=== PATIENT | male | born 1950 | race Caucasian/White ===

== ENCOUNTER → 2016-06-07 | Outpatient (REF) | payer OTHER | LOC: M LAB REF 16:13 | PROVIDERS: ATTEND Surgery | DX: I87.312 Chronic venous hypertension (idiopathic) with ulcer of left lower extremity (principal) ==

== ENCOUNTER → 2016-07-12 | Outpatient (REF) | payer OTHER ==
[~2016-07-12] MED LIST: BACT800T5 PO; FOLI400T PO; FOLI800C PO; LEVA750T PO; LINE600T PO; LOSA25TA8; LOSA25TA8 PO; MULT1TAB10 PO; OXYC1TAB23 PO; PENT400T47; PENT400T47 PO; RISATAB3 PO; SANT250O8 TOP; SENN1TAB2 PO; TRAM50TA2; TRAM50TA2 PO; VITA-122 PO; VITA400T PO; VITMTA PO; XARE15TA PO; XARE20TA; trental
== END ==
LOC: M LAB REF 16:18
PROVIDERS: ATTEND Surgery
DX: I87.312 Chronic venous hypertension (idiopathic) with ulcer of left lower extremity (principal)

== ENCOUNTER 2016-07-14 07:29 | Inpatient (IN) | payer OTHER ==
[~2016-07-14] VITALS: Ht 172.7 cm; Wt 99.6 kg
[2016-07-14] MEDS ORDERED: TRAM50TA2 (07:54)
[2016-07-14] MEDS ORDERED: trental (07:55)
[2016-07-14] MEDS ORDERED: LOSA25TA8 (07:55)
[2016-07-14] MEDS ORDERED: FOLI800C PO (07:55)
[2016-07-14] MEDS ORDERED: PENT400T47 (07:55)
[2016-07-14] MEDS ORDERED: XARE20TA (07:55)
[2016-07-14] MEDS ORDERED: MULT1TAB10 PO (07:55)
[2016-07-14] MEDS ORDERED: VITA400T PO (07:55)
[2016-07-14 08:55] LABS: BASO % 0.6 % (0.0-1.0); EOS # 0.1 K/mm3 (0.0-0.50); EOS % 1.2 % (0.0-3.0); LARGE UNSTAINED CELL # 0.1 K/mm3 (0.0-0.4); LARGE UNSTAINED CELL % 1.3 % (0.0-4.0); LYMPH # 1.6 K/mm3 (1.5-4.5); LYMPH % 22.1 % (24.0-44.0); MEAN CORPUSCULAR HEMOGLOBIN 32.6 pg (27.0-33.0); MEAN CORPUSCULAR HGB CONC 35.6 g/dl (32.0-36.5); MEAN CORPUSCULAR VOLUME 91.6 fl (80.0-96.0); MONO # 0.4 K/mm3 (0.0-0.8); NEUTROPHILS # 4.9 K/mm3 (1.8-7.7); NEUTROPHILS % 69.7 % (36.0-66.0); PLATELET COUNT, AUTOMATED 180 k/mm3 (150-450)
[2016-07-14 08:58] LABS: INR 1.11
[2016-07-14] MEDS ORDERED: LevoFLOXacin IV 750 MG in APPROPRIATE DILUENT 1 EA IV ONE (09:00)
[2016-07-14 09:32] LABS: ERYTHROCYTE SEDIMENTATION RATE 7 mm/hr (0-20)
[2016-07-14] MEDS ORDERED: TRAM50TA2 PO (09:50)
[2016-07-14] MEDS ORDERED: VITA-122 PO (09:50)
[2016-07-14] MEDS ORDERED: PENT400T47 PO (09:50)
[2016-07-14] MEDS ORDERED: FOLI400T PO (09:50)
[2016-07-14] MEDS ORDERED: LOSA25TA8 PO (09:50)
[2016-07-14] MEDS ORDERED: SANT250O8 TOP (09:50)
[2016-07-14] MEDS ORDERED: XARE15TA PO (09:50)
[2016-07-14] MEDS ORDERED: VITMTA PO (09:50)
[2016-07-14 10:14] LABS: ANION GAP 9 MEQ/L (8-16); BLOOD UREA NITROGEN 19 MG/DL (7-18); CALCIUM LEVEL 8.7 MG/DL (8.8-10.2); CARBON DIOXIDE LEVEL 23 MEQ/L (21-32); CHLORIDE LEVEL 111 MEQ/L (98-107); CREATININE FOR GFR 0.84 MG/DL (0.70-1.30); GLOMERULAR FILTRATION RATE > 60.0 (>49); GLUCOSE, FASTING 106 MG/DL (80-110); SODIUM LEVEL 143 MEQ/L (136-145)
[2016-07-14] MEDS ORDERED: ACETAMINOPHEN TAB 650MG DOSE (2X325MG) PO PRN (12:30)
[2016-07-14] MEDS: traMADol 50 MG TAB PO PRN ×2 (13:36→22:49)
[2016-07-14 13:41] VITALS: BP 185/97
--- NOTE | 2016-07-14 14:24 | REP ---
MRI LEFT LOWER LEG WITH AND WITHOUT CONTRAST: TECHNIQUE: Multiple T1 and T2-weighted images in various planes followed by T1 fat sat images with the intravenous administration of 18 mL of gadolinium. There is ill-defined superficial soft tissue edema of the medial calf with associated ill-defined enhancement. Multiple venous varicosities are seen in this region. Findings are consistent with cellulitis. No abscess collection is seen. Adjacent tibia and fibula demonstrate normal marrow signal with no bone marrow edema or enhancement. There is no MR evidence of osteomyelitis. IMPRESSION: Cellulitis of the mid calf medially without evidence of abscess or osteomyelitis. Signed by Julio César Boothe MD 07/14/2016 04:43 P
--- NOTE | 2016-07-14 14:27 | REP ---
MRA ABDOMINAL AORTA AND BILATERAL LOWER EXTREMITIES: MRA abdominal aorta and bilateral lower extremities performed utilizing 3D [id number] image with MIP reconstructions, following the intravenous administration of 18 mL of gadolinium. Abdominal aorta is normal in caliber with no aneurysm. Proximal renal arteries demonstrate no significant stenosis. There does not appear to be significant stenosis of the celiac or superior mesenteric arteries. Both common iliac arteries are widely patent. Internal and external iliac arteries, as well as common femoral arteries appear widely patent. There is mild narrowing at the origin of both superficial femoral arteries. No significant narrowing is seen of either superficial femoral artery. Popliteal arteries are widely patent. There is narrowing at the origin of both anterior tibial arteries, but both of those arteries are patent to at least the ankle. Right peroneal artery is patent to at least the level of just above the ankle. Right posterior tibial artery is patent into the foot. Left peroneal artery appears to be patent to at least the distal third of the calf. Left posterior tibial artery is patent into the foot. IMPRESSION: No significant arterial stenosis in either lower extremity down through the popliteal arteries. Trifurcation vessels appear to be patent to at least the distal third of the calf with both posterior tibial arteries definitely entering each respective foot. Signed by Julio César Boothe MD 07/14/2016 04:43 P
[2016-07-14] MEDS: FOLIC ACID 1 MG TAB PO SCH (14:33)
[2016-07-14] MEDS: RIVAROXABAN 15 MG TAB (XARELTO) PO SCH (14:33)
[2016-07-14] MEDS: LOSARTAN 25 MG TAB PO SCH (14:34)
[2016-07-14] MEDS: MULTIVITAMINS/MINERALS THERAP 1 TAB PO SCH (14:34)
[2016-07-14] MEDS: SENOKOT S TAB PO SCH ×2 (14:34→21:23)
[2016-07-14] MEDS: VITAMIN D 1,000 INTERNATIONAL UNITS TABLET PO SCH (14:34)
[2016-07-14] MEDS: SANTYL OINT 30GM TOP SCH (14:35)
[2016-07-14] MEDS: CEFTAROLINE FOSAMIL 600 MG in D5W MINI-BAG PLUS 50 ML IV SCH (14:36)
[2016-07-14 16:00] VITALS: BP 152/80
[2016-07-14] MEDS: PENTOXIFYLLINE 400 MG TAB PO SCH ×2 (16:19→21:23)
--- NOTE | 2016-07-14 18:04 | HPE ---
DATE OF ADMISSION: 07/14/2016 PRIMARY CARE PROVIDER: AUGUSTINE Truong BSW: Kike Calero MD CHIEF COMPLAINT: Left lower calf chronic ulcer that is not healing, swollen. HISTORY OF PRESENT ILLNESS: This is a 65-year-old male patient with underlying medical history of Factor V Leiden, sees Dr. 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 Patient had chronic left lower extremity venous stasis ulcers for the past 30 years, treated by Dr. Calero, has been getting progressively worse recently. Dr. Calero attempted for aspiration recently and has not improved. Patient has been receiving outpatient antibiotics with Bactrim, has not improved, and also reported receiving collagenase, instructed to do pressure offloading. The patient also reported subjective fever at home. Subsequently, instructed by Dr. Calero to present to the hospital for further care. Patient reports subjective fever. Reported no significant purulent drainage. Does report worsening pain. Denies any chest pain, pressure or discomfort, shortness of breath, nausea or vomiting. ALLERGIES: LISINOPRIL. PAST MEDICAL HISTORY: 1. Factor V Leiden disease. 2. DVT / PE. 3. History of left knee injury with skin grafts and also ligation of left lower extremity veins. 4. Venous stasis ulcers and disease. 5. Hypertension. 6. IVC filters. PAST SURGICAL HISTORY: Skin graft of left lower extremity, vein ligation 2009, tonsillectomy, carpal tunnel surgery bilateral. FAMILY HISTORY: Father age 69 with cancer. Mother age 69 with also cancer. SOCIAL HISTORY: Patient does not smoke. Drinks wine about once a week, 1-2 cups. Denies any illicit drug use. REVIEW OF SYSTEMS: 11-point review of systems negative except for those mentioned in history of present illness (HPI). HOME MEDICATIONS: - vitamin D 1000 units by mouth daily - collagenase topical daily - folic acid 400 mcg by mouth daily - losartan 25 mg by mouth daily - multivitamin one tablet by mouth daily - pentoxifylline 400 mg by mouth three times a day - Xarelto 15 mg by mouth daily - tramadol 50 mg by mouth every 8 hours as needed PHYSICAL EXAMINATION: VITAL SIGNS: Temperature 97.7, pulse 69, respirations 18, blood pressure 155/92, pulse oximetry 97% on room air. GENERAL: Patient alert and oriented times three, in no acute distress. HEENT: Normocephalic, atraumatic. PULMONARY: Bilateral clear to auscultation. CARDIAC: Regular rate and rhythm, normal S1, S2. ABDOMEN: Soft, nontender, nondistended. EXTREMITIES: Left lower extremity scar noticed with a 5 cm diameter ulcer with surrounding erythema and induration measuring diameter of 15 cm. Dorsalis pedis/posterior tibial (DP/PT) pulses intact bilateral. LABORATORY DATA: WBC 7, hemoglobin and hematocrit 14.8/41.6, platelets 180. Chemistry: Sodium 143, potassium 4, chloride 111, bicarbonate 23, BUN 19, creatinine 0.86, lactic acid 1.1, C-reactive protein negative. Previous wound culture positive for Escherichia (E) coli. MRI of the extremity shows cellulitis medially without evidence of abscess of osteomyelitis. MRA of the lower extremity within normal limits. ASSESSMENT AND PLAN: This is a 65-year-old male patient with underlying medical history of Factor V Leiden disease with history of pulmonary embolus (PE) and deep venous thrombosis (DVT), venous stasis ulcers, hypertension, carpal tunnel, admitted for left lower extremity cellulitis, with failure of outpatient treatment. 1. Left lower extremity cellulitis and ulcers. Failed outpatient treatment by Dr. Calero. Antibiotics on Teflaro for now. Followup cultures, blood culture, wound culture. C-reactive protein, erythrocyte sedimentation rate (ESR) negative. MRI negative for osteomyelitis. Collagenase with Alginate foam as per Dr. Calero. Case discussed with Dr. Calero. Recommending antibiotics for 2 days with outpatient followup. MRA to appreciate arterial circulation which is intact. 2. History of Factor V Leiden with history of deep venous thrombosis (DVT) and pulmonary embolus (PE). Continue Xarelto. Continue current medication. 3. Hypertension. Continue current medication. Monitor blood pressure, slightly high due to pain, will adjust if needed. 4. Deep venous thrombosis (DVT) prophylaxis. Patient on Xarelto for treatment of deep venous thrombosis (DVT)/pulmonary embolus (PE). Patient also has an inferior vena cava (IVC) filter. DISPOSITION: Pending clinical improvement. Patient admitted for observation.
[2016-07-14 21:00] VITALS: BP 144/80
[2016-07-14] MEDS ORDERED: KETOROLAC 30 MG/ML VIAL (J1885) IV ONE (21:45)
[2016-07-15 00:50] VITALS: BP 140/76
[2016-07-15] MEDS: CEFTAROLINE FOSAMIL 600 MG in D5W MINI-BAG PLUS 50 ML IV SCH ×2 (00:59→13:57)
[2016-07-15] MEDS: NORCO, ANEXSIA 5/325MG TABLET (HYDROcodone/ACETAMINOPHEN) PO PRN ×5 (02:17→21:41)
[2016-07-15 06:40] LABS: MEAN CORPUSCULAR HEMOGLOBIN 31.9 pg (27.0-33.0); MEAN CORPUSCULAR HGB CONC 34.6 g/dl (32.0-36.5); RED CELL DISTRIBUTION WIDTH 13.1 % (11.5-14.5); WHITE BLOOD COUNT 6.4 K/mm3 (4.0-10.0)
[2016-07-15 06:53] LABS: ANION GAP 3 MEQ/L (8-16); BLOOD UREA NITROGEN 17 MG/DL (7-18); CALCIUM LEVEL 8.8 MG/DL (8.8-10.2); CARBON DIOXIDE LEVEL 31 MEQ/L (21-32); CHLORIDE LEVEL 109 MEQ/L (98-107); CREATININE FOR GFR 0.98 MG/DL (0.70-1.30); GLOMERULAR FILTRATION RATE > 60.0 (>49); GLUCOSE, FASTING 98 MG/DL (80-110); MAGNESIUM LEVEL 2.1 MG/DL (1.8-2.4); POTASSIUM SERUM 4.1 MEQ/L (3.5-5.1); SODIUM LEVEL 143 MEQ/L (136-145)
[2016-07-15 08:00] VITALS: BP 138/86
[2016-07-15] MEDS: PENTOXIFYLLINE 400 MG TAB PO SCH ×3 (10:23→20:24)
[2016-07-15] MEDS: traMADol 50 MG TAB PO PRN (10:23)
[2016-07-15] MEDS: FOLIC ACID 1 MG TAB PO SCH (10:23)
[2016-07-15] MEDS: LOSARTAN 25 MG TAB PO SCH (10:27)
[2016-07-15] MEDS: RIVAROXABAN 15 MG TAB (XARELTO) PO SCH (10:27)
[2016-07-15] MEDS: MULTIVITAMINS/MINERALS THERAP 1 TAB PO SCH (10:27)
[2016-07-15] MEDS: SENOKOT S TAB PO SCH ×2 (10:27→20:25)
[2016-07-15] MEDS: VITAMIN D 1,000 INTERNATIONAL UNITS TABLET PO SCH (10:27)
[2016-07-15] MEDS: SANTYL OINT 30GM TOP SCH (10:28)
[2016-07-15] MEDS ORDERED: MORPHINE 2 MG/ML 1ML SYRINGE IV ONE (14:15)
[2016-07-15] MEDS ORDERED: LINE600T PO (15:35)
[2016-07-15] MEDS ORDERED: LINEZOLID 600MG TABLET (ZYVOX) PO SCH ×2 (15:45→21:00)
[2016-07-15 16:00] VITALS: BP 140/78
[2016-07-15] MEDS ORDERED: VANCOMYCIN HCL 1,000 MG, VIAL MATE ADAPTER 1 EACH in D5W 250 ML IV ONE (16:00)
[2016-07-15] MEDS: LACTOBACILLUS ACIDOPHILUS CAP (BACID) PO SCH ×2 (16:23→20:24)
[2016-07-15] MEDS: CEFEPIME HCL 2 GM in D5W MINI-BAG PLUS 50 ML IV SCH (17:35)
--- NOTE | 2016-07-15 18:50 | PHACANCOPD ---
PHARMACY VANCOMYCIN DOSING Pt Demographics Demographics Patient Age:65 , Weight:94.400 , Gender: male Adjusted Body Weight Date: 07/15/16, Adjusted Body Weight: [78] Kg Events Past 24 Hours Events Past 24 Hours: NO: Dialysis, Diuretic Therapy, Change in CrCl, Fever, Elevation in WBC, Pending Diagnostics, Pending Procedures, Other Vancomycin Vancomycin indication: MRSA cellulitis Vancomycin Target Ranges: 15-20 mcg/ml Vancomycin Load Y/N: Yes Load Dose Date Time Vancomycin Load Dose: 1000mg Date: 07/15 Time: 16:00 Vancomycin Dose Date: 07/15/16. Current Vancomycin Dose: [1g q8h @20] Intermittent Dosing?: No Labs Labs Item Value Date Time White Blood Count 7.0 K/mm3 07/14/16 0832 White Blood Count 6.4 K/mm3 07/15/16 0620 Creatinine 0.84 MG/DL 07/14/16 0832 Creatinine 0.98 MG/DL 07/15/16 0620 C-Reactive Protein, Quantitative < 0.30 MG/DL 07/14/16 0832 Micro Microbiology 07/14/16 Blood Culture - Preliminary, Resulted No growth after 24 hours . All specim... 07/14/16 Blood Culture - Preliminary, Resulted No growth after 24 hours . All specim... 07/14/16 Gram Stain - Final, Resulted 07/14/16 Wound Culture, Resulted Pending Creatinine Clearance Date:07/15/16. Creatinine Clearance: [84 ml/min - using adjusted BW]. Assessment and Plan Maintaining Current Dose?: Yes Reason for dose change: No Dose Change Pharmacist Note Pharmacist Note Date: 07/15/16. Pharmacist note: pt was admitted for left leg cellulitis/ulcers and started on ceftaroline yesterday. Pt failed outpatient po bactrim, wound cultures from 07/12 grew E. coli (resistant to bactrim) and MRSA (vanco BETH = 1) . Pt was subsequently changed to Cefepime and Vancomycin today after having worsening redness of his wound after 3 doses of Ceftaroline. Pt has not been on Vancomycin at our facility in the past. I have ordered Vanco IV 1g this afternoon, followed by 1g IV q8h to start 4 hours later. I will continue to monitor and order a trough as necessary. Manjit Lewis Pharm.D. Jul 15, 2016 18:50
[2016-07-15] MEDS: MORPHINE 2 MG/ML 1ML SYRINGE IV PRN ×2 (19:00→23:00)
[2016-07-15 20:00] VITALS: BP 142/72
[2016-07-15] MEDS: VANCOMYCIN HCL 1,000 MG, VIAL MATE ADAPTER 1 EACH in D5W 250 ML IV SCH (20:24)
[2016-07-16 01:00] VITALS: BP 132/71
[2016-07-16] MEDS: NORCO, ANEXSIA 5/325MG TABLET (HYDROcodone/ACETAMINOPHEN) PO PRN ×5 (01:57→21:50)
[2016-07-16] MEDS: MORPHINE 2 MG/ML 1ML SYRINGE IV PRN ×5 (04:34→23:57)
[2016-07-16] MEDS: VANCOMYCIN HCL 1,000 MG, VIAL MATE ADAPTER 1 EACH in D5W 250 ML IV SCH ×3 (04:35→20:47)
[2016-07-16] MEDS: CEFEPIME HCL 2 GM in D5W MINI-BAG PLUS 50 ML IV SCH ×2 (06:19→17:21)
[2016-07-16 06:55] LABS: MEAN CORPUSCULAR HEMOGLOBIN 31.3 pg (27.0-33.0); MEAN CORPUSCULAR HGB CONC 33.7 g/dl (32.0-36.5); MEAN CORPUSCULAR VOLUME 92.8 fl (80.0-96.0); RED CELL DISTRIBUTION WIDTH 13.2 % (11.5-14.5); WHITE BLOOD COUNT 6.4 K/mm3 (4.0-10.0)
[2016-07-16 07:08] LABS: ANION GAP 6 MEQ/L (8-16); BLOOD UREA NITROGEN 12 MG/DL (7-18); CALCIUM LEVEL 8.8 MG/DL (8.8-10.2); CARBON DIOXIDE LEVEL 25 MEQ/L (21-32); CHLORIDE LEVEL 112 MEQ/L (98-107); CREATININE FOR GFR 0.83 MG/DL (0.70-1.30); GLOMERULAR FILTRATION RATE > 60.0 (>49); GLUCOSE, FASTING 105 MG/DL (80-110); POTASSIUM SERUM 4.1 MEQ/L (3.5-5.1); SODIUM LEVEL 143 MEQ/L (136-145)
[2016-07-16 08:00] VITALS: BP 132/68
[2016-07-16] MEDS: LACTOBACILLUS ACIDOPHILUS CAP (BACID) PO SCH ×3 (09:39→20:47)
[2016-07-16] MEDS: MIRALAX *UNIT DOSE* 17GM PACKET PO SCH (09:39)
[2016-07-16] MEDS: MULTIVITAMINS/MINERALS THERAP 1 TAB PO SCH (09:40)
[2016-07-16] MEDS: SENOKOT S TAB PO SCH ×2 (09:40→20:47)
[2016-07-16] MEDS: FOLIC ACID 1 MG TAB PO SCH (09:40)
[2016-07-16] MEDS: RIVAROXABAN 15 MG TAB (XARELTO) PO SCH (09:40)
[2016-07-16] MEDS: VITAMIN D 1,000 INTERNATIONAL UNITS TABLET PO SCH (09:40)
[2016-07-16] MEDS: PENTOXIFYLLINE 400 MG TAB PO SCH ×3 (09:41→20:47)
[2016-07-16] MEDS: LOSARTAN 25 MG TAB PO SCH (09:41)
[2016-07-16] MEDS: SANTYL OINT 30GM TOP SCH (09:46)
--- NOTE | 2016-07-16 13:44 | IPN ---
DATE: 07/16/2016 Patient continued to report left lower extremity pain. Seems to be mildly improved. Denies any chest pain, pressure or discomfort, shortness of breath. Wound dressing was opened showing purulent drainage that is worse than before. Erythema seemed not to be spreading, definitely not any worse. VITAL SIGNS: Temperature 98.2, pulse 50, respirations 18, blood pressure 132/71, pulse oximetry 97% on room air. LABORATORY: WBC 6.4, hemoglobin and hematocrit (H and H) 13.8 over 40.8 and platelets 178. Chemistry: Sodium 143, potassium 4.1, chloride 112, bicarbonate 25, BUN 12, creatinine 0.83. Cultures positive for methicillin-resistant Staphylococcus aureus (MRSA) and E. Coli. PHYSICAL EXAMINATION: GENERAL: Patient alert and oriented times three in no acute distress. HEENT: Normocephalic, atraumatic. PULMONARY: Bilateral clear to auscultation. CARDIAC: Regular rate and rhythm. Normal S1, S2. ABDOMEN: Soft. Nontender. Nondistended. Positive bowel sounds. Left lower extremity dressing unwrapped showing a 5-6 cm diameter ulcer with purulent drainage and surrounding erythema and induration which was marked. Dorsalis pedis (DP) and posterior tibial (PT) pulses 2+ bilateral. ASSESSMENT AND PLAN: This is a 65-year-old male patient with underlying medical history of factor V Leiden disease with history of pulmonary embolism (PE) and deep vein thrombosis (DVT) admitted for left lower extremity cellulitis and nonhealing ulcer that has been ongoing for the past 30 years with failure of outpatient treatment. PROBLEMS: 1. Left lower extremity cellulitis and ulcer. Failed outpatient treatment by Dr. Calero. Antibiotics. Patient initially on Teflaro. Cultures show E. Coli and MRSA, antibiotics subsequently switched to Cefepime and vancomycin. Followup C-reactive protein and ESR has also been negative. MRI negative for osteomyelitis. Wound care. Currently patient is on collagenase with alginate foam as per Dr. Calero. Case discussed with Dr. Calero. Consulted surgery, Dr. Torres, for debridement. Continue antibiotics. MRI shows arterial circulation intact. 2. History of factor V Leiden disease with DVT and PE. Patient on Xarelto which was continued. 3. Hypertension. Continue current medication. Monitor blood pressure. 4. Deep vein thrombosis prophylaxis. Patient on Xarelto for treatment of DVT and PE with factor V Leiden. Patient also has an IVC filter. DISPOSITION: Pending clinical improvement. Given culture positive for E. Coli and MRSA, will monitor for clinical improvement. Surgery consulted for possible debridement and wound care.
--- NOTE | 2016-07-16 15:50 | IPN ---
DATE: 07/15/2016 SUBJECTIVE: Patient observation day one. Denies any fevers, chills, chest pain, pressure, discomfort. Reports continues to have pain from the wound and the cellulitis. Denies any shortness of breath. VITAL SIGNS: Temperature 98.8, pulse 47, respirations 18, blood pressure 138/86, pulse oximetry 97% on room air. LABORATORY DATA: WBC 6.4, hemoglobin and hematocrit 13.2, over 38.1, platelets 181. Chemistry: Sodium 143, potassium 4.1, chloride 109, bicarbonate 31, BUN 17, creatinine 0.98. PHYSICAL EXAMINATION: GENERAL: The patient alert and oriented times three. In no acute distress. HEENT: Normocephalic, atraumatic. PULMONARY: Bilaterally clear to auscultation. CARDIAC: Regular rate and rhythm, normal S1, S2. ABDOMEN: Soft, nontender, nondistended. EXTREMITIES: Left lower extremity scar with erythema and induration. Ulcer is noticed to be 5 cm in diameter, with surrounding erythema, induration measuring about 15-20 cm in diameter. Dorsalis pedis and posterior tibial pulses 2+. ASSESSMENT AND PLAN: This is a 65-year-old male patient with underlying medical history of factor V Leiden disease, with history of pulmonary embolism (PE) and deep venous thrombosis (DVT), venous stasis ulcer, hypertension, carpal tunnel, admitted for left lower extremity cellulitis with failure of outpatient treatment. 1. Left lower extremity cellulitis and ulcer, failed outpatient treatment by Dr. Calero. Antibiotic initially patient was on Teflaro which has streptococcus, staphylococcus, and also methicillin-resistant Staphylococcus aureus (MRSA) coverage. Currently switched to cefepime and vancomycin. Followup cultures. Previous culture positive for Escherichia (E.) coli and MRSA. Contact precautions. C-reactive protein and erythrocyte sedimentation rate (ESR) were negative. MRI negative for osteomyelitis, only cellulitis. Collagenase and alginate foam as per Dr. Calero. Case discussed with Dr. Calero. Patient currently not septic. Recommend outpatient followup of two days of intravenous (IV) antibiotics. Given patient's cultures currently, anticipate discharge with Levaquin and Bactrim. MRI for circulation has been intact. Bacid, probiotics. 2. History of factor V Leiden with deep venous thrombosis and pulmonary embolism. Continue Xarelto. Continue current medications. 3. Hypertension. Monitor blood pressures. Slightly high due to pain. Will adjust medication as needed. 4. Deep venous thrombosis (DVT) prophylaxis. Patient on Xarelto for treatment of DVT and PE. The patient also has an inferior vena cava (IVC) filter. DISPOSITION: Pending clinical improvement. Likely discharge in the next 24 hours.
[2016-07-16 16:53] VITALS: BP 138/60
[2016-07-16 20:00] VITALS: BP 139/73
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
[2016-07-17] VITALS: BP 101/62
[2016-07-17] MEDS: NORCO, ANEXSIA 5/325MG TABLET (HYDROcodone/ACETAMINOPHEN) PO PRN ×3 (01:55→10:04)
[2016-07-17 04:00] VITALS: BP 132/47
[2016-07-17] MEDS: VANCOMYCIN HCL 1,000 MG, VIAL MATE ADAPTER 1 EACH in D5W 250 ML IV SCH (04:14)
[2016-07-17] MEDS: MORPHINE 2 MG/ML 1ML SYRINGE IV PRN ×2 (04:14→08:19)
[2016-07-17] MEDS: CEFEPIME HCL 2 GM in D5W MINI-BAG PLUS 50 ML IV SCH (06:04)
[2016-07-17 07:41] LABS: MEAN CORPUSCULAR HEMOGLOBIN 31.6 pg (27.0-33.0); MEAN CORPUSCULAR VOLUME 92.8 fl (80.0-96.0); RED CELL DISTRIBUTION WIDTH 13.4 % (11.5-14.5); WHITE BLOOD COUNT 5.9 K/mm3 (4.0-10.0)
[2016-07-17 07:52] LABS: ANION GAP 3 MEQ/L (8-16); BLOOD UREA NITROGEN 13 MG/DL (7-18); CALCIUM LEVEL 8.6 MG/DL (8.8-10.2); CARBON DIOXIDE LEVEL 30 MEQ/L (21-32); CHLORIDE LEVEL 108 MEQ/L (98-107); CREATININE FOR GFR 0.88 MG/DL (0.70-1.30); GLOMERULAR FILTRATION RATE > 60.0 (>49); GLUCOSE, FASTING 101 MG/DL (80-110); MAGNESIUM LEVEL 2.1 MG/DL (1.8-2.4); POTASSIUM SERUM 4.1 MEQ/L (3.5-5.1); SODIUM LEVEL 141 MEQ/L (136-145)
[2016-07-17 08:00] VITALS: BP 120/63
[2016-07-17] MEDS: PENTOXIFYLLINE 400 MG TAB PO SCH (08:15)
[2016-07-17] MEDS: MIRALAX *UNIT DOSE* 17GM PACKET PO SCH (08:15)
[2016-07-17] MEDS: FOLIC ACID 1 MG TAB PO SCH (08:15)
[2016-07-17] MEDS: LACTOBACILLUS ACIDOPHILUS CAP (BACID) PO SCH (08:15)
[2016-07-17 08:16] VITALS: BP 120/63
[2016-07-17] MEDS: MULTIVITAMINS/MINERALS THERAP 1 TAB PO SCH (08:16)
[2016-07-17] MEDS: SENOKOT S TAB PO SCH (08:16)
[2016-07-17] MEDS: RIVAROXABAN 15 MG TAB (XARELTO) PO SCH (08:16)
[2016-07-17] MEDS: LOSARTAN 25 MG TAB PO SCH (08:16)
[2016-07-17] MEDS: VITAMIN D 1,000 INTERNATIONAL UNITS TABLET PO SCH (08:16)
[2016-07-17] MEDS: SANTYL OINT 30GM TOP SCH (08:23)
[2016-07-17] MEDS ORDERED: SENN1TAB2 PO (09:53)
[2016-07-17] MEDS ORDERED: RISATAB3 PO (09:53)
[2016-07-17] MEDS ORDERED: LEVA750T PO (09:53)
[2016-07-17] MEDS ORDERED: BACT800T5 PO (09:53)
[2016-07-17] MEDS ORDERED: OXYC1TAB23 PO (09:55)
--- NOTE | 2016-07-17 13:22 | PHACANCOPD ---
PHARMACY VANCOMYCIN DOSING Pt Demographics Demographics Patient Age:65 , Weight:99.600 , Gender: male Adjusted Body Weight Date: 07/15/16, Adjusted Body Weight: [78] Kg Vancomycin Vancomycin indication: MRSA cellulitis Vancomycin Target Ranges: 15-20 mcg/ml Vancomycin Load Y/N: Yes Load Dose Date Time Vancomycin Load Dose: 1000mg Date: 07/15 Time: 16:00 Vancomycin Dose Date: 07/17/16. Current Vancomycin Dose: [1g IV q8h@20] Date: 07/15/16. Current Vancomycin Dose: [1g q8h @20] Intermittent Dosing?: No Labs Labs Vital Signs Label Value Date Time Patient Temperature 98.6 degrees F 07/17/16 0800 Temperature Source Temporal 07/17/16 0800 Item Value Date Time White Blood Count 5.9 K/mm3 07/17/16 0719 Vancomycin Level Trough 18.5 UG/ML 07/17/16 1105 Micro Microbiology 07/14/16 Blood Culture - Preliminary, Resulted No Growth after 72 hours. All specime... 07/14/16 Blood Culture - Preliminary, Resulted No Growth after 72 hours. All specime... 07/14/16 Gram Stain - Final, Complete 07/14/16 Wound Culture - Final, Complete Escherichia Coli Staph.aureus Methicillin Resis Creatinine Clearance Date:07/15/16. Creatinine Clearance: [84 ml/min - using adjusted BW]. Assessment and Plan Maintaining Current Dose?: Yes Reason for dose change: No Dose Change Pharmacist Note Pharmacist Note 07/17: Patient's trough came back at 18.5. His wound culture came back positive for MRSA and E. Coli, and his blood cultures are still pending. We will continue his current dose of Vancomycin 1gm IV q8h and make adjustments as necessary. Date: 07/15/16. Pharmacist note: pt was admitted for left leg cellulitis/ulcers and started on ceftaroline yesterday. Pt failed outpatient po bactrim, wound cultures from 07/12 grew E. coli (resistant to bactrim) and MRSA (vanco BETH = 1) . Pt was subsequently changed to Cefepime and Vancomycin today after having worsening redness of his wound after 3 doses of Ceftaroline. Pt has not been on Vancomycin at our facility in the past. I have ordered Vanco IV 1g this afternoon, followed by 1g IV q8h to start 4 hours later. I will continue to monitor and order a trough as necessary. [facility] July 17, 2016 13:22
--- NOTE | 2016-07-17 15:40 | DSES ---
DATE OF ADMISSION: 07/14/2016 DATE OF DISCHARGE: 07/17/2016 PRIMARY CARE PROVIDER: AUGUSTINE Truong [employer] OPERATIONS AGENT: Dr. Calero GENERAL SURGEON: Dr. Torres FINAL DIAGNOSES: 1. Left lower extremity cellulitis and ulcers with methicillin-resistant Staphylococcus aureus (MRSA) and Escherichia (E) coli. 2. History of factor V Leiden with deep vein thrombosis (DVT) and pulmonary embolus (PE) history. 3. Hypertension. HISTORY OF PRESENT ILLNESS: This is a 65-year-old male patient with underlying medical history of Factor V Leiden, sees Dr. Sheng Choudhary, with history of pulmonary embolus (PE) and deep venous thrombosis (DVT) in 1983 with inferior vena cava (IVC) filter as well as on anticoagulation with Xarelto, and history of injury to the left knee with vein ligations, subsequent venous stasis ulcers, and also requiring skin grafts in the past, also hypertension and carpal tunnel disease. Patient had chronic left lower extremity venous stasis ulcer for the past 30 years, treated by Dr. Calero, but recently has been getting progressively worse. Dr. Calero attempted aspiration but it has not improved. Patient was on outpatient antibiotics with Bactrim which also has not improved. Subsequently asked to come in by Dr. Calero. Reported subjective fevers and chills. Denies any chest pain, pressure or discomfort, shortness of breath. Reported 8/10 pain. HOSPITAL COURSE: The patient is admitted to the hospital. Imperial is given as well as morphine for pain medication. Initially, patient on Teflaro. Later, cultures show Escherichia (E) coli and methicillin-resistant Staphylococcus aureus (MRSA). Subsequently, patient was placed on cefepime and vancomycin. MRI done showing no evidence of osteomyelitis, only cellulitis. MRA showing no perfusion deficit. Case was discussed with Dr. Calero who agreed with the current plan and general surgeon Dr. Torres also evaluated the patient, recommend outpatient followup for further wound care with Dr. Calero. Patient currently tolerating oral, in no acute distress, comfortable. VITAL SIGNS: Temperature 98.6, pulse 51, respirations 16, blood pressure 120/63, pulse oximetry 96% on room air. LABORATORY DATA: WBC 5.9, hemoglobin and hematocrit 13.8/40.5, platelets 194. Chemistry: Sodium 141, potassium 4.1, chloride 108, bicarbonate 30, BUN 13, creatinine 0.88. DISCHARGE MEDICATIONS: - Levaquin 750 mg by mouth daily for 10 days - Percocet 5/325 mg one tablet by mouth every four hours as needed - probiotic one tablet by mouth three times a day - Senna Plus 8.6-50 mg one tablet by mouth twice a day - Bactrim 800-160 mg by mouth twice a day for 10 more days Patient's home medications that were continued: - vitamin D 1000 units by mouth daily - collagenase topical daily - folic acid 400 mcg by mouth daily - losartan 25 mg by mouth daily - multivitamin one tablet by mouth daily - pentoxifylline 400 mg by mouth three times a day - Xarelto 50 mg by mouth daily - tramadol 50 mg by mouth every eight hours as needed DISCHARGE INSTRUCTIONS: The patient is instructed to keep the leg elevated, avoid bearing weight on the leg, followup with Dr. Calero on Sunday. Pain management referral has been made. Return to the hospital if symptoms worsen.
== END 2016-07-17 13:00 | disposition home or self-care (01) | DRG 383 ==
LOC: M ED 08:24 → EDBEDREQ 09:43 → EEVIPCON 12:28 → OBSVTOIN 12:28 → M ED INP 12:28 → M PED 13:21 → INTOOBSV 07-16 08:14 → OBSVTOIN 07-16 08:14
PROVIDERS: ADMIT Hospitalist; ATTEND Hospitalist
DX: L03.116 Cellulitis of left lower limb (principal); D68.51 Activated protein C resistance; L97.229 Non-pressure chronic ulcer of left calf with unspecified severity; I10 Essential (primary) hypertension; I83.222 Varicose veins of left lower extremity with both ulcer of calf and inflammation; B95.62 Methicillin resistant Staphylococcus aureus infection as the cause of diseases classified elsewhere; B96.20 Unspecified Escherichia coli [E. coli] as the cause of diseases classified elsewhere; Z79.899 Other long term (current) drug therapy; Z86.718 Personal history of other venous thrombosis and embolism; Z86.711 Personal history of pulmonary embolism; Z95.9 Presence of cardiac and vascular implant and graft, unspecified; Z88.8 Allergy status to other drugs, medicaments and biological substances; Z80.9 Family history of malignant neoplasm, unspecified

== ENCOUNTER → 2016-11-23 | Outpatient (REF) | payer MEDICARE ==
[~2016-11-23] MED LIST changes: -LEVA750T PO; +LEVA750T7 PO
== END ==
LOC: M SFHCPLAZ 14:26
PROVIDERS: ATTEND Physician Assistant Medical
DX: R06.02 Shortness of breath (principal)

== ENCOUNTER → 2016-11-23 | Outpatient (CLI) | payer MEDICARE ==
--- NOTE | 2016-11-23 15:04 | REP ---
Chest two views HISTORY: Shortness of breath Comparison: 10/13/2014 The lungs are clear. The heart is normal in size. The pulmonary vasculature is normal in appearance. The bony structure is intact. IMPRESSION: No acute disease. Signed by Terry Perez MD 11/23/2016 02:55 P
[2016-11-23 18:55] LABS: BASO % 0.4 % (0.0-1.0); EOS # 0.1 K/mm3 (0.0-0.50); EOS % 1.6 % (0.0-3.0); LARGE UNSTAINED CELL # 0.1 K/mm3 (0.0-0.4); LARGE UNSTAINED CELL % 1.7 % (0.0-4.0); LYMPH # 1.8 K/mm3 (1.5-4.5); LYMPH % 28.4 % (24.0-44.0); MEAN CORPUSCULAR HEMOGLOBIN 32.1 pg (27.0-33.0); MEAN CORPUSCULAR HGB CONC 34.6 g/dl (32.0-36.5); MEAN CORPUSCULAR VOLUME 92.8 fl (80.0-96.0); MONO # 0.3 K/mm3 (0.0-0.8); MONO % 4.4 % (0.0-5.0); NEUTROPHILS # 4.1 K/mm3 (1.8-7.7); NEUTROPHILS % 63.5 % (36.0-66.0); PLATELET COUNT, AUTOMATED 246 k/mm3 (150-450); RED CELL DISTRIBUTION WIDTH 12.8 % (11.5-14.5); WHITE BLOOD COUNT 6.4 K/mm3 (4.0-10.0)
== END ==
LOC: M SMT 14:35
PROVIDERS: ATTEND Physician Assistant Medical
DX: R06.02 Shortness of breath (principal)
CPT/HCPCS: 36415; 71020; 85025; 85379; 85610; G0463

== ENCOUNTER → 2017-04-30 | Outpatient (CLI) | payer MEDICARE | LOC: M RAD 12:08 | DX: I87.312 Chronic venous hypertension (idiopathic) with ulcer of left lower extremity (principal); I82.502 Chronic embolism and thrombosis of unspecified deep veins of left lower extremity; D68.2 Hereditary deficiency of other clotting factors; I82.402 Acute embolism and thrombosis of unspecified deep veins of left lower extremity | CPT/HCPCS: 93971 ==

== ENCOUNTER → 2017-06-28 | Outpatient (REF) | payer MEDICARE ==
[2017-06-30 14:11] LABS: FACTOR V 99 % (70-150)
== END ==
LOC: M SFHCPLAZ 10:12
DX: D68.51 Activated protein C resistance (principal)
CPT/HCPCS: 85220

== ENCOUNTER 2017-08-22 15:06 | Emergency (ER) | payer MEDICARE ==
[2017-08-22] MEDS: NS IV (15:30)
[2017-08-22] MEDS: DILUENT IV (15:30)
[2017-08-22 15:49] LABS: BASO % 0.2 % (0.0-1.0); EOS % 0.3 % (0.0-3.0); HEMOGLOBIN 15.1 g/dl (13.5-17.5); IMMATURE GRANULOCYTE % 0.1 % (0-3.0); LYMPH # 1.1 10^3/uL (1.5-4.5); LYMPH % 12.4 % (24.0-44.0); MEAN CORPUSCULAR HEMOGLOBIN 30.6 pg (27.0-33.0); MEAN CORPUSCULAR HGB CONC 33.6 g/dl (32.0-36.5); MEAN CORPUSCULAR VOLUME 91.3 fl (80.0-96.0); MONO # 0.4 10^3/uL (0.0-0.8); MONO % 4.8 % (0.0-5.0); NEUTROPHILS # 7.4 10^3/uL (1.8-7.7); NEUTROPHILS % 82.2 % (36.0-66.0); PLATELET COUNT, AUTOMATED 287 10^3/uL (150-450); RED BLOOD COUNT 4.93 10^6/uL (4.30-6.10); RED CELL DISTRIBUTION WIDTH 14.5 % (11.5-14.5); WHITE BLOOD COUNT 9.1 10^3/uL (4.0-10.0)
[2017-08-22] MEDS: CEFEPIME HCL 2 GM in D5W MINI-BAG PLUS 50 ML IV (16:07)
[2017-08-22 16:20] LABS: ALBUMIN 4.1 GM/DL (3.2-5.2); ALBUMIN/GLOBULIN RATIO 1.08 (1.00-1.93); ALKALINE PHOSPHATASE 95 U/L (45-117); ALT/SGPT 28 U/L (12-78); ANION GAP 8 MEQ/L (8-16); AST/SGOT 13 U/L (7-37); BILIRUBIN,DIRECT 0.1 MG/DL (0.0-0.2); BILIRUBIN,TOTAL 0.4 MG/DL (0.2-1.0); BLOOD UREA NITROGEN 16 MG/DL (7-18); CALCIUM LEVEL 9.7 MG/DL (8.8-10.2); CARBON DIOXIDE LEVEL 26 MEQ/L (21-32); CHLORIDE LEVEL 108 MEQ/L (98-107); CREATININE FOR GFR 0.91 MG/DL (0.70-1.30); GLOMERULAR FILTRATION RATE > 60.0 (>49); GLUCOSE, FASTING 92 MG/DL (70-100); POTASSIUM SERUM 3.9 MEQ/L (3.5-5.1); SODIUM LEVEL 142 MEQ/L (136-145); TOTAL PROTEIN 7.9 GM/DL (6.4-8.2)
[2017-08-22 16:21] LABS: LACTIC ACID SEPSIS PROTOCOL 1.3 MMOL/L (0.4-2.0)
[2017-08-22] MEDS: ONDANSETRON 4MG/2ML VIAL (J2405) IV ×2 (16:21)
[2017-08-22] MEDS: MORPHINE 2 MG/ML 1ML SYRINGE (J2270) IV ×4 (16:22→17:03)
== END 2017-08-22 18:18 | disposition home or self-care (01) ==
LOC: M ED 15:06
DX: L03.116 Cellulitis of left lower limb (principal); D68.51 Activated protein C resistance; Z86.718 Personal history of other venous thrombosis and embolism; Z86.711 Personal history of pulmonary embolism; Z98.890 Other specified postprocedural states; Z83.2 Family history of diseases of the blood and blood-forming organs and certain disorders involving the immune mechanism; Z88.8 Allergy status to other drugs, medicaments and biological substances
CPT/HCPCS: J2405

== ENCOUNTER 2017-10-01 06:01 | Emergency (ER) | payer MEDICARE, MEDICAID ==
[2017-10-01] MEDS: NORCO, ANEXSIA 5/325MG TABLET (HYDROcodone/ACETAMINOPHEN) PO (08:19)
[2017-10-01] MEDS: ENOXAPARIN 100MG/1ML SYRINGE (J1650) SC (09:40)
== END 2017-10-01 09:50 | disposition home or self-care (01) ==
LOC: M ED 06:01
DX: I82.402 Acute embolism and thrombosis of unspecified deep veins of left lower extremity (principal); I10 Essential (primary) hypertension; D68.59 Other primary thrombophilia; Z79.899 Other long term (current) drug therapy; Z79.01 Long term (current) use of anticoagulants; Z88.8 Allergy status to other drugs, medicaments and biological substances
CPT/HCPCS: J1650

== ENCOUNTER → 2018-01-02 | Outpatient (REF) | payer MEDICARE ==
[2018-01-02 13:47] LABS: BASO % 0.4 % (0.0-1.0); EOS # 0.1 10^3/uL (0.0-0.50); EOS % 0.6 % (0.0-3.0); HEMATOCRIT 43.6 % (42.0-52.0); HEMOGLOBIN 14.1 g/dl (13.5-17.5); IMMATURE GRANULOCYTE % 0.2 % (0-3.0); LYMPH # 1.7 10^3/uL (1.5-4.5); LYMPH % 19.7 % (24.0-44.0); MEAN CORPUSCULAR HEMOGLOBIN 29.7 pg (27.0-33.0); MEAN CORPUSCULAR HGB CONC 32.3 g/dl (32.0-36.5); MONO # 0.5 10^3/uL (0.0-0.8); MONO % 5.3 % (0.0-5.0); NEUTROPHILS # 6.2 10^3/uL (1.8-7.7); NEUTROPHILS % 73.8 % (36.0-66.0); PLATELET COUNT, AUTOMATED 285 10^3/uL (150-450); RED BLOOD COUNT 4.74 10^6/uL (4.30-6.10); RED CELL DISTRIBUTION WIDTH 13.2 % (11.5-14.5); WHITE BLOOD COUNT 8.4 10^3/uL (4.0-10.0)
[2018-01-02 14:03] LABS: PROTHROMBIN TIME 19.3 SECONDS (12.1-14.4)
[2018-01-02 14:24] LABS: ALBUMIN 3.6 GM/DL (3.2-5.2); ALBUMIN/GLOBULIN RATIO 1.09 (1.00-1.93); ALKALINE PHOSPHATASE 95 U/L (45-117); ALT/SGPT 30 U/L (12-78); ANION GAP 5 MEQ/L (8-16); AST/SGOT 22 U/L (7-37); BILIRUBIN,TOTAL 0.4 MG/DL (0.2-1.0); BLOOD UREA NITROGEN 13 MG/DL (7-18); CALCIUM LEVEL 8.8 MG/DL (8.8-10.2); CARBON DIOXIDE LEVEL 29 MEQ/L (21-32); CHLORIDE LEVEL 108 MEQ/L (98-107); CREATININE FOR GFR 0.77 MG/DL (0.70-1.30); GLOMERULAR FILTRATION RATE > 60.0 (>49); GLUCOSE, FASTING 87 MG/DL (70-100); POTASSIUM SERUM 4.6 MEQ/L (3.5-5.1); SODIUM LEVEL 142 MEQ/L (136-145); TOTAL PROTEIN 6.9 GM/DL (6.4-8.2)
== END ==
LOC: M SFHCPLAZ 12:12
DX: L97.822 Non-pressure chronic ulcer of other part of left lower leg with fat layer exposed (principal); Z51.81 Encounter for therapeutic drug level monitoring; Z79.01 Long term (current) use of anticoagulants
CPT/HCPCS: 80053

== ENCOUNTER → 2018-01-13 | Outpatient (REF) | payer MEDICARE, MEDICAID | LOC: M LAB REF 09:44 | DX: R21 Rash and other nonspecific skin eruption (principal) | CPT/HCPCS: 87077; 87186 ==

== ENCOUNTER → 2018-01-15 | Outpatient (REF) | payer MEDICARE, MEDICAID ==
[2018-01-15 13:39] LABS: BASO % 0.3 % (0.0-1.0); EOS # 0.2 10^3/uL (0.0-0.50); EOS % 1.8 % (0.0-3.0); HEMATOCRIT 48.3 % (42.0-52.0); IMMATURE GRANULOCYTE % 0.5 % (0-3.0); LYMPH # 1.2 10^3/uL (1.5-4.5); LYMPH % 10.7 % (24.0-44.0); MEAN CORPUSCULAR HEMOGLOBIN 30.2 pg (27.0-33.0); MEAN CORPUSCULAR HGB CONC 33.1 g/dl (32.0-36.5); MEAN CORPUSCULAR VOLUME 91.1 fl (80.0-96.0); MONO # 0.5 10^3/uL (0.0-0.8); MONO % 4.5 % (0.0-5.0); NEUTROPHILS % 82.2 % (36.0-66.0); PLATELET COUNT, AUTOMATED 283 10^3/uL (150-450); RED CELL DISTRIBUTION WIDTH 13.2 % (11.5-14.5); WHITE BLOOD COUNT 10.9 10^3/uL (4.0-10.0)
[2018-01-15 14:04] LABS: ALBUMIN/GLOBULIN RATIO 1.21 (1.00-1.93); ALKALINE PHOSPHATASE 99 U/L (45-117); ALT/SGPT 31 U/L (12-78); ANION GAP 10 MEQ/L (8-16); AST/SGOT 19 U/L (7-37); BILIRUBIN,TOTAL 0.8 MG/DL (0.2-1.0); BLOOD UREA NITROGEN 18 MG/DL (7-18); CALCIUM LEVEL 9.4 MG/DL (8.8-10.2); CARBON DIOXIDE LEVEL 25 MEQ/L (21-32); CHLORIDE LEVEL 106 MEQ/L (98-107); GLOMERULAR FILTRATION RATE > 60.0 (>49); GLUCOSE, FASTING 91 MG/DL (70-100); POTASSIUM SERUM 3.9 MEQ/L (3.5-5.1); SODIUM LEVEL 141 MEQ/L (136-145); TOTAL PROTEIN 7.3 GM/DL (6.4-8.2)
[2018-01-15 14:15] LABS: ERYTHROCYTE SEDIMENTATION RATE 6 mm/hr (0-20)
[2018-01-18 00:09] LABS: HSV TYPE II IgG SPECIFIC <0.91 index (0.00-0.90)
[2018-01-22 00:07] LABS: ANA (HEP2) Negative (.); HSV TYPE I IgM AB <1:10 titer (<1:10); HSV TYPE II IgM ABY <1:10 titer (<1:10); TISSUE TRANSGLUTAMINASE IgA <2 U/mL (0-3); VARICELLA ZOSTER VIRUS PCR Negative (Negative)
== END ==
LOC: M SFHCPLAZ 11:53
DX: R21 Rash and other nonspecific skin eruption (principal)
CPT/HCPCS: 80053

== ENCOUNTER → 2018-01-31 | Outpatient (REF) | payer MEDICARE ==
[2018-02-01 11:04] LABS: HIV 1&2 SCREEN CENTAUR NEGATIVE (NEGATIVE)
== END ==
LOC: M SFHCPLAZ 10:55
DX: B86 Scabies (principal)
CPT/HCPCS: 36415

== ENCOUNTER → 2018-04-26 | Outpatient (REF) | payer MEDICARE ==
[~2018-04-26] MED LIST changes: +COUM1TAB17 PO; +KEFL500C17 PO; -LINE600T PO; +LINE600T11 PO; +LOSA25TA14; +LOSA25TA14 PO; -LOSA25TA8; -LOSA25TA8 PO; +LOVE1INJ SC; +MULTCAP PO; +NORCOTAB PO; +WARF-23 PO
[2018-04-26 10:58] LABS: INR 1.93; PROTHROMBIN TIME 22.4 SECONDS (12.1-14.4)
== END ==
LOC: M SFHCPLAZ 09:54
PROVIDERS: ATTEND Physician Assistant Medical
DX: Z51.81 Encounter for therapeutic drug level monitoring (principal); Z79.01 Long term (current) use of anticoagulants
CPT/HCPCS: 85610; G0463

== ENCOUNTER → 2018-08-07 | Outpatient (REF) | payer MEDICARE ==
[~2018-08-07] MED LIST changes: +HYDR-3715 PO; -NORCOTAB PO; -SENN1TAB2 PO; +SENN1TAB40 PO
[2018-08-07 10:38] LABS: INR 3.01; PROTHROMBIN TIME 31.9 SECONDS (12.1-14.4)
== END ==
LOC: M SFHCPLAZ 08:40
PROVIDERS: ATTEND Physician Assistant Medical
DX: Z51.81 Encounter for therapeutic drug level monitoring (principal)
CPT/HCPCS: 15271; 15272; 36415; 85610; Q4121

== ENCOUNTER → 2018-08-14 | Outpatient (REF) | payer MEDICARE | LOC: M LAB REF 11:45 | PROVIDERS: ATTEND Surgery | DX: I87.312 Chronic venous hypertension (idiopathic) with ulcer of left lower extremity (principal) ==

== ENCOUNTER → 2018-09-09 | Outpatient (REF) | payer MEDICARE ==
[~2018-09-09] MED LIST changes: +LINE1TAB6 PO; -LINE600T11 PO
[2018-09-09 13:34] LABS: INR 3.47; PROTHROMBIN TIME 34.9 SECONDS (11.8-14.0)
== END ==
LOC: M SFHCPLAZ 10:37
PROVIDERS: ATTEND Physician Assistant Medical
DX: Z51.81 Encounter for therapeutic drug level monitoring (principal); Z79.01 Long term (current) use of anticoagulants
CPT/HCPCS: 36415; 85610; G0463

== ENCOUNTER → 2018-09-11 | Outpatient (REF) | payer MEDICARE | LOC: M LAB REF 16:06 | PROVIDERS: ATTEND Surgery | DX: I87.312 Chronic venous hypertension (idiopathic) with ulcer of left lower extremity (principal) | CPT/HCPCS: 15271; 15272; 87070; 87077; 87186; Q4196 ==

== ENCOUNTER → 2018-10-21 | Outpatient (REF) | payer MEDICARE ==
[~2018-10-21] MED LIST changes: +SENN-53 PO; -SENN1TAB40 PO
[2018-10-21 14:30] LABS: PROTHROMBIN TIME 19.7 SECONDS (11.8-14.0)
[2018-10-21 14:31] LABS: INR 1.7
== END ==
LOC: M LABDRAWP 10:06
PROVIDERS: ATTEND Surgery Vascular Surgery
DX: I87.393 Chronic venous hypertension (idiopathic) with other complications of bilateral lower extremity (principal); I87.2 Venous insufficiency (chronic) (peripheral); Z79.01 Long term (current) use of anticoagulants
CPT/HCPCS: 80053; 85025; 85610; 85730; 93005; G0463

== ENCOUNTER → 2018-10-21 | Outpatient (REF) | payer MEDICARE ==
[~2018-10-21] MED LIST changes: -SENN-53 PO; +SENN1TAB40 PO
[2018-10-21 13:37] LABS: BASO % 0.4 % (0.0-1.0); EOS % 0.5 % (0.0-3.0); HEMATOCRIT 41.3 % (42.0-52.0); HEMOGLOBIN 13.5 g/dl (13.5-17.5); LYMPH # 1.1 10^3/uL (1.5-4.5); LYMPH % 13.6 % (24.0-44.0); MEAN CORPUSCULAR HGB CONC 32.7 g/dl (32.0-36.5); MEAN CORPUSCULAR VOLUME 91.8 fl (80.0-96.0); MONO # 0.5 10^3/uL (0.0-0.8); MONO % 5.5 % (0.0-5.0); NEUTROPHILS # 6.5 10^3/uL (1.8-7.7); NEUTROPHILS % 79.8 % (36.0-66.0); PLATELET COUNT, AUTOMATED 201 10^3/uL (150-450); WHITE BLOOD COUNT 8.2 10^3/uL (4.0-10.0)
[2018-10-21 13:45] LABS: INR 1.7; PROTHROMBIN TIME 19.7 SECONDS (11.8-14.0)
[2018-10-21 13:46] LABS: PARTIAL THROMBOPLASTIN TIME 34.4 SECONDS (25.0-38.4)
[2018-10-21 14:34] LABS: ALT/SGPT 24 U/L (12-78); BILIRUBIN,TOTAL 0.9 MG/DL (0.2-1.0); BLOOD UREA NITROGEN 15 MG/DL (7-18); CALCIUM LEVEL 9.5 MG/DL (8.8-10.2); CARBON DIOXIDE LEVEL 29 MEQ/L (21-32); CHLORIDE LEVEL 107 MEQ/L (98-107); CREATININE FOR GFR 0.86 MG/DL (0.70-1.30); GLOMERULAR FILTRATION RATE > 60.0 (>49); GLUCOSE, FASTING 98 MG/DL (70-100); POTASSIUM SERUM 3.9 MEQ/L (3.5-5.1); SODIUM LEVEL 140 MEQ/L (136-145); TOTAL PROTEIN 6.7 GM/DL (6.4-8.2)
== END ==
LOC: M SFHCPLAZ 11:02
PROVIDERS: ATTEND Physician Assistant Medical
DX: Z01.818 Encounter for other preprocedural examination (principal); Z79.01 Long term (current) use of anticoagulants

== ENCOUNTER → 2018-10-21 | Outpatient (REF) | payer MEDICARE ==
[2018-10-21 14:31] LABS: INR 1.7; PROTHROMBIN TIME 19.7 SECONDS (11.8-14.0)
[2018-10-21 14:34] LABS: HEMATOCRIT 41.9 % (42.0-52.0); MEAN CORPUSCULAR HEMOGLOBIN 31.5 pg (27.0-33.0); MEAN CORPUSCULAR HGB CONC 33.4 g/dl (32.0-36.5); MEAN CORPUSCULAR VOLUME 94.2 fl (80.0-96.0); PLATELET COUNT, AUTOMATED 200 10^3/uL (150-450); RED BLOOD COUNT 4.45 10^6/uL (4.30-6.10); WHITE BLOOD COUNT 8.1 10^3/uL (4.0-10.0)
[2018-10-21 14:49] LABS: BLOOD UREA NITROGEN 14 MG/DL (7-18); CALCIUM LEVEL 9.4 MG/DL (8.8-10.2); CARBON DIOXIDE LEVEL 30 MEQ/L (21-32); CHLORIDE LEVEL 106 MEQ/L (98-107); CREATININE FOR GFR 0.89 MG/DL (0.70-1.30); GLOMERULAR FILTRATION RATE > 60.0 (>49); GLUCOSE, FASTING 97 MG/DL (70-100); POTASSIUM SERUM 3.9 MEQ/L (3.5-5.1); SODIUM LEVEL 140 MEQ/L (136-145)
== END ==
LOC: M LABDRAWP 10:12
PROVIDERS: ATTEND Surgery
DX: L97.909 Non-pressure chronic ulcer of unspecified part of unspecified lower leg with unspecified severity (principal)

== ENCOUNTER → 2018-11-08 | Outpatient (REF) | payer MEDICARE ==
[2018-11-08 16:55] LABS: INR 1.54; PROTHROMBIN TIME 18.2 SECONDS (11.8-14.0)
== END ==
LOC: M LABDRAWP 14:13
PROVIDERS: ATTEND Surgery
DX: L97.909 Non-pressure chronic ulcer of unspecified part of unspecified lower leg with unspecified severity (principal); Z79.01 Long term (current) use of anticoagulants

== ENCOUNTER → 2018-11-19 | Outpatient (REF) | payer MEDICARE ==
[2018-11-19 13:09] LABS: PROTHROMBIN TIME 60.9 SECONDS (11.8-14.0)
[2018-11-19 13:19] LABS: INR 6.95
== END ==
LOC: M SFHCPLAZ 10:08
PROVIDERS: ATTEND Physician Assistant Medical
DX: D68.51 Activated protein C resistance (principal); Z79.01 Long term (current) use of anticoagulants
CPT/HCPCS: 36415; 85610; G0463

== ENCOUNTER → 2018-12-31 | Outpatient (POV) | payer MEDICARE ==
[~2018-12-31] VITALS: Ht 170.2 cm; Wt 95.5 kg
[2018-12-31 13:00] VITALS: BP 133/57
--- NOTE | 2018-12-31 14:51 | REP ---
KUB: TWO VIEWS. HISTORY: Vena cava filter. Check filter placement. Comparison is made with chest x-ray from August 22, 2017. I note that an abdominal sonography was performed January 23, 2017 did not visualize an inferior vena cava filter. History available at that time was then the vena cava filter was placed in 1983. FINDINGS: The bowel gas pattern is normal. There is no evidence of vena cava filter in place in the abdomen or pelvis. Psoas margins and flank stripes are intact. No mass, organomegaly, or pathologic calcification is seen. There are some surgical clips in the left inguinal soft tissues. IMPRESSION: There is no evidence of vena cava filter noted in the abdomen or pelvis. Electronically Signed by Manpreet Gould MD 12/31/2018 06:47 P
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
== END ==
LOC: M IRPOV 13:47
PROVIDERS: ATTEND Radiology Diagnostic Radiology
DX: L97.929 Non-pressure chronic ulcer of unspecified part of left lower leg with unspecified severity (principal); I87.312 Chronic venous hypertension (idiopathic) with ulcer of left lower extremity; I10 Essential (primary) hypertension; D68.2 Hereditary deficiency of other clotting factors; Z86.711 Personal history of pulmonary embolism; Z86.718 Personal history of other venous thrombosis and embolism
CPT/HCPCS: 74018; G0463

== ENCOUNTER → 2019-01-13 | Outpatient (CLI) | payer MEDICARE ==
[~2019-01-13] MED LIST changes: +ISOVUE-300 61% 50ML VIAL (Q9967) As Ordered ONE; +LIDOCAINE 1% MDV 20ML VIAL As Ordered ONE; +MIDAZOLAM INJ 2 MG/2 ML VIAL (J2250) As Ordered ONE; +SENN-53 PO; -SENN1TAB40 PO; +diphenhydrAMINE INJ 50MG/ML VIAL (J1200) As Ordered ONE; +fentaNYL 100 MCG/2 ML INJECTION (J3010) As Ordered ONE
[2019-01-13 12:25] LABS: INR 1.75; PROTHROMBIN TIME 20.2 SECONDS (11.8-14.0)
--- NOTE | 2019-01-13 14:39 | IRHP ---
[facility] [place] IR Pre-Procedure H & P General Date of Service: Jan 13, 2019 Procedure: Same Day Surgery Interval History and Physical I have seen the patient and reviewed last H & P performed within 30 days. There is no significant interval change. History of Present Illness Chief Complaint The patient is a 68-year-old male admitted with a reason for visit of Dvt/Pe On Anticoag. PRE-PROCEDURE DIAGNOSIS: failed AC. DVT HEART: normal rate. LUNGS: normal breathing at rest. ASA Classification ASA Classification: III-Severe systemic dis. Mallampati Score: I NPO: Yes Problems with prior sedation: No Obstructive Sleep Apnea: No Plan moderate sedation Allergies Coded Allergies: MS - Hydrocodone (Verified Allergy, Intermediate, RASH, 01/10/18) MS - Levofloxacin (Verified Allergy, Intermediate, HIVES, 01/10/18) MS - Lisinopril (Verified Adverse Reaction, Intermediate, COUGH, 01/10/18) cough Home Medications Scheduled Losartan Potassium (Losartan Potassium), 25 MG PO DAILY, (Reported) Multivitamin (Multivitamins), 1 CAP PO DAILY, (Reported) Warfarin Sodium (Warfarin Sodium), 1.5 TAB PO 2XW, (Reported) Warfarin Sodium (Warfarin Sodium), 5 MG PO 5XW, (Reported) Scheduled PRN Tramadol HCl (Tramadol HCl), 50 MG PO Q8H PRN for PAIN, (Reported) VS, I&O, 24H, Fishbone Vital Signs/I&O Vital Signs Date Time Temp Pulse Resp B/P (MAP) Pulse Ox O2 Delivery O2 Flow Rate FiO2 01/13/19 14:25 67 16 95 Nasal Cannula 3 Laboratory Data 24H LABS Laboratory Tests 2 01/13/19 11:58: Prothrombin Time 20.2H, Prothromb Time International Ratio 1.75 DEBI STONE MD Jan 13, 2019 14:39
--- NOTE | 2019-01-13 15:33 | POST-OPPD ---
Postoperative Procedure Note Date Of Procedure: Jan 13, 2019 Time Of Procedure: 15:32 PREOPERATIVE DIAGNOSIS: failed AC. DVT POSTOPERATIVE DIAGNOSIS: failed AC. DVT FINDINGS: normal IVC PROCEDURE: IVC filter. see full report under imaging tab SURGEON: rahul ANESTHESIA: mod sed ESTIMATED BLOOD LOSS: < 5 ml COMPLICATIONS: none POSTOPERATIVE CONDITION: stable DEBI STONE MD Jan 13, 2019 15:33
--- NOTE | 2019-01-13 15:54 | REP ---
IR IVC filter placement. IR Venogram. IR moderate sedation. Ultrasound of the right groin. Clinical indication : Factor V leiden. Deep vein thrombosis and pulmonary emboli. Failed anticoagulation. Physician: Dr. Vasquez. Procedure: The patient was advised of the benefits, risks and alternatives of the procedure and informed consent was obtained. The time-out was performed with verification of the patient's name, MRN, site of procedure and type of procedure to be performed. The patient was positioned in the supine position on the angiographic table. The site was prepped and draped in the usual sterile fashion. Moderate sedation was performed by the physician including the presence of an independent trained observer that assisted in monitoring the patient's level of consciousness and physiologic status. Following administration of Fentanyl and Versed , the physician spent 45 minutes of continuous face to face time with the patient. Preliminary ultrasound of the right groin was performed and demonstrates a patent right common femoral vein which is easily compressible. The vein was accessed using a micropuncture kit, under ultrasound guidance. An 035 wire was placed into the peripheral inferior vena cava. An inferior vena cava venogram was then performed demonstrating a normal caliber inferior vena cava without filling defects and the renal vein inflow at the L1 level. No caval anomalies were identified. Normal inflow from the left iliac vein. The wire was then passed into the inferior vena cava and the filter sheath advanced over the wire. A filter was then advanced through the sheath and positioned within the infrarenal inferior vena cava. The filter was then deployed in the usual fashion. Positioning was confirmed fluoroscopically. The sheath was then removed and hemostasis obtained with manual compression. The patient tolerated the procedure well and was returned to PRU in stable condition. EBL: Less than 5 ml. Complications: None. Conclusion: 1. Normal inferior vena cava venogram. 2. Successful deployment of a cook select filter in the infrarenal inferior vena cava. 3. Given the patient's history, the patient likely needs life long filter. Therefore filter retrieval is not indicated. Thank you this referral. Electronically Signed by Serene Vasquez MD 01/13/2019 03:52 P
[2019-01-13 16:43] VITALS: BP 135/78
== END ==
LOC: M IRPRO 11:29
PROVIDERS: ATTEND Radiology Diagnostic Radiology
DX: D68.2 Hereditary deficiency of other clotting factors (principal); Z86.711 Personal history of pulmonary embolism; Z86.718 Personal history of other venous thrombosis and embolism; Z88.2 Allergy status to sulfonamides; Z88.5 Allergy status to narcotic agent; Z88.8 Allergy status to other drugs, medicaments and biological substances; Z79.899 Other long term (current) drug therapy; Z79.01 Long term (current) use of anticoagulants
CPT/HCPCS: 36415; 37191; 85610; 99152; 99153; C1769; C1880; C1894; J1200; J2250; J3010; Q9967

== ENCOUNTER → 2019-06-24 | Outpatient (CLI) | payer MEDICARE, MEDICAID ==
[~2019-06-24] MED LIST changes: -ISOVUE-300 61% 50ML VIAL (Q9967) As Ordered ONE; -LIDOCAINE 1% MDV 20ML VIAL As Ordered ONE; -MIDAZOLAM INJ 2 MG/2 ML VIAL (J2250) As Ordered ONE; -diphenhydrAMINE INJ 50MG/ML VIAL (J1200) As Ordered ONE; -fentaNYL 100 MCG/2 ML INJECTION (J3010) As Ordered ONE
[2019-06-24 13:44] LABS: INR 1.69; PROTHROMBIN TIME 19.6 SECONDS (11.8-14.0)
== END ==
LOC: M PLALAB 11:49
PROVIDERS: ATTEND Physician Assistant Medical
DX: Z86.711 Personal history of pulmonary embolism (principal)

== ENCOUNTER → 2019-07-08 | Outpatient (REF) | payer MEDICARE ==
[2019-07-08 10:26] LABS: INR 2.84; PROTHROMBIN TIME 29.7 SECONDS (11.8-14.0)
== END ==
LOC: M SFHCPLAZ 08:40
PROVIDERS: ATTEND Physician Assistant Medical
DX: D68.51 Activated protein C resistance (principal)

== ENCOUNTER → 2019-10-29 | Outpatient (REF) | payer MEDICARE, MEDICAID ==
[~2019-10-29] MED LIST changes: +ACET1TAB55 PO; +AMLO1TAB24 PO; +DOCU100C16 PO; +ELIQ5TAB PO; +LIDO4CR TOP; +NEUR300C PO; +PERC5TAB12 PO; +QUET1TAB7 PO; +WARF-18 PO; +WARF-22 PO
[2019-11-29 10:39] LABS: INR 1.81; PROTHROMBIN TIME 21.4 SECONDS (11.8-14.0)
== END ==
LOC: M SFHCPLAZ 17:05
PROVIDERS: ATTEND Physician Assistant Medical
DX: Z79.01 Long term (current) use of anticoagulants (principal)
CPT/HCPCS: 36415; 85610; G0463

== ENCOUNTER → 2019-11-12 | Outpatient (CLI) | payer MEDICARE, MEDICAID ==
[2019-11-12 12:52] LABS: INR 2.02; PROTHROMBIN TIME 23.3 SECONDS (11.8-14.0)
== END ==
LOC: M PLALAB 10:46
PROVIDERS: ATTEND Nurse Practitioner Family
DX: Z51.81 Encounter for therapeutic drug level monitoring (principal); Z79.01 Long term (current) use of anticoagulants; Z86.711 Personal history of pulmonary embolism
CPT/HCPCS: 36415; 85610; Q4110

== ENCOUNTER 2019-11-30 14:04 | Emergency (ER) | payer MEDICARE, MEDICAID ==
[~2019-11-30] VITALS: Ht 175.3 cm; Wt 91.8 kg
[~2019-11-30 14:04] MED LIST changes: -ACET1TAB55 PO; -AMLO1TAB24 PO; -DOCU100C16 PO; -ELIQ5TAB PO; -LIDO4CR TOP; -NEUR300C PO; -PERC5TAB12 PO; -QUET1TAB7 PO; -WARF-18 PO; -WARF-22 PO
[2019-11-30] MEDS ORDERED: WARF-22 PO (14:28)
[2019-11-30] MEDS ORDERED: MORPHINE 4 MG/ML 1ML VIAL/SYRINGE (J2270) IV PRN (14:30)
[2019-11-30] MEDS ORDERED: ONDANSETRON 4MG/2ML VIAL IV ONE (14:30)
[2019-11-30 15:35] LABS: BASO % 0.3 % (0.0-1.0); EOS # 0.1 10^3/uL (0.0-0.5); EOS % 0.7 % (0.0-3.0); HEMATOCRIT 45.2 % (42.0-52.0); HEMOGLOBIN 14.7 g/dl (13.5-17.5); LYMPH # 1.5 10^3/uL (1.5-5.0); LYMPH % 21.6 % (24.0-44.0); MEAN CORPUSCULAR HEMOGLOBIN 30.1 pg (27.0-33.0); MEAN CORPUSCULAR HGB CONC 32.5 g/dl (32.0-36.5); MEAN CORPUSCULAR VOLUME 92.6 fl (80.0-96.0); MONO # 0.4 10^3/uL (0.0-0.8); MONO % 5.4 % (0.0-5.0); NEUTROPHILS # 4.9 10^3/uL (1.5-8.5); NEUTROPHILS % 71.7 % (36.0-66.0); PLATELET COUNT, AUTOMATED 248 10^3/uL (150-450); RED BLOOD COUNT 4.88 10^6/uL (4.30-6.10); WHITE BLOOD COUNT 6.8 10^3/uL (4.0-10.0)
[2019-11-30 15:47] LABS: INR 4.04; PROTHROMBIN TIME 40.3 SECONDS (11.8-14.0)
[2019-11-30 15:54] LABS: ERYTHROCYTE SEDIMENTATION RATE 25 mm/hr (0-20)
[2019-11-30 16:01] LABS: ALBUMIN 4.1 GM/DL (3.2-5.2); ALT/SGPT 23 U/L (12-78); BILIRUBIN,TOTAL 0.6 MG/DL (0.2-1.0); BLOOD UREA NITROGEN 12 MG/DL (7-18); C REACTIVE PROTEIN QUANTITATIV 2.44 MG/DL (0.00-0.30); CALCIUM LEVEL 9.4 MG/DL (8.8-10.2); CARBON DIOXIDE LEVEL 27 MEQ/L (21-32); CHLORIDE LEVEL 111 MEQ/L (98-107); CREATININE FOR GFR 0.91 MG/DL (0.70-1.30); GLOMERULAR FILTRATION RATE > 60.0 (>49); GLUCOSE, FASTING 88 MG/DL (70-100); POTASSIUM SERUM 4.1 MEQ/L (3.5-5.1); SODIUM LEVEL 140 MEQ/L (136-145); TOTAL PROTEIN 7.8 GM/DL (6.4-8.2)
[2019-11-30 16:07] LABS: CK-MB VALUE MASS 2.7 NG/ML (<3.6); CPK CREATINE PHOSPHOKINASE 163 U/L (39-308); MB/CK RELATIVE INDEX 1.66 (< OR =4); TROPONIN I < 0.02 NG/ML (< 0.10)
--- NOTE | 2019-11-30 16:16 | REPVR ---
PROCEDURE INFORMATION: Exam: US Duplex Left Lower Extremity Veins, Limited Exam date and time: 11/30/2019 3:41 PM Age: 69 years old Clinical indication: Pain; Leg, lower; Left; Additional info: Pain h/o dvt TECHNIQUE: Imaging protocol: Real-time Duplex ultrasound of the Left Lower Extremity with 2-D traylor scale, color Doppler flow and spectral waveform analysis with image documentation. Limited exam focused on the left lower extremity veins. COMPARISON: US Duplex, Ext,LOWER veins,unilat 10/01/2017 6:45 AM FINDINGS: There is echogenic thrombus along the margin of the left common femoral vein, femoral vein through the thigh and popliteal vein. There is venous return identified throughout the deep veins of the left leg and therefore this echogenic thrombus is thought to be chronic thrombus. IMPRESSION: Chronic echogenic thrombus along the margin of the deep veins left leg. Venous return identified. Electronically signed by: Jose Price On 11/30/2019 16:15:45 PM
--- NOTE | 2019-11-30 16:21 | REPVR ---
PROCEDURE INFORMATION: Exam: XR Left Tibia and Fibula Exam date and time: 11/30/2019 3:10 PM Age: 69 years old Clinical indication: Other: Infection; Additional info: Nonhealing wound TECHNIQUE: Imaging protocol: XR Left tibia and fibula. Views: 2 views. COMPARISON: MRI-Tib/Fib W/O FOL WITH 07/14/2016 11:49 AM FINDINGS: Bones/joints: Osteophyte formation is noted of the lateral compartment of the knee. Soft tissues: There is a 10 cm large open wound along the medial surface lower leg at the level of the mid tibial diaphysis. There is no evidence of acute destructive change of bone to suggest acute changes of osteomyelitis. There is very extensive calcification within the soft tissues of the lower leg which is probably in the skin and subcutaneous layer. Vasculature: Severe vascular calcification is present. IMPRESSION: 10 cm large soft tissue ulceration/wound medial aspect of the lower leg with extensive skin and subcutaneous calcification. Electronically signed by: Jose Price On 11/30/2019 16:21:05 PM
[2019-11-30] MEDS ORDERED: ISOVUE-370 76% 100ML VIAL As Ordered ONE (16:31)
--- NOTE | 2019-11-30 18:00 | REPVR ---
PROCEDURE INFORMATION: Exam: CT Angiography Chest With Contrast Exam date and time: 11/30/2019 4:48 PM Age: 69 years old Clinical indication: Chest pain; Type not specified; Additional info: Cp TECHNIQUE: Imaging protocol: Computed tomographic angiography of the chest with intravenous contrast. 3D rendering (Not supervised by radiologist): MIP and/or 3D reconstructed images were created by the technologist. Radiation optimization: All CT scans at this facility use at least one of these dose optimization techniques: automated exposure control; mA and/or kV adjustment per patient size (includes targeted exams where dose is matched to clinical indication); or iterative reconstruction. Contrast material: ISOVUE 370; Contrast volume: 100 ml; Contrast route: INTRAVENOUS (IV); COMPARISON: CR PORTABLE CHEST X-RAY 08/22/2017 3:33 PM FINDINGS: Pulmonary arteries: There is opacification of the pulmonary arteries with no evidence of pulmonary embolus. Aorta: There is opacification of the aorta which appears intact. Lungs: The lungs appear clear. Pleural space: There is no evidence of pneumothorax or pleural effusion. Heart: There is mild cardiomegaly. There is no pericardial effusion. Mediastinal space: Normal appearing trachea. Lymph nodes: There is no evidence lymphadenopathy. Liver: There is a 1.8 cm probable cyst left lobe of the liver. 1.9 cm probable cyst lower aspect near the false form ligament. 2 cystic structures of similar size posterior aspect of the right lobe of the liver 1 near the gallbladder fossa. To document that these structures are all cystic recommend correlation with ultrasound. Bones/joints: There is anterior osteophyte formation of the thoracic spine. Soft tissues: Unremarkable. IMPRESSION: 1. There is no evidence of pulmonary embolus. 2. Multiple low-density structures throughout the liver as described above. These are probably cysts but recommend confirmation with ultrasound to ensure that the cystic structures. 3. Mild cardiomegaly. Electronically signed by: Jose Price On 11/30/2019 18:00:14 PM
--- NOTE | 2019-11-30 18:44 | REPVR ---
PROCEDURE INFORMATION: Exam: MR Left Lower Extremity Without Contrast, Tibia Fibula Exam date and time: 11/30/2019 6:13 PM Age: 69 years old Clinical indication: Condition or disease; Other: Nonhealing ulcerative wound; Patient HX: PT states he has had a nonhealing ulcer on his left lower leg for four years, recently the wound has begun to "ooze" and bleed continuously. ; Additional info: Pain nonhealing wound ? osteomylitis TECHNIQUE: Imaging protocol: MR of the Left lower extremity without contrast. Exam focused on the tibia and fibula. COMPARISON: MRI-Tib/Fib W/O FOL WITH 07/14/2016 11:49 AM FINDINGS: Bones/joints: Probable tear of the lateral meniscus with associated osteophytes. There is no definite evidence of destructive change of bone to suggest osteomyelitis. Muscles: There is a 5 cm in length by 7 mm in thickness crescent of fluid following the margin of the medial head of the gastrocnemius muscle. There is prominent atrophy throughout the medial head of the gastrocnemius muscle. Soft tissues: There is a ulceration/wound measuring approximately 5 cm anterior aspect of the lower leg medial aspect of the tibia. Diffuse soft tissue swelling throughout the muscle groups of the lower leg. Vasculature: Prominent varices are present. IMPRESSION: 1. Prominent atrophy through the medial head of the gastrocnemius with a crescent of fluid 7 mm in thickness following the course of the medial head of the gastrocnemius. 2. No evidence of destructive change of bone to suggest osteomyelitis. 3. 5 cm wound/ulceration along the anterior- medial side of the lower leg. Electronically signed by: Jose Price On 11/30/2019 18:44:33 PM
[2019-11-30] MEDS ORDERED: PERCOCET 5MG/325MG TAB PO ONE (18:45)
[2019-11-30] MEDS ORDERED: PERC5TAB12 PO (18:49)
[2019-11-30 19:46] VITALS: BP 140/78
--- NOTE | 2019-12-01 12:38 | ED PDOC ---
Post-Departure Follow-Up mikey salmeron faxed formal report of cta chest for fu Tha Bates MD Dec 01, 2019 12:37
--- NOTE | 2019-12-03 21:25 | ECGEPIP ---
[facility] - ED Test Date: 2019-11-30 Pat Name: RAYRAY FIGUEREDO Department: Room: - Gender: Male Head Holder: KARLA : 1950 Requested By: Carline Ambrosio Order Number: [id number] Reading MD: Carline Ambrosio Measurements Intervals [place] Rate: 86 P: 53 WY: 162 QRS: -34 QRSD: 108 T: 20 QT: 372 QTc: 446 Interpretive Statements SINUS RHYTHM MARKED LEFT AXIS DEVIATION SEE SCANNED DOWNTIME REPORT
== END 2019-11-30 19:59 | disposition home or self-care (01) ==
LOC: M ED 14:04 → EDBD 14:04 → M ED 19:59
DX: I82.5Z2 Chronic embolism and thrombosis of unspecified deep veins of left distal lower extremity (principal); I87.8 Other specified disorders of veins; I10 Essential (primary) hypertension; D68.51 Activated protein C resistance; Z79.899 Other long term (current) drug therapy; Z79.01 Long term (current) use of anticoagulants; Z88.1 Allergy status to other antibiotic agents; Z88.5 Allergy status to narcotic agent; Z88.8 Allergy status to other drugs, medicaments and biological substances
CPT/HCPCS: 36415; 71275; 73590; 73718; 80053; 82550; 82553; 84484; 85025; 85610; 85652; 86140; 87040; 93005; 93971; 96374; 96375; 99284; J2270; J2405; Q9967

== ENCOUNTER 2019-12-09 04:07 | Emergency (ER) | payer MEDICARE, MEDICAID ==
[~2019-12-09] VITALS: Ht 175.3 cm; Wt 90.9 kg
[~2019-12-09 04:07] MED LIST changes: +PERC5TAB12 PO; +WARF-22 PO
[2019-12-09] MEDS ORDERED: WARF-23 PO (04:23)
[2019-12-09] MEDS ORDERED: WARF-18 PO (04:23)
[2019-12-09] MEDS ORDERED: GABAPENTIN 300 MG CAP PO ONE (05:30)
[2019-12-09] MEDS ORDERED: NEUR300C PO (06:27)
[2019-12-09 06:35] VITALS: BP 137/80
== END 2019-12-09 06:53 | disposition home or self-care (01) ==
LOC: M ED 04:07
DX: G90.09 Other idiopathic peripheral autonomic neuropathy (principal); L97.929 Non-pressure chronic ulcer of unspecified part of left lower leg with unspecified severity; I10 Essential (primary) hypertension; Z86.718 Personal history of other venous thrombosis and embolism; Z88.8 Allergy status to other drugs, medicaments and biological substances; Z79.899 Other long term (current) drug therapy; Z79.01 Long term (current) use of anticoagulants

== ENCOUNTER → 2019-12-29 | Outpatient (CLI) | payer MEDICARE, MEDICAID ==
[~2019-12-29] MED LIST changes: +NEUR300C PO; +WARF-18 PO
--- NOTE | 2020-01-01 10:26 | REP ---
LIVER ULTRASOUND CLINICAL: Liver cyst. TECHNIQUE: Real-time traylor scale ultrasound examination using curved array transducer. FINDINGS: The liver demonstrates a few simple appearing cysts measuring 9.6 mm, 10.8 mm, 17 mm, and 16 mm maximal diameter each. Liver is otherwise normal in appearance and without obvious significant mass lesion. The pancreas is incompletely evaluated due to interposed bowel gas, but visualized portions appear normal. The gallbladder is normal and without gallstones, wall thickening, or pericholecystic fluid. No biliary ductal dilatation is appreciated, and the common bile duct measures 4.7 mm in diameter. The right kidney is normal in reniform shape without hydronephrosis and measures 11.6 5.0 x 4.4 cm. No ascites in the visualized right upper quadrant. IMPRESSION: * Few scattered small simple appearing hepatic cysts. * Otherwise normal liver and right upper quadrant ultrasound. MTDD
== END ==
LOC: M RAD 08:15
PROVIDERS: ATTEND Physician Assistant Medical
DX: K76.89 Other specified diseases of liver (principal); R93.2 Abnormal findings on diagnostic imaging of liver and biliary tract

== ENCOUNTER → 2020-01-05 | Outpatient (REF) | payer MEDICARE, MEDICAID ==
[~2020-01-05] MED LIST changes: +ACET1TAB55 PO; +AMLO1TAB24 PO; +DOCU100C16 PO; +ELIQ5TAB PO; +LIDO4CR TOP; +QUET1TAB7 PO
[2020-01-05 14:14] LABS: INR 1.01; PROTHROMBIN TIME 13.5 SECONDS (12.5-14.3)
== END ==
LOC: M SFHCPLAZ 09:28
PROVIDERS: ATTEND Physician Assistant Medical
DX: Z51.81 Encounter for therapeutic drug level monitoring (principal); Z79.01 Long term (current) use of anticoagulants

== ENCOUNTER 2020-01-07 23:21 | Inpatient (IN) | payer MEDICARE, MEDICAID ==
[~2020-01-07] VITALS: Ht 175.3 cm; Wt 92.8 kg
[~2020-01-07 23:21] MED LIST changes: -ACET1TAB55 PO; -AMLO1TAB24 PO; -DOCU100C16 PO; -ELIQ5TAB PO; -LIDO4CR TOP; -QUET1TAB7 PO
[2020-01-07] MEDS ORDERED: NS 1,000 ML IV ONE ×2 (23:45)
[2020-01-07] MEDS ORDERED: PIPERACILLIN/TAZOBACTAM SOD 4.5 GM in D5W MINI-BAG PLUS 50 ML IV ONE (23:45)
[2020-01-07] MEDS ORDERED: VANCOMYCIN HCL 1,000 MG, VIAL MATE ADAPTER 1 EACH in D5W 250 ML IV ONE (23:45)
[2020-01-08] MEDS ORDERED: ACETAMINOPHEN 325 MG TAB PO ONE
[2020-01-08 00:34] LABS: HEMATOCRIT 39.3 % (42.0-52.0); MEAN CORPUSCULAR HEMOGLOBIN 30.3 pg (27.0-33.0); MEAN CORPUSCULAR HGB CONC 33.1 g/dl (32.0-36.5); MEAN CORPUSCULAR VOLUME 91.6 fl (80.0-96.0); PLATELET COUNT, AUTOMATED 225 10^3/uL (150-450); RED BLOOD COUNT 4.29 10^6/uL (4.30-6.10); WHITE BLOOD COUNT 19.5 10^3/uL (4.0-10.0)
[2020-01-08 00:58] LABS: DOHLE BODIES 1+; LYMPHOCYTES 1 % (16-44); MONOCYTES 4 % (0-5); NEUTROPHILS 94 % (28-66); PLATELET CLUMPS SMALL AMT; PLATELET ESTIMATE NORMAL (NORMAL)
[2020-01-08] MEDS ORDERED: ISOVUE-370 76% 100ML VIAL As Ordered ONE (01:13)
[2020-01-08 01:21] LABS: ALBUMIN 3.4 GM/DL (3.2-5.2); BILIRUBIN,DIRECT 0.6 MG/DL (0.0-0.2); BILIRUBIN,TOTAL 1.5 MG/DL (0.2-1.0); CALCIUM LEVEL 9.3 MG/DL (8.8-10.2); CK-MB VALUE MASS 6.5 NG/ML (<3.6); CREATININE FOR GFR 1.6 MG/DL (0.70-1.30); MB/CK RELATIVE INDEX 0.15 (< OR =4); POTASSIUM SERUM 3.9 MEQ/L (3.5-5.1); THYROID STIMULATING HORMONE 0.306 uIU/ML (0.358-3.740); TOTAL PROTEIN 6.8 GM/DL (6.4-8.2); TROPONIN I 0.2 NG/ML (< 0.10)
[2020-01-08] MEDS ORDERED: NS 1,000 ML IV ONE (01:30)
--- NOTE | 2020-01-08 01:39 | REPVR ---
PROCEDURE INFORMATION: Exam: XR Chest, 1 View Exam date and time: 01/08/2020 12:54 AM Age: 69 years old Clinical indication: Other: Altered mental status TECHNIQUE: Imaging protocol: XR of the chest Views: 1 view. COMPARISON: CT ANGIO CHEST 11/30/2019 4:44 PM FINDINGS: Lungs: Unremarkable. No consolidation. Pleural space: Unremarkable. No pleural effusion. No pneumothorax. Heart/Mediastinum: Unremarkable. No cardiomegaly. Bones/joints: Unremarkable. IMPRESSION: No acute infiltrates. Electronically signed by: Karl Marquez On 01/08/2020 01:39:23 AM
--- NOTE | 2020-01-08 02:12 | REPVR ---
PROCEDURE INFORMATION: Exam: CT Head Without Contrast Exam date and time: 01/07/2020 11:36 PM Age: 69 years old Clinical indication: Altered mental status/memory loss; Confusion or disorientation TECHNIQUE: Imaging protocol: Computed tomography of the head without contrast. Radiation optimization: All CT scans at this facility use at least one of these dose optimization techniques: automated exposure control; mA and/or kV adjustment per patient size (includes targeted exams where dose is matched to clinical indication); or iterative reconstruction. COMPARISON: No relevant prior studies available. FINDINGS: Brain: Normal. No hemorrhage. Unremarkable white matter. No mass effect. Cerebral ventricles: No ventriculomegaly. Bones/joints: Unremarkable. No acute fracture. Paranasal sinuses: Visualized sinuses are unremarkable. No fluid levels. Mastoid air cells: Visualized mastoid air cells are well aerated. Soft tissues: Unremarkable. IMPRESSION: No acute findings. Electronically signed by: Karl Marquez On 01/08/2020 02:12:24 AM
--- NOTE | 2020-01-08 02:21 | REPVR ---
PROCEDURE INFORMATION: Exam: CT Left Lower Extremity Without Contrast; Lower Leg Exam date and time: 01/07/2020 11:36 PM Age: 69 years old Clinical indication: Other: Open wound; Additional info: Rule out nec fasc TECHNIQUE: Imaging protocol: CT of the Left lower extremity without contrast was performed. Exam focused on the lower leg. Radiation optimization: All CT scans at this facility use at least one of these dose optimization techniques: automated exposure control; mA and/or kV adjustment per patient size (includes targeted exams where dose is matched to clinical indication); or iterative reconstruction. COMPARISON: MRI TIBIA WITHOUT CONTRAST LEFT 11/30/2019 5:29 PM FINDINGS: Limitations: Examination is limited by motion artifact. Bones/joints: No acute fracture or dislocation. No osseous erosion. Moderate marginal osteophytes in the knee. Chronic ossification adjacent to the lateral femoral condyle. Soft tissues: Diffuse subcutaneous edema. Ulceration the medial aspect of the leg. Diffuse chronic subcutaneous calcifications. No soft tissue gas. IMPRESSION: 1. Ulceration the medial aspect of the leg. 2. Diffuse subcutaneous edema. 3. No soft tissue gas. 4. Osteoarthritic changes of the knee. 5. Knee is incompletely imaged on this study. Electronically signed by: Karl Marquez On 01/08/2020 02:21:16 AM
--- NOTE | 2020-01-08 03:08 | IPNPDOC ---
Text Note Date of Service The patient was seen on 01/08/20. NOTE TIME OF SERVICE 315AM is a 69 yr old w a hx of chronic LLE venous stasis ulcer after graft failure , PE/DVT 2/2 factor V leiden deficiency who was brought to the ER by family members who noted that he was lethargic and confused for 3 days. At the time of my evaluation he added that he had been having fevers, chills and some LLE pain. His physical exam was remarkable for flushed skin, chills, a venous stasis ulcer w/o excessive discharge and LLE rubor, dalor and calor. 1. Metabolic Encephalopathy 2/2 Sepsis Plan: treat infection / frequent neurochecks 2. Sepsis 2/2 LLE Cellulitis Plan: admit to PCU / telemetry / IVF / abx / trend lactic acid / will ask day time team to consult 2. GE Possibly 2/2 infection and Rhabdo Plan: IVF / f/u ulytes for FENa / trend CK 3. Mild Rhabdomyolysis Doesnt appear to have compartment syndrome (extremity warm, pulses palpable and pt is not c/o of excessive pain) Plan: IVF & trend CPK 4. Transaminitis likely 2/2 shock liver Plan: trend LFTs / since he was born btw 1944 to 66 will check Hep C Rest per H&P VS,Dayday, I+O VS, Dayday, I+O Laboratory Tests 01/07/20 23:47 Vital Signs Date Time Temp Pulse Resp B/P (MAP) Pulse Ox O2 Delivery O2 Flow Rate FiO2 01/08/20 02:45 92 95 01/08/20 02:40 18 100/55 (70) 01/08/20 01:45 101.6 Nasal Cannula 2.0 01/08/20 00:00 96 I&O- Last 24 Hours up to 6 AM 01/08/20 06:00 Intake Total 3320 ml Balance 3320 ml RONAL MADDEN MD Jan 08, 2020 03:08
[2020-01-08] MEDS ORDERED: OXYC1TAB23 PO (03:41)
[2020-01-08] MEDS ORDERED: WARF-23 PO ×2 (03:41)
[2020-01-08] MEDS ORDERED: VITMTA PO (03:41)
[2020-01-08] MEDS ORDERED: VANCOMYCIN HCL 1,000 MG in IV FLUID PLACE HOLDER 1 EA IV SCH (04:00)
[2020-01-08] MEDS ORDERED: ONDANSETRON 4MG/2ML VIAL IV PRN (04:00)
[2020-01-08 04:47] LABS: HEMATOCRIT 36.8 % (42.0-52.0); HEMOGLOBIN 12.1 g/dl (13.5-17.5); MEAN CORPUSCULAR HEMOGLOBIN 30.6 pg (27.0-33.0); MEAN CORPUSCULAR HGB CONC 32.9 g/dl (32.0-36.5); MEAN CORPUSCULAR VOLUME 93.2 fl (80.0-96.0); PLATELET COUNT, AUTOMATED 182 10^3/uL (150-450); RED BLOOD COUNT 3.95 10^6/uL (4.30-6.10); WHITE BLOOD COUNT 18.7 10^3/uL (4.0-10.0)
[2020-01-08 04:59] LABS: INR 1.18; PROTHROMBIN TIME 15.3 SECONDS (12.5-14.3)
--- NOTE | 2020-01-08 05:05 | HPEPDOC ---
[facility] Medical History & Physical Date of Admission Jan 08, 2020 Date of Service: Jan 08, 2020 Attending Physician: RONAL MADDEN MD History and Physical CHIEF COMPLAINT: Altered Mental Status; Left Left swelling/redness HISTORY OF PRESENT ILLNESS: Patient is a 69 year old male who presented to the [facility] ER with altered mental status and redness and swelling of the left lower extremity. The patient himself is intermittently confused and a poor historian therefore the patients history was obtained from EMR. The patient states that he is unsure of how he got to the ER however states that he does feel confused. He states that he has had an open wound/ulceration on his left leg for a long time which according to the patients outpatient medical record is secondary to venous stasis disease from chronic deep vein thrombosis in the left leg. Currently he admits to worsening pain in his left lower leg as well as fevers and chills. He denies any increase weakness in his legs On presentation to the ER the patient was found to be tachycardic and febrile. He was given 2 L bolus NS and started on Vancomycin and Zosyn for sepsis with left leg cellulitis as the likely source. Labs obtained demonstrated a slightly elevated lactic acid, elevated AST, Creatinine, troponin, and total creatinine kinase. Hospitalist service was consulted and the patient was admitted for further evaluation and management PAST MEDICAL HISTORY: 1. History of Left Leg DVT/chronic DVT 2. History of Pulmonary Embolism with IVC filter placed in 12/14/2018 3. Factor V Leiden Mutation 4. HTN 5. Bilateral Carpal tunnel syndrome PAST SURGICAL HISTORY: 1. IVC filter placement on 11/13/2018 SOCIAL HISTORY: Social history has been primarily obtained from EMR as patient is confused. Patient is a non-smoker. He denies any IV or illicit drug use. He denies any alcohol or tobacco use. He lives at home with his partner who helps assist him with his ADLs FAMILY HISTORY: Obtained from EMR. Patient mother and father are both . Mother from pancreatic cancer with metastasis. His father of lung cancer. His brother of lung cancer at the age of 60 ALLERGIES: Please see below. REVIEW OF SYSTEMS: CONSTITUTIONAL: Admits to chills and fevers HEENT: Denies dysphagia. Denies coughing. Denies pain in throat CARDIOVASCULAR: Denies chest pain. Denies palpitations or feelings of the heart racing RESPIRATORY: Denies shortness of breath. Denies wheezing GASTROINTESTINAL: Denies abdominal pain. Denies nausea, vomiting, diarrhea or constipation GENITOURINARY: Denies dysuria or increased frequency/urgency SKIN: Admits to chronic skin discoloration of his left lower leg NEUROLOGICAL: Admits to chronic tremors. Denies any recent changes in gait or speech PSYCHIATRIC: Denies depression or anxiety ENDOCRINE: Denies heat intolerance or cold intolerance HEMATOLOGIC/LYMPHATIC: Admits to history of DVT and PE. Admits to easy bruising and bleeding HOME MEDICATIONS: Please see below. PHYSICAL EXAMINATION: VITAL SIGNS: Temperature 99.8, pulse 100, respiratory rate 18, blood pressure 116/80, pulse oximetry 100% on room air. GENERAL APPEARANCE: Patient is awake and alert. He is oriented to person and place. He does not appear in any acute distress. He is intermittently confused HEENT: Atraumatic. Normocephalic. Eyes are nonicteric. Trachea is midline. Mucous membranes are pink and moist CARDIOVASCULAR: Normal S1, S2. Tachycardic rate. Regular rhythm. No clicks, rubs, or murmurs LUNGS: Clear vesicular breath sounds bilaterally. Slightly decreased in the bases. No wheezes, rhonchi, or rales. Symmetric chest expansion ABDOMEN: Soft, nondistended. Nontender. Normoactive bowel sounds throughout. No hernia or masses. Nolasco catheter in place with dark colored urine EXTREMITIES: Left lower extremity with significant swelling and 2+ pitting edema. Large area of ulceration on the medial calf of the left leg. No purulent drainage present. Surrounding erythema and increased warmth extending up to the knee. Tenderness of the left foot and leg. Chronic venous stasis changes present. PT and DP pulses are full and equal bilaterally. Right foot is without swelling NEUROLOGICAL: No focal neurological deficits. Appears altered with intermittent confusion PSYCHIATRIC: Mood and affect appear appropriate LABORATORY DATA: See below. IMAGING: Correction: CT lower extremity was performed with IV contrast. There is prominent venous vascularity in the subcutaneous tissue. Electronically signed by: Milana Marquez On 01/08/2020 03:09:42 AM DD: MILANA MARQUEZ MD 01/07/20 2336 DT: ALMA 01/08/20308 DS: KIM 01/08/20308 PROCEDURE INFORMATION: Exam: CT Left Lower Extremity Without Contrast; Lower Leg Exam date and time: 01/07/2020 11:36 PM Age: 69 years old Clinical indication: Other: Open wound; Additional info: Rule out nec fasc TECHNIQUE: Imaging protocol: CT of the Left lower extremity without contrast was performed. Exam focused on the lower leg. Radiation optimization: All CT scans at this facility use at least one of these dose optimization techniques: automated exposure control; mA and/or kV adjustment per patient size (includes targeted exams where dose is matched to clinical indication); or iterative reconstruction. COMPARISON: MRI TIBIA WITHOUT CONTRAST LEFT 11/30/2019 5:29 PM FINDINGS: Limitations: Examination is limited by motion artifact. Bones/joints: No acute fracture or dislocation. No osseous erosion. Moderate marginal osteophytes in the knee. Chronic ossification adjacent to the lateral femoral condyle. Soft tissues: Diffuse subcutaneous edema. Ulceration the medial aspect of the leg. Diffuse chronic subcutaneous calcifications. No soft tissue gas. IMPRESSION: 1. Ulceration the medial aspect of the leg. 2. Diffuse subcutaneous edema. 3. No soft tissue gas. 4. Osteoarthritic changes of the knee. 5. Knee is incompletely imaged on this study. Electronically signed by: Milana Marquez On 01/08/2020 02:21:16 AM PROCEDURE INFORMATION: Exam: CT Head Without Contrast Exam date and time: 01/07/2020 11:36 PM Age: 69 years old Clinical indication: Altered mental status/memory loss; Confusion or disorientation TECHNIQUE: Imaging protocol: Computed tomography of the head without contrast. Radiation optimization: All CT scans at this facility use at least one of these dose optimization techniques: automated exposure control; mA and/or kV adjustment per patient size (includes targeted exams where dose is matched to clinical indication); or iterative reconstruction. COMPARISON: No relevant prior studies available. FINDINGS: Brain: Normal. No hemorrhage. Unremarkable white matter. No mass effect. Cerebral ventricles: No ventriculomegaly. Bones/joints: Unremarkable. No acute fracture. Paranasal sinuses: Visualized sinuses are unremarkable. No fluid levels. Mastoid air cells: Visualized mastoid air cells are well aerated. Soft tissues: Unremarkable. IMPRESSION: No acute findings. Electronically signed by: Milana Marquez On 01/08/2020 02:12:24 AM PROCEDURE INFORMATION: Exam: XR Chest, 1 View Exam date and time: 01/08/2020 12:54 AM Age: 69 years old Clinical indication: Other: Altered mental status TECHNIQUE: Imaging protocol: XR of the chest Views: 1 view. COMPARISON: CT ANGIO CHEST 11/30/2019 4:44 PM FINDINGS: Lungs: Unremarkable. No consolidation. Pleural space: Unremarkable. No pleural effusion. No pneumothorax. Heart/Mediastinum: Unremarkable. No cardiomegaly. Bones/joints: Unremarkable. IMPRESSION: No acute infiltrates. Electronically signed by: Milana Marquez On 01/08/2020 01:39:23 AM MICROBIOLOGY: Please see below. ASSESSMENT: Patient is a 69 year old male with a past medical history significant for chronic venous stasis of the left leg, chronic DVT of the left leg, and chronic left leg venous stasis ulcer who presented to the [facility] ER with altered mental status and found to be in sepsis likely secondary to left leg ce llulitis . PLAN: 1. Sepsis 2/2 Left leg cellulitis -Patient presented with tachycardia, leukocytosis, lactic acidosis. Chronic left leg ulcer which appears cellulitic with increased erythema and swelling but without purulent drainage. Patient has received 2 L of NS bolus. He is currently continued on NS 120 ml/hr. -Blood cultures drawn in ED. -Empiric Vancomycin and Zosyn. MRSA screen ordered -Patient to be admitted with telemetry -Procalcitonin pending -Lactic acid of 2.4 2. Left Leg Cellulitis -As stated previously patient has a left leg cellulitis. Continuing Vancomycin and Zosyn. Will deescalate based on Culture data and MRSA screen -Patient has significant soft tissue swelling. Elevated total creatinine kinase which is concerning for possible compartment syndrome although patient does not appear to have vascular compromise. Pulses are full and equal. Limbs are warm and the patient denies any weakness in his leg from baseline -CRP and procalcitonin ordered 3. Acute Kidney Injury 2/2 sepsis vs rhabdomyolysis vs compartment syndrome -Patients baseline Cr of 0.91. Elevated today at 1.6 -GE likely secondary to sepsis although patients urine myoglobin is positive suggesting possible rhabdomyolysis. Additionally, total CK elevated possibly secondary to compartment syndrome -Continue IV fluids. Avoid Nephrotoxic agents 4. Elevated Transaminase -Elevated AST of 138. Possibly secondary to compartment syndrome/muscle breakdown. Will continue to trend 5. Elevated Troponin -Troponin of 0.20. Likely demand. -Will trend Troponins. Patient denies any chest pain. No acute changes on EKG 6. History of DVT/PE and chronic thromboembolic disease with Factor V mutation -Patient is on Warfarin chronically. Will obtain PT\INR. Continue Warfarin dose as is for now. Will titrate dose to therapeutic level 2.0-3.0 7. DVT Prophylaxis -Patient on Warfarin. PT/INR pending. If therapeutic will continue warfarin Vital Signs Vital Signs Date Time Temp Pulse Resp B/P (MAP) Pulse Ox O2 Delivery O2 Flow Rate FiO2 01/08/20 03:30 99.8 100 18 116/80 (92) 100 Room Air 01/08/20 01:45 2.0 01/08/20 00:00 96 Laboratory Data Labs 24H Laboratory Tests 2 01/07/20 23:47: Neutrophils (%) (Auto) , Nucleated Red Blood Cells % (auto) 0.0, Neutrophils 94H, Band Neutrophils 1, Lymphocytes (Manual) 1L, Monocytes (Manual) 4, Dohle Bodies 1+, Platelet Estimate NORMAL, Clumped Platelets SMALL AMT, Anion Gap 8, Glomerular Filtration Rate 46.0L, Lactic Acid Level 2.4*H, Calcium Level 9.3, Total Bilirubin 1.5H, Direct Bilirubin 0.6H, Aspartate Amino Transf (AST/SGOT) 138H, Alanine Aminotransferase (ALT/SGPT) 51, Alkaline Phosphatase 82, Total Creatine Kinase 4248H, Creatine Kinase MB 6.5H, Creatine Kinase MB Relative Index 0.15, Troponin I 0.20H, Total Protein 6.8, Albumin 3.4, Albumin/Globulin Ratio 1.0, Thyroid Stimulating Hormone (TSH) 0.306L 01/08/20 00:02: Urine Color SANTHOSH, Urine Appearance CLOUDYH, Urine pH 5.0, Urine Specific Towner 1.024, Urine Protein 2+H, Urine Glucose (UA) 1+H, Urine Ketones TRACEH, Urine Blood 3+H, Urine Nitrite NEGATIVE, Urine Bilirubin NEGATIVE, Urine Urobilinogen 0.2, Urine Leukocyte Esterase NEGATIVE, Urine WBC (Auto) 10H, Urine RBC (Auto) 71H, Urine Hyaline Casts (Auto) 66, Urine Bacteria (Auto) NEGATIVE, Urine Squamous Epithelial Cells 2, Urine Amorphous Sediment MODERATEH, Urine Mucus (Auto) SMALL, Urine Sperm (Auto) , Urine Myoglobin POSITIVE CBC/BMP Laboratory Tests 01/07/20 23:47 Microbiology Microbiology 01/07/20 Blood Culture, Received Pending Home Medications Scheduled Multivitamins (Thera M Plus Tablet) 1 Each Tablet, 1 TAB PO DAILY Warfarin Sodium (Warfarin Sodium) 5 Mg Tablet, 5 MG PO 5XW SUNDAY, SUNDAY, SUNDAY, SUNDAY AND SUNDAY Warfarin Sodium (Warfarin Sodium) 5 Mg Tablet, 7.5 MG PO 2XWK SUNDAY AND SUNDAY Scheduled PRN Oxycodone HCl/Acetaminophen (Oxycodone-Acetaminophen 5-325) 1 Each Tablet, 1 TAB PO Q6H PRN for PAIN Allergies Coded Allergies: hydrocodone (Verified Allergy, Unknown, rash, 01/08/20) levofloxacin (Verified Allergy, Unknown, hives, 01/08/20) lisinopril (Verified Allergy, Unknown, cough, 01/08/20) A-FIB/CHADSVASC A-FIB History Current/History of A-Fib/PAF?: No JUANPABLO PERSAUD DO Jan 08, 2020 05:05
[2020-01-08 05:06] LABS: LYMPHOCYTES 3 % (16-44); MONOCYTES 9 % (0-5); NEUTROPHILS 84 % (28-66); PLATELET ESTIMATE NORMAL (NORMAL)
[2020-01-08 05:07] LABS: DOHLE BODIES 1+; PLATELET CLUMPS SMALL AMT
[2020-01-08 05:26] LABS: SODIUM,RANDOM URINE 26 MEQ/L; UREA NITROGEN RANDOM URINE 1073 MG/DL
[2020-01-08 05:29] LABS: ALBUMIN 2.9 GM/DL (3.2-5.2); BILIRUBIN,TOTAL 1.5 MG/DL (0.2-1.0); C REACTIVE PROTEIN QUANTITATIV 34.1 MG/DL (0.00-0.30); CALCIUM LEVEL 8.4 MG/DL (8.8-10.2); CREATININE FOR GFR 1.47 MG/DL (0.70-1.30); GLOMERULAR FILTRATION RATE 50.7 (>49); POTASSIUM SERUM 4.1 MEQ/L (3.5-5.1); TOTAL PROTEIN 5.9 GM/DL (6.4-8.2)
[2020-01-08 05:34] LABS: CK-MB VALUE MASS 10.9 NG/ML (<3.6); MB/CK RELATIVE INDEX 0.29 (< OR =4); TROPONIN I 0.14 NG/ML (< 0.10)
[2020-01-08 06:15] VITALS: BP 116/70
[2020-01-08] MEDS: NS 1,000 ML IV SCH ×3 (06:45→20:40)
[2020-01-08] MEDS: VANCOMYCIN HCL 1,000 MG, VIAL MATE ADAPTER 1 EACH in D5W 250 ML IV SCH ×3 (06:45→21:12)
[2020-01-08 08:00] VITALS: BP 133/74
[2020-01-08] MEDS: MULTIVITAMINS/MINERALS THERAP 1 TAB PO SCH (08:05)
[2020-01-08] MEDS: PIPERACILLIN/TAZOBACTAM SOD 4.5 GM in D5W MINI-BAG PLUS 50 ML IV SCH ×3 (08:06→23:11)
[2020-01-08] MEDS: ACETAMINOPHEN TAB 650MG DOSE (2X325MG) PO PRN ×2 (09:34→21:12)
--- NOTE | 2020-01-08 09:55 | REPVR ---
PROCEDURE INFORMATION: Exam: US Retroperitoneal Limited, Kidneys Exam date and time: 01/08/2020 9:15 AM Age: 69 years old Clinical indication: Condition or disease; Other: [place] TECHNIQUE: Imaging protocol: Real-time ultrasound of the retroperitoneum with image documentation. Examination was focused on the kidneys. COMPARISON: LIVER US 12/29/2019 8:24 AM FINDINGS: Right kidney: The right kidney measures 11.7 x 4.3 x 5.2 cm. The renal cortex measures 1.1 cm (remeasured). Unremarkable. Left kidney: The left kidney measures 12.5 x 5.5 x 5.9 cm. The renal cortex measures 0.9-1.2 cm (remeasured). 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 Otherwise unremarkable.. A brief color Doppler examination of the left kidney was performed showing normal color shifts. Bladder: The urinary bladder is drained by a Nolasco catheter. The urinary bladder is completely decompressed and difficult to assess. IMPRESSION: No acute abnormality identified. Electronically signed by: Jorgito De La Torre On 01/08/2020 09:55:59 AM
[2020-01-08 11:15] LABS: CK-MB VALUE MASS 9.2 NG/ML (<3.6); MB/CK RELATIVE INDEX 0.35 (< OR =4); TROPONIN I 0.05 NG/ML (< 0.10)
[2020-01-08 12:00] VITALS: BP_SYST 125; BP_SYST 133; BP_DIAS 74
[2020-01-08 13:20] LABS: FREE T4 1.13 NG/DL (0.76-1.46); THYROID STIMULATING HORMONE 0.303 uIU/ML (0.358-3.740)
[2020-01-08] MEDS: LIDOCAINE 4% CREAM 5GM (LMX4) TOP SCH (13:30)
[2020-01-08] MEDS: DIAPER RELIEF PASTE (DESITIN) 60GM TOP SCH (13:30)
[2020-01-08] MEDS ORDERED: MORPHINE 2 MG/ML 1ML VIAL (J2270) IV ONE (13:45)
[2020-01-08 16:00] VITALS: BP 115/65
[2020-01-08] MEDS ORDERED: WARFARIN SOD 7.5MG TAB PO SCH (17:00)
[2020-01-08] MEDS: PERCOCET 5MG/325MG TAB PO PRN ×2 (17:01→23:13)
[2020-01-08 20:00] VITALS: BP 137/82
[2020-01-09] VITALS: BP 135/94
[2020-01-09 00:44] LABS: BLOOD UREA NITROGEN 23 MG/DL (7-18); CALCIUM LEVEL 8.5 MG/DL (8.8-10.2); CARBON DIOXIDE LEVEL 22 MEQ/L (21-32); CHLORIDE LEVEL 108 MEQ/L (98-107); CREATININE FOR GFR 0.83 MG/DL (0.70-1.30); GLOMERULAR FILTRATION RATE > 60.0 (>49); GLUCOSE, FASTING 128 MG/DL (70-100); POTASSIUM SERUM 3.6 MEQ/L (3.5-5.1); SODIUM LEVEL 136 MEQ/L (136-145)
[2020-01-09] MEDS ORDERED: VANCOMYCIN HCL 1,000 MG, VIAL MATE ADAPTER 1 EACH in D5W 250 ML IV SCH (02:00)
[2020-01-09 04:00] VITALS: BP 164/72
[2020-01-09] MEDS: NS 1,000 ML IV SCH ×3 (05:00→15:02)
[2020-01-09] MEDS: PERCOCET 5MG/325MG TAB PO PRN ×3 (05:58→21:06)
[2020-01-09] MEDS: PIPERACILLIN/TAZOBACTAM SOD 4.5 GM in D5W MINI-BAG PLUS 50 ML IV SCH ×2 (06:51→15:15)
[2020-01-09] MEDS: ACETAMINOPHEN TAB 650MG DOSE (2X325MG) PO PRN (06:52)
[2020-01-09 07:22] LABS: HEMATOCRIT 32.3 % (42.0-52.0); HEMOGLOBIN 10.5 g/dl (13.5-17.5); MEAN CORPUSCULAR HGB CONC 32.5 g/dl (32.0-36.5); MEAN CORPUSCULAR VOLUME 92.3 fl (80.0-96.0); PLATELET COUNT, AUTOMATED 171 10^3/uL (150-450); WHITE BLOOD COUNT 15.3 10^3/uL (4.0-10.0)
[2020-01-09 07:45] LABS: ALBUMIN 2.5 GM/DL (3.2-5.2); ALT/SGPT 53 U/L (12-78); BILIRUBIN,TOTAL 0.8 MG/DL (0.2-1.0); BLOOD UREA NITROGEN 21 MG/DL (7-18); CALCIUM LEVEL 8.4 MG/DL (8.8-10.2); CARBON DIOXIDE LEVEL 22 MEQ/L (21-32); CHLORIDE LEVEL 109 MEQ/L (98-107); CREATININE FOR GFR 0.85 MG/DL (0.70-1.30); GLOMERULAR FILTRATION RATE > 60.0 (>49); GLUCOSE, FASTING 129 MG/DL (70-100); POTASSIUM SERUM 3.7 MEQ/L (3.5-5.1); SODIUM LEVEL 138 MEQ/L (136-145); TOTAL PROTEIN 5.6 GM/DL (6.4-8.2)
[2020-01-09 07:50] LABS: LYMPHOCYTES 4 % (16-44); MONOCYTES 3 % (0-5); NEUTROPHILS 86 % (28-66)
--- NOTE | 2020-01-09 07:51 | IPNPDOC ---
Text Note Date of Service The patient was seen on 01/09/20. NOTE Subjective: Issue was seen and examined this morning at bedside. Tells me that he is doing better today and the pain is a little improved. He had debridement of his leg yesterday. He denies any fevers or chills. Denies any chest pain or shortness of breath. Nurse only there is no overnight events. Objective: Constitutional: Awake and alert, in no apparent distress ENT: Sclera are clear. Mucosa is moist. Respiratory: Lungs CTA bilaterally. No respiratory distress. No use of accessory muscles. Cardiovascular: RRR S1 and S2 are normal, no murmur Gastrointestinal: Abdomen is soft, non distended, non tender, BS present. Musculoskeletal: No edema. RUE 5/5, LUE 5/5, BLE 5/5 Neurologic: No focal neurological deficit. Mental Status: A&O x3, normal affect Skin: Left lower extremity with fresh dressing clean and dry. Venous stasis hyperpigmentation of skin apparent almost up to knee. 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 At the time of my evaluation he added that he had been having fevers, chills and some LLE pain. # LLE cellulitis: Noncompliance left untreated for over one month. IV vancomycin and Zosyn. Wound care consult Dr. Calero. IVFs. Continue home Percocet dose for pain control. # Acute metabolic encephalopathy likely secondary to sepsis: Now resolved # Mild Rhabdomyolysis: IV fluids. CPK downtrending. # GE: Now resolved. Could have been 2/2 rhabdo/infection. IVF. Avoid nephrotoxins. # Elevated troponin: Likely demand. Trend the troponins which normalized. EKG reviewed is okay. Patient denies any chest pain or any point. # Anemia: Monitor hemoglobin as it has been dropping. Could be component of dilution from the fluids he is getting. # Transaminitis: Possibly from shock liver. LFTs improving. Hep C negative. # Upper extremity tremors: Thought to be essential tremors treated with propanolol outpatient which did not help. I spoke with Dr. wilkins neurology and he suggested obtaining an ammonia and TSH level. Patient has subclinical hyperthyroidism and a normal ammonia level. It was suggested that he would follow-up with neurology after discharge. # History DVT/PE with history of factor V mutation: Chronically on Coumadin currently subtherapeutic with goal INR 2-3. Tells me he doesn't always take it in doesn't follow-up regularly with his primary care doctor to get his INR checked # DVT prophylaxis: Heparin. Coumadin subtherapeutic. A [facility] Hospitalist Dayday FELTON, I+O VSDayday I+O Laboratory Tests 01/09/20 00:10 01/09/20 07:08 Vital Signs Date Time Temp Pulse Resp B/P (MAP) Pulse Ox O2 Delivery O2 Flow Rate FiO2 01/09/20 06:52 100.2 01/09/20 06:28 18 01/09/20 04:00 88 164/72 (102) 98 Room Air 01/08/20 01:45 2.0 01/08/20 00:00 96 I&O- Last 24 Hours up to 6 AM 01/09/20 06:00 Intake Total 2820 ml Output Total 1525 ml Balance 1295 ml CARLOS HENDERSON MD Jan 09, 2020 07:51
[2020-01-09 07:54] LABS: PLATELET ESTIMATE NORMAL (NORMAL)
[2020-01-09 07:58] LABS: DOHLE BODIES 1+
[2020-01-09 08:00] VITALS: BP 124/75
--- NOTE | 2020-01-09 08:15 | ECGEPIP ---
[facility] Test Date: 2020-01-08 Pat Name: RAYRAY FIGUEREDO Department: Room: [place] [address] Gender: Male Medical Record Assistant: CELSA : 1950 Requested By: CARLOS Robles Order Number: [id number] Reading MD: Kike Martinez Measurements Intervals Fisher Rate: 96 P: 28 PA: 159 QRS: -29 QRSD: 106 T: 14 QT: 340 QTc: 432 Interpretive Statements Normal sinus rhythm Left axis deviation LEFT VENTRICULAR HYPERTROPHY by Carlos criteria Slower rate but otherwise unchanged from 01/07/20 Electronically Signed on 01-09-2020 8:15:21 EDT by Kike Martinez
[2020-01-09] MEDS: MULTIVITAMINS/MINERALS THERAP 1 TAB PO SCH (08:40)
[2020-01-09] MEDS: DIAPER RELIEF PASTE (DESITIN) 60GM TOP SCH (08:44)
[2020-01-09] MEDS: LIDOCAINE 4% CREAM 5GM (LMX4) TOP SCH (08:44)
[2020-01-09] MEDS ORDERED: FLUBLOK(EGG FREE)(QUAD)INFLUENZA VACC 0.5ML SYRINGE 18YRS & OLDER IM ONE (09:00)
[2020-01-09] MEDS: VANCOMYCIN HCL 1,000 MG, VIAL MATE ADAPTER 1 EACH in D5W 250 ML IV SCH ×2 (11:26→18:25)
--- NOTE | 2020-01-09 11:54 | CR ---
This is a telemedicine advanced wound care evaluation. CONSULTATION REQUESTED BY: Dr. Mann REASON FOR CONSULTATION: Left lower extremity wound. Verbal consent obtained. Patient well known to our clinic. He is a 69-year-old male with a factor V Leiden deficiency, which has created extensive thrombophlebitis episodes along with a prior history of pulmonary emboli requiring vena cava filter for treatment despite anticoagulation. Patient has had a longstanding history of a left lower extremity venous stasis ulcer, which has been recalcitrant to treatment despite multiple treatment modalities. Patient is seen on a weekly basis for wound debridement. He has had a course of oral and intravenous (IV) antibiotics. He has had a course of Vashe wound cleanser. He has had a course of Endoform antimicrobial collagen with slow- release silver. He has had Hydrofera Blue foam dressings, which are impregnated with methylene blue and Gentian edison, both of which are antimicrobial. He has had compression wraps. He has had Trendelenburg position of his bed. He has had a skin graft performed in [place], all of which have improved the ulcer only to have it recur and deteriorate. 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 This was considered and started; however, the patient did not begin treatment right away and has only received four applications . I asked the patient why he was admitted and he indicated that his wound was infected. He appears to be quite uncomfortable, It should be noted that the patient's lifestyle, in the past has sometimes interfered with adequate treatment. He is an avid entertainer and cook, and in the past has traveled to [place] back and forth in multiple occasions. His factor V Leiden deficiency complicates the matter, in that he has multiple episodes of superficial phlebitis, which are quite uncomfortable and take months to resolve. He has had a standing venous ultrasound which is not amenable to any ablation and with clot in the deep system as well. This type of surgery could actually exacerbate his underlying problem. When seen today on telemedicine, the patient has a left lower extremity wound involving the medial aspect of his calf, measuring 11.7 cm vertically, 9.4 cm horizontally with a wound depth of 0.4 cm. There was some residual alginate in the wound, which was ordered by the hospitalist who admitted him. This had not been covered with a foam dressing and appeared quite dry. Wound edges were open, and the periwound did not show any erythema, maceration, or ischemic change. Patient has what appears to be 2+ edema, which is not uncommon for him. During this hospitalization the patient's highest temperature was 101.2 and his highest white count was 19.6 thousand. Both have improved with bedrest antibiotic therapy and dressing changes. WOUND CARE RECOMMENDATIONS: Clean the wound with a wound lolly and Vashe wound cleanser. Next, apply a soaked 4 x 4 gauze sponge with Vashe for 10 minutes. Remove. Apply alginate the wound. Protect the periwound with Desitin to avoid maceration or inflammation of the periwound Cover the alginate with a nonadherent foam dressing secured with a Kerlix or Marcus and applied a Tubigrip support stocking. Patient should have the foot of his bed elevated for Trendelenburg position, which will assist in decompression. Anticoagulation is mandatory, and the patient can be covered with antibiotic therapy according to wound cultures. Analgesia is important as well., when the patient is ready for discharge, please notify the wound care center, and he can be followed up per his usual weekly evaluation. Dressing changes should be done a daily basis, including using a wound lolly, which will assist in removing any devitalized cells, tissue, and planktonic bacteria. Notify the wound center when the patient is ready for discharge and follow-up appointments can be scheduled MTDD
[2020-01-09 12:00] VITALS: BP 138/84
[2020-01-09 16:00] VITALS: BP 138/70
[2020-01-09] MEDS ORDERED: WARFARIN SOD 5MG TAB PO SCH (17:00)
[2020-01-09 20:00] VITALS: BP 127/73
--- NOTE | 2020-01-09 20:10 | ECGEPIP ---
[facility] - ED Test Date: 2020-01-07 Pat Name: RAYRAY FIGUEREDO Department: Room: - Gender: Male Human Resources Trainer: REBA : 1950 Requested By: MANISH SANCHEZ Order Number: [id number] Reading MD: Carline Ambrosio Measurements Intervals Shelly Rate: 122 P: 60 [place]: 167 QRS: -29 QRSD: 102 T: 36 QT: 287 QTc: 409 Interpretive Statements SINUS TACHYCARDIA WITH FREQUENT VENTRICULAR PREMATURE COMPLEXES BORDERLINE LEFT AXIS DEVIATION ABNORMAL RHYTHM ECG INCREASED RATE 11/30/19 Electronically Signed on 01-09-2020 20:10:09 EDT by Carline Ambrosio
[2020-01-09] MEDS: HEPARIN SOD (PORCINE) 5000UNITS/ML 1ML VIAL/SYRINGE SQ SCH (21:07)
[2020-01-10] VITALS: BP 140/79
[2020-01-10] MEDS: PIPERACILLIN/TAZOBACTAM SOD 4.5 GM in D5W MINI-BAG PLUS 50 ML IV SCH ×4 (00:37→23:57)
[2020-01-10] MEDS: NS 1,000 ML IV SCH ×3 (03:00→23:58)
[2020-01-10] MEDS: VANCOMYCIN HCL 1,000 MG, VIAL MATE ADAPTER 1 EACH in D5W 250 ML IV SCH ×3 (03:05→18:23)
[2020-01-10 04:00] VITALS: BP 142/69
[2020-01-10] MEDS: PERCOCET 5MG/325MG TAB PO PRN ×3 (04:08→18:24)
[2020-01-10 05:52] LABS: BASO % 0.2 % (0.0-1.0); EOS % 0.4 % (0.0-3.0); HEMATOCRIT 29.8 % (42.0-52.0); HEMOGLOBIN 9.7 g/dl (13.5-17.5); LYMPH # 0.8 10^3/uL (1.5-5.0); LYMPH % 7.1 % (24.0-44.0); MEAN CORPUSCULAR HEMOGLOBIN 30.2 pg (27.0-33.0); MEAN CORPUSCULAR HGB CONC 32.6 g/dl (32.0-36.5); MEAN CORPUSCULAR VOLUME 92.8 fl (80.0-96.0); MONO # 0.6 10^3/uL (0.0-0.8); MONO % 5.5 % (0.0-5.0); NEUTROPHILS # 9.6 10^3/uL (1.5-8.5); NEUTROPHILS % 85.7 % (36.0-66.0); PLATELET COUNT, AUTOMATED 171 10^3/uL (150-450); RED BLOOD COUNT 3.21 10^6/uL (4.30-6.10); WHITE BLOOD COUNT 11.2 10^3/uL (4.0-10.0)
[2020-01-10 06:06] LABS: INR 1.27; PROTHROMBIN TIME 16.2 SECONDS (12.5-14.3)
[2020-01-10 06:13] LABS: ALBUMIN 2.1 GM/DL (3.2-5.2); ALT/SGPT 51 U/L (12-78); BILIRUBIN,TOTAL 0.7 MG/DL (0.2-1.0); BLOOD UREA NITROGEN 16 MG/DL (7-18); CALCIUM LEVEL 8.2 MG/DL (8.8-10.2); CARBON DIOXIDE LEVEL 26 MEQ/L (21-32); CHLORIDE LEVEL 110 MEQ/L (98-107); CPK CREATINE PHOSPHOKINASE 870 U/L (39-308); CREATININE FOR GFR 0.88 MG/DL (0.70-1.30); GLOMERULAR FILTRATION RATE > 60.0 (>49); GLUCOSE, FASTING 113 MG/DL (70-100); POTASSIUM SERUM 3.6 MEQ/L (3.5-5.1); SODIUM LEVEL 139 MEQ/L (136-145); TOTAL PROTEIN 5.7 GM/DL (6.4-8.2)
[2020-01-10] MEDS: HEPARIN SOD (PORCINE) 5000UNITS/ML 1ML VIAL/SYRINGE SQ SCH (06:22)
--- NOTE | 2020-01-10 07:56 | IPNPDOC ---
Text Note Date of Service The patient was seen on 01/10/20. NOTE Subjective: Issue was seen and examined this morning at bedside. Tells me that he is doing better today and the pain is improved. He denies any fevers or chills. Denies any chest pain or shortness of breath. Nurse only there is no overnight events. Objective: Constitutional: Awake and alert, in no apparent distress ENT: Sclera are clear. Mucosa is moist. Respiratory: Lungs CTA bilaterally. No respiratory distress. No use of accessory muscles. Cardiovascular: RRR S1 and S2 are normal, no murmur Gastrointestinal: Abdomen is soft, non distended, non tender, BS present. Musculoskeletal: No edema. RUE 5/5, LUE 5/5, BLE 5/5 Neurologic: No focal neurological deficit. Mental Status: A&O x3, normal affect Skin: Left lower extremity with fresh dressing clean and dry. Venous stasis hyperpigmentation of skin apparent almost up to knee. Erythema decreased. 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 She was found to have left lower extremity cellulitis, mild drug myolysis and an GE. Patient was treated with IV vancomycin and Zosyn for cellulitis which significan tly improved during his hospital stay. His acute metabolic encephalopathy resolved. His acute kidney injury resolved with hydration. During his stay patient was found to be subtherapeutic on warfarin and poorly compliant with INR checks and so he was switched over to eliquis. # LLE cellulitis: Noncompliance left untreated for over one month. IV vancomycin and Zosyn. Wound care consult Dr. Calero. IVFs. Continue home Percocet dose for pain control. Wound culture pending. # Acute metabolic encephalopathy likely secondary to sepsis: Now resolved # Mild Rhabdomyolysis: IV fluids. CPK downtrended. # GE: Now resolved. Could have been 2/2 rhabdo/infection. IVF. Avoid nephrotoxins. # Elevated troponin: Likely demand. Trend the troponins which normalized. EKG reviewed is okay. Patient denies any chest pain or any point. # Anemia: Monitor hemoglobin. Could be component of dilution from the fluids he is getting. # Transaminitis: Possibly from shock liver. LFTs improved. Hep C negative. # Upper extremity tremors: Thought to be essential tremors treated with propanolol outpatient which did not help. I spoke with Dr. wilkins neurology and he suggested obtaining an ammonia and TSH level. Patient has subclinical hyperthyroidism and a normal ammonia level. It was suggested that he would follow-up with neurology after discharge. 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 Called his pharmacy [facility] and confirm that his insurance would cover him for elliquis. Therefore I will be switching him over to elliquis 5mg BID. # DVT prophylaxis: Heparin. Coumadin subtherapeutic. [facility], I+O [facility] I+O Laboratory Tests 01/10/20 05:26 Vital Signs Date Time Temp Pulse Resp B/P (MAP) Pulse Ox O2 Delivery O2 Flow Rate FiO2 01/10/20 04:38 18 Room Air 01/10/20 04:00 97.8 83 142/69 (93) 96 01/08/20 01:45 2.0 01/08/20 00:00 96 I&O- Last 24 Hours up to 6 AM 01/10/20 06:00 Intake Total 520 ml Output Total 1850 ml Balance -1330 ml CARLOS HENDERSON MD Jan 10, 2020 07:56
[2020-01-10 08:00] VITALS: BP 127/72
[2020-01-10] MEDS ORDERED: FLUBLOK(EGG FREE)(QUAD)INFLUENZA VACC 0.5ML SYRINGE 18YRS & OLDER IM ONE (09:00)
[2020-01-10] MEDS: MULTIVITAMINS/MINERALS THERAP 1 TAB PO SCH (09:00)
[2020-01-10] MEDS: DIAPER RELIEF PASTE (DESITIN) 60GM TOP SCH (09:01)
[2020-01-10] MEDS: LIDOCAINE 4% CREAM 5GM (LMX4) TOP SCH (09:02)
[2020-01-10 12:00] VITALS: BP 126/67
[2020-01-10 16:00] VITALS: BP_SYST 126; BP_SYST 127; BP_DIAS 68; BP_DIAS 81
[2020-01-10] MEDS: ACETAMINOPHEN TAB 650MG DOSE (2X325MG) PO PRN (16:05)
[2020-01-10 20:00] VITALS: BP 128/67
[2020-01-10] MEDS: APIXABAN 5 MG TAB (ELIQUIS) PO SCH (20:19)
[2020-01-11] VITALS: BP 138/89
[2020-01-11] MEDS: VANCOMYCIN HCL 1,000 MG, VIAL MATE ADAPTER 1 EACH in D5W 250 ML IV SCH ×2 (01:19→09:47)
[2020-01-11] MEDS: PERCOCET 5MG/325MG TAB PO PRN ×2 (01:19→11:58)
[2020-01-11 04:00] VITALS: BP 145/78
[2020-01-11 05:17] LABS: BASO % 0.2 % (0.0-1.0); EOS # 0.1 10^3/uL (0.0-0.5); HEMATOCRIT 32.3 % (42.0-52.0); HEMOGLOBIN 10.3 g/dl (13.5-17.5); LYMPH # 0.8 10^3/uL (1.5-5.0); MEAN CORPUSCULAR HEMOGLOBIN 29.9 pg (27.0-33.0); MEAN CORPUSCULAR HGB CONC 31.9 g/dl (32.0-36.5); MEAN CORPUSCULAR VOLUME 93.6 fl (80.0-96.0); MONO # 0.6 10^3/uL (0.0-0.8); MONO % 7.6 % (0.0-5.0); NEUTROPHILS # 6.6 10^3/uL (1.5-8.5); NEUTROPHILS % 79.9 % (36.0-66.0); PLATELET COUNT, AUTOMATED 181 10^3/uL (150-450); RED BLOOD COUNT 3.45 10^6/uL (4.30-6.10); WHITE BLOOD COUNT 8.3 10^3/uL (4.0-10.0)
[2020-01-11 08:00] VITALS: BP 162/92
[2020-01-11] MEDS: PIPERACILLIN/TAZOBACTAM SOD 4.5 GM in D5W MINI-BAG PLUS 50 ML IV SCH (08:49)
[2020-01-11] MEDS: DIAPER RELIEF PASTE (DESITIN) 60GM TOP SCH (08:49)
[2020-01-11] MEDS: APIXABAN 5 MG TAB (ELIQUIS) PO SCH ×2 (08:49→20:23)
[2020-01-11] MEDS: MULTIVITAMINS/MINERALS THERAP 1 TAB PO SCH (08:49)
[2020-01-11] MEDS: LIDOCAINE 4% CREAM 5GM (LMX4) TOP SCH (09:00)
[2020-01-11] MEDS ORDERED: MORPHINE 2 MG/ML 1ML VIAL (J2270) IV ONE (09:45)
--- NOTE | 2020-01-11 10:25 | IPNPDOC ---
Text Note Date of Service The patient was seen on 01/11/20. NOTE Subjective: Issue was seen and examined this morning at bedside. Tells me that he woke up with left lower extremity pain and then notices leg was swollen. He denies any fevers or chills. Denies any chest pain or shortness of breath. Nurse only there is no overnight events. Objective: Constitutional: Awake and alert, in no apparent distress ENT: Sclera are clear. Mucosa is moist. Respiratory: Lungs CTA bilaterally. No respiratory distress. No use of accessory muscles. Cardiovascular: RRR S1 and S2 are normal, no murmur Gastrointestinal: Abdomen is soft, non distended, non tender, BS present. Musculoskeletal: No edema. RUE 5/5, LUE 5/5, BLE 5/5 Neurologic: No focal neurological deficit. Mental Status: A&O x3, normal affect Skin: Left lower extremity with fresh dressing clean and dry. Erythema has decreased. Left leg and foot is swollen today and painful to palpation. Skin soft over swelling. Sensation intact. 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 She was found to have left lower extremity cellulitis, mild drug myolysis and an GE. Patient was treated with IV vancomycin and Zosyn for cellulitis which significantly improved during his hospital stay. His acute metabolic encephalopathy resolved. His acute kidney injury resolved with hydration. During his stay patient was found to be subtherapeutic on warfarin and poorly compliant with INR checks which was subtherapeutic and so he was switched to eliquis. # LLE cellulitis: Noncompliance left untreated for over one month. IV vancomycin and Zosyn switched to IV cefazolin Wound culture grew coag negative staph. Wound care consult Dr. Calero. IVFs. Continue home Percocet dose for pain control. # LLE swelling: ordered stat duplex US. possibly DVT given history of DVTs in the past. eliquis increased to 10mg bid for 7 days and then 5mg bid started 01/11/2020. Dr Torres evaluated his leg at bedside doesnt think its compartment syndrome. CK today also downtrended to ~400 which goes against compartment syndrome. # Acute metabolic encephalopathy likely secondary to sepsis: Now resolved # Mild Rhabdomyolysis: IV fluids. CPK downtrended. # GE: Now resolved. Could have been 2/2 rhabdo/infection. IVF. Avoid nephrotoxins. # Elevated troponin: Likely demand. Trend the troponins which normalized. EKG reviewed is okay. Patient denies any chest pain or any point. # Anemia: Monitor hemoglobin. Could be component of dilution from the fluids he is getting. # Transaminitis: Possibly from shock liver. LFTs improved. Hep C negative. # Upper extremity tremors: Thought to be essential tremors treated with propanolol outpatient which did not help. I spoke with Dr. wilkins neurology and he suggested obtaining an ammonia and TSH level. Patient has subclinical hyperthyroidism and a normal ammonia level. It was suggested that he would follow-up with neurology after discharge. 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 Called his pharmacy [facility] and confirm that his insurance would cover him for elliquis. Therefore I will be switching him over to elliquis. # DVT prophylaxis: Derek [facility], I+O [facility] I+O Laboratory Tests 01/11/20 05:01 Vital Signs Date Time Temp Pulse Resp B/P (MAP) Pulse Ox O2 Delivery O2 Flow Rate FiO2 01/11/20 09:48 22 Room Air 01/11/20 08:00 98.4 94 162/92 (115) 96 01/08/20 01:45 2.0 01/08/20 00:00 96 I&O- Last 24 Hours up to 6 AM 01/11/20 06:00 Intake Total 480 ml Output Total 550 ml Balance -70 ml CARLOS MANN MD Jan 11, 2020 10:25
[2020-01-11] MEDS ORDERED: ceFAZolin SOD 2 GM in IV 1 EA IV SCH (10:30)
[2020-01-11] MEDS ORDERED: APIXABAN 5 MG TAB (ELIQUIS) PO ONE ×2 (10:45)
--- NOTE | 2020-01-11 10:59 | REP ---
INDICATION: acute left lower extremity swelling COMPARISON: 11/30/2019 TECHNIQUE: Boothe scale and color Doppler evaluation using linear high frequency transducer. FINDINGS: Ultrasound examination of the left lower extremity deep venous structures from the common femoral vein to the popliteal vein demonstrates chronic nonocclusive thrombus of the superficial femoral and popliteal veins unchanged from prior examination. No new occlusive thrombus identified. IMPRESSION: Chronic nonocclusive thrombus in the left superficial femoral vein and popliteal vein. <Electronically signed by Kevin Orosco > 01/11/20 1302
[2020-01-11] MEDS: ceFAZolin SOD 1 GM in D5W MINI-BAG PLUS 50 ML IV SCH ×2 (11:13→20:23)
[2020-01-11 12:00] VITALS: BP 170/80
[2020-01-11] MEDS: NS 1,000 ML IV SCH ×3 (14:44→23:40)
[2020-01-11 16:00] VITALS: BP 200/100
[2020-01-11] MEDS: MORPHINE 2 MG/ML 1ML VIAL (J2270) IV PRN (17:44)
[2020-01-11] MEDS: PERCOCET 5MG/325MG TAB PO SCH (18:20)
[2020-01-11 20:00] VITALS: BP 147/71
[2020-01-12] VITALS: BP 156/70
[2020-01-12] MEDS: NS 1,000 ML IV SCH ×4 (00:55→18:14)
[2020-01-12] MEDS: PERCOCET 5MG/325MG TAB PO SCH ×4 (00:56→18:15)
[2020-01-12 04:00] VITALS: BP 160/90
[2020-01-12] MEDS: ceFAZolin SOD 1 GM in D5W MINI-BAG PLUS 50 ML IV SCH ×3 (05:37→21:30)
[2020-01-12 05:52] LABS: CPK CREATINE PHOSPHOKINASE 313 U/L (39-308)
[2020-01-12] MEDS ORDERED: DOCUSATE SODIUM 100 MG CAP PO PRN (06:00)
[2020-01-12 07:57] LABS: HEMATOCRIT 34.2 % (42.0-52.0); HEMOGLOBIN 10.7 g/dl (13.5-17.5); MEAN CORPUSCULAR HEMOGLOBIN 29.6 pg (27.0-33.0); MEAN CORPUSCULAR HGB CONC 31.3 g/dl (32.0-36.5); MEAN CORPUSCULAR VOLUME 94.5 fl (80.0-96.0); PLATELET COUNT, AUTOMATED 305 10^3/uL (150-450); RED BLOOD COUNT 3.62 10^6/uL (4.30-6.10); WHITE BLOOD COUNT 11.1 10^3/uL (4.0-10.0)
[2020-01-12 08:00] VITALS: BP 147/73
[2020-01-12 08:03] LABS: BLOOD UREA NITROGEN 9 MG/DL (7-18); CALCIUM LEVEL 7.8 MG/DL (8.8-10.2); CARBON DIOXIDE LEVEL 21 MEQ/L (21-32); CHLORIDE LEVEL 110 MEQ/L (98-107); CREATININE FOR GFR 0.73 MG/DL (0.70-1.30); GLOMERULAR FILTRATION RATE > 60.0 (>49); GLUCOSE, FASTING 99 MG/DL (70-100); POTASSIUM SERUM 3.8 MEQ/L (3.5-5.1); SODIUM LEVEL 141 MEQ/L (136-145)
[2020-01-12] MEDS: SENNA 8.6 MG TAB (SENOKOT) PO SCH ×2 (09:47→21:00)
[2020-01-12] MEDS: APIXABAN 5 MG TAB (ELIQUIS) PO SCH ×2 (09:47→21:30)
[2020-01-12] MEDS: MULTIVITAMINS/MINERALS THERAP 1 TAB PO SCH (09:47)
[2020-01-12] MEDS: DIAPER RELIEF PASTE (DESITIN) 60GM TOP SCH (09:48)
[2020-01-12] MEDS: LIDOCAINE 4% CREAM 5GM (LMX4) TOP SCH (09:48)
[2020-01-12] MEDS: MORPHINE 2 MG/ML 1ML VIAL (J2270) IV PRN (10:37)
--- NOTE | 2020-01-12 10:44 | IPNPDOC ---
Text Note Date of Service The patient was seen on 01/12/20. NOTE Subjective: Patient was seen and examined this morning at bedside. Tells me he is feeling better today and his left lower extremity swelling has come down a little however he still feels unsteady on his feet and the leg pain is persistent. His diarrhea has resolved. He will be working with physical therapy today. Nurse only there is no overnight events. Objective: Constitutional: Awake and alert, in no apparent distress ENT: Sclera are clear. Mucosa is moist. Respiratory: Lungs CTA bilaterally. No respiratory distress. No use of accessory muscles. Cardiovascular: RRR S1 and S2 are normal, no murmur Gastrointestinal: Abdomen is soft, non distended, non tender, BS present. Musculoskeletal: No edema. RUE 5/5, LUE 5/5, BLE 5/5 Neurologic: No focal neurological deficit. Mental Status: A&O x3, normal affect Skin: Left lower extremity with fresh dressing clean and dry. Erythema has decreased. Left leg and foot is swelling has improved from yesterday and is less painful to touch. 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 She was found to have left lower extremity cellulitis, mild drug myolysis and an GE. Patient was treated with IV vancomycin and Zosyn for cellulitis which significantly improved during his hospital stay. His acute metabolic encephal opathy resolved. His acute kidney injury resolved with hydration. During his stay patient was found to be subtherapeutic on warfarin and poorly compliant with INR checks which was subtherapeutic and so he was switched to eliquis. # LLE cellulitis: Noncompliance left untreated for over one month. IV vancomycin and Zosyn switched to IV cefazolin Wound culture grew coag negative staph. Wound care consult Dr. Calero. IVFs. Continue home Percocet dose for pain control. # LLE swelling: Duplex positive for DVT report suggests chronic however clinically appears to be acute or acute on chronic development of the DVT.Eliquis 10mg bid for 7 days and then 5mg bid started 01/11/2020. Dr Torres evaluated his leg at bedside doesn't think its compartment syndrome. CK today also downtrended which goes against compartment syndrome. # Acute metabolic encephalopathy likely secondary to sepsis: Now resolved # Mild Rhabdomyolysis: Now resolved. IV fluids. CPK downtrended. # GE: Now resolved. Could have been 2/2 rhabdo/infection. IVF. Avoid nephrotoxins. # Elevated troponin: Likely demand. Troponins normalized. EKG reviewed is okay. Patient denies any chest pain or any point. # Anemia: Monitor hemoglobin. transfuse prn hgb<7 # Transaminitis: Possibly from shock liver initially. LFTs improved. Hep C negative. # Upper extremity tremors: Thought to be essential tremors treated with propanolol outpatient which did not help. I spoke with Dr. wilkins neurology and he suggested obtaining an ammonia and TSH level. Patient has subclinical hyperthyroidism and a normal ammonia level. It was suggested that he would follow-up with neurology after discharge. 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 Called his pharmacy [facility] and confirm that his insurance would cover him for elliquis. Therefore I will be switching him over to elliquis. # DVT prophylaxis: Eliqukana Dispo: PT/OT will work with him again today but they are leaning towards him requiring rehab. [facility], I+O [facility] I+O Laboratory Tests 01/12/20 05:22 Vital Signs Date Time Temp Pulse Resp B/P (MAP) Pulse Ox O2 Delivery O2 Flow Rate FiO2 01/12/20 08:00 98.4 86 18 147/73 (97) 93 Room Air 01/08/20 01:45 2.0 01/08/20 00:00 96 I&O- Last 24 Hours up to 6 AM 01/12/20 06:00 Intake Total 2820 ml Output Total 0 ml Balance 2820 ml CARLOS HENDERSON MD Jan 12, 2020 10:44
[2020-01-12 12:00] VITALS: BP 178/90
[2020-01-12 16:00] VITALS: BP 166/77
[2020-01-12 20:00] VITALS: BP 156/82
[2020-01-12] MEDS: ACETAMINOPHEN TAB 650MG DOSE (2X325MG) PO PRN (21:53)
[2020-01-13] VITALS: BP 140/70
[2020-01-13] MEDS: PERCOCET 5MG/325MG TAB PO SCH ×4 (00:29→17:50)
[2020-01-13] MEDS: NS 1,000 ML IV SCH ×3 (00:40→21:32)
[2020-01-13 04:00] VITALS: BP 139/72
[2020-01-13] MEDS: ceFAZolin SOD 1 GM in D5W MINI-BAG PLUS 50 ML IV SCH ×3 (04:35→21:32)
[2020-01-13 06:43] LABS: CPK CREATINE PHOSPHOKINASE 243 U/L (39-308)
[2020-01-13 07:52] LABS: ALBUMIN 2.2 GM/DL (3.2-5.2); ALT/SGPT 45 U/L (12-78); BILIRUBIN,TOTAL 0.7 MG/DL (0.2-1.0); BLOOD UREA NITROGEN 9 MG/DL (7-18); CALCIUM LEVEL 7.8 MG/DL (8.8-10.2); CARBON DIOXIDE LEVEL 25 MEQ/L (21-32); CHLORIDE LEVEL 110 MEQ/L (98-107); CREATININE FOR GFR 0.66 MG/DL (0.70-1.30); GLOMERULAR FILTRATION RATE > 60.0 (>49); GLUCOSE, FASTING 104 MG/DL (70-100); POTASSIUM SERUM 3.5 MEQ/L (3.5-5.1); SODIUM LEVEL 142 MEQ/L (136-145); TOTAL PROTEIN 5.1 GM/DL (6.4-8.2)
[2020-01-13 08:00] VITALS: BP 157/73
[2020-01-13 08:32] LABS: HEMATOCRIT 32.9 % (42.0-52.0); HEMOGLOBIN 10.3 g/dl (13.5-17.5); MEAN CORPUSCULAR HEMOGLOBIN 29.4 pg (27.0-33.0); MEAN CORPUSCULAR HGB CONC 31.3 g/dl (32.0-36.5); PLATELET COUNT, AUTOMATED 317 10^3/uL (150-450); WHITE BLOOD COUNT 11.6 10^3/uL (4.0-10.0)
[2020-01-13] MEDS: APIXABAN 5 MG TAB (ELIQUIS) PO SCH ×2 (08:47→21:33)
[2020-01-13] MEDS: MULTIVITAMINS/MINERALS THERAP 1 TAB PO SCH (08:47)
[2020-01-13] MEDS: LIDOCAINE 4% CREAM 5GM (LMX4) TOP SCH (08:48)
[2020-01-13] MEDS: SENNA 8.6 MG TAB (SENOKOT) PO SCH ×2 (08:48→21:33)
[2020-01-13] MEDS: DIAPER RELIEF PASTE (DESITIN) 60GM TOP SCH (08:48)
[2020-01-13 09:11] LABS: EOSINOPHILS 1 % (0-3); MONOCYTES 4 % (0-5); MYELOCYTES 1 % (0-0)
[2020-01-13 09:13] LABS: LYMPHOCYTES 6 % (16-44); NEUTROPHILS 85 % (28-66)
[2020-01-13 09:14] LABS: PLATELET ESTIMATE NORMAL (NORMAL)
[2020-01-13 09:17] LABS: TOXIC GRANULATION 1+
--- NOTE | 2020-01-13 09:56 | IPNPDOC ---
Date Seen The patient was seen on 01/13/20. Progress Note SUBJECTIVE: patient was seen and examined at bedside. doing well. no acute events overnight. afebrile. L leg pain mildly improved. denies subjective fevers, chills. VSS. ARU consult required per PT. OBJECTIVE PHYSICAL EXAMINATION: VITAL SIGNS: please see below General: NAD, comfortable HEENT: PERRLA, EOMI, sclerae clear Neck: supple, normal ROM, no JVD Respiratory: lungs CTAB, no wheeze, no rales, no crackles CVS: RRR, normal S1, S2, no murmurs Abdo: soft, no masses, no hepatosplenomegaly, BS+, no rebound tenderness Extremities: L leg swollen, dressing clean. Site of DVT. 2+ edema. pain improved to touch. MSK: no joint deformities, normal ROM Neuro: no focal neuro deficits, moving all 4 extremities, CN2-12 intact. Strength 5/5 in all 4 extremities. No nystagmus. Psych: calm, cooperative, AAO x 3 LABORATORY DATA, IMAGING STUDIES, MICROBIOLOGY: Please see below. DVT prophylaxis ordered?: Y, eliquis. Assessment/plan: Mr. 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 She was found to have left lower extremity cellulitis, mild drug myolysis and an GE. Patient was treated with IV vancomycin and Zosyn for cellulitis which significantly improved during his hospital stay. His acute metabolic encepha lopathy resolved. His acute kidney injury resolved with hydration. During his stay patient was found to be subtherapeutic on warfarin and poorly compliant with INR checks which was subtherapeutic and so he was switched to eliquis. # LLE cellulitis: Noncompliance left untreated for over one month. IV vancomycin and Zosyn switched to IV cefazolin. Wound culture grew coag negative staph. Wound care consult Dr. Calero. IVFs. Continue home Percocet dose for pain control. # LLE swelling: Duplex positive for DVT report suggests chronic however clinically appears to be acute or acute on chronic development of the DVT. Eliquis 10mg bid for 7 days and then 5mg bid started 01/11/2020. Evaluated by Dr. Torres, not compartment syndrome. CK trended down. # Acute metabolic encephalopathy likely secondary to sepsis: Now resolved # Mild Rhabdomyolysis: Now resolved. IV fluids. CPK downtrended. # GE: Now resolved. Could have been 2/2 rhabdo/infection. IVF. Avoid nephrotoxins. # Elevated troponin: Likely demand. Troponins normalized. EKG reviewed is okay. Patient denies any chest pain or any point. # Anemia: Monitor hemoglobin. transfuse prn hgb<7 # Transaminitis: Possibly from shock liver initially. LFTs improved. Hep C negative. # Upper extremity tremors: Thought to be essential tremors treated with propanolol outpatient which did not help. I spoke with Dr. wilkins neurology and he suggested obtaining an ammonia and TSH level. Patient has subclinical hyperthyroidism and a normal ammonia level. It was suggested that he would follow-up with neurology after discharge. 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 Switched to eliquis. # DVT prophylaxis: Eliquis Dispo: ARU admission screen placed, per PT/OT recommendations. VS, I&O, 24H, Fishbone Vital Signs/I&O Vital Signs Date Time Temp Pulse Resp B/P (MAP) Pulse Ox O2 Delivery O2 Flow Rate FiO2 01/13/20 07:00 18 01/13/20 04:00 98.0 69 139/72 (94) 96 Room Air 01/08/20 01:45 2.0 01/08/20 00:00 96 I&O- Last 24 Hours up to 6 AM 01/13/20 06:00 Intake Total 3760 ml Output Total 300 ml Balance 3460 ml Laboratory Data 24H LABS Laboratory Tests 2 01/13/20 05:45: Neutrophils (%) (Auto) , Nucleated Red Blood Cells % (auto) 0.0, Neutrophils 85H, Band Neutrophils 3, Lymphocytes (Manual) 6L, Monocytes (Manual) 4, Eosinophils (Manual) 1, Myelocytes 1H, Hypochromasia , Toxic Granulation 1+, Platelet Estimate NORMAL, Anion Gap 7L, Glomerular Filtration Rate > 60.0, Calcium Level 7.8L, Magnesium Level 2.0, Total Bilirubin 0.7, Aspartate Amino Transf (AST/SGOT) 29, Alanine Aminotransferase (ALT/SGPT) 45, Alkaline Phosphatase 105, Total Creatine Kinase 243, Total Protein 5.1L, Albumin 2.2L, Albumin/Globulin Ratio 0.8 CBC/BMP Laboratory Tests 01/13/20 05:45 Microbiology Microbiology 01/09/20 Wound Culture - Final, Complete Staphylococcus Sp Coag Neg 01/07/20 Blood Culture - Final, Complete NO GROWTH AFTER 5 DAYS EFRAÍN ARREDONDO MD Jan 13, 2020 09:56
[2020-01-13 12:00] VITALS: BP 164/88
[2020-01-13 16:00] VITALS: BP 158/78
[2020-01-13 20:00] VITALS: BP 145/82
[2020-01-14] VITALS: BP 154/82
[2020-01-14] MEDS: PERCOCET 5MG/325MG TAB PO SCH ×4 (00:42→17:25)
[2020-01-14 04:00] VITALS: BP 156/84
[2020-01-14 05:04] LABS: BASO # 0.1 10^3/uL (0.0-0.2); BASO % 0.4 % (0.0-1.0); EOS # 0.1 10^3/uL (0.0-0.5); EOS % 0.6 % (0.0-3.0); HEMATOCRIT 33.5 % (42.0-52.0); HEMOGLOBIN 10.5 g/dl (13.5-17.5); LYMPH # 1.4 10^3/uL (1.5-5.0); LYMPH % 10.7 % (24.0-44.0); MEAN CORPUSCULAR HEMOGLOBIN 29.4 pg (27.0-33.0); MEAN CORPUSCULAR HGB CONC 31.3 g/dl (32.0-36.5); MEAN CORPUSCULAR VOLUME 93.8 fl (80.0-96.0); MONO # 0.8 10^3/uL (0.0-0.8); MONO % 6.4 % (0.0-5.0); NEUTROPHILS # 10.1 10^3/uL (1.5-8.5); NEUTROPHILS % 79.6 % (36.0-66.0); PLATELET COUNT, AUTOMATED 333 10^3/uL (150-450); RED BLOOD COUNT 3.57 10^6/uL (4.30-6.10); WHITE BLOOD COUNT 12.7 10^3/uL (4.0-10.0)
[2020-01-14] MEDS: NS 1,000 ML IV SCH ×2 (05:13→09:15)
[2020-01-14] MEDS: ceFAZolin SOD 1 GM in D5W MINI-BAG PLUS 50 ML IV SCH ×3 (05:13→20:26)
[2020-01-14 05:24] LABS: ALBUMIN 2.1 GM/DL (3.2-5.2); ALT/SGPT 35 U/L (12-78); BILIRUBIN,TOTAL 0.7 MG/DL (0.2-1.0); BLOOD UREA NITROGEN 10 MG/DL (7-18); CALCIUM LEVEL 8.1 MG/DL (8.8-10.2); CARBON DIOXIDE LEVEL 27 MEQ/L (21-32); CHLORIDE LEVEL 109 MEQ/L (98-107); CPK CREATINE PHOSPHOKINASE 227 U/L (39-308); GLOMERULAR FILTRATION RATE > 60.0 (>49); GLUCOSE, FASTING 97 MG/DL (70-100); MAGNESIUM LEVEL 2.1 MG/DL (1.8-2.4); POTASSIUM SERUM 3.3 MEQ/L (3.5-5.1); SODIUM LEVEL 142 MEQ/L (136-145); TOTAL PROTEIN 5.9 GM/DL (6.4-8.2)
[2020-01-14 08:00] VITALS: BP 142/68
[2020-01-14] MEDS ORDERED: POTASSIUM CHLORIDE 10 MEQ SR TABLET PO ONE (08:00)
[2020-01-14] MEDS: SENNA 8.6 MG TAB (SENOKOT) PO SCH ×2 (09:00→20:27)
[2020-01-14] MEDS: MORPHINE 2 MG/ML 1ML VIAL (J2270) IV PRN (09:13)
[2020-01-14] MEDS: MULTIVITAMINS/MINERALS THERAP 1 TAB PO SCH (09:14)
[2020-01-14] MEDS: DIAPER RELIEF PASTE (DESITIN) 60GM TOP SCH (09:14)
[2020-01-14] MEDS: APIXABAN 5 MG TAB (ELIQUIS) PO SCH ×2 (09:14→20:26)
[2020-01-14] MEDS: LIDOCAINE 4% CREAM 5GM (LMX4) TOP SCH (09:14)
--- NOTE | 2020-01-14 11:24 | IPNPDOC ---
Date Seen The patient was seen on 01/14/20. Progress Note SUBJECTIVE: patient was seen and examined at bedside. doing well. no acute events overnight. afebrile. L leg pain mildly improved. denies subjective fevers, chills. VSS. OBJECTIVE PHYSICAL EXAMINATION: VITAL SIGNS: please see below General: NAD, comfortable HEENT: PERRLA, EOMI, sclerae clear Neck: supple, normal ROM, no JVD Respiratory: lungs CTAB, no wheeze, no rales, no crackles CVS: RRR, normal S1, S2, no murmurs Abdo: soft, no masses, no hepatosplenomegaly, BS+, no rebound tenderness Extremities: L leg swelling mildly improved. Area of cellulitis around wound improved, calcium algenate applied. No purulence. Site of DVT. 2+ edema. pain improved to touch. MSK: no joint deformities, normal ROM Neuro: no focal neuro deficits, moving all 4 extremities, CN2-12 intact. Strength 5/5 in all 4 extremities. No nystagmus. Psych: calm, cooperative, AAO x 3 LABORATORY DATA, IMAGING STUDIES, MICROBIOLOGY: Please see below. DVT prophylaxis ordered?: Nicho, eliquis. Assessment/plan: Mr. 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 She was found to have left lower extremity cellulitis, mild drug myolysis and an GE. Patient was treated with IV vancomycin and Zosyn for cellulitis which significantly improved during his hospital stay. His acute metabolic encephalopathy resolved. His acute kidney injury resolved with hydration. During his stay patient was found to be subtherapeutic on warfarin and poorly compliant with INR checks which was subtherapeutic and so he was switched to eliquis. # LLE cellulitis: Noncompliance left untreated for over one month. IV vancomycin and Zosyn switched to IV cefazolin. Wound culture grew coag negative staph. Wound care consult Dr. Calero. IVFs. Continue home Percocet dose for pain control. WBC slowly trending up. Patient is afebrile. Cellulitis seems to be r esponding to cefazolin on exam. Continue to monitor cbc. # LLE swelling: Duplex positive for DVT report suggests chronic however clinically appears to be acute or acute on chronic development of the DVT. Eliquis 10mg bid for 7 days and then 5mg bid started 01/11/2020. Evaluated by Dr. Torres, not compartment syndrome. CK trended down. # Acute metabolic encephalopathy likely secondary to sepsis: Now resolved # Mild Rhabdomyolysis: Now resolved. IV fluids. CPK downtrended. # Hypokalemia: K 3.3, replaced # GE: Now resolved. Could have been 2/2 rhabdo/infection. IVF. Avoid nephrotoxins. # Elevated troponin: Likely demand. Troponins normalized. EKG reviewed is okay. Patient denies any chest pain or any point. #HTN: amlodipine, HCTZ. 20 mg labetalol IV once. # Anemia: Monitor hemoglobin. transfuse prn hgb<7 # Transaminitis: Possibly from shock liver initially. LFTs improved. Hep C negative. # Upper extremity tremors: Thought to be essential tremors treated with propanolol outpatient which did not help. I spoke with Dr. wilkins neurology and he suggested obtaining an ammonia and TSH level. Patient has subclinical hyperthyroidism and a normal ammonia level. It was suggested that he would follow-up with neurology after discharge. 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 Switched to eliquis. # DVT prophylaxis: Eliquis Dispo: recommendation for subacute rehab. VS, I&O, 24H, Fishbone Vital Signs/I&O Vital Signs Date Time Temp Pulse Resp B/P (MAP) Pulse Ox O2 Delivery O2 Flow Rate FiO2 01/14/20 09:13 20 01/14/20 08:00 97.7 92 142/68 (92) 95 Room Air 01/08/20 01:45 2.0 01/08/20 00:00 96 I&O- Last 24 Hours up to 6 AM 01/14/20 06:00 Intake Total 650 ml Output Total 100 ml Balance 550 ml Laboratory Data 24H LABS Laboratory Tests 2 01/14/20 04:32: Immature Granulocyte % (Auto) 2.3, Neutrophils (%) (Auto) 79.6H, Lymphocytes (%) (Auto) 10.7L, Monocytes (%) (Auto) 6.4H, Eosinophils (%) (Auto) 0.6, Basophils (%) (Auto) 0.4, Neutrophils # (Auto) 10.1H, Lymphocytes # (Auto) 1.4L, Monocytes # (Auto) 0.8, Eosinophils # (Auto) 0.1, Basophils # (Auto) 0.1, Nucleated Red Blood Cells % (auto) 0.0, Anion Gap 6L, Glomerular Filtration Rate > 60.0, Calcium Level 8.1L, Magnesium Level 2.1, Total Bilirubin 0.7, Aspartate Amino Transf (AST/SGOT) 29, Alanine Aminotransferase (ALT/SGPT) 35, Alkaline Phosphatase 107, Total Creatine Kinase 227, Total Protein 5.9L, Albumin 2.1L, Albumin/Globulin Ratio 0.6 CBC/BMP Laboratory Tests 01/14/20 04:32 Microbiology Microbiology 01/09/20 Wound Culture - Final, Complete Staphylococcus Sp Coag Neg 01/07/20 Blood Culture - Final, Complete NO GROWTH AFTER 5 DAYS EFRAÍN ARREDONDO MD Jan 14, 2020 11:24
--- NOTE | 2020-01-14 11:55 | REP ---
INDICATION: wbc. COMPARISON: Comparison portable chest January 08, 2020.. TECHNIQUE: Upright AP view. FINDINGS: The lungs are well inflated and free of infiltrate. Right hemidiaphragm is slightly elevated and scalloped as before. Mild cardiac enlargement is observed. This is unchanged. Pulmonary vasculature is cephalized. This may be positional. The pleural angles are sharp and there is no evidence of pulmonary edema. There is evidence of an old healed rib fracture on the left. IMPRESSION: Mildly prominent heart again noted. Vascular cephalization. Otherwise no acute disease. <Electronically signed by Jonathan Gould > 01/14/20 2308
[2020-01-14 11:56] VITALS: BP 176/84
[2020-01-14] MEDS ORDERED: LABETALOL 100MG/20ML VIAL IV STA (15:32)
[2020-01-14 15:48] VITALS: BP 185/86
[2020-01-14] MEDS: hydroCHLOROthiazide 12.5 MG CAPSULE PO SCH (16:23)
[2020-01-14] MEDS: amLODIPine 5 MG TAB PO SCH (16:24)
[2020-01-14] MEDS ORDERED: SLF 3 ML SYR IV PRN (17:00)
[2020-01-14 20:00] VITALS: BP 138/76
[2020-01-14] MEDS: SLF 3 ML SYR IV SCH (21:57)
[2020-01-15] VITALS: BP 130/70
[2020-01-15] MEDS: PERCOCET 5MG/325MG TAB PO SCH ×5 (00:15→23:54)
[2020-01-15] MEDS: ceFAZolin SOD 1 GM in D5W MINI-BAG PLUS 50 ML IV SCH (03:44)
[2020-01-15 04:00] VITALS: BP 146/82
[2020-01-15 05:42] LABS: BASO # 0.1 10^3/uL (0.0-0.2); BASO % 0.3 % (0.0-1.0); EOS # 0.1 10^3/uL (0.0-0.5); EOS % 0.8 % (0.0-3.0); HEMATOCRIT 31.5 % (42.0-52.0); LYMPH # 1.2 10^3/uL (1.5-5.0); LYMPH % 7.9 % (24.0-44.0); MEAN CORPUSCULAR HEMOGLOBIN 29.6 pg (27.0-33.0); MEAN CORPUSCULAR HGB CONC 31.7 g/dl (32.0-36.5); MEAN CORPUSCULAR VOLUME 93.2 fl (80.0-96.0); MONO # 0.8 10^3/uL (0.0-0.8); MONO % 5.1 % (0.0-5.0); NEUTROPHILS # 12.8 10^3/uL (1.5-8.5); NEUTROPHILS % 83.8 % (36.0-66.0); PLATELET COUNT, AUTOMATED 388 10^3/uL (150-450); RED BLOOD COUNT 3.38 10^6/uL (4.30-6.10); WHITE BLOOD COUNT 15.3 10^3/uL (4.0-10.0)
[2020-01-15] MEDS: SLF 3 ML SYR IV SCH ×3 (05:59→22:06)
[2020-01-15 06:06] LABS: ALBUMIN 2.1 GM/DL (3.2-5.2); ALT/SGPT 34 U/L (12-78); BILIRUBIN,TOTAL 0.8 MG/DL (0.2-1.0); BLOOD UREA NITROGEN 8 MG/DL (7-18); CALCIUM LEVEL 7.8 MG/DL (8.8-10.2); CARBON DIOXIDE LEVEL 29 MEQ/L (21-32); CHLORIDE LEVEL 106 MEQ/L (98-107); CREATININE FOR GFR 0.76 MG/DL (0.70-1.30); GLOMERULAR FILTRATION RATE > 60.0 (>49); GLUCOSE, FASTING 98 MG/DL (70-100); MAGNESIUM LEVEL 2.1 MG/DL (1.8-2.4); POTASSIUM SERUM 3.7 MEQ/L (3.5-5.1); SODIUM LEVEL 140 MEQ/L (136-145); TOTAL PROTEIN 5.2 GM/DL (6.4-8.2)
[2020-01-15 08:00] VITALS: BP 150/78
[2020-01-15] MEDS ORDERED: CLINDAMYCIN 600 MG in IV 1 EA IV SCH (08:00)
--- NOTE | 2020-01-15 08:46 | IPNPDOC ---
Date Seen The patient was seen on 01/15/20. Progress Note SUBJECTIVE: patient was seen and examined at bedside. denies subjective fevers or chills. Denies CP, palpitation, SOB, n/v/d. He feels that his R leg pain is improving. Overnight, he was having low grade temps Tmax 99.6. OBJECTIVE PHYSICAL EXAMINATION: VITAL SIGNS: please see below General: NAD, comfortable HEENT: PERRLA, EOMI, sclerae clear Neck: supple, normal ROM, no JVD Respiratory: lungs CTAB, no wheeze, no rales, no crackles CVS: RRR, normal S1, S2, no murmurs Abdo: soft, no masses, no hepatosplenomegaly, BS+, no rebound tenderness Extremities: L leg swelling mildly improved. dressing clean, dry, intact. Site of DVT. 2+ edema. pain improved to touch. MSK: no joint deformities, normal ROM Neuro: no focal neuro deficits, moving all 4 extremities, CN2-12 intact. Strength 5/5 in all 4 extremities. No nystagmus. Psych: calm, cooperative, AAO x 3 LABORATORY DATA, IMAGING STUDIES, MICROBIOLOGY: Please see below. DVT prophylaxis ordered?: Y, on eliquis Mr. 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 She was found to have left lower extremity cellulitis, mild drug myolysis and an GE. Patient was treated with IV vancomycin and Zosyn for cellulitis which significantly improved during his hospital stay. His acute metabolic encephalopathy resolved. His acute kidney injury resolved with hydration. During his stay patient was found to be subtherapeutic on warfarin and poorly compliant with INR checks which was subtherapeutic and so he was switched to eliquis. WBC began trending up on cefazolin, with low grade temps. Ordered repeat blood cultures. Discussed with Dr. Richards, switched cefazolin to PO linezolid x 10 days. # LLE cellulitis: Noncompliance left untreated for over one month. IV vancomycin and Zosyn switched to IV cefazolin. Wound culture grew coag negative staph. Blood cx 10/21 negative. Wound care consult Dr. Calero. IVFs. Continue home Percocet dose for pain control. CRP trending down. WBC trended up, 15.3. low grade temps 99.6. Discussed with Dr. Richards, rec to switch cefazolin to linezolid (through 01/24). Monitor response. Follow up repeat blood cultures. # LLE swelling: Duplex positive for DVT report suggests chronic however clinically appears to be acute or acute on chronic development of the DVT. Eliquis 10mg bid for 7 days and then 5mg bid started 01/11/2020. Evaluated by Dr. Torres, not compartment syndrome. CK trended down. # Acute metabolic encephalopathy likely secondary to sepsis: Now resolved # Mild Rhabdomyolysis: Now resolved. IV fluids. CPK downtrended. # Hypokalemia: resolved # GE: Now resolved. Could have been 2/2 rhabdo/infection. IVF. Avoid nephrotoxins. # Elevated troponin: Likely demand. Troponins normalized. EKG reviewed is okay. Patient denies any chest pain or any point. #HTN: amlodipine, HCTZ. 20 mg labetalol IV once. # Anemia: Monitor hemoglobin. FOBT ordered. check ferritin. transfuse prn hgb<7 # Transaminitis: Possibly from shock liver initially. Resolved. Hep C negative. # Upper extremity tremors: Thought to be essential tremors treated with propanolol outpatient which did not help. I spoke with Dr. wilkins neurology and he suggested obtaining an ammonia and TSH level. Patient has subclinical hyperthyroidism and a normal ammonia level. It was suggested that he would follow-up with neurology after discharge. 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 Switched to eliquis. # DVT prophylaxis: Eliquis VS, I&O, 24H, Fishbone Vital Signs/I&O Vital Signs Date Time Temp Pulse Resp B/P (MAP) Pulse Ox O2 Delivery O2 Flow Rate FiO2 01/15/20 08:00 98.1 85 20 150/78 (102) 94 Room Air I&O- Last 24 Hours up to 6 AM 01/15/20 06:00 Intake Total 1910 ml Output Total 625 ml Balance 1285 ml Laboratory Data 24H LABS Laboratory Tests 2 01/15/20 05:21: Immature Granulocyte % (Auto) 2.1, Neutrophils (%) (Auto) 83.8H, Lymphocytes (%) (Auto) 7.9L, Monocytes (%) (Auto) 5.1H, Eosinophils (%) (Auto) 0.8, Basophils (%) (Auto) 0.3, Neutrophils # (Auto) 12.8H, Lymphocytes # (Auto) 1.2L, Monocytes # (Auto) 0.8, Eosinophils # (Auto) 0.1, Basophils # (Auto) 0.1, Nucleated Red Blood Cells % (auto) 0.0, Anion Gap 5L, Glomerular Filtration Rate > 60.0, Calcium Level 7.8L, Magnesium Level 2.1, Total Bilirubin 0.8, Aspartate Amino Transf (AST/SGOT) 29, Alanine Aminotransferase (ALT/SGPT) 34, Alkaline Phosphat ase 107, C-Reactive Protein, Quantitative 16.10H, Total Protein 5.2L, Albumin 2.1L, Albumin/Globulin Ratio 0.7 CBC/BMP Laboratory Tests 01/15/20 05:21 Microbiology Microbiology 01/09/20 Wound Culture - Final, Complete Staphylococcus Sp Coag Neg 01/07/20 Blood Culture - Final, Complete NO GROWTH AFTER 5 DAYS EFRAÍN ARREDONDO MD Jan 15, 2020 08:46
[2020-01-15] MEDS: SENNA 8.6 MG TAB (SENOKOT) PO SCH ×2 (09:00→20:41)
[2020-01-15] MEDS: hydroCHLOROthiazide 12.5 MG CAPSULE PO SCH (09:16)
[2020-01-15] MEDS: APIXABAN 5 MG TAB (ELIQUIS) PO SCH ×2 (09:16→20:41)
[2020-01-15] MEDS: amLODIPine 5 MG TAB PO SCH (09:16)
[2020-01-15] MEDS: MULTIVITAMINS/MINERALS THERAP 1 TAB PO SCH (09:16)
[2020-01-15] MEDS: LIDOCAINE 4% CREAM 5GM (LMX4) TOP SCH (09:17)
[2020-01-15] MEDS: DIAPER RELIEF PASTE (DESITIN) 60GM TOP SCH (09:17)
[2020-01-15] MEDS: LINEZOLID 600MG TABLET (ZYVOX) PO SCH ×2 (09:26→20:41)
[2020-01-15 09:51] LABS: APPEARANCE, URINE CLEAR (CLEAR); BACTERIA, URINE AUTO NEGATIVE (NEGATIVE); BILIRUBIN, URINE AUTO NEGATIVE (NEGATIVE); BLOOD, URINE BLOOD 1+ (NEGATIVE); CALCIUM OXALATE CRYSTALS SMALL; COLOR, URINE YELLOW (YELLOW); GLUCOSE, URINE (UA) AUTO NEGATIVE (NEGATIVE); KETONE, URINE AUTO NEGATIVE (NEGATIVE); LEUKOCYTE ESTERASE, URINE AUTO NEGATIVE (NEGATIVE); MUCUS, URINE SMALL (NEGATIVE); NITRITE, URINE AUTO NEGATIVE (NEGATIVE); PROTEIN, URINE AUTO NEGATIVE (NEGATIVE); RBC, URINE AUTO 14 /HPF (0-3); SPECIFIC GRAVITY URINE AUTO 1.016 (1.002-1.035); SQUAMOUS EPITHELIAL CELL UR AU 0 /HPF (0-6); UROBILINOGEN, URINE AUTO 0.2 mg/dL (0.0-2.0); WBC, URINE AUTO 2 /HPF (0-3)
[2020-01-15 12:00] VITALS: BP 138/69
[2020-01-15 16:00] VITALS: BP 157/79
[2020-01-15 20:00] VITALS: BP 128/77
[2020-01-16 04:00] VITALS: BP 143/73
[2020-01-16 05:25] LABS: BASO # 0.1 10^3/uL (0.0-0.2); BASO % 0.3 % (0.0-1.0); EOS # 0.1 10^3/uL (0.0-0.5); EOS % 0.5 % (0.0-3.0); HEMATOCRIT 30.2 % (42.0-52.0); HEMOGLOBIN 9.6 g/dl (13.5-17.5); LYMPH # 1.4 10^3/uL (1.5-5.0); LYMPH % 9.2 % (24.0-44.0); MEAN CORPUSCULAR HEMOGLOBIN 29.5 pg (27.0-33.0); MEAN CORPUSCULAR HGB CONC 31.8 g/dl (32.0-36.5); MEAN CORPUSCULAR VOLUME 92.9 fl (80.0-96.0); MONO # 0.9 10^3/uL (0.0-0.8); NEUTROPHILS % 82.4 % (36.0-66.0); PLATELET COUNT, AUTOMATED 414 10^3/uL (150-450); RED BLOOD COUNT 3.25 10^6/uL (4.30-6.10); WHITE BLOOD COUNT 14.6 10^3/uL (4.0-10.0)
[2020-01-16] MEDS: PERCOCET 5MG/325MG TAB PO SCH ×4 (06:05→23:50)
[2020-01-16] MEDS: SLF 3 ML SYR IV SCH ×3 (06:06→22:00)
[2020-01-16 06:27] LABS: ALT/SGPT 31 U/L (12-78); BILIRUBIN,TOTAL 0.8 MG/DL (0.2-1.0); BLOOD UREA NITROGEN 8 MG/DL (7-18); CALCIUM LEVEL 7.5 MG/DL (8.8-10.2); CARBON DIOXIDE LEVEL 30 MEQ/L (21-32); CHLORIDE LEVEL 106 MEQ/L (98-107); CREATININE FOR GFR 0.67 MG/DL (0.70-1.30); GLOMERULAR FILTRATION RATE > 60.0 (>49); GLUCOSE, FASTING 91 MG/DL (70-100); POTASSIUM SERUM 4.2 MEQ/L (3.5-5.1); SODIUM LEVEL 139 MEQ/L (136-145); TOTAL PROTEIN 5.2 GM/DL (6.4-8.2)
[2020-01-16 08:00] VITALS: BP 122/72
[2020-01-16] MEDS: SENNA 8.6 MG TAB (SENOKOT) PO SCH ×2 (09:00→20:01)
[2020-01-16] MEDS: APIXABAN 5 MG TAB (ELIQUIS) PO SCH ×2 (09:15→20:01)
[2020-01-16] MEDS: amLODIPine 5 MG TAB PO SCH (09:15)
[2020-01-16] MEDS: MULTIVITAMINS/MINERALS THERAP 1 TAB PO SCH (09:15)
[2020-01-16] MEDS: hydroCHLOROthiazide 12.5 MG CAPSULE PO SCH (09:15)
[2020-01-16] MEDS: LINEZOLID 600MG TABLET (ZYVOX) PO SCH ×2 (09:17→20:00)
--- NOTE | 2020-01-16 10:29 | IPNPDOC ---
Date Seen The patient was seen on 01/16/20. Progress Note SUBJECTIVE: patient was seen and examined at bedside. denies subjective fevers or chills. Denies CP, palpitation, SOB, n/v/d. He feels that his R leg pain is improving. Afebrile overnight. OBJECTIVE PHYSICAL EXAMINATION: VITAL SIGNS: please see below General: NAD, comfortable HEENT: PERRLA, EOMI, sclerae clear Neck: supple, normal ROM, no JVD Respiratory: lungs CTAB, no wheeze, no rales, no crackles CVS: RRR, normal S1, S2, no murmurs Abdo: soft, no masses, no hepatosplenomegaly, BS+, no rebound tenderness Extremities: L leg swelling mildly improved. dressing clean, dry, intact. Site of DVT. 2+ edema. pain improved to touch. MSK: no joint deformities, normal ROM Neuro: no focal neuro deficits, moving all 4 extremities, CN2-12 intact. Strength 5/5 in all 4 extremities. No nystagmus. Psych: calm, cooperative, AAO x 3 LABORATORY DATA, IMAGING STUDIES, MICROBIOLOGY: Please see below. DVT prophylaxis ordered?: Y, on eliquis Mr. 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 She was found to have left lower extremity cellulitis, mild drug myolysis and an GE. Patient was treated with IV vancomycin and Zosyn for cellulitis which significantly improved during his hospital stay. His acute metabolic en cephalopathy resolved. His acute kidney injury resolved with hydration. During his stay patient was found to be subtherapeutic on warfarin and poorly compliant with INR checks which was subtherapeutic and so he was switched to eliquis. WBC began trending up on cefazolin, with low grade temps. Ordered repeat blood cultures. Discussed with Dr. Richards, switched cefazolin to PO linezolid x 10 days. # LLE cellulitis: Noncompliance left untreated for over one month. Wound care consult Dr. Calero. Blood cx 01/06 negative. Wound culture grew coag negative staph. IV vancomycin and Zosyn switched to IV cefazolin, but with worsening clinical response. Discussed with Dr. Richards, rec to switch cefazolin to linezolid (through 01/24). Repeat BCx prelim neg. WBC trending down. Afebrile. # LLE swelling: Duplex positive for DVT report suggests chronic however clinically appears to be acute or acute on chronic development of the DVT. Eliquis 10mg bid for 7 days and then 5mg bid started 01/11/2020. Evaluated by Dr. Torres, not compartment syndrome. CK trended down. # Acute metabolic encephalopathy likely secondary to sepsis: Now resolved # Mild Rhabdomyolysis: Now resolved. IV fluids. CPK downtrended. # Hypokalemia: resolved # GE: Now resolved. Could have been 2/2 rhabdo/infection. IVF. Avoid nep hrotoxins. # Elevated troponin: Likely demand. Troponins normalized. EKG reviewed is okay. Patient denies any chest pain or any point. #HTN: amlodipine, HCTZ. 20 mg labetalol IV once. # Anemia: Monitor hemoglobin. FOBT ordered. check ferritin. transfuse prn hgb<7 # Transaminitis: Possibly from shock liver initially. Resolved. Hep C negative. # Upper extremity tremors: Thought to be essential tremors treated with propanolol outpatient which did not help. I spoke with Dr. wilkins neurology and he suggested obtaining an ammonia and TSH level. Patient has subclinical hyperthyroidism and a normal ammonia level. It was suggested that he would follow-up with neurology after discharge. 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 Switched to eliquis. # DVT prophylaxis: Eliquis Dispo: PT recommending subacute rehab. VS, I&O, 24H, Fishbone Vital Signs/I&O Vital Signs Date Time Temp Pulse Resp B/P (MAP) Pulse Ox O2 Delivery O2 Flow Rate FiO2 01/16/20 08:00 97.7 104 18 122/72 (89) 94 Room Air I&O- Last 24 Hours up to 6 AM 01/16/20 06:00 Intake Total 660 ml Output Total 1300 ml Balance -640 ml Laboratory Data 24H LABS Laboratory Tests 2 01/16/20 05:11: Immature Granulocyte % (Auto) 1.6, Neutrophils (%) (Auto) 82.4H, Lymphocytes (%) (Auto) 9.2L, Monocytes (%) (Auto) 6.0H, Eosinophils (%) (Auto) 0.5, Basophils (%) (Auto) 0.3, Neutrophils # (Auto) 12.0H, Lymphocytes # (Auto) 1.4L, Monocytes # (Auto) 0.9H, Eosinophils # (Auto) 0.1, Basophils # (Auto) 0.1, Nucleated Red Blood Cells % (auto) 0.0, Anion Gap 3L, Glomerular Filtration Rate > 60.0, Calcium Level 7.5L, Magnesium Level 2.0, Total Bilirubin 0.8, Aspartate Amino Transf (AST/SGOT) 32, Alanine Aminotransferase (ALT/SGPT) 31, Alkaline Phosphatase 98, Total Protein 5.2L, Albumin 2.0L, Albumin/Globulin Ratio 0.6 CBC/BMP Laboratory Tests 01/16/20 05:11 Microbiology Microbiology 01/15/20 Blood Culture - Preliminary, Resulted No growth after 24 hours . All specim... 01/15/20 Urine Culture - Final, Complete 01/09/20 Wound Culture - Final, Complete Staphylococcus Sp Coag Neg 01/07/20 Blood Culture - Final, Complete NO GROWTH AFTER 5 DAYS EFRAÍN ARREDONDO MD Jan 16, 2020 10:29
[2020-01-16] MEDS: DIAPER RELIEF PASTE (DESITIN) 60GM TOP SCH (13:00)
[2020-01-16] MEDS: LIDOCAINE 4% CREAM 5GM (LMX4) TOP SCH (13:00)
[2020-01-16 16:00] VITALS: BP 148/70
[2020-01-16 20:00] VITALS: BP 134/67
[2020-01-17 04:00] VITALS: BP 166/79
[2020-01-17 05:32] LABS: BASO % 0.3 % (0.0-1.0); EOS # 0.1 10^3/uL (0.0-0.5); HEMATOCRIT 29.2 % (42.0-52.0); HEMOGLOBIN 9.5 g/dl (13.5-17.5); LYMPH # 1.4 10^3/uL (1.5-5.0); MEAN CORPUSCULAR HEMOGLOBIN 30.2 pg (27.0-33.0); MEAN CORPUSCULAR HGB CONC 32.5 g/dl (32.0-36.5); MEAN CORPUSCULAR VOLUME 92.7 fl (80.0-96.0); MONO # 0.9 10^3/uL (0.0-0.8); MONO % 6.8 % (0.0-5.0); NEUTROPHILS # 10.4 10^3/uL (1.5-8.5); NEUTROPHILS % 79.7 % (36.0-66.0); PLATELET COUNT, AUTOMATED 435 10^3/uL (150-450); RED BLOOD COUNT 3.15 10^6/uL (4.30-6.10); WHITE BLOOD COUNT 13.1 10^3/uL (4.0-10.0)
[2020-01-17] MEDS: PERCOCET 5MG/325MG TAB PO SCH ×4 (05:40→23:46)
[2020-01-17] MEDS: SLF 3 ML SYR IV SCH ×3 (05:40→20:23)
[2020-01-17 06:04] LABS: ALT/SGPT 32 U/L (12-78); BILIRUBIN,TOTAL 0.8 MG/DL (0.2-1.0); BLOOD UREA NITROGEN 11 MG/DL (7-18); CALCIUM LEVEL 7.8 MG/DL (8.8-10.2); CARBON DIOXIDE LEVEL 29 MEQ/L (21-32); CHLORIDE LEVEL 105 MEQ/L (98-107); CREATININE FOR GFR 0.63 MG/DL (0.70-1.30); GLOMERULAR FILTRATION RATE > 60.0 (>49); GLUCOSE, FASTING 93 MG/DL (70-100); MAGNESIUM LEVEL 2.1 MG/DL (1.8-2.4); POTASSIUM SERUM 3.6 MEQ/L (3.5-5.1); SODIUM LEVEL 141 MEQ/L (136-145); TOTAL PROTEIN 5.2 GM/DL (6.4-8.2)
[2020-01-17 07:25] VITALS: BP 126/61
[2020-01-17] MEDS: SENNA 8.6 MG TAB (SENOKOT) PO SCH ×2 (09:00→20:23)
--- NOTE | 2020-01-17 09:05 | IPNPDOC ---
Date Seen The patient was seen on 01/17/20. Progress Note SUBJECTIVE: patient was seen and examined at bedside. denies subjective fevers or chills. Denies CP, palpitation, SOB, n/v/d. He feels that his R leg pain is improving. Afebrile overnight. WBC trending down. OBJECTIVE PHYSICAL EXAMINATION: VITAL SIGNS: please see below General: NAD, comfortable HEENT: PERRLA, EOMI, sclerae clear Neck: supple, normal ROM, no JVD Respiratory: lungs CTAB, no wheeze, no rales, no crackles CVS: RRR, normal S1, S2, no murmurs Abdo: soft, no masses, no hepatosplenomegaly, BS+, no rebound tenderness Extremities: L leg swelling mildly improved. dressing clean, dry, intact. Site of DVT. 2+ edema. pain improved to touch. Pulses 1+. MSK: no joint deformities, normal ROM Neuro: no focal neuro deficits, moving all 4 extremities, CN2-12 intact. Strength 5/5 in all 4 extremities. No nystagmus. Psych: calm, cooperative, AAO x 3 LABORATORY DATA, IMAGING STUDIES, MICROBIOLOGY: Please see below. DVT prophylaxis ordered?: Y, on eliquis Mr. 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 She was found to have left lower extremity cellulitis, mild drug myolysis and an GE. Patient was treated with IV vancomycin and Zosyn for cellulitis which significantly improved during his hospital stay. His acute metabolic encephalopathy resolved. His acute kidney injury resolved with hydration. During his stay patient was found to be subtherapeutic on warfarin and poorly compliant with INR checks which was subtherapeutic and so he was switched to eliquis. WBC began trending up on cefazolin, with low grade temps. Ordered repeat blood cultures. Discussed with Dr. Richards, switched cefazolin to PO linezolid x 10 days. # LLE cellulitis: Noncompliance left untreated for over one month. Wound care consult Dr. Calero. Blood cx 01/06 negative. Wound culture grew coag negative staph. IV vancomycin and Zosyn switched to IV cefazolin, but with worsening clinical response. Discussed with Dr. Richards, rec to switch cefazolin to linezolid (through 01/24). Repeat BCx prelim neg. WBC trending down. Afebrile. # LLE swelling: Duplex positive for DVT report suggests chronic however clinically appears to be acute or acute on chronic development of the DVT. Eliquis 10mg bid for 7 days and then 5mg bid started 01/11/2020. Evaluated by Dr. Torres, not compartment syndrome. CK trended down. # Acute metabolic encephalopathy likely secondary to sepsis: Now resolved # Mild Rhabdomyolysis: Now resolved. IV fluids. CPK downtrended. # Hypokalemia: resolved # GE: Now resolved. Could have been 2/2 rhabdo/infection. IVF. Avoid nephrotoxins. # Elevated troponin: Likely demand. Troponins normalized. EKG reviewed is okay. Patient denies any chest pain or any point. #HTN: amlodipine, HCTZ. 20 mg labetalol IV once. # Anemia: Monitor hemoglobin. suspect likely due to hemodilution.FOBT ordered. Ferritin 419. transfuse prn hgb<7 # Transaminitis: Possibly from shock liver initially. Resolved. Hep C negative. # Upper extremity tremors: Thought to be essential tremors treated with propanolol outpatient which did not help. I spoke with Dr. wilkins neurology and he suggested obtaining an ammonia and TSH level. Patient has subclinical hyperthyroidism and a normal ammonia level. It was suggested that he would follow-up with neurology after discharge. 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 Switched to eliquis. # DVT prophylaxis: Eliquis Dispo: PT recommending subacute rehab. Patient agreeable. VS, I&O, 24H, Fishbone Vital Signs/I&O Vital Signs Date Time Temp Pulse Resp B/P (MAP) Pulse Ox O2 Delivery O2 Flow Rate FiO2 01/17/20 07:25 97.5 75 18 126/61 (82) 94 Room Air I&O- Last 24 Hours up to 6 AM 01/17/20 06:00 Intake Total 1400 ml Output Total 478 ml Balance 922 ml Laboratory Data 24H LABS Laboratory Tests 2 01/17/20 05:02: Immature Granulocyte % (Auto) 1.2, Neutrophils (%) (Auto) 79.7H, Lymphocytes (%) (Auto) 11.0L, Monocytes (%) (Auto) 6.8H, Eosinophils (%) (Auto) 1.0, Basophils (%) (Auto) 0.3, Neutrophils # (Auto) 10.4H, Lymphocytes # (Auto) 1.4L, Monocytes # (Auto) 0.9H, Eosinophils # (Auto) 0.1, Basophils # (Auto) 0.0, Nucleated Red Blood Cells % (auto) 0.0, Anion Gap 7L, Glomerular Filtration Rate > 60.0, Calcium Level 7.8L, Magnesium Level 2.1, Total Bilirubin 0.8, Aspartate Amino Transf (AST/SGOT) 27, Alanine Aminotransferase (ALT/SGPT) 32, Alkaline Phosphatase 95, Total Protein 5.2L, Albumin 2.0L, Albumin/Globulin Ratio 0.6 CBC/BMP Laboratory Tests 01/17/20 05:02 Microbiology Microbiology 01/15/20 Blood Culture - Preliminary, Resulted No growth after 24 hours . All specim... 01/15/20 Urine Culture - Final, Complete 01/09/20 Wound Culture - Final, Complete Staphylococcus Sp Coag Neg 01/07/20 Blood Culture - Final, Complete NO GROWTH AFTER 5 DAYS EFRAÍN ARREDONDO MD Jan 17, 2020 09:05
[2020-01-17] MEDS: hydroCHLOROthiazide 12.5 MG CAPSULE PO SCH (09:13)
[2020-01-17] MEDS: MULTIVITAMINS/MINERALS THERAP 1 TAB PO SCH (09:14)
[2020-01-17] MEDS: LINEZOLID 600MG TABLET (ZYVOX) PO SCH ×2 (09:14→20:23)
[2020-01-17] MEDS: DIAPER RELIEF PASTE (DESITIN) 60GM TOP SCH (09:14)
[2020-01-17] MEDS: amLODIPine 5 MG TAB PO SCH (09:14)
[2020-01-17] MEDS: LIDOCAINE 4% CREAM 5GM (LMX4) TOP SCH (09:15)
[2020-01-17] MEDS: APIXABAN 5 MG TAB (ELIQUIS) PO SCH ×2 (09:17→20:22)
[2020-01-17 16:00] VITALS: BP 126/60
[2020-01-17 20:00] VITALS: BP 127/69
[2020-01-18 04:00] VITALS: BP 130/66
[2020-01-18] MEDS: PERCOCET 5MG/325MG TAB PO SCH ×2 (05:01→11:37)
[2020-01-18 05:38] LABS: BASO % 0.2 % (0.0-1.0); EOS # 0.1 10^3/uL (0.0-0.5); EOS % 1.2 % (0.0-3.0); HEMATOCRIT 29.1 % (42.0-52.0); HEMOGLOBIN 8.9 g/dl (13.5-17.5); LYMPH # 1.2 10^3/uL (1.5-5.0); LYMPH % 12.3 % (24.0-44.0); MEAN CORPUSCULAR HEMOGLOBIN 28.8 pg (27.0-33.0); MEAN CORPUSCULAR HGB CONC 30.6 g/dl (32.0-36.5); MEAN CORPUSCULAR VOLUME 94.2 fl (80.0-96.0); MONO # 0.8 10^3/uL (0.0-0.8); MONO % 7.7 % (0.0-5.0); NEUTROPHILS # 7.8 10^3/uL (1.5-8.5); NEUTROPHILS % 77.7 % (36.0-66.0); PLATELET COUNT, AUTOMATED 477 10^3/uL (150-450); RED BLOOD COUNT 3.09 10^6/uL (4.30-6.10)
[2020-01-18 05:54] LABS: ALBUMIN 2.1 GM/DL (3.2-5.2); ALT/SGPT 30 U/L (12-78); BILIRUBIN,TOTAL 0.7 MG/DL (0.2-1.0); BLOOD UREA NITROGEN 14 MG/DL (7-18); CARBON DIOXIDE LEVEL 29 MEQ/L (21-32); CHLORIDE LEVEL 107 MEQ/L (98-107); GLOMERULAR FILTRATION RATE > 60.0 (>49); GLUCOSE, FASTING 95 MG/DL (70-100); MAGNESIUM LEVEL 2.2 MG/DL (1.8-2.4); POTASSIUM SERUM 3.9 MEQ/L (3.5-5.1); SODIUM LEVEL 141 MEQ/L (136-145); TOTAL PROTEIN 5.3 GM/DL (6.4-8.2)
[2020-01-18] MEDS: SLF 3 ML SYR IV SCH ×3 (06:04→22:47)
[2020-01-18 07:33] VITALS: BP 142/81
[2020-01-18] MEDS: LIDOCAINE 4% CREAM 5GM (LMX4) TOP SCH (08:23)
[2020-01-18] MEDS: LINEZOLID 600MG TABLET (ZYVOX) PO SCH ×2 (08:36→19:59)
[2020-01-18] MEDS: MULTIVITAMINS/MINERALS THERAP 1 TAB PO SCH (08:36)
[2020-01-18] MEDS: hydroCHLOROthiazide 12.5 MG CAPSULE PO SCH (08:36)
[2020-01-18] MEDS: amLODIPine 5 MG TAB PO SCH (08:37)
[2020-01-18] MEDS: APIXABAN 5 MG TAB (ELIQUIS) PO SCH ×2 (08:38→19:59)
[2020-01-18] MEDS: SENNA 8.6 MG TAB (SENOKOT) PO SCH ×2 (08:38→19:18)
[2020-01-18] MEDS: DIAPER RELIEF PASTE (DESITIN) 60GM TOP SCH (08:39)
--- NOTE | 2020-01-18 10:04 | IPNPDOC ---
Date Seen The patient was seen on 01/18/20. Progress Note SUBJECTIVE: patient was seen and examined at bedside. denies subjective fevers or chills. Denies CP, palpitation, SOB, n/v/d. He feels that his R leg pain is improving. Afebrile overnight. WBC trending down. OBJECTIVE PHYSICAL EXAMINATION: VITAL SIGNS: please see below General: NAD, comfortable HEENT: PERRLA, EOMI, sclerae clear Neck: supple, normal ROM, no JVD Respiratory: lungs CTAB, no wheeze, no rales, no crackles CVS: RRR, normal S1, S2, no murmurs Abdo: soft, no masses, no hepatosplenomegaly, BS+, no rebound tenderness Extremities: L leg swelling mildly improved. dressing clean, dry, intact. Site of DVT. 2+ edema. pain improved to touch. Pulses 1+. MSK: no joint deformities, normal ROM Neuro: no focal neuro deficits, moving all 4 extremities, CN2-12 intact. Strength 5/5 in all 4 extremities. No nystagmus. Psych: calm, cooperative, AAO x 3 LABORATORY DATA, IMAGING STUDIES, MICROBIOLOGY: Please see below. DVT prophylaxis ordered?: Y, on eliquis Mr. 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 She was found to have left lower extremity cellulitis, mild drug myolysis and an GE. Patient was treated with IV vancomycin and Zosyn for cellulitis which significantly improved during his hospital stay. His acute metabolic encephalopathy resolved. His acute kidney injury resolved with hydration. During his stay patient was found to be subtherapeutic on warfarin and poorly compliant with INR checks which was subtherapeutic and so he was switched to eliquis. WBC began trending up on cefazolin, with low grade temps. Ordered repeat blood cultures. Discussed with Dr. Richards, switched cefazolin to PO linezolid x 10 days. # LLE cellulitis: Noncompliance left untreated for over one month. Wound care consult Dr. Calero. Blood cx 01/06 negative. Wound culture grew coag negative staph. IV vancomycin and Zosyn switched to IV cefazolin, but with worsening clinical response. Discussed with Dr. Richards, rec to switch cefazolin to linezolid (through 01/24). Repeat BCx prelim neg. WBC resolved. Afebrile. Repeat CBC ater 7 days of linezolid therapy to monitor for thrombocytopenia. # LLE swelling: Duplex positive for DVT report suggests chronic however clinically appears to be acute or acute on chronic development of the DVT. Eliquis 10mg bid for 7 days and then 5mg bid started 01/11/2020. Evaluated by Dr. Torres, not compartment syndrome. CK trended down. # Acute metabolic encephalopathy likely secondary to sepsis: Now resolved # Mild Rhabdomyolysis: Now resolved. IV fluids. CPK downtrended. # Hypokalemia: resolved # GE: Now resolved. Could have been 2/2 rhabdo/infection. IVF. Avoid neph rotoxins. # Elevated troponin: Likely demand. Troponins normalized. EKG reviewed is okay. Patient denies any chest pain or any point. #HTN: amlodipine, HCTZ. # Anemia: Monitor hemoglobin. suspect likely due to hemodilution.FOBT ordered. Ferritin 419. transfuse prn hgb<7 # Transaminitis: Possibly from shock liver initially. Resolved. Hep C negative. # Upper extremity tremors: Thought to be essential tremors treated with propanolol outpatient which did not help. I spoke with Dr. wilkins neurology and he suggested obtaining an ammonia and TSH level. Patient has subclinical hyperthyroidism and a normal ammonia level. It was suggested that he would follow-up with neurology after discharge. 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 Switched to eliquis. # DVT prophylaxis: Eliquis Dispo: PT recommending subacute rehab. Patient agreeable. VS, I&O, 24H, Fishbone Vital Signs/I&O Vital Signs Date Time Temp Pulse Resp B/P (MAP) Pulse Ox O2 Delivery O2 Flow Rate FiO2 01/18/20 08:37 83 142/81 01/18/20 07:33 97.1 18 93 Nasal Cannula I&O- Last 24 Hours up to 6 AM 01/18/20 06:00 Intake Total 1170 ml Output Total 650 ml Balance 520 ml Laboratory Data 24H LABS Laboratory Tests 2 01/18/20 05:01: Immature Granulocyte % (Auto) 0.9, Neutrophils (%) (Auto) 77.7H, Lymphocytes (%) (Auto) 12.3L, Monocytes (%) (Auto) 7.7H, Eosinophils (%) (Auto) 1.2, Basophils (%) (Auto) 0.2, Neutrophils # (Auto) 7.8, Lymphocytes # (Auto) 1.2L, Monocytes # (Auto) 0.8, Eosinophils # (Auto) 0.1, Basophils # (Auto) 0.0, Nucleated Red Blood Cells % (auto) 0.0, Anion Gap 5L, Glomerular Filtration Rate > 60.0, Calcium Level 8.0L, Magnesium Level 2.2, Total Bilirubin 0.7, Aspartate Amino Transf (AST/SGOT) 23, Alanine Aminotransferase (ALT/SGPT) 30, Alkaline Phosphatase 90, Total Protein 5.3L, Albumin 2.1L, Albumin/Globulin Ratio 0.7 CBC/BMP Laboratory Tests 01/18/20 05:01 Microbiology Microbiology 01/15/20 Blood Culture - Preliminary, Resulted No Growth after 72 hours. All specime... 01/15/20 Urine Culture - Final, Complete 01/09/20 Wound Culture - Final, Complete Staphylococcus Sp Coag Neg EFRAÍN ARREDONDO MD Jan 18, 2020 10:04
[2020-01-18 10:28] LABS: LDH LACTATE DEHYDROGENASE 264 U/L (87-241)
[2020-01-18 15:58] VITALS: BP 134/67
[2020-01-18 17:57] LABS: BASO % 0.4 % (0.0-1.0); EOS # 0.1 10^3/uL (0.0-0.5); EOS % 0.6 % (0.0-3.0); HEMATOCRIT 32.9 % (42.0-52.0); HEMOGLOBIN 10.1 g/dl (13.5-17.5); LYMPH # 1.2 10^3/uL (1.5-5.0); LYMPH % 10.9 % (24.0-44.0); MEAN CORPUSCULAR HEMOGLOBIN 29.1 pg (27.0-33.0); MEAN CORPUSCULAR HGB CONC 30.7 g/dl (32.0-36.5); MEAN CORPUSCULAR VOLUME 94.8 fl (80.0-96.0); MONO # 0.7 10^3/uL (0.0-0.8); MONO % 6.4 % (0.0-5.0); NEUTROPHILS # 8.7 10^3/uL (1.5-8.5); NEUTROPHILS % 81.1 % (36.0-66.0); PLATELET COUNT, AUTOMATED 536 10^3/uL (150-450); RED BLOOD COUNT 3.47 10^6/uL (4.30-6.10); WHITE BLOOD COUNT 10.8 10^3/uL (4.0-10.0)
[2020-01-18] MEDS ORDERED: PERCOCET 5MG/325MG TAB PO PRN (18:00)
[2020-01-18 18:29] LABS: ALBUMIN 2.3 GM/DL (3.2-5.2); ALT/SGPT 31 U/L (12-78); BILIRUBIN,TOTAL 0.7 MG/DL (0.2-1.0); BLOOD UREA NITROGEN 14 MG/DL (7-18); CALCIUM LEVEL 8.3 MG/DL (8.8-10.2); CARBON DIOXIDE LEVEL 29 MEQ/L (21-32); CHLORIDE LEVEL 106 MEQ/L (98-107); CREATININE FOR GFR 0.74 MG/DL (0.70-1.30); GLOMERULAR FILTRATION RATE > 60.0 (>49); GLUCOSE, FASTING 112 MG/DL (70-100); MAGNESIUM LEVEL 2.1 MG/DL (1.8-2.4); PHOSPHORUS LEVEL 2.3 MG/DL (2.5-4.9); POTASSIUM SERUM 4.4 MEQ/L (3.5-5.1); SODIUM LEVEL 140 MEQ/L (136-145)
[2020-01-18 20:00] VITALS: BP 138/66
[2020-01-19] VITALS: BP 130/60
[2020-01-19 04:00] VITALS: BP 126/82
[2020-01-19 04:52] LABS: BASO % 0.3 % (0.0-1.0); EOS # 0.1 10^3/uL (0.0-0.5); EOS % 0.7 % (0.0-3.0); HEMATOCRIT 33.8 % (42.0-52.0); HEMOGLOBIN 10.5 g/dl (13.5-17.5); LYMPH # 1.5 10^3/uL (1.5-5.0); LYMPH % 13.1 % (24.0-44.0); MEAN CORPUSCULAR HEMOGLOBIN 29.1 pg (27.0-33.0); MEAN CORPUSCULAR HGB CONC 31.1 g/dl (32.0-36.5); MEAN CORPUSCULAR VOLUME 93.6 fl (80.0-96.0); MONO # 0.8 10^3/uL (0.0-0.8); RED BLOOD COUNT 3.61 10^6/uL (4.30-6.10); WHITE BLOOD COUNT 11.6 10^3/uL (4.0-10.0)
[2020-01-19 04:54] LABS: PLATELET COUNT, AUTOMATED 648 10^3/uL (150-450)
[2020-01-19 05:16] LABS: ALBUMIN 2.5 GM/DL (3.2-5.2); ALT/SGPT 35 U/L (12-78); BILIRUBIN,TOTAL 0.7 MG/DL (0.2-1.0); BLOOD UREA NITROGEN 11 MG/DL (7-18); CALCIUM LEVEL 8.5 MG/DL (8.8-10.2); CARBON DIOXIDE LEVEL 27 MEQ/L (21-32); CHLORIDE LEVEL 105 MEQ/L (98-107); CREATININE FOR GFR 0.77 MG/DL (0.70-1.30); GLOMERULAR FILTRATION RATE > 60.0 (>49); GLUCOSE, FASTING 98 MG/DL (70-100); MAGNESIUM LEVEL 2.1 MG/DL (1.8-2.4); POTASSIUM SERUM 4.2 MEQ/L (3.5-5.1); SODIUM LEVEL 138 MEQ/L (136-145); TOTAL PROTEIN 6.5 GM/DL (6.4-8.2)
[2020-01-19] MEDS: SLF 3 ML SYR IV SCH ×3 (05:27→21:42)
[2020-01-19] MEDS: LIDOCAINE 4% CREAM 5GM (LMX4) TOP SCH (06:56)
[2020-01-19] MEDS: DIAPER RELIEF PASTE (DESITIN) 60GM TOP SCH (06:56)
[2020-01-19 07:43] LABS: ERYTHROCYTE SEDIMENTATION RATE 79 mm/hr (0-20)
[2020-01-19 08:00] VITALS: BP 125/68
--- NOTE | 2020-01-19 08:48 | REP ---
INDICATION: ams. COMPARISON: January 08, 2020.. TECHNIQUE: Helical scanning is acquired. 5 mm axial images were reformatted. Coronal MPR images were generated. FINDINGS: Bone window settings demonstrate an intact bony calvarium. There is no evidence of skull fracture or incidental bony calvarial lesion. The visualized paranasal sinuses appear clear. No intraorbital abnormality is seen. On soft tissue window setting images; the lateral, third, and fourth ventricles are normal in size and position. Boothe-white differentiation pattern is normal above and below the tentorium. There are is no evidence of intracranial hemorrhage. No mass, edema, infarction, or midline shift is seen. No extra-axial fluid collection is appreciated. There is mild vascular calcification again noted in the distal internal carotid arteries. Minimal generalized volume loss is present. IMPRESSION: No acute intracranial abnormality. Minimal vascular calcification and volume loss.. <Electronically signed by Jonathan Gould > 01/19/20 08
[2020-01-19] MEDS: hydroCHLOROthiazide 12.5 MG CAPSULE PO SCH (08:59)
[2020-01-19] MEDS: MULTIVITAMINS/MINERALS THERAP 1 TAB PO SCH (08:59)
[2020-01-19] MEDS: APIXABAN 5 MG TAB (ELIQUIS) PO SCH ×2 (08:59→21:41)
[2020-01-19] MEDS: SENNA 8.6 MG TAB (SENOKOT) PO SCH ×2 (09:00→21:00)
[2020-01-19] MEDS: LINEZOLID 600MG TABLET (ZYVOX) PO SCH ×2 (09:00→21:41)
[2020-01-19] MEDS: amLODIPine 5 MG TAB PO SCH (09:00)
--- NOTE | 2020-01-19 10:02 | IPNPDOC ---
Date Seen The patient was seen on 01/19/20. Progress Note SUBJECTIVE: patient was seen and examined at bedside. denies subjective fevers or chills. Denies CP, palpitation, SOB, n/v/d. He feels that his R leg pain is improving. Afebrile overnight. Appears more disoriented. RN expressed concerns overnight for confusion. LA and ammonia check, wnl. Confuses his location, believes he is in [place]. Possible related to metabolic encephalopathy which he was admitted with 2/2 sepsis. OBJECTIVE PHYSICAL EXAMINATION: VITAL SIGNS: please see below General: NAD, comfortable HEENT: PERRLA, EOMI, sclerae clear Neck: supple, normal ROM, no JVD Respiratory: lungs CTAB, no wheeze, no rales, no crackles CVS: RRR, normal S1, S2, no murmurs Abdo: soft, no masses, no hepatosplenomegaly, BS+, no rebound tenderness Extremities: L leg swelling mildly improved. dressing clean, dry, intact. Site of DVT. 2+ edema. pain improved to touch. Pulses 1+. MSK: no joint deformities, normal ROM Neuro: no focal neuro deficits, moving all 4 extremities, CN2-[address] ngth 5/5 in all 4 extremities. No nystagmus. Psych: calm, cooperative, AAO x 2 LABORATORY DATA, IMAGING STUDIES, MICROBIOLOGY: Please see below. DVT prophylaxis ordered?: Y, on eliquis Mr. 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 She was found to have left lower extremity cellulitis, mild drug myolysis and an GE. Patient was treated with IV vancomycin and Zosyn for cellulitis which significantly improved during his hospital stay. His acute metabolic encephalopathy resolved. His acute kidney injury resolved with hydration. During his stay patient was found to be subtherapeutic on warfarin and poorly compliant with INR checks which was subtherapeutic and so he was switched to eliquis. WBC began trending up on cefazolin, with low grade temps. Ordered repeat blood cultures. Discussed with Dr. Richards, switched cefazolin to PO linezolid x 10 days. ID consult placed on 01/19/20 given slow uptrend of WBC despite linezolid. # LLE cellulitis: Noncompliance left untreated for over one month. Wound care consult Dr. Calero. Blood cx 01/06 negative. Wound culture grew coag negative staph. IV vancomycin and Zosyn switched to IV cefazolin, but with worsening clinical response. Discussed with Dr. Richards, rec to switch cefazolin to linezolid (through 01/24). Repeat BCx prelim neg. WBC resolved. Afebrile. Repeat CBC ater 7 days of linezolid therapy to monitor for thrombocytopenia. # LLE swelling: Duplex positive for DVT report suggests chronic however clinically appears to be acute or acute on chronic development of the DVT. Eliquis 10mg bid for 7 days and then 5mg bid started 01/11/2020. Evaluated by Maci Torres, not compartment syndrome. CK trended down. # Acute metabolic encephalopathy likely secondary to sepsis: developed confusion on 01/18/20. Ammonia, lactic acid wnl. #Thrombocytosis: PLT trending up, 650. Possible acute phase reaction. # Anemia: Monitor hemoglobin. Hgb improving. FOBT negative. LDH midly elevated. Haptoglobin pending. Ferritin 419. transfuse prn hgb<7 # Mild Rhabdomyolysis: Now resolved. IV fluids. CPK downtrended. # Hypokalemia: resolved # GE: Now resolved. Could have been 2/2 rhabdo/infection. IVF. Avoid nephrotoxins. # Elevated troponin: Likely demand. Troponins normalized. EKG reviewed is okay. Patient denies any chest pain or any point. #HTN: amlodipine, HCTZ. # Transaminitis: Possibly from shock liver initially. Resolved. Hep C negative. # Upper extremity tremors: Thought to be essential tremors treated with propanolol outpatient which did not help. I spoke with Dr. Hernandez neurology and he suggested obtaining an ammonia and TSH level. Patient has subclinical hyperthyroidism and a normal ammonia level. It was suggested that he would follow-up with neurology after discharge. 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 Switched to eliquis. # DVT prophylaxis: Eliquis Dispo: patient was accepted at [facility]. Pending medical clearance. VS, I&O, 24H, Fishbone Vital Signs/I&O Vital Signs Date Time Temp Pulse Resp B/P (MAP) Pulse Ox O2 Delivery O2 Flow Rate FiO2 01/19/20 09:00 83 125/68 01/19/20 08:00 97.9 18 95 Room Air I&O- Last 24 Hours up to 6 AM 01/19/20 05:59 Intake Total 720 ml Output Total 600 ml Balance 120 ml Laboratory Data 24H LABS Laboratory Tests 2 01/18/20 11:09: Fibrinogen 667H 01/18/20 17:46: Immature Granulocyte % (Auto) 0.6, Neutrophils (%) (Auto) 81.1H, Lymphocytes (%) (Auto) 10.9L, Monocytes (%) (Auto) 6.4H, Eosinophils (%) (Auto) 0.6, Basophils (%) (Auto) 0.4, Neutrophils # (Auto) 8.7H, Lymphocytes # (Auto) 1.2L, Monocytes # (Auto) 0.7, Eosinophils # (Auto) 0.1, Basophils # (Auto) 0.0, Nucleated Red Blood Cells % (auto) 0.0, Anion Gap 5L, Glomerular Filtration Rate > 60.0, Lactic Acid Level 1.7, Calcium Level 8.3L, Phosphorus Level 2.3L, Magnesium Level 2.1, Total Bilirubin 0.7, Aspartate Amino Transf (AST/SGOT) 36, Alanine Aminotransferase (ALT/SGPT) 31, Alkaline Phosphatase 99, Ammonia 24, Total Protein 6.0L, Albumin 2.3L, Albumin/Globulin Ratio 0.6 01/19/20 04:32: Immature Granulocyte % (Auto) 0.9, Neutrophils (%) (Auto) 78.0H, Lymphocytes (%) (Auto) 13.1L, Monocytes (%) (Auto) 7.0H, Eosinophils (%) (Auto) 0.7, Basophils (%) (Auto) 0.3, Neutrophils # (Auto) 9.0H, Lymphocytes # (Auto) 1.5, Monocytes # (Auto) 0.8, Eosinophils # (Auto) 0.1, Basophils # (Auto) 0.0, Nucleated Red Blood Cells % (auto) 0.0, Anion Gap 6L, Glomerular Filtration Rate > 60.0, Calcium Level 8.5L, Magnesium Level 2.1, Total Bilirubin 0.7, Aspartate Amino Transf (AST/SGOT) 34, Alanine Aminotransferase (ALT/SGPT) 35, Alkaline Phosphatase 102, Total Protein 6.5, Albumin 2.5L, Albumin/Globulin Ratio 0.6, Erythrocyte Sedimentation Rate 79H, C-Reactive Protein, Quantitative 11.70H CBC/BMP Laboratory Tests 01/18/20 17:46 01/19/20 04:32 Microbiology Microbiology 01/18/20 Stool Occult Blood (BETH) - Final, Complete 01/15/20 Blood Culture - Preliminary, Resulted No Growth after 72 hours. All specime... 01/15/20 Urine Culture - Final, Complete 01/09/20 Wound Culture - Final, Complete Staphylococcus Sp Coag Neg EFRAÍN ARREDONDO MD Jan 19, 2020 10:02
[2020-01-19 12:00] VITALS: BP 133/69
[2020-01-19 18:00] VITALS: BP 137/88
[2020-01-19 22:00] VITALS: BP 138/85
[2020-01-20] MEDS: SLF 3 ML SYR IV SCH ×3 (05:12→21:28)
[2020-01-20 05:30] LABS: BASO % 0.4 % (0.0-1.0); EOS # 0.1 10^3/uL (0.0-0.5); EOS % 0.8 % (0.0-3.0); HEMATOCRIT 32.4 % (42.0-52.0); HEMOGLOBIN 10.2 g/dl (13.5-17.5); LYMPH # 1.1 10^3/uL (1.5-5.0); LYMPH % 14.3 % (24.0-44.0); MEAN CORPUSCULAR HEMOGLOBIN 29.8 pg (27.0-33.0); MEAN CORPUSCULAR HGB CONC 31.5 g/dl (32.0-36.5); MEAN CORPUSCULAR VOLUME 94.7 fl (80.0-96.0); MONO # 0.7 10^3/uL (0.0-0.8); MONO % 9.4 % (0.0-5.0); NEUTROPHILS # 5.6 10^3/uL (1.5-8.5); NEUTROPHILS % 74.2 % (36.0-66.0); PLATELET COUNT, AUTOMATED 551 10^3/uL (150-450); RED BLOOD COUNT 3.42 10^6/uL (4.30-6.10); WHITE BLOOD COUNT 7.5 10^3/uL (4.0-10.0)
[2020-01-20 06:00] VITALS: BP 143/87
[2020-01-20 06:00] LABS: C REACTIVE PROTEIN QUANTITATIV 8.16 MG/DL (0.00-0.30)
[2020-01-20 06:05] LABS: ALBUMIN 2.4 GM/DL (3.2-5.2); ALT/SGPT 33 U/L (12-78); BILIRUBIN,TOTAL 0.6 MG/DL (0.2-1.0); BLOOD UREA NITROGEN 9 MG/DL (7-18); CALCIUM LEVEL 8.6 MG/DL (8.8-10.2); CARBON DIOXIDE LEVEL 28 MEQ/L (21-32); CHLORIDE LEVEL 109 MEQ/L (98-107); CREATININE FOR GFR 0.74 MG/DL (0.70-1.30); GLOMERULAR FILTRATION RATE > 60.0 (>49); GLUCOSE, FASTING 93 MG/DL (70-100); MAGNESIUM LEVEL 2.1 MG/DL (1.8-2.4); POTASSIUM SERUM 3.9 MEQ/L (3.5-5.1); SODIUM LEVEL 143 MEQ/L (136-145); TOTAL PROTEIN 5.9 GM/DL (6.4-8.2)
[2020-01-20] MEDS: MULTIVITAMINS/MINERALS THERAP 1 TAB PO SCH (08:51)
[2020-01-20] MEDS: amLODIPine 5 MG TAB PO SCH (08:51)
[2020-01-20] MEDS: APIXABAN 5 MG TAB (ELIQUIS) PO SCH ×2 (08:51→21:28)
[2020-01-20] MEDS: hydroCHLOROthiazide 12.5 MG CAPSULE PO SCH (08:52)
[2020-01-20] MEDS: LIDOCAINE 4% CREAM 5GM (LMX4) TOP SCH (08:55)
[2020-01-20] MEDS: DIAPER RELIEF PASTE (DESITIN) 60GM TOP SCH (08:55)
[2020-01-20 14:00] VITALS: BP 145/79
[2020-01-20] MEDS ORDERED: traMADol 50 MG TAB PO PRN (16:00)
--- NOTE | 2020-01-20 17:55 | IPNPDOC ---
Date Seen The patient was seen on 01/20/20. Progress Note SUBJECTIVE: Slightly confused this AM but later in the afternoon making more sense, able to recall many facts about his health, etc. Dr. Richards stopped linezolid on 01/19/20 and she states to have seen an improvement in 24 hours of med being stopped. Large left lower ext ulcer purulent, wound culture sent. Dr. Calero consult placed. Patient denies increased shortness of breath, n/v/d, fevers, chills, chest pain. OBJECTIVE: PHYSICAL EXAMINATION: VITAL SIGNS: please see below General: NAD, comfortable, only minimally confused in afternoon HEENT: PERRLA, EOMI, sclerae clear Neck: supple, normal ROM, no JVD Respiratory: lungs CTAB, no wheeze, no rales, no crackles CVS: RRR, normal S1, S2, no murmurs Abdo: soft, no masses, no hepatosplenomegaly, BS+, no rebound tenderness Extremities: L leg swelling mildly improved. dressing clean, dry, intact. Site of DVT. 1+ edema. pain improved to touch. Pulses 1+. Integumentary: large left lower ext ulcer, purulent, Stage 2-3. MSK: no joint deformities, normal ROM Neuro: Resting and intention tremor, no new focal neuro deficits, moving all 4 extremities, CN2-12 intact. Strength 5/5 in all 4 extremities. No nystagmus. Psych: calm, cooperative, AAO x 2 LABORATORY DATA, IMAGING STUDIES, MICROBIOLOGY: Please see below. 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 He was admitted for She was found to have left lower extremity cellulitis, sepsis, encephalopathy, GE. PLAN: # LLE cellulitis, resolved sepsis. -Afebrile. WBC wnl. -Wound care consult Dr. Calero. -Blood cx 01/06 negative. Wound culture grew coag negative staph -Repeating wound culture today, repeat BCx NG -D/c PO linezolid 01/19/20. Repeat BCx prelim neg. -F/u Wound care, ID recommendations. Dr. Richards consulted. # LLE swelling 2/2 DVT, acute vs. chronic. -Previously on coumadin, subtherapeutic -C/w Eliquis -Duplex positive for DVT report suggests chronic however clinically appears to be acute or acute on chronic development of the DVT. # Acute encephalopathy likely secondary to linezolid -Improving slightly compared to 01/19/20 -Ammonia, lactic acid wnl. -Monitor for worsening s/s of confusion, daily labs. #Thrombocytosis, acute -Platelets improving slowly. -Possible acute phase reaction 2/2 to sepsis -Daily CBC # Anemia -H/H stable, improving -FOBT negative. LDH midly elevated. Haptoglobin slightly elevated . Ferritin 419. transfuse prn hgb<7 -Daily CBC #HTN -Stable -Amlodipine, HCTZ. # Upper extremity tremors -Thought to be essential tremors treated with propanolol outpatient which did not help. -follow-up with neurology after discharge. 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 -Switched to eliquis. #Subclinical hyperthyroidism -F/u o/p # DVT prophylaxis - Eliquis Resolved issues to date: # Mild Rhabdomyolysis # Hypokalemia # GE # Elevated troponin: Likely demand ischemia # Transaminitis: Possibly from shock liver Dispo: patient was accepted at [facility]. Pending medical clearance. VS, I&O, 24H, Prashantbone Vital Signs/I&O Vital Signs Date Time Temp Pulse Resp B/P (MAP) Pulse Ox O2 Delivery O2 Flow Rate FiO2 01/20/20 14:00 98.2 90 16 145/79 (101) 96 Room Air I&O- Last 24 Hours up to 6 AM 01/20/20 06:00 Intake Total 580 ml Output Total 0 ml Balance 580 ml Laboratory Data 24H LABS Laboratory Tests 2 01/20/20 05:12: Immature Granulocyte % (Auto) 0.9, Neutrophils (%) (Auto) 74.2H, Lymphocytes (%) (Auto) 14.3L, Monocytes (%) (Auto) 9.4H, Eosinophils (%) (Auto) 0.8, Basophils (%) (Auto) 0.4, Neutrophils # (Auto) 5.6, Lymphocytes # (Auto) 1.1L, Monocytes # (Auto) 0.7, Eosinophils # (Auto) 0.1, Basophils # (Auto) 0.0, Nucleated Red Blood Cells % (auto) 0.0, Anion Gap 6L, Glomerular Filtration Rate > 60.0, Calcium Level 8.6L, Magnesium Level 2.1, Total Bilirubin 0.6, Aspartate Amino Transf (AST/SGOT) 26, Alanine Aminotransferase (ALT/SGPT) 33, Alkaline Phosphatase 92, C-Reactive Protein, Quantitative 8.16H, Total Protein 5.9L, Albumin 2.4L, Albumin/Globulin Ratio 0.7, Procalcitonin 0.10 CBC/BMP Laboratory Tests 01/20/20 05:12 Microbiology Microbiology 01/20/20 Gram Stain, Received Pending 01/20/20 Wound Culture, Received Pending 01/18/20 Stool Occult Blood (BETH) - Final, Complete 01/15/20 Blood Culture - Final, Complete NO GROWTH AFTER 5 DAYS 01/15/20 Urine Culture - Final, Complete Current Medications Current Medications Medications (Trade) Dose Ordered Sig/Helene Route PRN Reason Start Time Stop Time Status Last Admin Dose Admin Acetaminophen (Tylenol Tab) 650 mg Q6HP PRN PO PAIN SCALE 1-4 / FEVER 01/08/20 04:00 01/12/20 21:53 Amlodipine Besylate (Norvasc) 5 mg DAILY PO 01/14/20 15:45 01/20/20 08:51 Apixaban (Eliquis) 5 mg BID PO 01/10/20 21:00 01/11/20 10:22 DC 01/11/20 08:49 Apixaban (Eliquis) 5 mg BID PO 01/18/20 09:00 01/20/20 08:51 Apixaban (Eliquis) 10 mg BID PO 01/11/20 21:00 01/17/20 21:00 DC 01/17/20 20:22 Cefazolin Sodium 1 gm/Dextrose 50 ml @ 100 mls/hr Q8H IV 01/11/20 12:00 01/15/20 07:34 DC 01/15/20 03:44 Cefazolin Sodium/ Dextrose 2 gm/IV Miscellaneous Supplies 50 ml @ 75 mls/hr Q8H IV 01/11/20 10:30 01/11/20 10:25 DC Clindamycin Phosphate 600 mg/ IV Miscellaneous Supplies 50 ml @ 100 mls/hr Q8H IV 01/15/20 08:00 Cancel Cod Liver Oil/ Zinc Oxide (Desitin) Apply to becki wound w... DAILY TOP 01/08/20 14:00 01/20/20 08:55 Docusate Sodium (Colace) 100 mg Q12HP PRN PO CONSTIPATION 01/12/20 06:00 Heparin Sodium (Porcine) (Heparin) 5,000 units Q8H SQ 01/09/20 22:00 01/10/20 13:59 DC 01/10/20 06:22 Home Med (Med Rec Complete!) ASDIRECTED XX 01/08/20 03:45 01/08/20 03:50 DC Hydrochlorothiazide (Hydrodiuril) 12.5 mg DAILY PO 01/14/20 15:45 01/20/20 08:52 Labetalol HCl (Normodyne, Trandate) 20 mg STAT STAT IV 01/14/20 15:32 01/14/20 15:35 DC 01/14/20 15:43 Lidocaine HCl (Lmx 4/Anecream) Apply to wound bed da... DAILY TOP 01/08/20 14:00 01/20/20 08:55 Linezolid (Zyvox) 600 mg Q12H PO 01/15/20 09:00 01/19/20 22:12 DC 01/19/20 21:41 Morphine Sulfate (Morphine Sulfate Inj) 2 mg Q4H PRN IV Severe pain 7-10 01/11/20 17:15 01/18/20 10:20 DC 01/14/20 09:13 Multivitamins (Theragram-M) 1 tab DAILY PO 01/08/20 09:00 01/20/20 08:51 Ondansetron HCl (ZOFRAN INJection) 4 mg Q6HP PRN IV NAUSEA OR VOMITING 01/08/20 04:00 01/17/20 09:03 Oxycodone/ Acetaminophen (Percocet 5mg/ 325mg Tablet) 1 tab Q6H PO 01/11/20 18:00 01/18/20 16:39 DC 01/18/20 11:37 Oxycodone/ Acetaminophen (Percocet 5mg/ 325mg Tablet) 1 tab Q6H PRN PO PAIN scale 5-10 01/08/20 14:00 01/11/20 17:02 DC 01/11/20 11:58 Oxycodone/ Acetaminophen (Percocet 5mg/ 325mg Tablet) 1 tab Q6H PRN PO PAIN SCALE 7-10 01/18/20 18:00 01/20/20 15:46 DC 01/19/20 04:48 Piperacillin Sod/ Tazobactam Sod 4.5 gm/Dextrose 50 ml @ 50 mls/hr Q8H IV 01/08/20 08:00 01/11/20 10:20 DC 01/11/20 08:49 Senna (Senokot) 2 tab BID PO 01/12/20 09:00 01/19/20 22:12 DC 01/19/20 09:00 Sodium Chloride 1,000 ml @ 120 mls/hr Q8H20M IV 01/08/20 04:00 01/14/20 16:30 DC 01/14/20 09:15 Sodium Chloride (Saline Lock Flush) 2 ml ASDIRECTED PRN IV SEE LABEL COMMENTS 01/14/20 17:00 Sodium Chloride (Saline Lock Flush) 2 ml SLF IV 01/14/20 22:00 01/20/20 13:22 Tramadol HCl (Ultram) 50 mg Q6HP PRN PO MODERATE PAIN (PS 5-7) 01/20/20 16:00 Vancomycin HCl 1000 mg/IV Miscellaneous Supplies 20 ml @ 20 mls/hr Q12H IV 01/08/20 04:00 01/08/20 05:51 DC Vancomycin HCl 1000 mg/IV Miscellaneous Supplies 1 each/ Dextrose 270 ml @ 270 mls/hr Q6H IV 01/09/20 02:00 01/09/20 07:51 DC 01/09/20 02:50 Vancomycin HCl 1000 mg/IV Miscellaneous Supplies 1 each/ Dextrose 270 ml @ 270 mls/hr Q8H IV 01/08/20 06:00 01/08/20 21:47 DC 01/08/20 21:12 Vancomycin HCl 1000 mg/IV Miscellaneous Supplies 1 each/ Dextrose 270 ml @ 270 mls/hr Q8H IV 01/09/20 11:00 01/11/20 00:27 DC 01/10/20 18:23 Vancomycin HCl 1000 mg/IV Miscellaneous Supplies 1 each/ Dextrose 270 ml @ 270 mls/hr Q8H IV 01/11/20 01:00 01/11/20 10:20 DC 01/11/20 09:47 Warfarin Sodium (Coumadin) 5 mg SuMoWeFrSa@1700 PO 01/09/20 17:00 01/10/20 13:51 DC 01/09/20 17:00 Warfarin Sodium (Coumadin) 7.5 mg TuTh@1700 PO 01/08/20 17:00 01/10/20 13:51 DC 01/08/20 17:01 Allergies Coded Allergies: hydrocodone (Verified Allergy, Unknown, rash, 01/08/20) levofloxacin (Verified Allergy, Unknown, hives, 01/08/20) lisinopril (Verified Allergy, Unknown, cough, 01/08/20) Violeta Sanchez MD Jan 20, 2020 17:55
[2020-01-20 22:00] VITALS: BP 145/82
[2020-01-21 06:00] VITALS: BP 145/84
[2020-01-21] MEDS: SLF 3 ML SYR IV SCH ×3 (06:10→23:00)
[2020-01-21 06:26] LABS: HEMATOCRIT 33.2 % (42.0-52.0); HEMOGLOBIN 10.4 g/dl (13.5-17.5); MEAN CORPUSCULAR HEMOGLOBIN 29.3 pg (27.0-33.0); MEAN CORPUSCULAR HGB CONC 31.3 g/dl (32.0-36.5); MEAN CORPUSCULAR VOLUME 93.5 fl (80.0-96.0); PLATELET COUNT, AUTOMATED 567 10^3/uL (150-450); RED BLOOD COUNT 3.55 10^6/uL (4.30-6.10); WHITE BLOOD COUNT 7.3 10^3/uL (4.0-10.0)
[2020-01-21 06:54] LABS: ALBUMIN 2.6 GM/DL (3.2-5.2); ALT/SGPT 35 U/L (12-78); BILIRUBIN,TOTAL 0.6 MG/DL (0.2-1.0); BLOOD UREA NITROGEN 9 MG/DL (7-18); CALCIUM LEVEL 8.8 MG/DL (8.8-10.2); CARBON DIOXIDE LEVEL 26 MEQ/L (21-32); CHLORIDE LEVEL 109 MEQ/L (98-107); CREATININE FOR GFR 0.71 MG/DL (0.70-1.30); GLOMERULAR FILTRATION RATE > 60.0 (>49); GLUCOSE, FASTING 102 MG/DL (70-100); POTASSIUM SERUM 3.7 MEQ/L (3.5-5.1); SODIUM LEVEL 142 MEQ/L (136-145); TOTAL PROTEIN 6.7 GM/DL (6.4-8.2)
[2020-01-21] MEDS: LORazepam 1 MG TAB PO PRN (07:52)
[2020-01-21] MEDS: hydroCHLOROthiazide 12.5 MG CAPSULE PO SCH (07:52)
[2020-01-21] MEDS: APIXABAN 5 MG TAB (ELIQUIS) PO SCH ×2 (07:53→23:00)
[2020-01-21] MEDS: MULTIVITAMINS/MINERALS THERAP 1 TAB PO SCH (07:53)
[2020-01-21] MEDS: LIDOCAINE 4% CREAM 5GM (LMX4) TOP SCH (07:53)
[2020-01-21] MEDS: DIAPER RELIEF PASTE (DESITIN) 60GM TOP SCH (07:53)
--- NOTE | 2020-01-21 07:54 | CR ---
INFECTIOUS DISEASE CONSULTATION DATE OF CONSULTATION: 01/19/2020 REQUESTING PHYSICIAN: Rainer Santana M.D. REASON FOR CONSULTATION: Evaluation of left lower extremity cellulitis and altered mental status. HISTORY OF PRESENT ILLNESS: Mr. Serrano is a 69-year-old gentleman with a history of chronic DVT left lower extremity and pulmonary embolism with IVC filter. He has chronic venous stasis ulcers of his left leg and [facility] and sees Farhana Blackwood. His last visit was on 12/30 when he had a wound debridement done and he was supposed to be seen on 01/06, but he was a no show, ended up at the hospital with a fever of 103.7 and a white count of 19,000. The patient was admitted with the diagnosis of acute encephalopathy and sepsis and left lower extremity cellulitis. He received I.V. Vancomycin and Zosyn from 01/06-01/10 for a total of 5 days then he was deescalated on 01/10- 01/14 to I.V. cefazolin. Blood cultures were negative. Wound culture were only positive for Staph coagulase. The patient remained febrile until 01/[address] Santana discussed the case with me. I recommended he should be switched to linezolid to cover for MRSA as he had a previous history of MRSA in that wound as well as Staph aureus and Enterococcus faecalis. The patient has been on linezolid for 5 days, he received a total of 10 doses. The patient has progressively gotten worse in terms of his mental status, very combative and confused. He stated to me this afternoon that his nurse and therefore I could not talk to her. He refused to let me look at the wound and was irate about the fact that I did not ask him to open the dressing. I was not able to see the dressing. He got agitated, wanted to wash his hands because he touched his dressing and therefore his exam was very limited. He denied any nausea, vomiting or diarrhea, no fever or chills. His last fever was on 01/14. PAST MEDICAL HISTORY: Significant for: 1. Left lower extremity ulcer with multiple attempted grafts; it looks like grafting in 2009, venous ligation 2009. 2. Venous stasis, history of 12 ulcers since 1983. Hyperbaric treatment after graft placement, but did not take. 3. History of PE and DVT in 1983 after an injury to the knee. 4. 2009 pulmonary embolism related to Factor V Leiden. 5. IVC filter November 13, 2018 for Bilateral DVT PAST SURGICAL HISTORY: Significant for: 1. Grafting left side in 2009. 2. Venous ligation in 2009. 3. Tonsillectomy. 4. Carpal tunnel surgery bilaterally in 1990. 5. Grafts to the left leg in 2018, in June and October of 2018 . FAMILY HISTORY: Father and mother of cancer in 1968. Father had pancreatic cancer. Mother of lung and liver cancer. SOCIAL HISTORY: He has a college degree. He works part-time at a liquor store. He is . He drinks 2-4 vodkas per day and does not smoke. REVIEW OF SYSTEMS: Unable to obtain as the patient was agitated, but he stated he had no headache, fever, or chills. He has leg pain. He has no nausea, vomiting or diarrhea PHYSICAL EXAMINATION: General: Patient agitated, delirious, refuses to let me examine him. Heart: Normal, S1 and S2 distant. Lungs: Clear, no wheezes, rhonchi or rales. Abdomen: Obese, soft, nontender. Extremities: Left lower extremity could not be examined. Patient refused to let me open the dressing. There is an OptiLock dressing and a Kerlix. Right leg showed no open lesions. Vital signs: Temperature 97.1, pulse 93, respirations 16, blood pressure 147/88, O2 sat 97% on room air. LABORATORY DATA: White count 11.6 down from 19.5 on admission, hemoglobin 10.5, hematocrit 33.8, platelets 248, 78% neutrophils, 13% lymphocytes, ESR 79. Sodium 148, potassium 4.8, chloride 105, bicarb 27, BUN 11, creatinine 0.77, glucose 138, calcium 8.5. Lactic acid 1.7. Magnesium 2.1, bilirubin 0.7, AST 34, ALT 35, alkaline phosphatase 112, Albumin 2.5. CRP is down from admission at 12.9. IMPRESSION: Patient is a 69-year-old gentleman with ulcer of the left leg due to previous DVT and chronic venous stasis who presented with sepsis The patient received I.V. vancomycin and Zosyn for 5 days followed by cefazolin for 5 days and linezolid for 5 days. The patients left leg seems to have progressively improved. He is afebrile since 01/14, but his mental status has deteriorated with encephalopathy and paranoia. Patient is confused stating that his nurse and he refused to let me examine him. He is a college graduate and works at a liquor store so his mental status at baseline is normal. PLAN: If patient's white count continues to worsen and he may need to be resumed on I.V. vancomycin or possibly Bactrim that should cover for MRSA. He also has a previous history of pseudomonas and that was only treated with I.V. Zosyn for 4 days . Tomorrow hopefully I will be able to examine his wound and discuss with [facility] further treatments. At this point I would discontinue linezolid, as it may be the cause for his confusion. I do not think infection is the cause, as the patient's white count is close to normal and his fever has resolved. MTDD
[2020-01-21] MEDS: amLODIPine 5 MG TAB PO SCH (07:55)
[2020-01-21 14:15] VITALS: BP 139/82
--- NOTE | 2020-01-21 15:53 | IPNPDOC ---
Date Seen The patient was seen on 01/21/20. Progress Note SUBJECTIVE: Again confused this AM, more than yesterday afternoon. As conversation went on, patient's train of thought became more clear. Received tramadol at 00:18 this AM but has not had other narcotics since 01/19/20, linezolid had been stopped on 01/19/20. Dr. Calero unable to do Wound Consult until next week. Wound cultures of LLE pending. Afebrile, WBC wnl and patient denies increased shortness of breath, n/v/d, fevers, chills, chest pain. OBJECTIVE: PHYSICAL EXAMINATION: VITAL SIGNS: please see below General: NAD, comfortable, pleasantly confused to place, reason why here. HEENT: PERRLA, EOMI, sclerae clear Neck: supple, normal ROM, no JVD Respiratory: lungs CTAB, no wheeze, no rales, no crackles CVS: RRR, normal S1, S2, no murmurs Abdo: soft, no masses, no hepatosplenomegaly, BS+, no rebound tenderness Extremities: L leg swelling improving. dressing clean, dry, intact. Site of DVT. 1+ edema. pain improved to touch. Pulses 1+. Integumentary: large left lower ext ulcer, final cleaner than 01/20/20, Stage 2-3. MSK: no joint deformities, normal ROM Neuro: Resting and intention tremor, no new focal neuro deficits, moving all 4 extremities, CN2-12 intact. Strength 5/5 in all 4 extremities. No nystagmus. Psych: calm, cooperative, AAO x 2 LABORATORY DATA, IMAGING STUDIES, MICROBIOLOGY: Please see below. 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 He was admitted for She was found to have left lower extremity cellulitis, sepsis, encephalopathy, GE. PLAN: # LLE cellulitis, resolved sepsis. -Afebrile. WBC wnl. -Blood cx 01/06 negative. Wound culture grew coag negative staph -Repeat wound GS/culture pending, repeat BCx NG -D/c PO linezolid 01/19/20. Repeat BCx prelim neg. -C/w current wound care instructions, ID recommendations. Dr. Richards consulted. -Wound care consult Dr. Calero cannot be done until next week. # LLE swelling 2/2 DVT, acute vs. chronic. -Previously on coumadin, subtherapeutic -C/w Eliquis -Duplex positive for DVT report suggests chronic; however, clinically appears to be acute vs acute on chronic development of the DVT. # Acute encephalopathy likely secondary to linezolid vs. sleep deprivation vs. narcotic use? At times has some delerium as well. No hx of alcohol abuse per records. -Waxes and wanes, improved 01/20/20 after stopping; however, this AM more confused. -Did not sleep well according to staff -Ammonia, lactic acid wnl. -Monitor for worsening s/s of confusion, daily labs. -Given 1 mg ativan today due to increased agitation -Started on trazodone HS, reassess in the AM #Thrombocytosis, acute -Platelets improving slowly. -Possible acute phase reaction 2/2 to sepsis -Daily CBC # Anemia -H/H stable, improving -FOBT negative. LDH midly elevated. Haptoglobin slightly elevated . Ferritin 419. transfuse prn hgb<7 -Daily CBC #HTN -Stable -Amlodipine, HCTZ. # Upper extremity tremors -Thought to be essential tremors treated with propanolol outpatient which did not help. -follow-up with neurology after discharge. 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 -Switched to eliquis. #Subclinical hyperthyroidism -F/u o/p # DVT prophylaxis - Eliquis Resolved issues to date: # Mild Rhabdomyolysis # Hypokalemia # GE # Elevated troponin: Likely demand ischemia # Transaminitis: Possibly from shock liver DISPOSITION: Patient is up for review at [facility], submitted today. Hopeful for discharge there before the weekend. F/u with Dr. Calero can occur after weekend at that facility if needed. VS, I&O, 24H, Fishbone Vital Signs/I&O Vital Signs Date Time Temp Pulse Resp B/P (MAP) Pulse Ox O2 Delivery O2 Flow Rate FiO2 01/21/20 07:55 94 145/84 01/21/20 06:00 97.9 17 97 Room Air I&O- Last 24 Hours up to 6 AM 01/21/20 06:00 Intake Total 0 ml Balance 0 ml Laboratory Data 24H LABS Laboratory Tests 2 01/21/20 06:06: Nucleated Red Blood Cells % (auto) 0.0, Anion Gap 7L, Glomerular Filtration Rate > 60.0, Calcium Level 8.8, Total Bilirubin 0.6, Aspartate Amino Transf (AST/SGOT) 29, Alanine Aminotransferase (ALT/SGPT) 35, Alkaline Phosphatase 94, Total Protein 6.7, Albumin 2.6L, Albumin/Globulin Ratio 0.6 CBC/BMP Laboratory Tests 01/21/20 06:06 Microbiology Microbiology 01/20/20 Gram Stain - Final, Resulted 01/20/20 Wound Culture, Resulted Pending 01/18/20 Stool Occult Blood (BETH) - Final, Complete 01/15/20 Blood Culture - Final, Complete NO GROWTH AFTER 5 DAYS 01/15/20 Urine Culture - Final, Complete Current Medications Current Medications Medications (Trade) Dose Ordered Sig/Helene Route PRN Reason Start Time Stop Time Status Last Admin Dose Admin Acetaminophen (Tylenol Tab) 650 mg Q6HP PRN PO PAIN SCALE 1-4 / FEVER 01/08/20 04:00 01/12/20 21:53 Amlodipine Besylate (Norvasc) 5 mg DAILY PO 01/14/20 15:45 01/21/20 07:55 Apixaban (Eliquis) 5 mg BID PO 01/10/20 21:00 01/11/20 10:22 DC 01/11/20 08:49 Apixaban (Eliquis) 5 mg BID PO 01/18/20 09:00 01/21/20 07:53 Apixaban (Eliquis) 10 mg BID PO 01/11/20 21:00 01/17/20 21:00 DC 01/17/20 20:22 Cefazolin Sodium 1 gm/Dextrose 50 ml @ 100 mls/hr Q8H IV 01/11/20 12:00 01/15/20 07:34 DC 01/15/20 03:44 Cefazolin Sodium/ Dextrose 2 gm/IV Miscellaneous Supplies 50 ml @ 75 mls/hr Q8H IV 01/11/20 10:30 01/11/20 10:25 DC Clindamycin Phosphate 600 mg/ IV Miscellaneous Supplies 50 ml @ 100 mls/hr Q8H IV 01/15/20 08:00 Cancel Cod Liver Oil/ Zinc Oxide (Desitin) Apply to becki wound w... DAILY TOP 01/08/20 14:00 01/21/20 07:53 Docusate Sodium (Colace) 100 mg Q12HP PRN PO CONSTIPATION 01/12/20 06:00 Heparin Sodium (Porcine) (Heparin) 5,000 units Q8H SQ 01/09/20 22:00 01/10/20 13:59 DC 01/10/20 06:22 Home Med (Med Rec Complete!) ASDIRECTED XX 01/08/20 03:45 01/08/20 03:50 DC Hydrochlorothiazide (Hydrodiuril) 12.5 mg DAILY PO 01/14/20 15:45 01/21/20 07:52 Labetalol HCl (Normodyne, Trandate) 20 mg STAT STAT IV 01/14/20 15:32 01/14/20 15:35 DC 01/14/20 15:43 Lidocaine HCl (Lmx 4/Anecream) Apply to wound bed da... DAILY TOP 01/08/20 14:00 01/21/20 07:53 Linezolid (Zyvox) 600 mg Q12H PO 01/15/20 09:00 01/19/20 22:12 DC 01/19/20 21:41 Lorazepam (Ativan) 1 mg Q24HP PRN PO ANXIETY 01/21/20 08:00 01/21/20 07:52 Morphine Sulfate (Morphine Sulfate Inj) 2 mg Q4H PRN IV Severe pain 7-10 01/11/20 17:15 01/18/20 10:20 DC 01/14/20 09:13 Multivitamins (Theragram-M) 1 tab DAILY PO 01/08/20 09:00 01/21/20 07:53 Ondansetron HCl (ZOFRAN INJection) 4 mg Q6HP PRN IV NAUSEA OR VOMITING 01/08/20 04:00 01/17/20 09:03 Oxycodone/ Acetaminophen (Percocet 5mg/ 325mg Tablet) 1 tab Q6H PO 01/11/20 18:00 01/18/20 16:39 DC 01/18/20 11:37 Oxycodone/ Acetaminophen (Percocet 5mg/ 325mg Tablet) 1 tab Q6H PRN PO PAIN scale 5-10 01/08/20 14:00 01/11/20 17:02 DC 01/11/20 11:58 Oxycodone/ Acetaminophen (Percocet 5mg/ 325mg Tablet) 1 tab Q6H PRN PO PAIN SCALE 7-10 01/18/20 18:00 01/20/20 15:46 DC 01/19/20 04:48 Piperacillin Sod/ Tazobactam Sod 4.5 gm/Dextrose 50 ml @ 50 mls/hr Q8H IV 01/08/20 08:00 01/11/20 10:20 DC 01/11/20 08:49 Senna (Senokot) 2 tab BID PO 01/12/20 09:00 01/19/20 22:12 DC 01/19/20 09:00 Sodium Chloride 1,000 ml @ 120 mls/hr Q8H20M IV 01/08/20 04:00 01/14/20 16:30 DC 01/14/20 09:15 Sodium Chloride (Saline Lock Flush) 2 ml ASDIRECTED PRN IV SEE LABEL COMMENTS 01/14/20 17:00 Sodium Chloride (Saline Lock Flush) 2 ml SLF IV 01/14/20 22:00 01/21/20 06:10 Tramadol HCl (Ultram) 50 mg Q6HP PRN PO MODERATE PAIN (PS 5-7) 01/20/20 16:00 01/21/20 00:18 Trazodone HCl (Desyrel) 50 mg QHS PO 01/21/20 21:00 Vancomycin HCl 1000 mg/IV Miscellaneous Supplies 20 ml @ 20 mls/hr Q12H IV 01/08/20 04:00 01/08/20 05:51 DC Vancomycin HCl 1000 mg/IV Miscellaneous Supplies 1 each/ Dextrose 270 ml @ 270 mls/hr Q6H IV 01/09/20 02:00 01/09/20 07:51 DC 01/09/20 02:50 Vancomycin HCl 1000 mg/IV Miscellaneous Supplies 1 each/ Dextrose 270 ml @ 270 mls/hr Q8H IV 01/08/20 06:00 01/08/20 21:47 DC 01/08/20 21:12 Vancomycin HCl 1000 mg/IV Miscellaneous Supplies 1 each/ Dextrose 270 ml @ 270 mls/hr Q8H IV 01/09/20 11:00 01/11/20 00:27 DC 01/10/20 18:23 Vancomycin HCl 1000 mg/IV Miscellaneous Supplies 1 each/ Dextrose 270 ml @ 270 mls/hr Q8H IV 01/11/20 01:00 01/11/20 10:20 DC 01/11/20 09:47 Warfarin Sodium (Coumadin) 5 mg SuMoWeFrSa@1700 PO 01/09/20 17:00 01/10/20 13:51 DC 01/09/20 17:00 Warfarin Sodium (Coumadin) 7.5 mg TuTh@1700 PO 01/08/20 17:00 01/10/20 13:51 DC 01/08/20 17:01 Allergies Coded Allergies: hydrocodone (Verified Allergy, Unknown, rash, 01/08/20) levofloxacin (Verified Allergy, Unknown, hives, 01/08/20) lisinopril (Verified Allergy, Unknown, cough, 01/08/20) Violeta Sanchez MD Jan 21, 2020 15:53
[2020-01-21] MEDS ORDERED: traZODone 50 MG TAB PO SCH (21:00)
[2020-01-21 22:00] VITALS: BP 125/69
[2020-01-21] MEDS: traZODone 25MG PER 1/2 TABLET PO SCH (22:59)
[2020-01-22 06:00] VITALS: BP 136/80
[2020-01-22 07:32] LABS: HEMATOCRIT 34.6 % (42.0-52.0); HEMOGLOBIN 10.7 g/dl (13.5-17.5); MEAN CORPUSCULAR HEMOGLOBIN 28.9 pg (27.0-33.0); MEAN CORPUSCULAR HGB CONC 30.9 g/dl (32.0-36.5); MEAN CORPUSCULAR VOLUME 93.5 fl (80.0-96.0); PLATELET COUNT, AUTOMATED 605 10^3/uL (150-450); WHITE BLOOD COUNT 12.1 10^3/uL (4.0-10.0)
[2020-01-22 07:58] LABS: ALBUMIN 2.8 GM/DL (3.2-5.2); ALT/SGPT 37 U/L (12-78); BILIRUBIN,TOTAL 0.7 MG/DL (0.2-1.0); BLOOD UREA NITROGEN 12 MG/DL (7-18); CALCIUM LEVEL 8.9 MG/DL (8.8-10.2); CARBON DIOXIDE LEVEL 25 MEQ/L (21-32); CHLORIDE LEVEL 110 MEQ/L (98-107); CREATININE FOR GFR 0.82 MG/DL (0.70-1.30); GLOMERULAR FILTRATION RATE > 60.0 (>49); GLUCOSE, FASTING 93 MG/DL (70-100); POTASSIUM SERUM 4.4 MEQ/L (3.5-5.1); SODIUM LEVEL 143 MEQ/L (136-145); TOTAL PROTEIN 6.5 GM/DL (6.4-8.2)
[2020-01-22] MEDS: LORazepam 1 MG TAB PO PRN (08:21)
[2020-01-22] MEDS: APIXABAN 5 MG TAB (ELIQUIS) PO SCH ×2 (08:21→21:38)
[2020-01-22] MEDS: hydroCHLOROthiazide 12.5 MG CAPSULE PO SCH (08:22)
[2020-01-22] MEDS: amLODIPine 5 MG TAB PO SCH (08:22)
[2020-01-22] MEDS: MULTIVITAMINS/MINERALS THERAP 1 TAB PO SCH (08:22)
[2020-01-22] MEDS: DIAPER RELIEF PASTE (DESITIN) 60GM TOP SCH (08:22)
[2020-01-22] MEDS: LIDOCAINE 4% CREAM 5GM (LMX4) TOP SCH (08:23)
--- NOTE | 2020-01-22 09:46 | IPN ---
DATE: 01/20/2020 Jer was seen this afternoon with Dr. Sanchez and the nurse, Carmella, who was changing his dressing. Patient is much better, less confused, although sometimes he does switch conversations and talk about something not relevant. He denies any fever or chills. No nausea, vomiting, or diarrhea. He states the pain in his leg is about 6/10. He is afebrile. Last temperature was on January 14, and linezolid was discontinued yesterday, and his mental status seems to be much better. Last night when I saw him he stated that his nurse 5 years ago. Today he recalled meeting me but does not know why he was so confused. He states he lives with Roland, his partner. They have been together forever, even though he has been twice. LABORATORY DATA: White count is 7.5, hemoglobin 10.2, hematocrit 32.4, platelets 551, 74% neutrophils, 14% lymphocytes, 9% monocytes. Sodium 143, potassium 3.9, chloride 109, bicarbonate 28, BUN 9, creatinine 0.74, glucose 93, calcium 8.6, magnesium 2.1. Bilirubin 0.6, AST 26, ALT 33, alkaline phosphatase 92. CRP 8.16, down from 11.7. Procalcitonin 0.1, down from 15.7. MRSA PCR was negative. PHYSICAL EXAMINATION: Temperature 98.2, pulse 90, respirations 16, blood pressure 145/79, oxygen saturation 96% on room air. HEART: Normal S1, S2, no murmurs. LUNGS: Clear. No wheezes, rhonchi or rales. ABDOMEN: Obese, soft, nontender. EXTREMITIES: Left leg with venous stasis changes. A large ulcer measuring about 16 cm in length, 11 cm in width. There is yellow purulent drainage, especially on the bottom aspect of the wound. It is 4-5 cm. There is no surrounding cellulitis. Hyperpigmented venous changes, left leg. IMPRESSION: 1. Left lower extremity cellulitis. Patient has received 15 days of antibiotic combination of vancomycin with Zosyn followed by cefazolin and then linezolid. Patient does not need any more antibiotic. His procalcitonin went from 15 to 0.1. The wound culture was sent in case patient worsens, but at this point I do not think he needs any further antibiotic. 2. Acute encephalopathy, worsened yesterday, today much better. Could have been related to linezolid. 3. Tremor. Patient was advised to ask his primary care provider for followup with neurology as an outpatient. PLAN: Case has been discussed with AUGUSTINE Enamorado, who sees him at the wound clinic regularly. The patient had agreed to take a picture of his wound and share it with his PA. Berna Nieto stated that the wound is about at baseline. I recommended that we do a wound consult with Dr. Calero for continued wound care, and patient could be discharged if stable tomorrow with followup at wound care, and he does not need to followup with infectious disease. [facility]
[2020-01-22] MEDS: CEFEPIME HCL 1 GM in D5W MINI-BAG PLUS 50 ML IV SCH ×2 (14:06→21:38)
[2020-01-22 14:24] VITALS: BP 126/70
--- NOTE | 2020-01-22 16:27 | IPNPDOC ---
Date Seen The patient was seen on 01/22/20. Progress Note SUBJECTIVE: Slight confusion this AM but admitted to sleeping better than nights prior. Refused IV cefepime, claiming he was not made aware we were starting IV abx despite me spending at least 15 mins talking to him about the reason why. No narcotics given in >24 hours so unlikely this is cause of waxing and waning mental status. Plan after discussing with Dr. Richards this AM: keep patient for IV cefepime treatment over weekend and have wound care consult done prior to discharge to facility. Remains afebrile, WBC wnl and patient denies increased shortness of breath, n/v/d, fevers, chills, chest pain. OBJECTIVE: PHYSICAL EXAMINATION: VITAL SIGNS: please see below General: NAD, comfortable, confused to place, reason for admission HEENT: PERRLA, EOMI, sclerae clear Neck: supple, normal ROM, no JVD Respiratory: lungs CTAB, no wheeze, no rales, no crackles CVS: RRR, normal S1, S2, no murmurs Abdo: soft, no masses, no hepatosplenomegaly, BS+, no rebound tenderness Extremities: L leg swelling improved. dressing clean, dry, intact. pain improved to touch. Pulses 1+. Integumentary: large left lower ext ulcer, cleaner carpet and upholstery than 01/20/20, Stage 2-3. MSK: no joint deformities, normal ROM Neuro: Resting and intention tremor, no new focal neuro deficits, moving all 4 extremities, CN2-12 intact. Strength 5/5 in all 4 extremities. No nystagmus. Psych: calm, cooperative, AAO x 2 LABORATORY DATA, IMAGING STUDIES, MICROBIOLOGY: Please see below. 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 He was admitted for She was found to have left lower extremity cellulitis, sepsis, encephalopathy, GE. PLAN: # LLE cellulitis with Stage III-IV ulcer, + pseudomonas on wound culture. Resolved sepsis. -Afebrile. WBC wnl. -Repeat wound culture: Pseudomonas -Blood cx 01/06 negative. Initial wound culture grew coag negative staph -Repeat BCx NG -D/c PO linezolid 01/19/20. Repeat BCx prelim neg. -Started on IV cefepime today -C/w current wound care instructions, ID recommendations. Dr. Richards consulted. -Wound care consult Dr. Calero cannot be done until early next week. # Acute encephalopathy likely secondary to linezolid vs. sleep deprivation vs. narcotic use? At times has some delerium as well. No hx of alcohol abuse per records. -Waxes and wanes, improved 01/20/20 after stopping linezolid. Slept better and has not received narcotics in 24 hours- unlikely narcotics are cause -Ammonia, lactic acid wnl. -Monitor for worsening s/s of confusion, daily labs. -F/u RPR -C/w trazodone HS, reassess in the AM -At this time, not suspecting infection as persistent cause # LLE swelling 2/2 DVT, acute vs. chronic. -Previously on coumadin, subtherapeutic -C/w Eliquis -Duplex positive for DVT report suggests chronic; however, clinically appears to be acute vs acute on chronic development of the DVT. #Thrombocytosis, acute -Platelets improving slowly. -Possible acute phase reaction 2/2 to sepsis -Daily CBC # Anemia -H/H stable, improving -FOBT negative. LDH midly elevated. Haptoglobin slightly elevated . Ferritin 419. transfuse prn hgb<7 -Daily CBC #HTN -Stable -Amlodipine, HCTZ. # Upper extremity tremors -Thought to be essential tremors treated with propanolol outpatient which did not help. -follow-up with neurology after discharge. 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 -Switched to eliquis. #Subclinical hyperthyroidism -F/u o/p # DVT prophylaxis - Eliquis Resolved issues to date: # Mild Rhabdomyolysis # Hypokalemia # GE # Elevated troponin: Likely demand ischemia # Transaminitis: Possibly from shock liver DISPOSITION: Keeping until after the weekend to c/w IV abx treatment. Hopeful for discharge next week to [facility]. F/u with Dr. Calero can occur after weekend. VS, I&O, 24H, Fishbone Vital Signs/I&O Vital Signs Date Time Temp Pulse Resp B/P (MAP) Pulse Ox O2 Delivery O2 Flow Rate FiO2 01/22/20 14:24 98.7 88 20 126/70 (88) 94 Room Air I&O- Last 24 Hours up to 6 AM 01/22/20 06:00 Intake Total 200 ml Output Total 0 ml Balance 200 ml Laboratory Data 24H LABS Laboratory Tests 2 01/22/20 07:07: Nucleated Red Blood Cells % (auto) 0.0, Anion Gap 8, Glomerular Filtration Rate > 60.0, Calcium Level 8.9, Total Bilirubin 0.7, Aspartate Amino Transf (AST/SGOT) 33, Alanine Aminotransferase (ALT/SGPT) 37, Alkaline Phosphatase 96, Total Protein 6.5, Albumin 2.8L, Albumin/Globulin Ratio 0.8 CBC/BMP Laboratory Tests 01/22/20 07:07 Microbiology Microbiology 01/20/20 Gram Stain - Final, Complete 01/20/20 Wound Culture - Final, Complete Pseudomonas Aeruginosa 01/18/20 Stool Occult Blood (BETH) - Final, Complete 01/15/20 Blood Culture - Final, Complete NO GROWTH AFTER 5 DAYS 01/15/20 Urine Culture - Final, Complete Current Medications Current Medications Medications (Trade) Dose Ordered Sig/Helene Route PRN Reason Start Time Stop Time Status Last Admin Dose Admin Acetaminophen (Tylenol Tab) 650 mg Q6HP PRN PO PAIN SCALE 1-4 / FEVER 01/08/20 04:00 01/12/20 21:53 Amlodipine Besylate (Norvasc) 5 mg DAILY PO 01/14/20 15:45 01/22/20 08:22 Apixaban (Eliquis) 5 mg BID PO 01/10/20 21:00 01/11/20 10:22 DC 01/11/20 08:49 Apixaban (Eliquis) 5 mg BID PO 01/18/20 09:00 01/22/20 08:21 Apixaban (Eliquis) 10 mg BID PO 01/11/20 21:00 01/17/20 21:00 DC 01/17/20 20:22 Cefazolin Sodium 1 gm/Dextrose 50 ml @ 100 mls/hr Q8H IV 01/11/20 12:00 01/15/20 07:34 DC 01/15/20 03:44 Cefazolin Sodium/ Dextrose 2 gm/IV Miscellaneous Supplies 50 ml @ 75 mls/hr Q8H IV 01/11/20 10:30 01/11/20 10:25 DC Cefepime HCl 1 gm/ Dextrose 50 ml @ 100 mls/hr Q12H IV 01/22/20 10:00 01/22/20 14:06 Clindamycin Phosphate 600 mg/ IV Miscellaneous Supplies 50 ml @ 100 mls/hr Q8H IV 01/15/20 08:00 Cancel Cod Liver Oil/ Zinc Oxide (Desitin) Apply to becki wound w... DAILY TOP 01/08/20 14:00 01/22/20 08:22 Docusate Sodium (Colace) 100 mg Q12HP PRN PO CONSTIPATION 01/12/20 06:00 Heparin Sodium (Porcine) (Heparin) 5,000 units Q8H SQ 01/09/20 22:00 01/10/20 13:59 DC 01/10/20 06:22 Home Med (Med Rec Complete!) ASDIRECTED XX 01/08/20 03:45 01/08/20 03:50 DC Hydrochlorothiazide (Hydrodiuril) 12.5 mg DAILY PO 01/14/20 15:45 01/22/20 08:22 Labetalol HCl (Normodyne, Trandate) 20 mg STAT STAT IV 01/14/20 15:32 01/14/20 15:35 DC 01/14/20 15:43 Lidocaine HCl (Lmx 4/Anecream) Apply to wound bed da... DAILY TOP 01/08/20 14:00 01/22/20 08:23 Linezolid (Zyvox) 600 mg Q12H PO 01/15/20 09:00 01/19/20 22:12 DC 01/19/20 21:41 Lorazepam (Ativan) 1 mg Q24HP PRN PO ANXIETY 01/21/20 08:00 01/22/20 08:21 Morphine Sulfate (Morphine Sulfate Inj) 2 mg Q4H PRN IV Severe pain 7-10 01/11/20 17:15 01/18/20 10:20 DC 01/14/20 09:13 Multivitamins (Theragram-M) 1 tab DAILY PO 01/08/20 09:00 01/22/20 08:22 Ondansetron HCl (ZOFRAN INJection) 4 mg Q6HP PRN IV NAUSEA OR VOMITING 01/08/20 04:00 01/17/20 09:03 Oxycodone/ Acetaminophen (Percocet 5mg/ 325mg Tablet) 1 tab Q6H PO 01/11/20 18:00 01/18/20 16:39 DC 01/18/20 11:37 Oxycodone/ Acetaminophen (Percocet 5mg/ 325mg Tablet) 1 tab Q6H PRN PO PAIN scale 5-10 01/08/20 14:00 01/11/20 17:02 DC 01/11/20 11:58 Oxycodone/ Acetaminophen (Percocet 5mg/ 325mg Tablet) 1 tab Q6H PRN PO PAIN SCALE 7-10 01/18/20 18:00 01/20/20 15:46 DC 01/19/20 04:48 Piperacillin Sod/ Tazobactam Sod 4.5 gm/Dextrose 50 ml @ 50 mls/hr Q8H IV 01/08/20 08:00 01/11/20 10:20 DC 01/11/20 08:49 Senna (Senokot) 2 tab BID PO 01/12/20 09:00 01/19/20 22:12 DC 01/19/20 09:00 Sodium Chloride 1,000 ml @ 120 mls/hr Q8H20M IV 01/08/20 04:00 01/14/20 16:30 DC 01/14/20 09:15 Sodium Chloride (Saline Lock Flush) 2 ml ASDIRECTED PRN IV SEE LABEL COMMENTS 01/14/20 17:00 01/22/20 00:09 DC Sodium Chloride (Saline Lock Flush) 2 ml SLF IV 01/14/20 22:00 01/22/20 00:09 DC 01/21/20 06:10 Tramadol HCl (Ultram) 50 mg Q6HP PRN PO MODERATE PAIN (PS 5-7) 01/20/20 16:00 01/21/20 15:55 DC 01/21/20 00:18 Trazodone HCl (Desyrel) 25 mg QHS PO 01/21/20 21:00 01/21/20 22:59 Trazodone HCl (Desyrel) 50 mg QHS PO 01/21/20 21:00 01/21/20 15:58 DC Vancomycin HCl 1000 mg/IV Miscellaneous Supplies 20 ml @ 20 mls/hr Q12H IV 01/08/20 04:00 01/08/20 05:51 DC Vancomycin HCl 1000 mg/IV Miscellaneous Supplies 1 each/ Dextrose 270 ml @ 270 mls/hr Q6H IV 01/09/20 02:00 01/09/20 07:51 DC 01/09/20 02:50 Vancomycin HCl 1000 mg/IV Miscellaneous Supplies 1 each/ Dextrose 270 ml @ 270 mls/hr Q8H IV 01/08/20 06:00 01/08/20 21:47 DC 01/08/20 21:12 Vancomycin HCl 1000 mg/IV Miscellaneous Supplies 1 each/ Dextrose 270 ml @ 270 mls/hr Q8H IV 01/09/20 11:00 01/11/20 00:27 DC 01/10/20 18:23 Vancomycin HCl 1000 mg/IV Miscellaneous Supplies 1 each/ Dextrose 270 ml @ 270 mls/hr Q8H IV 01/11/20 01:00 01/11/20 10:20 DC 01/11/20 09:47 Warfarin Sodium (Coumadin) 5 mg SuMoWeFrSa@1700 PO 01/09/20 17:00 01/10/20 13:51 DC 01/09/20 17:00 Warfarin Sodium (Coumadin) 7.5 mg TuTh@1700 PO 01/08/20 17:00 01/10/20 13:51 DC 01/08/20 17:01 Allergies Coded Allergies: hydrocodone (Verified Allergy, Unknown, rash, 01/08/20) levofloxacin (Verified Allergy, Unknown, hives, 01/08/20) lisinopril (Verified Allergy, Unknown, cough, 01/08/20) Violeta Sanchez MD Jan 22, 2020 16:27
[2020-01-22 19:44] VITALS: BP 136/72
[2020-01-22] MEDS: traZODone 25MG PER 1/2 TABLET PO SCH (21:38)
[2020-01-22 22:00] VITALS: BP 132/74
[2020-01-23] MEDS ORDERED: LORazepam 1 MG TAB PO ONE (04:30)
[2020-01-23 06:00] VITALS: BP 128/74
[2020-01-23 06:27] LABS: HEMATOCRIT 40.1 % (42.0-52.0); HEMOGLOBIN 12.3 g/dl (13.5-17.5); MEAN CORPUSCULAR HGB CONC 30.7 g/dl (32.0-36.5); MEAN CORPUSCULAR VOLUME 94.6 fl (80.0-96.0); PLATELET COUNT, AUTOMATED 697 10^3/uL (150-450); RED BLOOD COUNT 4.24 10^6/uL (4.30-6.10); WHITE BLOOD COUNT 11.8 10^3/uL (4.0-10.0)
[2020-01-23 06:55] LABS: ALBUMIN 3.2 GM/DL (3.2-5.2); ALT/SGPT 48 U/L (12-78); BILIRUBIN,TOTAL 0.7 MG/DL (0.2-1.0); BLOOD UREA NITROGEN 17 MG/DL (7-18); CALCIUM LEVEL 9.7 MG/DL (8.8-10.2); CARBON DIOXIDE LEVEL 26 MEQ/L (21-32); CHLORIDE LEVEL 109 MEQ/L (98-107); CREATININE FOR GFR 0.94 MG/DL (0.70-1.30); GLOMERULAR FILTRATION RATE > 60.0 (>49); GLUCOSE, FASTING 100 MG/DL (70-100); POTASSIUM SERUM 4.6 MEQ/L (3.5-5.1); SODIUM LEVEL 143 MEQ/L (136-145); TOTAL PROTEIN 7.7 GM/DL (6.4-8.2)
[2020-01-23] MEDS: MULTIVITAMINS/MINERALS THERAP 1 TAB PO SCH (08:31)
[2020-01-23] MEDS: hydroCHLOROthiazide 12.5 MG CAPSULE PO SCH (08:31)
[2020-01-23] MEDS: APIXABAN 5 MG TAB (ELIQUIS) PO SCH ×2 (08:31→20:52)
[2020-01-23] MEDS: LIDOCAINE 4% CREAM 5GM (LMX4) TOP SCH (08:32)
[2020-01-23] MEDS: amLODIPine 5 MG TAB PO SCH (08:32)
[2020-01-23] MEDS: DIAPER RELIEF PASTE (DESITIN) 60GM TOP SCH (08:32)
[2020-01-23] MEDS: CEFEPIME HCL 1 GM in D5W MINI-BAG PLUS 50 ML IV SCH ×2 (10:00→23:12)
--- NOTE | 2020-01-23 15:55 | IPNPDOC ---
Date Seen The patient was seen on 01/23/20. Progress Note SUBJECTIVE: Very confused this AM. Discussed case with Dr. Red, neurology. Will see in AM, MRI, EEG and other tests ordered. D/sandra trazodone and added seroquel HS. Remains afebrile with LLE wound appearing much improved. Pt denies increased shortness of breath, n/v/d, fevers, chills, chest pain. OBJECTIVE: PHYSICAL EXAMINATION: VITAL SIGNS: please see below General: NAD, comfortable, confused to place, reason for admission. Can tell me name, . HEENT: PERRLA, EOMI, sclerae clear Neck: supple, normal ROM, no JVD Respiratory: lungs CTAB, no wheeze, no rales, no crackles CVS: RRR, normal S1, S2, no murmurs Abdo: soft, no masses, no hepatosplenomegaly, BS+, no rebound tenderness Extremities: L leg swelling improved. dressing clean, dry, intact. pain improved to touch. Pulses 1+. Integumentary: large left lower ext ulcer, Stage 3, nonpurulent . MSK: no joint deformities, normal ROM Neuro: Resting and intention tremor, no new focal neuro deficits, moving all 4 extremities, CN2-12 intact. Strength 5/5 in all 4 extremities. No nystagmus. Psych: calm, cooperative, AAO x 2 LABORATORY DATA, IMAGING STUDIES, MICROBIOLOGY: Please see below. 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 He was admitted for She was found to have left lower extremity cellulitis, sepsis, persistent encephalopathy, GE. PLAN: # Acute encephalopathy likely secondary to medications (linezolid or narcotics) vs. sleep deprivation vs. possibly Parkinson's ? -At times has some delerium as well. No hallucinations, No hx of alcohol abuse per records. -Waxes and wanes, improved 01/20/20 after stopping linezolid. Slept better and has not received narcotics in 24 hours- unlikely narcotics are cause -Ammonia, lactic acid, RPR wnl. Vit B12 pending -Monitor for worsening s/s of confusion, daily labs. -Discussed with Dr. Red, neurology. F/u MRI brain, EEG and added seroquel 25 mg PO HS. Can add low dose AM dose if needed. -Neuro to see 01/24/20 # LLE cellulitis with Stage III-IV ulcer, + pseudomonas on wound culture. Resolved sepsis. -Afebrile. WBC wnl. Wound appears much better on exam today. -Repeat wound culture: Pseudomonas -Blood cx 01/06 negative. Initial wound culture grew coag negative staph -Repeat BCx NG -D/c PO linezolid 01/19/20. Repeat BCx prelim neg. - IV cefepime (Day 2) -C/w current wound care instructions, ID recommendations. Dr. Richards following. -Wound care consult Dr. Calero cannot be done until early next week. # LLE swelling 2/2 DVT, acute vs. chronic. -Previously on coumadin, subtherapeutic -C/w Eliquis -Duplex positive for DVT report suggests chronic; however, clinically appears to be acute vs acute on chronic development #Thrombocytosis, acute -Platelets remain elevated and likely acute phase reaction 2/2 to infection/prior sepsis -Daily CBC # Anemia -H/H stable, improving -FOBT negative. LDH midly elevated. Haptoglobin slightly elevated . Ferritin 419. transfuse prn hgb<7 -Daily CBC #HTN -Stable -Amlodipine, HCTZ. # Upper extremity tremors, possible Parkinson's? -Thought to be essential tremors treated with propanolol outpatient which did not help. 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 -Eliquis. #Subclinical hyperthyroidism -F/u o/p # DVT prophylaxis - Eliquis Resolved issues to date: # Mild Rhabdomyolysis # Hypokalemia # GE # Elevated troponin: Likely demand ischemia # Transaminitis: Possibly from shock liver DISPOSITION: Neurology to assess on 01/24/20. Hopeful discharge next week to [facility] after wound consult with Dr. Calero. VS, I&O, 24H, Fishbone Vital Signs/I&O Vital Signs Date Time Temp Pulse Resp B/P (MAP) Pulse Ox O2 Delivery O2 Flow Rate FiO2 01/23/20 08:32 100 128/74 01/23/20 06:00 97.4 20 97 Room Air I&O- Last 24 Hours up to 6 AM 01/23/20 06:00 Intake Total 870 ml Output Total 450 ml Balance 420 ml Laboratory Data 24H LABS Laboratory Tests 2 01/23/20 05:59: Nucleated Red Blood Cells % (auto) 0.0, Anion Gap 8, Glomerular Filtration Rate > 60.0, Calcium Level 9.7, Total Bilirubin 0.7, Aspartate Amino Transf (AST/SGOT) 37, Alanine Aminotransferase (ALT/SGPT) 48, Alkaline Phosphatase 113, Total Protein 7.7, Albumin 3.2, Albumin/Globulin Ratio 0.7, Syphilis Serology NONREACTIVE CBC/BMP Laboratory Tests 01/23/20 05:59 Microbiology Microbiology 01/20/20 Gram Stain - Final, Complete 01/20/20 Wound Culture - Final, Complete Pseudomonas Aeruginosa 01/18/20 Stool Occult Blood (BETH) - Final, Complete 01/15/20 Blood Culture - Final, Complete NO GROWTH AFTER 5 DAYS 01/15/20 Urine Culture - Final, Complete Current Medications Current Medications Medications (Trade) Dose Ordered Sig/Helene Route PRN Reason Start Time Stop Time Status Last Admin Dose Admin Acetaminophen (Tylenol Tab) 650 mg Q6HP PRN PO PAIN SCALE 1-4 / FEVER 01/08/20 04:00 01/12/20 21:53 Amlodipine Besylate (Norvasc) 5 mg DAILY PO 01/14/20 15:45 01/23/20 08:32 Apixaban (Eliquis) 5 mg BID PO 01/10/20 21:00 01/11/20 10:22 DC 01/11/20 08:49 Apixaban (Eliquis) 5 mg BID PO 01/18/20 09:00 01/23/20 08:31 Apixaban (Eliquis) 10 mg BID PO 01/11/20 21:00 01/17/20 21:00 DC 01/17/20 20:22 Cefazolin Sodium 1 gm/Dextrose 50 ml @ 100 mls/hr Q8H IV 01/11/20 12:00 01/15/20 07:34 DC 01/15/20 03:44 Cefazolin Sodium/ Dextrose 2 gm/IV Miscellaneous Supplies 50 ml @ 75 mls/hr Q8H IV 01/11/20 10:30 01/11/20 10:25 DC Cefepime HCl 1 gm/ Dextrose 50 ml @ 100 mls/hr Q12H IV 01/22/20 10:00 01/23/20 10:00 Clindamycin Phosphate 600 mg/ IV Miscellaneous Supplies 50 ml @ 100 mls/hr Q8H IV 01/15/20 08:00 Cancel Cod Liver Oil/ Zinc Oxide (Desitin) Apply to becki wound w... DAILY TOP 01/08/20 14:00 01/23/20 08:32 Docusate Sodium (Colace) 100 mg Q12HP PRN PO CONSTIPATION 01/12/20 06:00 Heparin Sodium (Porcine) (Heparin) 5,000 units Q8H SQ 01/09/20 22:00 01/10/20 13:59 DC 01/10/20 06:22 Home Med (Med Rec Complete!) ASDIRECTED XX 01/08/20 03:45 01/08/20 03:50 DC Hydrochlorothiazide (Hydrodiuril) 12.5 mg DAILY PO 01/14/20 15:45 01/23/20 08:31 Labetalol HCl (Normodyne, Trandate) 20 mg STAT STAT IV 01/14/20 15:32 01/14/20 15:35 DC 01/14/20 15:43 Lidocaine HCl (Lmx 4/Anecream) Apply to wound bed da... DAILY TOP 01/08/20 14:00 01/23/20 08:32 Linezolid (Zyvox) 600 mg Q12H PO 01/15/20 09:00 01/19/20 22:12 DC 01/19/20 21:41 Lorazepam (Ativan) 1 mg Q24HP PRN PO ANXIETY 01/21/20 08:00 01/22/20 08:21 Morphine Sulfate (Morphine Sulfate Inj) 2 mg Q4H PRN IV Severe pain 7-10 01/11/20 17:15 01/18/20 10:20 DC 01/14/20 09:13 Multivitamins (Theragram-M) 1 tab DAILY PO 01/08/20 09:00 01/23/20 08:31 Ondansetron HCl (ZOFRAN INJection) 4 mg Q6HP PRN IV NAUSEA OR VOMITING 01/08/20 04:00 01/17/20 09:03 Oxycodone/ Acetaminophen (Percocet 5mg/ 325mg Tablet) 1 tab Q6H PO 01/11/20 18:00 01/18/20 16:39 DC 01/18/20 11:37 Oxycodone/ Acetaminophen (Percocet 5mg/ 325mg Tablet) 1 tab Q6H PRN PO PAIN scale 5-10 01/08/20 14:00 01/11/20 17:02 DC 01/11/20 11:58 Oxycodone/ Acetaminophen (Percocet 5mg/ 325mg Tablet) 1 tab Q6H PRN PO PAIN SCALE 7-10 01/18/20 18:00 01/20/20 15:46 DC 01/19/20 04:48 Piperacillin Sod/ Tazobactam Sod 4.5 gm/Dextrose 50 ml @ 50 mls/hr Q8H IV 01/08/20 08:00 01/11/20 10:20 DC 01/11/20 08:49 Senna (Senokot) 2 tab BID PO 01/12/20 09:00 01/19/20 22:12 DC 01/19/20 09:00 Sodium Chloride 1,000 ml @ 120 mls/hr Q8H20M IV 01/08/20 04:00 01/14/20 16:30 DC 01/14/20 09:15 Sodium Chloride (Saline Lock Flush) 2 ml ASDIRECTED PRN IV SEE LABEL COMMENTS 01/14/20 17:00 01/22/20 00:09 DC Sodium Chloride (Saline Lock Flush) 2 ml SLF IV 01/14/20 22:00 01/22/20 00:09 DC 01/21/20 06:10 Tramadol HCl (Ultram) 50 mg Q6HP PRN PO MODERATE PAIN (PS 5-7) 01/20/20 16:00 01/21/20 15:55 DC 01/21/20 00:18 Trazodone HCl (Desyrel) 25 mg QHS PO 01/21/20 21:00 01/22/20 21:38 Trazodone HCl (Desyrel) 50 mg QHS PO 01/21/20 21:00 01/21/20 15:58 DC Vancomycin HCl 1000 mg/IV Miscellaneous Supplies 20 ml @ 20 mls/hr Q12H IV 01/08/20 04:00 01/08/20 05:51 DC Vancomycin HCl 1000 mg/IV Miscellaneous Supplies 1 each/ Dextrose 270 ml @ 270 mls/hr Q6H IV 01/09/20 02:00 01/09/20 07:51 DC 01/09/20 02:50 Vancomycin HCl 1000 mg/IV Miscellaneous Supplies 1 each/ Dextrose 270 ml @ 270 mls/hr Q8H IV 01/08/20 06:00 01/08/20 21:47 DC 01/08/20 21:12 Vancomycin HCl 1000 mg/IV Miscellaneous Supplies 1 each/ Dextrose 270 ml @ 270 mls/hr Q8H IV 01/09/20 11:00 01/11/20 00:27 DC 01/10/20 18:23 Vancomycin HCl 1000 mg/IV Miscellaneous Supplies 1 each/ Dextrose 270 ml @ 270 mls/hr Q8H IV 01/11/20 01:00 01/11/20 10:20 DC 01/11/20 09:47 Warfarin Sodium (Coumadin) 5 mg SuMoWeFrSa@1700 PO 01/09/20 17:00 01/10/20 13:51 DC 01/09/20 17:00 Warfarin Sodium (Coumadin) 7.5 mg TuTh@1700 PO 01/08/20 17:00 01/10/20 13:51 DC 01/08/20 17:01 Allergies Coded Allergies: hydrocodone (Verified Allergy, Unknown, rash, 01/08/20) levofloxacin (Verified Allergy, Unknown, hives, 01/08/20) lisinopril (Verified Allergy, Unknown, cough, 01/08/20) Violeta Sanchez MD Jan 23, 2020 15:55
[2020-01-23 16:30] LABS: VITAMIN B12 LEVEL 1320 PG/ML (247-911)
[2020-01-23 17:09] LABS: HIV 1&2 SCREEN CENTAUR NEGATIVE (NEGATIVE)
[2020-01-23] MEDS: LORazepam 1 MG TAB PO PRN (18:23)
[2020-01-23] MEDS: QUEtiapine FUMARATE 25 MG TAB PO SCH (20:52)
[2020-01-23] MEDS: ACETAMINOPHEN TAB 650MG DOSE (2X325MG) PO PRN (20:52)
[2020-01-23 21:24] VITALS: BP 126/73
[2020-01-24 06:00] VITALS: BP 121/74
[2020-01-24 06:41] LABS: HEMATOCRIT 37.8 % (42.0-52.0); HEMOGLOBIN 12.3 g/dl (13.5-17.5); MEAN CORPUSCULAR HEMOGLOBIN 30.1 pg (27.0-33.0); MEAN CORPUSCULAR HGB CONC 32.5 g/dl (32.0-36.5); MEAN CORPUSCULAR VOLUME 92.4 fl (80.0-96.0); PLATELET COUNT, AUTOMATED 563 10^3/uL (150-450); RED BLOOD COUNT 4.09 10^6/uL (4.30-6.10); WHITE BLOOD COUNT 10.2 10^3/uL (4.0-10.0)
[2020-01-24 07:13] LABS: ALBUMIN 2.8 GM/DL (3.2-5.2); ALT/SGPT 44 U/L (12-78); BILIRUBIN,TOTAL 0.7 MG/DL (0.2-1.0); BLOOD UREA NITROGEN 20 MG/DL (7-18); CALCIUM LEVEL 8.9 MG/DL (8.8-10.2); CARBON DIOXIDE LEVEL 26 MEQ/L (21-32); CHLORIDE LEVEL 111 MEQ/L (98-107); CREATININE FOR GFR 0.89 MG/DL (0.70-1.30); GLOMERULAR FILTRATION RATE > 60.0 (>49); GLUCOSE, FASTING 101 MG/DL (70-100); POTASSIUM SERUM 3.7 MEQ/L (3.5-5.1); SODIUM LEVEL 142 MEQ/L (136-145); TOTAL PROTEIN 7.3 GM/DL (6.4-8.2)
[2020-01-24] MEDS: hydroCHLOROthiazide 12.5 MG CAPSULE PO SCH (11:15)
[2020-01-24] MEDS: MULTIVITAMINS/MINERALS THERAP 1 TAB PO SCH (11:15)
[2020-01-24] MEDS: APIXABAN 5 MG TAB (ELIQUIS) PO SCH ×2 (11:15→20:00)
[2020-01-24] MEDS: amLODIPine 5 MG TAB PO SCH (11:16)
--- NOTE | 2020-01-24 11:22 | REP ---
INDICATION: AMS. COMPARISON: CT 01/19/2020 TECHNIQUE: Sagittal T1 with axial T1, T2, FLAIR, gradient echo, diffusion-weighted images and ADC mapping sequence. FINDINGS: The lateral ventricles are midline, symmetric and without dilatation or displacement. 3rd and 4th ventricles are proportionate. Cortical sulci are age-appropriate without significant atrophy. Basal ganglia symmetric. There are some nonspecific periventricular white matter foci in the region of the posterior horns right larger than left. There also some scattered subcortical and deep centrum semiovale foci bilaterally in the parietal and frontal lobes. No intracranial hemorrhage or extra axial fluid collection. There is no intraventricular mass or blood. The traylor-white junction differentiation is well maintained. Cortical stripe was preserved. Corpus callosum, optic chiasm and pituitary were all grossly intact. The right cerebral peduncle shows a punctate hypertense T2 focus as a nonspecific finding. No posterior fossa mass or extra-axial fluid. Cerebellum shows no mass or signal abnormality on T2 or FLAIR images. No significant cerebellar atrophy. There is no cerebellar tonsillar ectopia evident. The 7th/8th cranial nerve complexes and mastoids are unremarkable. Visualized sinuses were intact. Orbits and contents appear symmetric and unremarkable. The diffusion-weighted images and ADC mapping sequence show no evidence of restricted water diffusion or ischemia. IMPRESSION: 1. Scattered punctate hyperintense T2 and FLAIR foci in both cerebral hemisphere white matter tracts involving periventricular, subcortical and deep central white matter as well as 1 in the right cerebral peduncle. This is nonspecific and suggests some mild chronic small-vessel ischemic disease. 2. No evidence of acute infarct or restricted water diffusion. 3. No intra or extra-axial hemorrhage, mass, mass effect or edema. Four no significant cortical atrophy ventricular system and posterior fossa normal. 4. Sinuses and mastoids intact. <Electronically signed by Gatito Castillo > 01/24/20 [id number]
[2020-01-24] MEDS: CEFEPIME HCL 1 GM in D5W MINI-BAG PLUS 50 ML IV SCH ×2 (11:26→22:01)
[2020-01-24 14:45] VITALS: BP 128/73
[2020-01-24] MEDS: DIAPER RELIEF PASTE (DESITIN) 60GM TOP SCH (17:26)
[2020-01-24] MEDS: LIDOCAINE 4% CREAM 5GM (LMX4) TOP SCH (17:26)
[2020-01-24] MEDS: QUEtiapine FUMARATE 25 MG TAB PO SCH (17:29)
[2020-01-24] MEDS: LORazepam 1 MG TAB PO PRN (20:00)
[2020-01-24] MEDS: ACETAMINOPHEN TAB 650MG DOSE (2X325MG) PO PRN (20:01)
--- NOTE | 2020-01-24 20:16 | IPNPDOC ---
Date Seen The patient was seen on 01/24/20. Progress Note SUBJECTIVE: Suspicious of lewy body dementia per neurology. C/w seroquel nightly as this seemed to help him, he was very cooperative and alert this AM. MRI-chronic findings, no acute abnormalities. Discussed case with Dr. Red, neurology. Pt denies increased shortness of breath, n/v/d, fevers, chills, chest pain. OBJECTIVE: PHYSICAL EXAMINATION: VITAL SIGNS: please see below General: NAD, comfortable, AAOx2. HEENT: PERRLA, EOMI, sclerae clear Neck: supple, normal ROM, no JVD Respiratory: lungs CTAB, no wheeze, no rales, no crackles CVS: RRR, normal S1, S2, no murmurs Abdo: soft, no masses, no hepatosplenomegaly, BS+, no rebound tenderness Extremities: L leg swelling improved. dressing clean, dry, intact. pain improved to touch. Pulses 1+. Integumentary: large left lower ext ulcer, Stage 3, nonpurulentcovered with dressing MSK: no joint deformities, normal ROM Neuro: Resting and intention tremor, no new focal neuro deficits, moving all 4 extremities, CN2-12 intact. Strength 5/5 in all 4 extremities. No nystagmus. Psych: calm, cooperative, AAO x 2 LABORATORY DATA, IMAGING STUDIES, MICROBIOLOGY: Please see below. MRI brain 01/24/20: 1. Scattered punctate hyperintense T2 and FLAIR foci in both cerebral hemisphere white matter tracts involving periventricular, subcortical and deep central white matter as well as 1 in the right cerebral peduncle. This is nonspecific and suggests some mild chronic small-vessel ischemic disease. 2. No evidence of acute infarct or restricted water diffusion. 3. No intra or extra-axial hemorrhage, mass, mass effect or edema. Four no significant cortical atrophy ventricular system and posterior fossa normal. 4. Sinuses and mastoids intact. 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 He was admitted for She was found to have left lower extremity cellulitis, sepsis, persistent encephalopathy, GE. PLAN: # Acute encephalopathy, ? Lewy body dementia per neurology -Hallucinations described to neurology. Became very aggressive, agitated later in the day after 4 PM. Throwing food on tray, hitting at staff -Improved with HS seroquel -Waxes and wanes -Ammonia, lactic acid, RPR, Vit B12 wnl -MRI brain above -F/u EEG -Monitor for worsening s/s of confusion, daily labs. -C/w HS and will add AM half dose seroquel -Discussed with Dr. Red, neurology, after he saw him today. F/u official consult note. -If agitation does not improve but aggression worsens, consider d/c cefepime, as this can casue incr AMS in some patients. # LLE cellulitis with Stage III-IV ulcer, + pseudomonas on wound culture. Resolved sepsis. -Afebrile. WBC wnl. Wound appears improved -Repeat wound culture: Pseudomonas -Blood cx 01/06 negative. Initial wound culture grew coag negative staph -Repeat BCx NG -D/c PO linezolid 01/19/20. Repeat BCx prelim neg. -IV cefepime (Day 3) -C/w current wound care instructions, ID recommendations. Dr. Richards following. -Wound care consult Dr. Calero to be done after weekend. # LLE swelling 2/2 DVT, acute vs. chronic. -Previously on coumadin, subtherapeutic -C/w Eliquis -Duplex positive for DVT report suggests chronic; however, clinically appears to be acute vs acute on chronic development #Thrombocytosis, acute -Platelets remain elevated and likely acute phase reaction 2/2 to infection/prior sepsis -Daily CBC # Anemia -H/H stable, improving -FOBT negative. LDH midly elevated. Haptoglobin slightly elevated . Ferritin 419. transfuse prn hgb<7 -Daily CBC #HTN -Stable -Amlodipine, HCTZ. # Upper extremity tremors -Thought to be essential tremors treated with propanolol outpatient which did not help. 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 - Eliquis. #Subclinical hyperthyroidism -F/u o/p # DVT prophylaxis - Eliquis Resolved issues to date: # Mild Rhabdomyolysis # Hypokalemia # GE # Elevated troponin: Likely demand ischemia # Transaminitis: Possibly from shock liver DISPOSITION: Neurology saw and case discussed. Hopeful discharge next week to [facility] after wound consult with Dr. Calero. VS, I&O, 24H, Fishbone Vital Signs/I&O Vital Signs Date Time Temp Pulse Resp B/P (MAP) Pulse Ox O2 Delivery O2 Flow Rate FiO2 01/24/20 14:45 98.4 85 18 128/73 (91) 95 Room Air I&O- Last 24 Hours up to 6 AM 01/24/20 06:00 Intake Total 560 ml Output Total 200 ml Balance 360 ml Laboratory Data 24H LABS Laboratory Tests 2 01/24/20 06:14: Nucleated Red Blood Cells % (auto) 0.0, Anion Gap 5L, Glomerular Filtration Rate > 60.0, Calcium Level 8.9, Total Bilirubin 0.7, Aspartate Amino Transf (AST/SGOT) 34, Alanine Aminotransferase (ALT/SGPT) 44, Alkaline Phosphatase 97, Total Protein 7.3, Albumin 2.8L, Albumin/Globulin Ratio 0.6 CBC/BMP Laboratory Tests 01/24/20 06:14 Microbiology Microbiology 01/20/20 Gram Stain - Final, Complete 01/20/20 Wound Culture - Final, Complete Pseudomonas Aeruginosa 01/18/20 Stool Occult Blood (BETH) - Final, Complete 01/15/20 Blood Culture - Final, Complete NO GROWTH AFTER 5 DAYS 01/15/20 Urine Culture - Final, Complete Current Medications Current Medications Medications (Trade) Dose Ordered Sig/Helene Route PRN Reason Start Time Stop Time Status Last Admin Dose Admin Acetaminophen (Tylenol Tab) 650 mg Q6HP PRN PO PAIN SCALE 1-4 / FEVER 01/08/20 04:00 01/24/20 20:01 Amlodipine Besylate (Norvasc) 5 mg DAILY PO 01/14/20 15:45 01/24/20 11:16 Apixaban (Eliquis) 5 mg BID PO 01/10/20 21:00 01/11/20 10:22 DC 01/11/20 08:49 Apixaban (Eliquis) 5 mg BID PO 01/18/20 09:00 01/24/20 20:00 Apixaban (Eliquis) 10 mg BID PO 01/11/20 21:00 01/17/20 21:00 DC 01/17/20 20:22 Cefazolin Sodium 1 gm/Dextrose 50 ml @ 100 mls/hr Q8H IV 01/11/20 12:00 01/15/20 07:34 DC 01/15/20 03:44 Cefazolin Sodium/ Dextrose 2 gm/IV Miscellaneous Supplies 50 ml @ 75 mls/hr Q8H IV 01/11/20 10:30 01/11/20 10:25 DC Cefepime HCl 1 gm/ Dextrose 50 ml @ 100 mls/hr Q12H IV 01/22/20 10:00 01/24/20 11:26 Clindamycin Phosphate 600 mg/ IV Miscellaneous Supplies 50 ml @ 100 mls/hr Q8H IV 01/15/20 08:00 Cancel Cod Liver Oil/ Zinc Oxide (Desitin) Apply to becki wound w... DAILY TOP 01/08/20 14:00 01/23/20 08:32 Docusate Sodium (Colace) 100 mg Q12HP PRN PO CONSTIPATION 01/12/20 06:00 Heparin Sodium (Porcine) (Heparin) 5,000 units Q8H SQ 01/09/20 22:00 01/10/20 13:59 DC 01/10/20 06:22 Home Med (Med Rec Complete!) ASDIRECTED XX 01/08/20 03:45 01/08/20 03:50 DC Hydrochlorothiazide (Hydrodiuril) 12.5 mg DAILY PO 01/14/20 15:45 01/24/20 11:15 Labetalol HCl (Normodyne, Trandate) 20 mg STAT STAT IV 01/14/20 15:32 01/14/20 15:35 DC 01/14/20 15:43 Lidocaine HCl (Lmx 4/Anecream) Apply to wound bed da... DAILY TOP 01/08/20 14:00 01/23/20 08:32 Linezolid (Zyvox) 600 mg Q12H PO 01/15/20 09:00 01/19/20 22:12 DC 01/19/20 21:41 Lorazepam (Ativan) 1 mg Q24HP PRN PO ANXIETY 01/21/20 08:00 01/24/20 20:00 Miscellaneous (Unresolved Clarification Entry) SEE LABEL COMMENTS DAILY XX 01/24/20 09:00 01/24/20 17:58 DC Miscellaneous (Unresolved Clarification Entry) SEE LABEL COMMENTS DAILY XX 01/24/20 09:00 Morphine Sulfate (Morphine Sulfate Inj) 2 mg Q4H PRN IV Severe pain 7-10 01/11/20 17:15 01/18/20 10:20 DC 01/14/20 09:13 Multivitamins (Theragram-M) 1 tab DAILY PO 01/08/20 09:00 01/24/20 11:15 Ondansetron HCl (ZOFRAN INJection) 4 mg Q6HP PRN IV NAUSEA OR VOMITING 01/08/20 04:00 01/17/20 09:03 Oxycodone/ Acetaminophen (Percocet 5mg/ 325mg Tablet) 1 tab Q6H PO 01/11/20 18:00 01/18/20 16:39 DC 01/18/20 11:37 Oxycodone/ Acetaminophen (Percocet 5mg/ 325mg Tablet) 1 tab Q6H PRN PO PAIN scale 5-10 01/08/20 14:00 01/11/20 17:02 DC 01/11/20 11:58 Oxycodone/ Acetaminophen (Percocet 5mg/ 325mg Tablet) 1 tab Q6H PRN PO PAIN SCALE 7-10 01/18/20 18:00 01/20/20 15:46 DC 01/19/20 04:48 Piperacillin Sod/ Tazobactam Sod 4.5 gm/Dextrose 50 ml @ 50 mls/hr Q8H IV 01/08/20 08:00 01/11/20 10:20 DC 01/11/20 08:49 Quetiapine Fumarate (SEROquel) 25 mg QHS PO 01/23/20 21:00 01/24/20 17:29 Senna (Senokot) 2 tab BID PO 01/12/20 09:00 01/19/20 22:12 DC 01/19/20 09:00 Sodium Chloride 1,000 ml @ 120 mls/hr Q8H20M IV 01/08/20 04:00 01/14/20 16:30 DC 01/14/20 09:15 Sodium Chloride (Saline Lock Flush) 2 ml ASDIRECTED PRN IV SEE LABEL COMMENTS 01/14/20 17:00 01/22/20 00:09 DC Sodium Chloride (Saline Lock Flush) 2 ml SLF IV 01/14/20 22:00 01/22/20 00:09 DC 01/21/20 06:10 Tramadol HCl (Ultram) 50 mg Q6HP PRN PO MODERATE PAIN (PS 5-7) 01/20/20 16:00 01/21/20 15:55 DC 01/21/20 00:18 Trazodone HCl (Desyrel) 25 mg QHS PO 01/21/20 21:00 01/23/20 15:43 DC 01/22/20 21:38 Trazodone HCl (Desyrel) 50 mg QHS PO 01/21/20 21:00 01/21/20 15:58 DC Vancomycin HCl 1000 mg/IV Miscellaneous Supplies 20 ml @ 20 mls/hr Q12H IV 01/08/20 04:00 01/08/20 05:51 DC Vancomycin HCl 1000 mg/IV Miscellaneous Supplies 1 each/ Dextrose 270 ml @ 270 mls/hr Q6H IV 01/09/20 02:00 01/09/20 07:51 DC 01/09/20 02:50 Vancomycin HCl 1000 mg/IV Miscellaneous Supplies 1 each/ Dextrose 270 ml @ 270 mls/hr Q8H IV 01/08/20 06:00 01/08/20 21:47 DC 01/08/20 21:12 Vancomycin HCl 1000 mg/IV Miscellaneous Supplies 1 each/ Dextrose 270 ml @ 270 mls/hr Q8H IV 01/09/20 11:00 01/11/20 00:27 DC 01/10/20 18:23 Vancomycin HCl 1000 mg/IV Miscellaneous Supplies 1 each/ Dextrose 270 ml @ 270 mls/hr Q8H IV 01/11/20 01:00 01/11/20 10:20 DC 01/11/20 09:47 Warfarin Sodium (Coumadin) 5 mg SuMoWeFrSa@1700 PO 01/09/20 17:00 01/10/20 13:51 DC 01/09/20 17:00 Warfarin Sodium (Coumadin) 7.5 mg TuTh@1700 PO 01/08/20 17:00 01/10/20 13:51 DC 01/08/20 17:01 Allergies Coded Allergies: hydrocodone (Verified Allergy, Unknown, rash, 01/08/20) levofloxacin (Verified Allergy, Unknown, hives, 01/08/20) lisinopril (Verified Allergy, Unknown, cough, 01/08/20) Violeta Sanchez MD Jan 24, 2020 20:16
[2020-01-24 22:00] VITALS: BP 124/68
[2020-01-25 06:00] VITALS: BP 107/64
[2020-01-25 06:52] LABS: HEMOGLOBIN 12.8 g/dl (13.5-17.5); MEAN CORPUSCULAR HEMOGLOBIN 29.5 pg (27.0-33.0); MEAN CORPUSCULAR VOLUME 92.2 fl (80.0-96.0); PLATELET COUNT, AUTOMATED 601 10^3/uL (150-450); RED BLOOD COUNT 4.34 10^6/uL (4.30-6.10); WHITE BLOOD COUNT 11.5 10^3/uL (4.0-10.0)
[2020-01-25 07:23] LABS: ALBUMIN 3.2 GM/DL (3.2-5.2); ALT/SGPT 48 U/L (12-78); BILIRUBIN,TOTAL 0.6 MG/DL (0.2-1.0); BLOOD UREA NITROGEN 23 MG/DL (7-18); CALCIUM LEVEL 9.5 MG/DL (8.8-10.2); CARBON DIOXIDE LEVEL 28 MEQ/L (21-32); CHLORIDE LEVEL 107 MEQ/L (98-107); CREATININE FOR GFR 0.96 MG/DL (0.70-1.30); GLOMERULAR FILTRATION RATE > 60.0 (>49); GLUCOSE, FASTING 99 MG/DL (70-100); POTASSIUM SERUM 4.7 MEQ/L (3.5-5.1); SODIUM LEVEL 140 MEQ/L (136-145); TOTAL PROTEIN 7.2 GM/DL (6.4-8.2)
[2020-01-25] MEDS ORDERED: QUEtiapine FUMARATE 12.5 MG HALF-TAB PO SCH (09:00)
[2020-01-25] MEDS: MULTIVITAMINS/MINERALS THERAP 1 TAB PO SCH (09:39)
[2020-01-25] MEDS: hydroCHLOROthiazide 12.5 MG CAPSULE PO SCH (09:40)
[2020-01-25] MEDS: APIXABAN 5 MG TAB (ELIQUIS) PO SCH ×2 (09:41→22:37)
[2020-01-25 09:42] VITALS: BP 120/74
[2020-01-25] MEDS: amLODIPine 5 MG TAB PO SCH (09:43)
[2020-01-25] MEDS: DIAPER RELIEF PASTE (DESITIN) 60GM TOP SCH (09:44)
[2020-01-25] MEDS: CEFEPIME HCL 1 GM in D5W MINI-BAG PLUS 50 ML IV SCH ×2 (10:20→22:37)
[2020-01-25 14:29] VITALS: BP 128/76
--- NOTE | 2020-01-25 16:44 | IPNPDOC ---
Date Seen The patient was seen on 01/25/20. Progress Note SUBJECTIVE: Needed ativan last evening for increased behaviors, this is starting to occur more frequently. Started patient on 12.5 mg AM seroquel but this made him too sleepy, will d/c. No acute events overnight. OBJECTIVE: PHYSICAL EXAMINATION: VITAL SIGNS: please see below General: NAD, comfortable, AAOx2. HEENT: PERRLA, EOMI, sclerae clear Neck: supple, normal ROM, no JVD Respiratory: lungs CTAB, no wheeze, no rales, no crackles CVS: RRR, normal S1, S2, no murmurs Abdo: soft, no masses, no hepatosplenomegaly, BS+, no rebound tenderness Extremities: L leg swelling improved. dressing clean, dry, intact. pain improved to touch. Pulses 1+. Integumentary: large left lower ext ulcer, Stage 3, nonpurulent, covered with dressing MSK: no joint deformities, normal ROM Neuro: Resting and intention tremor, no new focal neuro deficits, moving all 4 extremities, CN2-12 intact. Strength 5/5 in all 4 extremities. No nystagmus. Psych: calm, cooperative, AAO x 2 LABORATORY DATA, IMAGING STUDIES, MICROBIOLOGY: Please see below. MRI brain 01/24/20: 1. Scattered punctate hyperintense T2 and FLAIR foci in both cerebral hemisphere white matter tracts involving periventricular, subcortical and deep central white matter as well as 1 in the right cerebral peduncle. This is nonspecific and suggests some mild chronic small-vessel ischemic disease. 2. No evidence of acute infarct or restricted water diffusion. 3. No intra or extra-axial hemorrhage, mass, mass effect or edema. Four no significant cortical atrophy ventricular system and posterior fossa normal. 4. Sinuses and mastoids intact. 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 He was admitted for She was found to have left lower extremity cellulitis, sepsis, persistent encephalopathy, GE. PLAN: # Acute encephalopathy, ? Lewy body dementia per neurology -Hallucinations described to neurology. At times very aggressive, agitated, attempting to hit staff-occurring more at night over past several days. -Waxes and wanes -Ammonia, lactic acid, RPR, Vit B12 wnl -MRI brain above -F/u EEG -Monitor for worsening s/s of confusion, daily labs. -D/c AM seroquel, can consider adding to HS dose -Discussed with Dr. Red, neurology, after he saw him today. F/u official consult note. # LLE cellulitis with Stage III-IV ulcer, + pseudomonas on wound culture. Resolved sepsis. -Afebrile. WBC wnl. Wound appears improved -Repeat wound culture: Pseudomonas -Blood cx 01/06 negative. Initial wound culture grew coag negative staph -Repeat BCx NG -D/c PO linezolid 01/19/20. Repeat BCx prelim neg. -IV cefepime (Day 4) -C/w current wound care instructions, ID recommendations. Dr. Richards following. -Wound care consult Dr. Calero to be done after weekend. # LLE swelling 2/2 DVT, acute vs. chronic. -Previously on coumadin, subtherapeutic -C/w Eliquis -Duplex positive for DVT report suggests chronic; however, clinically appears to be acute vs acute on chronic development #Thrombocytosis, acute -Platelets remain elevated and likely acute phase reaction 2/2 to infection/prior sepsis -Daily CBC # Anemia -H/H stable, improving -FOBT negative. LDH midly elevated. Haptoglobin slightly elevated . Ferritin 419. transfuse prn hgb<7 -Daily CBC #HTN -Stable -Amlodipine, HCTZ. # Upper extremity tremors -Thought to be essential tremors treated with propanolol outpatient which did not help. 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 - Eliquis. #Subclinical hyperthyroidism -F/u o/p # DVT prophylaxis - Eliquis Resolved issues to date: # Mild Rhabdomyolysis # Hypokalemia # GE # Elevated troponin: Likely demand ischemia # Transaminitis: Possibly from shock liver DISPOSITION: Neurology saw and case discussed. Hopeful discharge next week to [facility] after wound consult with Dr. Calero. VS, I&O, 24H, Fishbone Vital Signs/I&O Vital Signs Date Time Temp Pulse Resp B/P (MAP) Pulse Ox O2 Delivery O2 Flow Rate FiO2 01/25/20 14:29 98.6 84 16 128/76 (93) 98 Room Air I&O- Last 24 Hours up to 6 AM 01/25/20 06:00 Intake Total 410 ml Output Total 0 ml Balance 410 ml Laboratory Data 24H LABS Laboratory Tests 2 01/25/20 06:17: Nucleated Red Blood Cells % (auto) 0.0, Anion Gap 5L, Glomerular Filtration Rate > 60.0, Calcium Level 9.5, Total Bilirubin 0.6, Aspartate Amino Transf (AST/SGOT) 37, Alanine Aminotransferase (ALT/SGPT) 48, Alkaline Phosphatase 103, Total Protein 7.2, Albumin 3.2, Albumin/Globulin Ratio 0.8 CBC/BMP Laboratory Tests 01/25/20 06:17 Microbiology Microbiology 01/20/20 Gram Stain - Final, Complete 01/20/20 Wound Culture - Final, Complete Pseudomonas Aeruginosa 01/18/20 Stool Occult Blood (BETH) - Final, Complete 01/15/20 Blood Culture - Final, Complete NO GROWTH AFTER 5 DAYS 01/15/20 Urine Culture - Final, Complete Current Medications Current Medications Medications (Trade) Dose Ordered Sig/Helene Route PRN Reason Start Time Stop Time Status Last Admin Dose Admin Acetaminophen (Tylenol Tab) 650 mg Q6HP PRN PO PAIN SCALE 1-4 / FEVER 01/08/20 04:00 01/24/20 20:01 Amlodipine Besylate (Norvasc) 5 mg DAILY PO 01/14/20 15:45 01/25/20 09:43 Apixaban (Eliquis) 5 mg BID PO 01/10/20 21:00 01/11/20 10:22 DC 01/11/20 08:49 Apixaban (Eliquis) 5 mg BID PO 01/18/20 09:00 01/25/20 09:41 Apixaban (Eliquis) 10 mg BID PO 01/11/20 21:00 01/17/20 21:00 DC 01/17/20 20:22 Cefazolin Sodium 1 gm/Dextrose 50 ml @ 100 mls/hr Q8H IV 01/11/20 12:00 01/15/20 07:34 DC 01/15/20 03:44 Cefazolin Sodium/ Dextrose 2 gm/IV Miscellaneous Supplies 50 ml @ 75 mls/hr Q8H IV 01/11/20 10:30 01/11/20 10:25 DC Cefepime HCl 1 gm/ Dextrose 50 ml @ 100 mls/hr Q12H IV 01/22/20 10:00 01/25/20 10:20 Clindamycin Phosphate 600 mg/ IV Miscellaneous Supplies 50 ml @ 100 mls/hr Q8H IV 01/15/20 08:00 Cancel Cod Liver Oil/ Zinc Oxide (Desitin) Apply to becki wound w... DAILY TOP 01/08/20 14:00 01/25/20 09:44 Docusate Sodium (Colace) 100 mg Q12HP PRN PO CONSTIPATION 01/12/20 06:00 Heparin Sodium (Porcine) (Heparin) 5,000 units Q8H SQ 01/09/20 22:00 01/10/20 13:59 DC 01/10/20 06:22 Home Med (Med Rec Complete!) ASDIRECTED XX 01/08/20 03:45 01/08/20 03:50 DC Hydrochlorothiazide (Hydrodiuril) 12.5 mg DAILY PO 01/14/20 15:45 01/25/20 09:40 Labetalol HCl (Normodyne, Trandate) 20 mg STAT STAT IV 01/14/20 15:32 01/14/20 15:35 DC 01/14/20 15:43 Lidocaine HCl (Lmx 4/Anecream) Apply to wound bed da... DAILY TOP 01/08/20 14:00 01/23/20 08:32 Linezolid (Zyvox) 600 mg Q12H PO 01/15/20 09:00 01/19/20 22:12 DC 01/19/20 21:41 Lorazepam (Ativan) 1 mg Q24HP PRN PO ANXIETY 01/21/20 08:00 01/24/20 20:13 DC 01/24/20 20:00 Miscellaneous (Unresolved Clarification Entry) SEE LABEL COMMENTS DAILY XX 01/24/20 09:00 01/24/20 17:58 DC Miscellaneous (Unresolved Clarification Entry) SEE LABEL COMMENTS DAILY XX 01/24/20 09:00 01/25/20 06:53 DC Morphine Sulfate (Morphine Sulfate Inj) 2 mg Q4H PRN IV Severe pain 7-10 01/11/20 17:15 01/18/20 10:20 DC 01/14/20 09:13 Multivitamins (Theragram-M) 1 tab DAILY PO 01/08/20 09:00 01/25/20 09:39 Ondansetron HCl (ZOFRAN INJection) 4 mg Q6HP PRN IV NAUSEA OR VOMITING 01/08/20 04:00 01/17/20 09:03 Oxycodone/ Acetaminophen (Percocet 5mg/ 325mg Tablet) 1 tab Q6H PO 01/11/20 18:00 01/18/20 16:39 DC 01/18/20 11:37 Oxycodone/ Acetaminophen (Percocet 5mg/ 325mg Tablet) 1 tab Q6H PRN PO PAIN scale 5-10 01/08/20 14:00 01/11/20 17:02 DC 01/11/20 11:58 Oxycodone/ Acetaminophen (Percocet 5mg/ 325mg Tablet) 1 tab Q6H PRN PO PAIN SCALE 7-10 01/18/20 18:00 01/20/20 15:46 DC 01/19/20 04:48 Piperacillin Sod/ Tazobactam Sod 4.5 gm/Dextrose 50 ml @ 50 mls/hr Q8H IV 01/08/20 08:00 01/11/20 10:20 DC 01/11/20 08:49 Quetiapine Fumarate (SEROquel) 12.5 mg QAM PO 01/25/20 09:00 01/25/20 09:39 Quetiapine Fumarate (SEROquel) 25 mg QHS PO 01/23/20 21:00 01/24/20 17:29 Senna (Senokot) 2 tab BID PO 01/12/20 09:00 01/19/20 22:12 DC 01/19/20 09:00 Sodium Chloride 1,000 ml @ 120 mls/hr Q8H20M IV 01/08/20 04:00 01/14/20 16:30 DC 01/14/20 09:15 Sodium Chloride (Saline Lock Flush) 2 ml ASDIRECTED PRN IV SEE LABEL COMMENTS 01/14/20 17:00 01/22/20 00:09 DC Sodium Chloride (Saline Lock Flush) 2 ml SLF IV 01/14/20 22:00 01/22/20 00:09 DC 01/21/20 06:10 Tramadol HCl (Ultram) 50 mg Q6HP PRN PO MODERATE PAIN (PS 5-7) 01/20/20 16:00 01/21/20 15:55 DC 01/21/20 00:18 Trazodone HCl (Desyrel) 25 mg QHS PO 01/21/20 21:00 01/23/20 15:43 DC 01/22/20 21:38 Trazodone HCl (Desyrel) 50 mg QHS PO 01/21/20 21:00 01/21/20 15:58 DC Vancomycin HCl 1000 mg/IV Miscellaneous Supplies 20 ml @ 20 mls/hr Q12H IV 01/08/20 04:00 01/08/20 05:51 DC Vancomycin HCl 1000 mg/IV Miscellaneous Supplies 1 each/ Dextrose 270 ml @ 270 mls/hr Q6H IV 01/09/20 02:00 01/09/20 07:51 DC 01/09/20 02:50 Vancomycin HCl 1000 mg/IV Miscellaneous Supplies 1 each/ Dextrose 270 ml @ 270 mls/hr Q8H IV 01/08/20 06:00 01/08/20 21:47 DC 01/08/20 21:12 Vancomycin HCl 1000 mg/IV Miscellaneous Supplies 1 each/ Dextrose 270 ml @ 270 mls/hr Q8H IV 01/09/20 11:00 01/11/20 00:27 DC 01/10/20 18:23 Vancomycin HCl 1000 mg/IV Miscellaneous Supplies 1 each/ Dextrose 270 ml @ 270 mls/hr Q8H IV 01/11/20 01:00 01/11/20 10:20 DC 01/11/20 09:47 Warfarin Sodium (Coumadin) 5 mg SuMoWeFrSa@1700 PO 01/09/20 17:00 01/10/20 13:51 DC 01/09/20 17:00 Warfarin Sodium (Coumadin) 7.5 mg TuTh@1700 PO 01/08/20 17:00 01/10/20 13:51 DC 01/08/20 17:01 Allergies Coded Allergies: hydrocodone (Verified Allergy, Unknown, rash, 01/08/20) levofloxacin (Verified Allergy, Unknown, hives, 01/08/20) lisinopril (Verified Allergy, Unknown, cough, 01/08/20) Violeta Sanchez MD Jan 25, 2020 16:44
[2020-01-25] MEDS: LIDOCAINE 4% CREAM 5GM (LMX4) TOP SCH (17:18)
[2020-01-25 22:00] VITALS: BP 126/72
[2020-01-25] MEDS: QUEtiapine FUMARATE 25 MG TAB PO SCH (22:37)
[2020-01-26 06:00] VITALS: BP 117/77
[2020-01-26] MEDS: LIDOCAINE 4% CREAM 5GM (LMX4) TOP SCH (09:00)
[2020-01-26 09:18] LABS: HEMATOCRIT 42.5 % (42.0-52.0); HEMOGLOBIN 13.4 g/dl (13.5-17.5); MEAN CORPUSCULAR HEMOGLOBIN 28.9 pg (27.0-33.0); MEAN CORPUSCULAR HGB CONC 31.5 g/dl (32.0-36.5); MEAN CORPUSCULAR VOLUME 91.8 fl (80.0-96.0); PLATELET COUNT, AUTOMATED 730 10^3/uL (150-450); RED BLOOD COUNT 4.63 10^6/uL (4.30-6.10); WHITE BLOOD COUNT 11.3 10^3/uL (4.0-10.0)
--- NOTE | 2020-01-26 09:27 | CR ---
DATE OF CONSULTATION: 01/24/2020 REASON FOR CONSULTATION: Suspected delirium due to underlying medical condition and Parkinsons symptoms. HISTORY OF PRESENT ILLNESS: The patient is a 69-year-old right-handed gentleman with past medical history significant for lower extremity deep venous thromboses (DVTs), pulmonary embolism, IVC filter on anticoagulation. The patient has been admitted to [facility] for evaluation of left lower extremity ulcer with multiple attempted grafts and ongoing cellulitis. During the hospital course, the patient was treated with vancomycin, Zosyn, cefazolin, linezolid. The patient was thought to have worsening confusion, delirium secondary to antibiotic therapy and narcotic medications. These medications were discontinued. The patient is showing some improvement, though he is noted to have more confusion in the mornings. Trazodone has been provided for sleep deprivation, which may have also been contributing towards his delirium. Last night the patient's trazodone was switched to Seroquel 25 mg. The patient slept well and was more lucid this morning. He is still lightly confused and perseverates to certain responses. He is aware that he is in the hospital for an infection. He knows the correct year, month and day of the week. He has difficult times stating the date within the month. The patient reports that he has had resting tremors of the right upper extremity for at least 3 to 5 years. He has also had some difficulty with balance for those many years. His mother suffered Parkinsons. Over the past 5 years, he has had about 7 episodes of seeing his dog in his presence lasting about 25 seconds. He tries to interact with the dog and then the dog disappears. Due to the visual hallucinations and Parkinsonian symptoms it is hard to say that the patient has Parkinsons disease verus Lewy body dementia; the latter more likely. MRI of the brain was requested, which did not show any occluded cranial pathology. The patient has gradually been improving during this hospitalization with suspicion of encephalopathy secondary to underlying medical conditions. PAST MEDICAL HISTORY: Left lower extremity ulcer with multiple attempted grafts. Venous ligation. Venous stasis. History of 12 different ulcers. Pulmonary embolism and deep venous thrombosis (DVT) prophylaxis in 1983 after injury to knee. Pulmonary embolism in 2009, later Factor V l Leiden mutation currently on anticoagulation. IVC filter November 13, 2018. Bilateral deep venous thrombosis (DVT). PAST SURGICAL HISTORY: Grafting left side 2009. Venous ligation 2009. Tonsillectomy. Carpal tunnel surgery bilaterally in 1990. Grafts to left leg in 2018 and 2019. FAMILY HISTORY: Mother with Parkinsons disease. SOCIAL HISTORY: The patient drinks 2 to 4 alcoholic beverages of Vodka a day. Denies the use of tobacco or illicit drugs. REVIEW OF SYSTEMS: 12 point review of systems is negative except as per history of present illness. The patient is still confused. PHYSICAL EXAMINATION: Blood pressure is 120/73, pulse rate 85, respiratory rate is 18, and temperature is 98.4 degrees Fahrenheit, oxygen saturation 95% on room air. The patient is oriented to his name, location, the year, the month, day of the week, he perseverates on the date. Speech is clear without aphasia. Extraocular movements are intact. Pupils are round and reactive. Tongue is midline. There is no loss of sensation to light touch in V1, V2, V3 bilaterally. Hearing is equal to finger rub. The palate elevates symmetrically. Tongue is midline. There is no pronator drift. The patient has partial tremors of both hands and resting tremor of the right upper extremity. Increased tone, cogwheel rigidity is not obvious. The patient has normal strength and bilateral arms and legs. Left ankle dorsiflexion, planar flexion not tested due to ongoing wound care. Deep tendon reflexes are 2 throughout. Gait is cautious, unsteady. Decreased right arm swing with ambulation. No gross ataxia or dysmetria. Questionable minimum masked facies. ASSESSMENT: Acute encephalopathy secondary to infection, antibiotics, narcotics, sleep deprivation likely. Cannot entirely exclude underlying baseline Lewy body dementia given history of visual hallucinations and Parkinson symptoms, cannot entirely exclude underlying baseline Lewy body dementia given history of visual hallucinations and Parkinsons symptoms, cannot entire exclude Parkinsons disease. PLAN: 1. Continue with Seroquel 25 mg by mouth every night at bedtime.. The patient is showing gradual improvement in cognitive functioning. The patient can be followed up in the neurology clinic within the next 4 to 6 weeks upon discharge. 2. Continue supportive medical care. Continue ambulating with the use of a walker as the patient remains unsteady. Hold off on starting any dopaminergic therapy at this point in time. MTDD
--- NOTE | 2020-01-26 09:30 | IPN ---
DATE: 01/23/2020 Jer was very confused this morning. He was mumbling. I could not understand what he was saying. He denied any pain except when I was doing his dressing change. He has had no fever or chills. No nausea, vomiting, or diarrhea. He had actually no documented bowel movement in the past 3 days. LABORATORY DATA: White count is 11.8, yesterday was 12.1, hemoglobin 12.3, hematocrit 41, platelets 697. ESR 69. Sodium 143, potassium 4.6, chloride 109, BUN 26, BUN 17, creatinine 0.94, glucose 100, calcium 9.7. Bilirubin 0.7, AST 37, ALT 48, alkaline phosphatase 113, total protein 7.7, albumin 3.2. CRP 8.16. Wound culture, left leg, had moderate growth, with moderate white cells, sensitive to levofloxacin, gentamicin, tobramycin, pansensitive. PHYSICAL EXAMINATION: His temperature is 97.4, pulse 100, respirations 20, blood pressure 128/74, oxygen saturation 97% on room air. Left leg has a large venous stasis ulcer measuring 11 cm x 9 cm with granulation tissue. There is minimal purulent discharge. There is no surrounding cellulitis. There is minimal tenderness. IMPRESSION: 1. Infected venous ulcer with pseudomonas, on intravenous (IV) cefepime. The wound has markedly improved with dressing changes and Vashe. The patient was started on IV cefepime due to his leukocytosis and wound cultures being positive for moderate growth of pseudomonas with elevated inflammatory markers and confusion. 2. Delirium. I am not sure why the patient has such mental status changes and it waxes and wanes with definitely delirium. The patient does not have dementia. When he is with it, he is very appropriate with very smart answers and recall. Syphilis is nonreactive. PLAN: Continue IV cefepime until Sunday. Dr. Calero will be doing a wound consult, and the patient will be transferred to subacute rehabilitation. I would not continue prophylactic antibiotics. PETER
[2020-01-26 09:38] LABS: BLOOD UREA NITROGEN 28 MG/DL (7-18); C REACTIVE PROTEIN QUANTITATIV 1.36 MG/DL (0.00-0.30); CALCIUM LEVEL 9.6 MG/DL (8.8-10.2); CARBON DIOXIDE LEVEL 23 MEQ/L (21-32); CHLORIDE LEVEL 106 MEQ/L (98-107); CREATININE FOR GFR 1.01 MG/DL (0.70-1.30); GLOMERULAR FILTRATION RATE > 60.0 (>49); GLUCOSE, FASTING 125 MG/DL (70-100); POTASSIUM SERUM 4.8 MEQ/L (3.5-5.1); SODIUM LEVEL 138 MEQ/L (136-145)
[2020-01-26 09:44] LABS: ERYTHROCYTE SEDIMENTATION RATE 69 mm/hr (0-20)
[2020-01-26] MEDS: hydroCHLOROthiazide 12.5 MG CAPSULE PO SCH (09:49)
[2020-01-26] MEDS: MULTIVITAMINS/MINERALS THERAP 1 TAB PO SCH (09:49)
[2020-01-26] MEDS: APIXABAN 5 MG TAB (ELIQUIS) PO SCH ×2 (09:49→21:40)
[2020-01-26] MEDS: DIAPER RELIEF PASTE (DESITIN) 60GM TOP SCH (09:50)
[2020-01-26] MEDS: amLODIPine 5 MG TAB PO SCH (09:51)
[2020-01-26] MEDS: CEFEPIME HCL 1 GM in D5W MINI-BAG PLUS 50 ML IV SCH ×2 (09:51→21:40)
[2020-01-26 14:00] VITALS: BP 127/97
--- NOTE | 2020-01-26 16:28 | IPNPDOC ---
Date Seen The patient was seen on 01/26/20. Progress Note SUBJECTIVE: No aggressive behaviors over the evening 01/25/20. Patient slept well. Cefepime to stop today after last dose. Dr. Calero did the wound consult via telemedicine and gave orders for wound care. Called life partner Roland Lyle today and left message, will try calling again. Patient denies incr shortness of breath, chest pain, fevers, chills, n/v/d, abdominal pain, weakness. OBJECTIVE: PHYSICAL EXAMINATION: VITAL SIGNS: please see below General: NAD, comfortable, AAOx2. HEENT: PERRLA, EOMI, sclerae clear Neck: supple, normal ROM, no JVD Respiratory: lungs CTAB, no wheeze, no rales, no crackles CVS: RRR, normal S1, S2, no murmurs Abdo: soft, no masses, no hepatosplenomegaly, BS+, no rebound tenderness Extremities: L leg swelling improved. dressing clean, dry, intact. pain improved to touch. Pulses 1+. Integumentary: large left lower ext ulcer, Stage 3, nonpurulent, covered with dressing MSK: no joint deformities, normal ROM Neuro: Resting and intention tremor, no new focal neuro deficits, moving all 4 extremities, CN2-12 intact. Strength 5/5 in all 4 extremities. No nystagmus. Psych: calm, cooperative, AAO x 2 LABORATORY DATA, IMAGING STUDIES, MICROBIOLOGY: Please see below. MRI brain 01/24/20: 1. Scattered punctate hyperintense T2 and FLAIR foci in both cerebral hemisphere white matter tracts involving periventricular, subcortical and deep central white matter as well as 1 in the right cerebral peduncle. This is nonspecific and suggests some mild chronic small-vessel ischemic disease. 2. No evidence of acute infarct or restricted water diffusion. 3. No intra or extra-axial hemorrhage, mass, mass effect or edema. Four no significant cortical atrophy ventricular system and posterior fossa normal. 4. Sinuses and mastoids intact. 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 He was admitted for She was found to have left lower extremity cellulitis, sepsis, persistent encephalopathy, GE. PLAN: # Acute encephalopathy, ? Lewy body dementia per neurology -Hallucinations are scattered. At times very aggressive, agitated, attempting to hit staff-occurring more at night over this past 3-4 evenings. . -Waxes and wanes -Ammonia, lactic acid, RPR, Vit B12 wnl -MRI brain above -EEG was done 01/23/20; however, no report is transcribed yet. -Monitor for worsening s/s of confusion, daily labs. -If behaviors occur again, can consider incr night seroquel dose. -Discussed with Dr. Red, neurology. F/u official consult note. # LLE cellulitis with Stage III-IV ulcer, + pseudomonas on wound culture. Resolved sepsis. -Afebrile. WBC wnl. Wound appears improved -Repeat wound culture: Pseudomonas -Blood cx 01/06 negative. Initial wound culture grew coag negative staph -Repeat BCx NG -D/c PO linezolid 01/19/20. Repeat BCx prelim neg. -IV cefepime (Day 5)- stopping after last dose today -Wound care consult done via telemedicine on 01/26/20. F/u note in chart. -ID updated # LLE swelling 2/2 DVT, acute vs. chronic. -Previously on coumadin, subtherapeutic -C/w Eliquis -Duplex positive for DVT report suggests chronic; however, clinically appears to be acute vs acute on chronic development #Thrombocytosis, acute -Platelets remain elevated and likely acute phase reaction 2/2 to infection/prior sepsis -Daily CBC # Anemia -H/H stable, improving -FOBT negative. LDH midly elevated. Haptoglobin slightly elevated . Ferritin 419. transfuse prn hgb<7 -Daily CBC #HTN -Stable -Amlodipine, HCTZ. # Upper extremity tremors -Thought to be essential tremors treated with propanolol outpatient which did not help. 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 - Eliquis. #Subclinical hyperthyroidism -F/u o/p # DVT prophylaxis - Eliquis Resolved issues to date: # Mild Rhabdomyolysis # Hypokalemia # GE # Elevated troponin: Likely demand ischemia # Transaminitis: Possibly from shock liver DISPOSITION: Touching base with life partner Roland Lyle ([phone]), as I was told he may want to take patient home. Plan was likely [facility] prior to this so perhaps this has changed? Will need to discuss with KAYLA ARZOLA in the AM. WOUND CARE RECOMMENDATIONS: Clean the wound with a wound lolly and Vashe wound cleanser. Next, apply a soaked 4 x 4 gauze sponge with Vashe for 10 minutes. Remove. Apply alginate the wound. Protect the periwound with Desitin to avoid maceration or inflammation of the periwound Cover the alginate with a nonadherent foam dressing secured with a Kerlix or Marcus and applied a Tubigrip support stocking. Patient should have the foot of his bed elevated for Trendelenburg position, which will assist in decompression. Anticoagulation is mandatory, and the patient can be covered with antibiotic therapy according to wound cultures. Analgesia is important as well., when the patient is ready for discharge, please notify the wound care center, and he can be followed up per his usual weekly evaluation. Dressing changes should be done a daily basis, including using a wound lolly, which will assist in removing any devitalized cells, tissue, and planktonic bacteria. Notify the wound center when the patientis ready for discharge and follow-up appointments can be scheduled VS, I&O, 24H, Fishbone Vital Signs/I&O Vital Signs Date Time Temp Pulse Resp B/P (MAP) Pulse Ox O2 Delivery O2 Flow Rate FiO2 01/26/20 14:00 97.1 59 17 127/97 (107) 98 Room Air I&O- Last 24 Hours up to 6 AM 01/26/20 06:00 Intake Total 1380 ml Balance 1380 ml Laboratory Data 24H LABS Laboratory Tests 2 01/26/20 08:44: Nucleated Red Blood Cells % (auto) 0.0, Erythrocyte Sedimentation Rate 69H, Anion Gap 9, Glomerular Filtration Rate > 60.0, Calcium Level 9.6, C-Reactive Protein, Quantitative 1.36H CBC/BMP Laboratory Tests 01/26/20 08:44 Microbiology Microbiology 01/20/20 Gram Stain - Final, Complete 01/20/20 Wound Culture - Final, Complete Pseudomonas Aeruginosa 01/18/20 Stool Occult Blood (BETH) - Final, Complete Current Medications Current Medications Medications (Trade) Dose Ordered Sig/Helene Route PRN Reason Start Time Stop Time Status Last Admin Dose Admin Acetaminophen (Tylenol Tab) 650 mg Q6HP PRN PO PAIN SCALE 1-4 / FEVER 01/08/20 04:00 01/24/20 20:01 Amlodipine Besylate (Norvasc) 5 mg DAILY PO 01/14/20 15:45 01/26/20 09:51 Apixaban (Eliquis) 5 mg BID PO 01/10/20 21:00 01/11/20 10:22 DC 01/11/20 08:49 Apixaban (Eliquis) 5 mg BID PO 01/18/20 09:00 01/26/20 09:49 Apixaban (Eliquis) 10 mg BID PO 01/11/20 21:00 01/17/20 21:00 DC 01/17/20 20:22 Cefazolin Sodium 1 gm/Dextrose 50 ml @ 100 mls/hr Q8H IV 01/11/20 12:00 01/15/20 07:34 DC 01/15/20 03:44 Cefazolin Sodium/ Dextrose 2 gm/IV Miscellaneous Supplies 50 ml @ 75 mls/hr Q8H IV 01/11/20 10:30 01/11/20 10:25 DC Cefepime HCl 1 gm/ Dextrose 50 ml @ 100 mls/hr Q12H IV 01/22/20 10:00 01/26/20 23:59 01/26/20 09:51 Clindamycin Phosphate 600 mg/ IV Miscellaneous Supplies 50 ml @ 100 mls/hr Q8H IV 01/15/20 08:00 Cancel Cod Liver Oil/ Zinc Oxide (Desitin) Apply to becki wound w... DAILY TOP 01/08/20 14:00 01/26/20 09:50 Docusate Sodium (Colace) 100 mg Q12HP PRN PO CONSTIPATION 01/12/20 06:00 Heparin Sodium (Porcine) (Heparin) 5,000 units Q8H SQ 01/09/20 22:00 01/10/20 13:59 DC 01/10/20 06:22 Home Med (Med Rec Complete!) ASDIRECTED XX 01/08/20 03:45 01/08/20 03:50 DC Hydrochlorothiazide (Hydrodiuril) 12.5 mg DAILY PO 01/14/20 15:45 01/26/20 09:49 Labetalol HCl (Normodyne, Trandate) 20 mg STAT STAT IV 01/14/20 15:32 01/14/20 15:35 DC 01/14/20 15:43 Lidocaine HCl (Lmx 4/Anecream) Apply to wound bed da... DAILY TOP 01/08/20 14:00 01/26/20 09:00 Linezolid (Zyvox) 600 mg Q12H PO 01/15/20 09:00 01/19/20 22:12 DC 01/19/20 21:41 Lorazepam (Ativan) 1 mg Q24HP PRN PO ANXIETY 01/21/20 08:00 01/24/20 20:13 DC 01/24/20 20:00 Miscellaneous (Unresolved Clarification Entry) SEE LABEL COMMENTS DAILY XX 01/24/20 09:00 01/24/20 17:58 DC Miscellaneous (Unresolved Clarification Entry) SEE LABEL COMMENTS DAILY XX 01/24/20 09:00 01/25/20 06:53 DC Morphine Sulfate (Morphine Sulfate Inj) 2 mg Q4H PRN IV Severe pain 7-01/11/20 17:15 01/18/20 10:20 DC 01/14/20 09:13 Multivitamins (Theragram-M) 1 tab DAILY PO 01/08/20 09:00 01/26/20 09:49 Ondansetron HCl (ZOFRAN INJection) 4 mg Q6HP PRN IV NAUSEA OR VOMITING 01/08/20 04:00 01/17/20 09:03 Oxycodone/ Acetaminophen (Percocet 5mg/ 325mg Tablet) 1 tab Q6H PO 01/11/20 18:00 01/18/20 16:39 DC 01/18/20 11:37 Oxycodone/ Acetaminophen (Percocet 5mg/ 325mg Tablet) 1 tab Q6H PRN PO PAIN scale 5-10 01/08/20 14:00 01/11/20 17:02 DC 01/11/20 11:58 Oxycodone/ Acetaminophen (Percocet 5mg/ 325mg Tablet) 1 tab Q6H PRN PO PAIN SCALE 7-10 01/18/20 18:00 01/20/20 15:46 DC 01/19/20 04:48 Piperacillin Sod/ Tazobactam Sod 4.5 gm/Dextrose 50 ml @ 50 mls/hr Q8H IV 01/08/20 08:00 01/11/20 10:20 DC 01/11/20 08:49 Quetiapine Fumarate (SEROquel) 12.5 mg QAM PO 01/25/20 09:00 01/25/20 16:44 DC 01/25/20 09:39 Quetiapine Fumarate (SEROquel) 25 mg QHS PO 01/23/20 21:00 01/25/20 22:37 Senna (Senokot) 2 tab BID PO 01/12/20 09:00 01/19/20 22:12 DC 01/19/20 09:00 Sodium Chloride 1,000 ml @ 120 mls/hr Q8H20M IV 01/08/20 04:00 01/14/20 16:30 DC 01/14/20 09:15 Sodium Chloride (Saline Lock Flush) 2 ml ASDIRECTED PRN IV SEE LABEL COMMENTS 01/14/20 17:00 01/22/20 00:09 DC Sodium Chloride (Saline Lock Flush) 2 ml SLF IV 01/14/20 22:00 01/22/20 00:09 DC 01/21/20 06:10 Tramadol HCl (Ultram) 50 mg Q6HP PRN PO MODERATE PAIN (PS 5-7) 01/20/20 16:00 01/21/20 15:55 DC 01/21/20 00:18 Trazodone HCl (Desyrel) 25 mg QHS PO 01/21/20 21:00 01/23/20 15:43 DC 01/22/20 21:38 Trazodone HCl (Desyrel) 50 mg QHS PO 01/21/20 21:00 01/21/20 15:58 DC Vancomycin HCl 1000 mg/IV Miscellaneous Supplies 20 ml @ 20 mls/hr Q12H IV 01/08/20 04:00 01/08/20 05:51 DC Vancomycin HCl 1000 mg/IV Miscellaneous Supplies 1 each/ Dextrose 270 ml @ 270 mls/hr Q6H IV 01/09/20 02:00 01/09/20 07:51 DC 01/09/20 02:50 Vancomycin HCl 1000 mg/IV Miscellaneous Supplies 1 each/ Dextrose 270 ml @ 270 mls/hr Q8H IV 01/08/20 06:00 01/08/20 21:47 DC 01/08/20 21:12 Vancomycin HCl 1000 mg/IV Miscellaneous Supplies 1 each/ Dextrose 270 ml @ 270 mls/hr Q8H IV 01/09/20 11:00 01/11/20 00:27 DC 01/10/20 18:23 Vancomycin HCl 1000 mg/IV Miscellaneous Supplies 1 each/ Dextrose 270 ml @ 270 mls/hr Q8H IV 01/11/20 01:00 01/11/20 10:20 DC 01/11/20 09:47 Warfarin Sodium (Coumadin) 5 mg SuMoWeFrSa@1700 PO 01/09/20 17:00 01/10/20 13:51 DC 01/09/20 17:00 Warfarin Sodium (Coumadin) 7.5 mg TuTh@1700 PO 01/08/20 17:00 01/10/20 13:51 DC 01/08/20 17:01 Allergies Coded Allergies: hydrocodone (Verified Allergy, Unknown, rash, 01/08/20) levofloxacin (Verified Allergy, Unknown, hives, 01/08/20) lisinopril (Verified Allergy, Unknown, cough, 01/08/20) Violeta Sanchez MD Jan 26, 2020 16:28
[2020-01-26] MEDS: QUEtiapine FUMARATE 25 MG TAB PO SCH (18:47)
[2020-01-26] MEDS ORDERED: HALOPERIDOL 5MG/ML VIAL (J1630 PER 1) As Ordered ONE (19:23)
[2020-01-26] MEDS ORDERED: HALOPERIDOL 5MG/ML VIAL (J1630 PER 1) IM STA (19:24)
[2020-01-26 21:51] VITALS: BP 124/80
[2020-01-27 06:00] VITALS: BP 115/69
[2020-01-27 07:58] LABS: HEMATOCRIT 38.4 % (42.0-52.0); HEMOGLOBIN 12.2 g/dl (13.5-17.5); MEAN CORPUSCULAR HGB CONC 31.8 g/dl (32.0-36.5); MEAN CORPUSCULAR VOLUME 91.4 fl (80.0-96.0); WHITE BLOOD COUNT 9.5 10^3/uL (4.0-10.0)
[2020-01-27 08:07] LABS: PLATELET COUNT, AUTOMATED 497 10^3/uL (150-450)
--- NOTE | 2020-01-27 08:12 | CR ---
ADVANCED WOUND CARE CONSULTATION VIA TELEMEDICINE DATE OF CONSULTATION: 01/26/2020 REQUESTING PHYSICIAN: Dr. Mann REASON FOR CONSULTATION: Local wound care HISTORY OF PRESENT ILLNESS: Patient well known to our clinic, 69-year-old male with Factor V Leiden Deficiency and chronic hypercoagulable state, resulting in deep vein thrombosis of his lower extremities, more specifically, his left leg. The patient has had a vena cava inserted in the past. He is fully anticoagulated and has had a recalcitrant left lower extremity wound. This has been treated aggressively in the past with sound debridement, Hydrofera Blue, collagen. The patient has undergone antibiotic therapy, has been hospitalized for treatment, has had a split thickness graft, has had compression, has had Trendelenburg position for his bed, all of which have partially improved, only to have the wound break down again. He has been in the hospital for 3 weeks at this time and in general, appears to be declining in health although a specific etiology is unclear. One questions whether or not there is an alcohol history and a recent head CT scan is inconclusive of any significant pathology. He denies any abdominal pain, however seems somewhat vague and unclear in terms of his responses to general questions. Specifically, left lower extremity mid tibial area shows a wound measuring 11.7 cm by 9.4 cm with a wound depth of 0.4 cm. This wound base shows granulation tissue without deep tissue structures evident. The drainage is serosanguinous and minimal to moderate with no odor. Periwound shows no erythema, maceration or ischemic change. Patient indicates that he has pain in his left lower extremity, however he does not appear uncomfortable when viewed on telemedicine. As the wound had shown improvement but then began to deteriorate, one wonders if there is an element of noncompliance or neglect. 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 A short course of topical steroid was then attempted with no significant change. Pyoderma gangrenosum is a difficult diagnosis to make in that there is no specific test and it is a diagnosis of elimination. He has had biopsies in the past and there is no evidence of malignancy. Clobetasol was used as a topical mid strength steroid and if this is to be pursued, possibly Prednisone and/or injection of Kenalog could be considered. At present, as the patient has been in the hospital for 3 weeks, there is no edema in the leg and the wound appears to be improved. It is unclear if he is going to the keep home or if he is going to be discharged and when questioned, the patient was unsure himself. In either case, we can see him again in the clinic when he is discharged from the hospital. TREATMENT PLAN: Treatment at this time will be Alginate applied to the wound, covered with a foam dressing and a TubiGrip support stocking. No indication for wound debridement at this time. Dressing changes should be performed on a daily basis. Vashe Wound Cleanser should be used as the initial cleaning agent. MTDD
[2020-01-27 08:26] LABS: BLOOD UREA NITROGEN 31 MG/DL (7-18); CALCIUM LEVEL 9.4 MG/DL (8.8-10.2); CARBON DIOXIDE LEVEL 26 MEQ/L (21-32); CHLORIDE LEVEL 106 MEQ/L (98-107); GLOMERULAR FILTRATION RATE > 60.0 (>49); GLUCOSE, FASTING 98 MG/DL (70-100); POTASSIUM SERUM 3.8 MEQ/L (3.5-5.1); SODIUM LEVEL 139 MEQ/L (136-145)
[2020-01-27] MEDS: amLODIPine 5 MG TAB PO SCH (08:49)
[2020-01-27] MEDS: MULTIVITAMINS/MINERALS THERAP 1 TAB PO SCH (08:49)
[2020-01-27] MEDS: DIAPER RELIEF PASTE (DESITIN) 60GM TOP SCH (08:50)
[2020-01-27] MEDS: APIXABAN 5 MG TAB (ELIQUIS) PO SCH ×2 (08:50→22:09)
[2020-01-27] MEDS: LIDOCAINE 4% CREAM 5GM (LMX4) TOP SCH (08:50)
[2020-01-27] MEDS: hydroCHLOROthiazide 12.5 MG CAPSULE PO SCH (08:50)
--- NOTE | 2020-01-27 09:17 | EEG ---
DATE: 01/26/2020 DIAGNOSIS: Rule out seizure. EEG# [id number]. REFERRING PHYSICIAN: Dr. Violeta Sanchez HISTORY: Patient is a 69-year-old man with history of DVT, venous stasis changes in legs, sepsis, cellulitis, concern for Lewy body dementia, hallucinations, and aggressive behavior. This EEG was done to rule out epileptic potential. He is currently taking Cefepime, hydrochlorothiazide, Eliquis, Seroquel, amlodipine, etc. TECHNICAL DESCRIPTION: This digital EEG was recorded by 21-scalp, ear, and two EKG electrodes and was reviewed in bipolar and referential montages following reformatting in 10-20 international electrode placement system. INTERPRETATION: Patient was noted to be in awake and drowsy states during this EEG. Resting and awake background rhythm consisted of 3-4 Hz delta activity measuring 15-80 microvolts in amplitude, which was symmetric bilaterally. No sleep was achieved. Patient became drowsy during this EEG. Hyperventilation could not be performed. Photic stimulation remained unremarkable. No focal, lateralizing, or epileptiform abnormalities were seen. Electrode artifact was noted. No relevant clinical activity was noted. CONCLUSION: This EEG in awake and drowsy states is abnormal due to presence of generalized slowing and disorganization of background consistent with nonspecific diffuse cerebral dysfunction such as seen in encephalopathy due to multiple potential causes including toxic, metabolic, infectious, medication related, or multifocal structure brain abnormalities. No epileptiform abnormalities are seen. Clinical correlation is recommended. MTDD
[2020-01-27 14:00] VITALS: BP 132/83
--- NOTE | 2020-01-27 16:25 | IPNPDOC ---
Date Seen The patient was seen on 01/27/20. Progress Note SUBJECTIVE: Patient was seen and examined at bedside this morning, he is calm and pleasant. Discussed with nursing, no report of progressive violent behavior overnight. He denies fevers, chills, nausea, vomiting, shortness of breath as well as chest pain, palpitations OBJECTIVE PHYSICAL EXAMINATION: VITAL SIGNS: please see below General: NAD, comfortable HEENT: PERRLA, EOMI, sclerae clear Neck: supple, normal ROM, no JVD Respiratory: lungs CTAB, no wheeze, no rales, no crackles CVS: RRR, normal S1, S2, no murmurs Abdo: soft, no masses, no hepatosplenomegaly, BS+, no rebound tenderness Extremities: no edema, pulses 2+ MSK: Left leg swelling has improved, large left lower extremity ulcer, stage III is covered with dressing which is clean, dry and intact Neuro: no focal neuro deficits, moving all 4 extremities, CN2-12 intact. Strength 5/5 in all 4 extremities. No nystagmus. Psych: calm, cooperative, AAO x 2-3 LABORATORY DATA, IMAGING STUDIES, MICROBIOLOGY: Please see below. MRI brain 01/24/20: 1. Scattered punctate hyperintense T2 and FLAIR foci in both cerebral hemisphere white matter tracts involving periventricular, subcortical and deep central white matter as well as 1 in the right cerebral peduncle. This is nonspecific and suggests some mild chronic small-vessel ischemic disease. 2. No evidence of acute infarct or restricted water diffusion. 3. No intra or extra-axial hemorrhage, mass, mass effect or edema. Four no significant cortical atrophy ventricular system and posterior fossa normal. 4. Sinuses and mastoids intact. 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 He was admitted for She was found to have left lower extremity cellulitis, sepsis, persistent encephalopathy, GE. PROBLEMS: # Acute encephalopathy, ? Lewy body dementia per neurology -Hallucinations are scattered. At times very aggressive, agitated, attempting to hit staff-occurring more at night, during past 3-4 nights, although no issues observed 01/25 overnight -Waxes and wanes -Ammonia, lactic acid, RPR, Vit B12 wnl -MRI brain above, no acute changes -EEG was done 01/23/20; however, no report is transcribed yet. -Monitor for worsening s/s of confusion, daily labs. - seroquel 25 mg at 1800, seems to have had a positive effect -Discussed with Dr. Red, neurology. F/u official consult note. # LLE cellulitis with Stage III-IV ulcer, + pseudomonas on wound culture. Resolved sepsis. -Afebrile. WBC wnl. Wound appears improved -Repeat wound culture: Pseudomonas -Blood cx 01/06 negative. Initial wound culture grew coag negative staph -Repeat BCx NG -D/c PO linezolid 01/19/20. Repeat BCx prelim neg. -IV cefepime completed 5 days therapy -Wound care consult done via telemedicine on 01/26/20, recommendations appreciated. C/w alginate, foam dressing and TubiGrip support stocking, no debridement at this time. Vashe wound cleanser as first cleaning agent. # LLE swelling 2/2 DVT, acute vs. chronic. -Previously on coumadin, subtherapeutic -C/w Eliquis -Duplex positive for DVT report suggests chronic; however, clinically appears to be acute vs acute on chronic development #Thrombocytosis, acute -Platelets remain elevated and likely acute phase reaction 2/2 to infection/prior sepsis -Daily CBC # Anemia -H/H stable, improving -FOBT negative. LDH midly elevated. Haptoglobin slightly elevated . Ferritin 419. transfuse prn hgb<7 -Daily CBC #HTN -Stable -Amlodipine, HCTZ. # Upper extremity tremors -Thought to be essential tremors treated with propanolol outpatient which did not help. 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 - Eliquis. #Subclinical hyperthyroidism -F/u o/p # DVT prophylaxis - Eliquis Resolved issues to date: # Mild Rhabdomyolysis # Hypokalemia # GE # Elevated troponin: Likely demand ischemia # Transaminitis: Possibly from shock liver DISPOSITION: plan for [facility] pending improvement in aggressive behaviour. VS, I&O, 24H, Fishbone Vital Signs/I&O Vital Signs Date Time Temp Pulse Resp B/P (MAP) Pulse Ox O2 Delivery O2 Flow Rate FiO2 01/27/20 14:00 97.9 95 20 132/83 (99) 98 Room Air I&O- Last 24 Hours up to 6 AM 01/27/20 06:00 Intake Total 960 ml Output Total 300 ml Balance 660 ml Laboratory Data 24H LABS Laboratory Tests 2 01/27/20 07:31: Nucleated Red Blood Cells % (auto) 0.0, Anion Gap 7L, Glomerular Filtration Rate > 60.0, Calcium Level 9.4 CBC/BMP Laboratory Tests 01/27/20 07:31 Microbiology Microbiology 01/20/20 Gram Stain - Final, Complete 01/20/20 Wound Culture - Final, Complete Pseudomonas Aeruginosa 01/18/20 Stool Occult Blood (BETH) - Final, Complete EFRAÍN ARREDONDO MD Jan 27, 2020 16:25
[2020-01-27] MEDS ORDERED: QUEtiapine FUMARATE 25 MG TAB PO SCH (18:00)
[2020-01-27 22:00] VITALS: BP 118/68
[2020-01-27] MEDS: ACETAMINOPHEN TAB 650MG DOSE (2X325MG) PO PRN (22:11)
[2020-01-28 05:39] VITALS: BP_SYST 106; BP_SYST 117; BP_DIAS 64; BP_DIAS 69
[2020-01-28 07:11] LABS: HEMATOCRIT 41.6 % (42.0-52.0); HEMOGLOBIN 13.3 g/dl (13.5-17.5); MEAN CORPUSCULAR HEMOGLOBIN 29.1 pg (27.0-33.0); RED BLOOD COUNT 4.57 10^6/uL (4.30-6.10); WHITE BLOOD COUNT 9.4 10^3/uL (4.0-10.0)
[2020-01-28 07:13] LABS: PLATELET COUNT, AUTOMATED 631 10^3/uL (150-450)
[2020-01-28 07:23] LABS: BLOOD UREA NITROGEN 28 MG/DL (7-18); CALCIUM LEVEL 9.5 MG/DL (8.8-10.2); CARBON DIOXIDE LEVEL 24 MEQ/L (21-32); CHLORIDE LEVEL 105 MEQ/L (98-107); CREATININE FOR GFR 1.07 MG/DL (0.70-1.30); GLOMERULAR FILTRATION RATE > 60.0 (>49); GLUCOSE, FASTING 116 MG/DL (70-100); POTASSIUM SERUM 3.7 MEQ/L (3.5-5.1); SODIUM LEVEL 137 MEQ/L (136-145)
[2020-01-28 09:14] VITALS: BP 117/64
[2020-01-28] MEDS: APIXABAN 5 MG TAB (ELIQUIS) PO SCH (09:14)
[2020-01-28] MEDS: MULTIVITAMINS/MINERALS THERAP 1 TAB PO SCH (09:14)
[2020-01-28] MEDS: hydroCHLOROthiazide 12.5 MG CAPSULE PO SCH (09:14)
[2020-01-28] MEDS: amLODIPine 5 MG TAB PO SCH (09:14)
[2020-01-28] MEDS: DIAPER RELIEF PASTE (DESITIN) 60GM TOP SCH (09:18)
[2020-01-28] MEDS: LIDOCAINE 4% CREAM 5GM (LMX4) TOP SCH (09:19)
[2020-01-28] MEDS ORDERED: ACET1TAB55 PO (12:41)
[2020-01-28] MEDS ORDERED: LIDO4CR TOP (12:41)
[2020-01-28] MEDS ORDERED: QUET1TAB7 PO (12:41)
[2020-01-28] MEDS ORDERED: ELIQ5TAB PO (12:41)
[2020-01-28] MEDS ORDERED: DOCU100C16 PO (12:41)
[2020-01-28] MEDS ORDERED: AMLO1TAB24 PO (12:41)
== END 2020-01-28 15:18 | disposition home health service (06) | DRG 871 ==
LOC: M ED 23:21 → M ED INP 01-08 03:08 → ENRESERV 01-08 04:59 → M PCU 01-08 06:05 → M MS5PR 01-19 17:59
PROVIDERS: ADMIT Internal Medicine; ATTEND Internal Medicine
DX: A41.9 Sepsis, unspecified organism (principal); K72.00 Acute and subacute hepatic failure without coma; L03.116 Cellulitis of left lower limb; N17.9 Acute kidney failure, unspecified; D68.2 Hereditary deficiency of other clotting factors; L97.228 Non-pressure chronic ulcer of left calf with other specified severity; M62.82 Rhabdomyolysis; I82.512 Chronic embolism and thrombosis of left femoral vein; I82.532 Chronic embolism and thrombosis of left popliteal vein; F02.81 Dementia in other diseases classified elsewhere, unspecified severity, with behavioral disturbance; I24.8 Other forms of acute ischemic heart disease; L88 Pyoderma gangrenosum; R65.20 Severe sepsis without septic shock; Z86.711 Personal history of pulmonary embolism; Z95.828 Presence of other vascular implants and grafts; I10 Essential (primary) hypertension; I87.2 Venous insufficiency (chronic) (peripheral); R74.01 Elevation of levels of liver transaminase levels; Z79.01 Long term (current) use of anticoagulants; Z88.5 Allergy status to narcotic agent; Z88.8 Allergy status to other drugs, medicaments and biological substances; Z88.1 Allergy status to other antibiotic agents; Z20.828 Contact with and (suspected) exposure to other viral communicable diseases; D64.9 Anemia, unspecified; G31.83 Neurocognitive disorder with Lewy bodies; D47.3 Essential (hemorrhagic) thrombocythemia; Z91.19 Patient's noncompliance with other medical treatment and regimen; E87.6 Hypokalemia; R26.81 Unsteadiness on feet; B96.5 Pseudomonas (aeruginosa) (mallei) (pseudomallei) as the cause of diseases classified elsewhere

== ENCOUNTER → 2020-02-05 | Outpatient (REF) | payer MEDICARE, MEDICAID ==
[~2020-02-05] MED LIST changes: +ACET1TAB55 PO; +AMLO1TAB24 PO; +DOCU100C16 PO; +ELIQ5TAB PO; +LIDO4CR TOP; +QUET1TAB7 PO
[2020-02-05 10:44] LABS: BASO % 0.5 % (0.0-1.0); EOS # 0.2 10^3/uL (0.0-0.5); EOS % 1.9 % (0.0-3.0); HEMATOCRIT 38.2 % (42.0-52.0); HEMOGLOBIN 11.9 g/dl (13.5-17.5); LYMPH # 1.8 10^3/uL (1.5-5.0); LYMPH % 20.2 % (24.0-44.0); MEAN CORPUSCULAR HEMOGLOBIN 29.4 pg (27.0-33.0); MEAN CORPUSCULAR HGB CONC 31.2 g/dl (32.0-36.5); MEAN CORPUSCULAR VOLUME 94.3 fl (80.0-96.0); MONO # 0.5 10^3/uL (0.0-0.8); MONO % 5.6 % (0.0-5.0); NEUTROPHILS # 6.3 10^3/uL (1.5-8.5); NEUTROPHILS % 71.5 % (36.0-66.0); PLATELET COUNT, AUTOMATED 288 10^3/uL (150-450); RED BLOOD COUNT 4.05 10^6/uL (4.30-6.10); WHITE BLOOD COUNT 8.8 10^3/uL (4.0-10.0)
[2020-02-05 10:55] LABS: INR 1.06
[2020-02-05 10:56] LABS: PARTIAL THROMBOPLASTIN TIME 37.8 SECONDS (24.2-38.5)
[2020-02-05 11:04] LABS: ALBUMIN 3.3 GM/DL (3.2-5.2); ALT/SGPT 47 U/L (12-78); BILIRUBIN,TOTAL 0.4 MG/DL (0.2-1.0); BLOOD UREA NITROGEN 13 MG/DL (7-18); C REACTIVE PROTEIN QUANTITATIV 1.54 MG/DL (0.00-0.30); CALCIUM LEVEL 9.1 MG/DL (8.8-10.2); CARBON DIOXIDE LEVEL 27 MEQ/L (21-32); CHLORIDE LEVEL 108 MEQ/L (98-107); CREATININE FOR GFR 0.81 MG/DL (0.70-1.30); GLOMERULAR FILTRATION RATE > 60.0 (>49); GLUCOSE, FASTING 87 MG/DL (70-100); POTASSIUM SERUM 4.4 MEQ/L (3.5-5.1); SODIUM LEVEL 139 MEQ/L (136-145); TOTAL PROTEIN 6.5 GM/DL (6.4-8.2)
[2020-02-05 11:08] LABS: ERYTHROCYTE SEDIMENTATION RATE 49 mm/hr (0-20)
== END ==
LOC: M SFHCPLAZ 09:26
PROVIDERS: ATTEND Physician Assistant Medical
DX: A41.52 Sepsis due to Pseudomonas (principal); R44.1 Visual hallucinations; L03.115 Cellulitis of right lower limb; D68.51 Activated protein C resistance

== ENCOUNTER → 2020-09-15 | Outpatient (REF) | payer MEDICARE, MEDICAID ==
[~2020-09-15] MED LIST changes: -FOLI400T PO; +FOLI400T13 PO; +QUET1TAB17 PO; -QUET1TAB7 PO
== END ==
LOC: M LAB REF 11:32
PROVIDERS: ATTEND Surgery
DX: L97.822 Non-pressure chronic ulcer of other part of left lower leg with fat layer exposed (principal); I10 Essential (primary) hypertension; Z12.5 Encounter for screening for malignant neoplasm of prostate; Z13.1 Encounter for screening for diabetes mellitus; Z13.220 Encounter for screening for lipoid disorders; Z79.899 Other long term (current) drug therapy
CPT/HCPCS: 11104; 15271; 36415; 80053; 80061; 83036; 85025; 88304; G0103; Q4186

== ENCOUNTER → 2020-09-15 | Outpatient (CLI) | payer MEDICARE, MEDICAID ==
[2020-09-15 10:51] LABS: BASO # 0.1 10^3/uL (0.0-0.2); BASO % 0.7 % (0.0-1.0); EOS # 0.1 10^3/uL (0.0-0.5); EOS % 1.2 % (0.0-3.0); HEMOGLOBIN 13.9 g/dl (13.5-17.5); LYMPH # 1.9 10^3/uL (1.5-5.0); LYMPH % 26.7 % (24.0-44.0); MEAN CORPUSCULAR HEMOGLOBIN 30.1 pg (27.0-33.0); MEAN CORPUSCULAR HGB CONC 33.1 g/dl (32.0-36.5); MEAN CORPUSCULAR VOLUME 90.9 fl (80.0-96.0); MONO # 0.5 10^3/uL (0.0-0.8); MONO % 6.6 % (2.0-8.0); NEUTROPHILS # 4.7 10^3/uL (1.5-8.5); NEUTROPHILS % 64.7 % (36.0-66.0); PLATELET COUNT, AUTOMATED 252 10^3/uL (150-450); RED BLOOD COUNT 4.62 10^6/uL (4.30-6.10); WHITE BLOOD COUNT 7.3 10^3/uL (4.0-10.0)
[2020-09-15 11:15] LABS: HEMOGLOBIN A1c 5.2 %
[2020-09-15 11:18] LABS: ALT/SGPT 37 U/L (12-78); BILIRUBIN,TOTAL 0.7 MG/DL (0.2-1.0); BLOOD UREA NITROGEN 21 MG/DL (7-18); CARBON DIOXIDE LEVEL 24 MEQ/L (21-32); CHLORIDE LEVEL 111 MEQ/L (98-107); CHOLESTEROL LEVEL 190 MG/DL (<200); CHOLESTEROL RISK RATIO 3.584 (<5); CREATININE FOR GFR 0.84 MG/DL (0.70-1.30); GLOMERULAR FILTRATION RATE > 60.0 (>49); GLUCOSE, FASTING 97 MG/DL (70-100); HDL CHOLESTEROL 53 MG/DL (>40); LDL CHOLESTEROL 112 MG/DL (<100); NON-HDL-C 137 MG/DL; POTASSIUM SERUM 4.1 MEQ/L (3.5-5.1); SODIUM LEVEL 143 MEQ/L (136-145); TOTAL PROTEIN 6.9 GM/DL (6.4-8.2); TRIGLYCERIDES LEVEL 125 MG/DL (<150)
== END ==
LOC: M PLALAB 08:32
PROVIDERS: ATTEND Physician Assistant Medical
DX: I10 Essential (primary) hypertension (principal); Z12.5 Encounter for screening for malignant neoplasm of prostate; Z13.1 Encounter for screening for diabetes mellitus; Z13.220 Encounter for screening for lipoid disorders; Z79.899 Other long term (current) drug therapy

== ENCOUNTER → 2021-03-01 | Outpatient (REF) | payer MEDICARE, MEDICAID | LOC: M SFHCPLAZ 13:04 | PROVIDERS: ATTEND Physician Assistant Medical | DX: J06.9 Acute upper respiratory infection, unspecified (principal); Z51.81 Encounter for therapeutic drug level monitoring ==

== ENCOUNTER → 2021-05-20 | Outpatient (CLI) | payer MEDICARE, MEDICAID ==
[~2021-05-20] MED LIST changes: +LOSA25TA13; +LOSA25TA13 PO; -LOSA25TA14; -LOSA25TA14 PO
[2021-05-20 13:35] LABS: BASO % 0.5 % (0.0-1.0); EOS # 0.1 10^3/uL (0.0-0.5); EOS % 1.3 % (0.0-3.0); LYMPH # 2.4 10^3/uL (1.5-5.0); LYMPH % 29.6 % (24.0-44.0); MEAN CORPUSCULAR HGB CONC 33.3 g/dl (32.0-36.5); MEAN CORPUSCULAR VOLUME 90.1 fl (80.0-96.0); MONO # 0.7 10^3/uL (0.0-0.8); MONO % 7.9 % (2.0-8.0); NEUTROPHILS # 4.9 10^3/uL (1.5-8.5); NEUTROPHILS % 60.5 % (36.0-66.0); PLATELET COUNT, AUTOMATED 307 10^3/uL (150-450); RED BLOOD COUNT 4.66 10^6/uL (4.30-6.10); WHITE BLOOD COUNT 8.2 10^3/uL (4.0-10.0)
[2021-05-20 13:50] LABS: PROTHROMBIN TIME 48.4 SECONDS (12.7-14.5)
[2021-05-20 15:16] LABS: INR 5.27
== END ==
LOC: M PLALAB 12:07
PROVIDERS: ATTEND Physician Assistant Medical
DX: Z51.81 Encounter for therapeutic drug level monitoring (principal); Z79.899 Other long term (current) drug therapy

== ENCOUNTER → 2021-06-06 | Outpatient (CLI) | payer MEDICARE, MEDICAID ==
[2021-06-06 13:49] LABS: FREE T4 0.95 NG/DL (0.76-1.46)
[2021-06-06 13:59] LABS: VITAMIN B12 LEVEL 742 PG/ML
[2021-06-06 14:00] LABS: FOLATE > 24.0 NG/ML
[2021-06-22 11:08] LABS: VITAMIN B1 LEVEL WHOLE BLOOD 91.2 nmol/L (66.5-200.0); VITAMIN B6,PYRIDOXAL PHOSPHATE 10.9 ug/L (5.3-46.7); VITAMIN E(ALPHA TOCOPHEROL) 15.1 mg/L (9.0-29.0); VITAMIN E(GAMMA TOCOPHEROL) 1.1 mg/L (0.5-4.9)
== END ==
LOC: M PLALAB 10:20
PROVIDERS: ATTEND Psychiatry & Neurology Neurology
DX: E03.9 Hypothyroidism, unspecified (principal); R41.3 Other amnesia; E53.8 Deficiency of other specified B group vitamins; E51.9 Thiamine deficiency, unspecified

== ENCOUNTER → 2021-08-05 | Outpatient (CLI) | payer MEDICARE, MEDICAID ==
[~2021-08-05] MED LIST changes: +CARB25TA9 PO; +COLA100C5 PO; +LOVE0.8I SC; +MIRT-10 PO; +PROP20TA72 PO; +QUET50TA4 PO
[2021-08-08 09:08] LABS: HEMOGLOBIN 14.5 g/dl (13.5-17.5); MEAN CORPUSCULAR VOLUME 90.9 fl (80.0-96.0); RED BLOOD COUNT 4.84 10^6/uL (4.30-6.10); WHITE BLOOD COUNT 6.3 10^3/uL (4.0-10.0)
[2021-08-08 09:09] LABS: BASO % 0.5 % (0.0-1.0); EOS # 0.1 10^3/uL (0.0-0.5); EOS % 1.3 % (0.0-3.0); LYMPH # 1.9 10^3/uL (1.5-5.0); LYMPH % 29.5 % (24.0-44.0); MONO # 0.5 10^3/uL (0.0-0.8); MONO % 8.2 % (2.0-8.0); NEUTROPHILS # 3.8 10^3/uL (1.5-8.5); NEUTROPHILS % 60.3 % (36.0-66.0); PLATELET COUNT, AUTOMATED 221 10^3/uL (150-450)
[2021-08-08 09:10] LABS: INR 1.78; PROTHROMBIN TIME 21.1 SECONDS (12.7-14.5)
[2021-08-08 09:11] LABS: PARTIAL THROMBOPLASTIN TIME 34.4 SECONDS (25.9-37.0)
[2021-08-08 09:17] LABS: BLOOD UREA NITROGEN 21 MG/DL (7-18); CARBON DIOXIDE LEVEL 27 mmol/L (20-29); CHLORIDE LEVEL 111 MEQ/L (98-107); CREATININE FOR GFR 0.93 MG/DL (0.70-1.30); GLOMERULAR FILTRATION RATE > 60.0 (>49); GLUCOSE, FASTING 79 MG/DL (70-100); POTASSIUM SERUM 4.7 MEQ/L (3.5-5.1); SODIUM LEVEL 144 MEQ/L (136-145)
[2021-08-08 09:18] LABS: ALBUMIN 4.1 GM/DL (3.2-5.2); ALT/SGPT 42 IU/L (0-32); BILIRUBIN,TOTAL 0.4 MG/DL (0.2-1.0); CALCIUM LEVEL 9.7 MG/DL (8.8-10.2); TOTAL PROTEIN 7.3 GM/DL (6.4-8.2)
[2021-08-08 09:19] LABS: FERRITIN 41 NG/ML (26-388); NT-PRO BNP 53 PG/ML (<125)
== END ==
LOC: M PLALAB 16:07
PROVIDERS: ATTEND Family Medicine
DX: I10 Essential (primary) hypertension (principal); D68.51 Activated protein C resistance

== ENCOUNTER → 2021-08-06 | Outpatient (CLI) | payer MEDICARE, MEDICAID ==
[~2021-08-06] MED LIST changes: -CARB25TA9 PO; -COLA100C5 PO; -LOVE0.8I SC; -MIRT-10 PO; -PROP20TA72 PO; -QUET50TA4 PO
== END ==
LOC: M LABSMTC 11:13
PROVIDERS: ATTEND Anesthesiology
DX: Z01.818 Encounter for other preprocedural examination (principal); Z11.52 Encounter for screening for COVID-19

== ENCOUNTER 2021-08-11 07:31 | Inpatient (IN) | payer MEDICARE, MEDICAID ==
[~2021-08-11] VITALS: Ht 175.3 cm; Wt 96.9 kg
[2021-08-11] VITALS (8 sets, daily range): BP systolic 90–142; BP diastolic 52–84
[~2021-08-11 07:31] MED LIST changes: +ceFAZolin SOD 2 GM in IV 1 EA IV ONE
[2021-08-11] MEDS ORDERED: INSULIN LISPRO (NovoLOG) PER UNIT SC PRN ×2 (07:40→10:25)
[2021-08-11] MEDS ORDERED: LR 1,000 ML IV SCH ×2 (07:40→10:25)
[2021-08-11] MEDS ORDERED: CARB25TA9 PO (08:22)
[2021-08-11] MEDS ORDERED: MIRT-10 PO (08:22)
[2021-08-11] MEDS ORDERED: TRAM50TA2 PO (08:22)
[2021-08-11] MEDS ORDERED: PROP20TA72 PO (08:22)
[2021-08-11 08:57] LABS: INR 1.26; PROTHROMBIN TIME 16.2 SECONDS (12.7-14.5)
[2021-08-11] MEDS ORDERED: ONDANSETRON 4MG/2ML VIAL As Ordered ONE (09:08)
[2021-08-11] MEDS ORDERED: propofoL 200 MG/20 ML VIAL As Ordered ONE (09:08)
[2021-08-11] MEDS ORDERED: LIDOCAINE 2% 100MG/5ML SDV (FOR ANES.) As Ordered ONE (09:08)
[2021-08-11] MEDS ORDERED: dexameTHASONE 4 MG/ML 1ML VIAL (J1100 PER 1MG) As Ordered ONE (09:08)
[2021-08-11] MEDS ORDERED: MIDAZOLAM INJ 2MG/2ML VIAL (J2250 PER 1MG) As Ordered ONE (09:09)
[2021-08-11] MEDS ORDERED: fentaNYL 100 MCG/2 ML INJECTION As Ordered ONE ×2 (09:09→10:42)
[2021-08-11] MEDS ORDERED: GENTAMICIN SULF 80MG/2ML VIAL As Ordered ONE (09:29)
[2021-08-11] MEDS ORDERED: LIDOCAINE 5% OINT 30GM TUBE As Ordered ONE (09:31)
[2021-08-11] MEDS ORDERED: METOPROLOL 5 MG/5 ML VIAL As Ordered ONE (09:54)
[2021-08-11] MEDS ORDERED: ACETAMINOPHEN 1000MG 100ML IV BTL (OFIRMEV) (J0131 PER 10MG) As Ordered ONE (10:02)
[2021-08-11] MEDS ORDERED: oxyCODONE 5MG TAB PO PRN (10:25)
[2021-08-11] MEDS ORDERED: ONDANSETRON 4MG/2ML VIAL IV PRN (10:25)
[2021-08-11] MEDS: fentaNYL 100 MCG/2 ML INJECTION IV PRN ×4 (10:45→11:01)
[2021-08-11] MEDS: MEPERIDINE INJ 25 MG/ML VIAL (J2175) IV PRN ×2 (11:29→11:35)
[2021-08-11] MEDS ORDERED: COLA100C5 PO (12:32)
[2021-08-11] MEDS ORDERED: QUET50TA4 PO (12:32)
[2021-08-11] MEDS ORDERED: ACET1TAB55 PO (12:32)
[2021-08-11] MEDS ORDERED: HOME MED LIST COMPLETE! XX SCH (12:35)
[2021-08-11] MEDS: MULTIVITAMINS/MINERALS THERAP 1 TAB PO SCH (13:10)
[2021-08-11] MEDS ORDERED: DOCUSATE SODIUM 100MG CAPSULE PO PRN (14:25)
[2021-08-11] MEDS: oxyCODONE 5MG TAB PO PRN ×2 (15:41→20:48)
[2021-08-11] MEDS: ACETAMINOPHEN 325 MG TAB PO PRN (15:42)
[2021-08-11] MEDS: SINEMET 25-100 MG TAB PO SCH ×2 (15:44→20:48)
[2021-08-11] MEDS: traMADol 50 MG TAB PO PRN (18:52)
[2021-08-11] MEDS: QUEtiapine FUMARATE 50MG TAB PO SCH (20:48)
[2021-08-11] MEDS: MIRTAZAPINE 15 MG TAB PO SCH (20:48)
[2021-08-11] MEDS: PROPRANOLOL 20 MG TAB PO SCH (20:50)
[2021-08-12 01:55] VITALS: BP 113/66
[2021-08-12] MEDS: SINEMET 25-100 MG TAB PO SCH ×4 (04:01→21:26)
[2021-08-12] MEDS: oxyCODONE 5MG TAB PO PRN ×4 (04:06→21:26)
[2021-08-12] MEDS: traMADol 50 MG TAB PO PRN ×2 (05:41→20:19)
[2021-08-12 05:46] VITALS: BP 121/68
[2021-08-12 06:58] LABS: HEMATOCRIT 38.8 % (42.0-52.0); HEMOGLOBIN 12.8 g/dl (13.5-17.5); MEAN CORPUSCULAR HEMOGLOBIN 30.1 pg (27.0-33.0); MEAN CORPUSCULAR VOLUME 91.3 fl (80.0-96.0); PLATELET COUNT, AUTOMATED 186 10^3/uL (150-450); RED BLOOD COUNT 4.25 10^6/uL (4.30-6.10); WHITE BLOOD COUNT 8.3 10^3/uL (4.0-10.0)
[2021-08-12 07:17] LABS: INR 1.21; PROTHROMBIN TIME 15.7 SECONDS (12.7-14.5)
[2021-08-12 07:27] LABS: BLOOD UREA NITROGEN 17 MG/DL (7-18); CALCIUM LEVEL 9.2 MG/DL (8.8-10.2); CARBON DIOXIDE LEVEL 24 MEQ/L (21-32); CHLORIDE LEVEL 111 MEQ/L (98-107); CREATININE FOR GFR 0.86 MG/DL (0.70-1.30); GLOMERULAR FILTRATION RATE > 60.0 (>49); GLUCOSE, FASTING 124 MG/DL (70-100); MAGNESIUM LEVEL 2.2 MG/DL (1.8-2.4); POTASSIUM SERUM 4.1 MEQ/L (3.5-5.1); SODIUM LEVEL 143 MEQ/L (136-145)
[2021-08-12] MEDS: PROPRANOLOL 20 MG TAB PO SCH ×2 (08:40→20:18)
[2021-08-12] MEDS: MULTIVITAMINS/MINERALS THERAP 1 TAB PO SCH (08:40)
[2021-08-12] MEDS ORDERED: PREVNAR 13 VACCINE SYRINGE IM ONE (09:00)
[2021-08-12 14:00] VITALS: BP 136/70
[2021-08-12] MEDS ORDERED: ENOXAPARIN 100MG/1ML SYRINGE (J1650 PER 10MG) SC SCH (14:00)
[2021-08-12 19:54] VITALS: BP 145/61
[2021-08-12] MEDS: QUEtiapine FUMARATE 50MG TAB PO SCH (20:19)
[2021-08-12] MEDS: MIRTAZAPINE 15 MG TAB PO SCH (20:19)
[2021-08-13] VITALS (8 sets, daily range): BP systolic 98–119; BP diastolic 50–68
[2021-08-13] MEDS: oxyCODONE 5MG TAB PO PRN ×2 (03:39→07:43)
[2021-08-13] MEDS: SINEMET 25-100 MG TAB PO SCH ×4 (03:39→22:07)
[2021-08-13] MEDS: ENOXAPARIN 100MG/1ML SYRINGE (J1650 PER 10MG) SC SCH ×2 (05:24→18:19)
[2021-08-13 06:12] LABS: HEMATOCRIT 37.7 % (42.0-52.0); HEMOGLOBIN 12.4 g/dl (13.5-17.5); MEAN CORPUSCULAR HEMOGLOBIN 30.5 pg (27.0-33.0); MEAN CORPUSCULAR HGB CONC 32.9 g/dl (32.0-36.5); MEAN CORPUSCULAR VOLUME 92.6 fl (80.0-96.0); PLATELET COUNT, AUTOMATED 165 10^3/uL (150-450); RED BLOOD COUNT 4.07 10^6/uL (4.30-6.10); WHITE BLOOD COUNT 6.4 10^3/uL (4.0-10.0)
[2021-08-13 06:27] LABS: INR 1.16; PROTHROMBIN TIME 15.2 SECONDS (12.7-14.5)
[2021-08-13 06:40] LABS: BLOOD UREA NITROGEN 15 MG/DL (7-18); CALCIUM LEVEL 8.7 MG/DL (8.8-10.2); CARBON DIOXIDE LEVEL 27 MEQ/L (21-32); CHLORIDE LEVEL 111 MEQ/L (98-107); CREATININE FOR GFR 0.91 MG/DL (0.70-1.30); GLOMERULAR FILTRATION RATE > 60.0 (>49); GLUCOSE, FASTING 94 MG/DL (70-100); POTASSIUM SERUM 3.7 MEQ/L (3.5-5.1); SODIUM LEVEL 141 MEQ/L (136-145)
[2021-08-13] MEDS: MULTIVITAMINS/MINERALS THERAP 1 TAB PO SCH (07:42)
[2021-08-13] MEDS: ACETAMINOPHEN 325 MG TAB PO PRN ×3 (07:44→20:38)
[2021-08-13] MEDS: DOCUSATE SODIUM 100MG CAPSULE PO PRN (07:46)
[2021-08-13] MEDS: PROPRANOLOL 20 MG TAB PO SCH ×2 (09:00→20:39)
[2021-08-13] MEDS ORDERED: MORPHINE 2 MG/ML 1ML VIAL As Ordered ONE (10:44)
[2021-08-13] MEDS ORDERED: MORPHINE 2 MG/ML 1ML VIAL IV ONE (10:45)
[2021-08-13 15:26] LABS: BASO % 0.2 % (0.0-1.0); EOS % 0.1 % (0.0-3.0); HEMATOCRIT 39.5 % (42.0-52.0); HEMOGLOBIN 13.5 g/dl (13.5-17.5); LYMPH # 0.7 10^3/uL (1.5-5.0); LYMPH % 5.5 % (24.0-44.0); MEAN CORPUSCULAR HEMOGLOBIN 30.8 pg (27.0-33.0); MEAN CORPUSCULAR HGB CONC 34.2 g/dl (32.0-36.5); MONO # 0.7 10^3/uL (0.0-0.8); MONO % 5.2 % (2.0-8.0); NEUTROPHILS # 11.3 10^3/uL (1.5-8.5); NEUTROPHILS % 88.3 % (36.0-66.0); PLATELET COUNT, AUTOMATED 166 10^3/uL (150-450); RED BLOOD COUNT 4.39 10^6/uL (4.30-6.10); WHITE BLOOD COUNT 12.8 10^3/uL (4.0-10.0)
[2021-08-13] MEDS: PIPERACILLIN/TAZOBACTAM SOD 3.375 GM in D5W MINI-BAG PLUS 50 ML IV SCH ×2 (15:57→20:38)
[2021-08-13 16:01] LABS: ALBUMIN 3.6 GM/DL (3.2-5.2); ALT/SGPT 14 U/L (12-78); BILIRUBIN,TOTAL 0.9 MG/DL (0.2-1.0); BLOOD UREA NITROGEN 15 MG/DL (7-18); CALCIUM LEVEL 8.7 MG/DL (8.8-10.2); CARBON DIOXIDE LEVEL 24 MEQ/L (21-32); CHLORIDE LEVEL 109 MEQ/L (98-107); CREATININE FOR GFR 1.06 MG/DL (0.70-1.30); GLOMERULAR FILTRATION RATE > 60.0 (>49); GLUCOSE, FASTING 102 MG/DL (70-100); POTASSIUM SERUM 3.5 MEQ/L (3.5-5.1); SODIUM LEVEL 141 MEQ/L (136-145); TOTAL PROTEIN 6.2 GM/DL (6.4-8.2)
[2021-08-13 16:35] LABS: MAGNESIUM LEVEL 1.7 MG/DL (1.8-2.4)
[2021-08-13] MEDS ORDERED: POTASSIUM CHLORIDE 10MEQ SR TABLET PO ONE (16:55)
[2021-08-13] MEDS ORDERED: MAG SULF 1GM/100ML (MAG RUN) 1 GM in IV 1 EA IV ONE (16:55)
[2021-08-13] MEDS: MIRTAZAPINE 15 MG TAB PO SCH (20:38)
[2021-08-13] MEDS: QUEtiapine FUMARATE 50MG TAB PO SCH (20:38)
[2021-08-13] MEDS ORDERED: IBUPROFEN 600MG TAB PO ONE (22:25)
[2021-08-13] MEDS ORDERED: NS 1,000 ML IV ONE (22:35)
[2021-08-14 01:52] VITALS: BP 95/57
[2021-08-14] MEDS ORDERED: NS 500 ML IV ONE (02:00)
[2021-08-14] MEDS: NS 1,000 ML IV SCH ×3 (02:42→20:00)
[2021-08-14] MEDS: SINEMET 25-100 MG TAB PO SCH ×4 (03:49→21:20)
[2021-08-14] MEDS: PIPERACILLIN/TAZOBACTAM SOD 3.375 GM in D5W MINI-BAG PLUS 50 ML IV SCH ×4 (03:49→20:03)
[2021-08-14 04:00] VITALS: BP 108/58
[2021-08-14 05:25] LABS: HEMATOCRIT 36.9 % (42.0-52.0); HEMOGLOBIN 12.3 g/dl (13.5-17.5); MEAN CORPUSCULAR HEMOGLOBIN 30.5 pg (27.0-33.0); MEAN CORPUSCULAR HGB CONC 33.3 g/dl (32.0-36.5); MEAN CORPUSCULAR VOLUME 91.6 fl (80.0-96.0); PLATELET COUNT, AUTOMATED 127 10^3/uL (150-450); RED BLOOD COUNT 4.03 10^6/uL (4.30-6.10); WHITE BLOOD COUNT 7.3 10^3/uL (4.0-10.0)
[2021-08-14 05:36] LABS: INR 1.25; PROTHROMBIN TIME 16.1 SECONDS (12.7-14.5)
[2021-08-14 05:44] LABS: BLOOD UREA NITROGEN 14 MG/DL (7-18); CALCIUM LEVEL 8.5 MG/DL (8.8-10.2); CARBON DIOXIDE LEVEL 25 MEQ/L (21-32); CHLORIDE LEVEL 115 MEQ/L (98-107); CREATININE FOR GFR 1.02 MG/DL (0.70-1.30); GLOMERULAR FILTRATION RATE > 60.0 (>49); GLUCOSE, FASTING 105 MG/DL (70-100); POTASSIUM SERUM 3.8 MEQ/L (3.5-5.1); SODIUM LEVEL 145 MEQ/L (136-145)
[2021-08-14] MEDS: ENOXAPARIN 100MG/1ML SYRINGE (J1650 PER 10MG) SC SCH ×2 (05:57→18:12)
[2021-08-14 07:35] VITALS: BP 110/60
[2021-08-14] MEDS: PROPRANOLOL 20 MG TAB PO SCH ×2 (09:00→20:01)
[2021-08-14] MEDS: MULTIVITAMINS/MINERALS THERAP 1 TAB PO SCH (09:21)
[2021-08-14] MEDS: DOCUSATE SODIUM 100MG CAPSULE PO PRN (09:21)
[2021-08-14] MEDS: traMADol 50 MG TAB PO PRN (09:22)
[2021-08-14 09:36] LABS: MAGNESIUM LEVEL 2.3 MG/DL (1.8-2.4)
[2021-08-14 11:36] VITALS: BP 124/58
[2021-08-14] MEDS: oxyCODONE 5MG TAB PO PRN ×2 (12:16→20:02)
[2021-08-14 16:09] VITALS: BP 117/58
[2021-08-14 20:00] VITALS: BP 159/67
[2021-08-14] MEDS: MIRTAZAPINE 15 MG TAB PO SCH (20:01)
[2021-08-14] MEDS: QUEtiapine FUMARATE 50MG TAB PO SCH (20:01)
[2021-08-15] VITALS (8 sets, daily range): BP systolic 121–172; BP diastolic 60–90
[2021-08-15] MEDS: NS 1,000 ML IV SCH ×2 (02:00→08:31)
[2021-08-15] MEDS: PIPERACILLIN/TAZOBACTAM SOD 3.375 GM in D5W MINI-BAG PLUS 50 ML IV SCH ×4 (03:45→20:09)
[2021-08-15] MEDS: SINEMET 25-100 MG TAB PO SCH ×4 (03:51→21:07)
[2021-08-15] MEDS: oxyCODONE 5MG TAB PO PRN ×3 (03:52→18:07)
[2021-08-15 05:35] LABS: BLOOD UREA NITROGEN 10 MG/DL (7-18); CALCIUM LEVEL 8.5 MG/DL (8.8-10.2); CARBON DIOXIDE LEVEL 25 MEQ/L (21-32); CHLORIDE LEVEL 114 MEQ/L (98-107); CREATININE FOR GFR 0.91 MG/DL (0.70-1.30); GLOMERULAR FILTRATION RATE > 60.0 (>49); GLUCOSE, FASTING 99 MG/DL (70-100); POTASSIUM SERUM 3.7 MEQ/L (3.5-5.1); SODIUM LEVEL 144 MEQ/L (136-145)
[2021-08-15 05:37] LABS: INR 1.09; PROTHROMBIN TIME 14.5 SECONDS (12.7-14.5)
[2021-08-15 05:42] LABS: HEMATOCRIT 36.1 % (42.0-52.0); HEMOGLOBIN 11.8 g/dl (13.5-17.5); MEAN CORPUSCULAR HEMOGLOBIN 30.2 pg (27.0-33.0); MEAN CORPUSCULAR HGB CONC 32.7 g/dl (32.0-36.5); MEAN CORPUSCULAR VOLUME 92.3 fl (80.0-96.0); PLATELET COUNT, AUTOMATED 141 10^3/uL (150-450); RED BLOOD COUNT 3.91 10^6/uL (4.30-6.10); WHITE BLOOD COUNT 5.5 10^3/uL (4.0-10.0)
[2021-08-15] MEDS: ENOXAPARIN 100MG/1ML SYRINGE (J1650 PER 10MG) SC SCH ×2 (06:14→17:57)
[2021-08-15] MEDS: PROPRANOLOL 20 MG TAB PO SCH ×2 (08:32→20:27)
[2021-08-15] MEDS: MULTIVITAMINS/MINERALS THERAP 1 TAB PO SCH (08:33)
[2021-08-15] MEDS: traMADol 50 MG TAB PO PRN (20:14)
[2021-08-15] MEDS: MIRTAZAPINE 15 MG TAB PO SCH (21:07)
[2021-08-15] MEDS: QUEtiapine FUMARATE 50MG TAB PO SCH (21:07)
[2021-08-16] MEDS: PIPERACILLIN/TAZOBACTAM SOD 3.375 GM in D5W MINI-BAG PLUS 50 ML IV SCH ×4 (03:13→21:33)
[2021-08-16] MEDS: SINEMET 25-100 MG TAB PO SCH ×4 (03:13→21:33)
[2021-08-16] MEDS: ENOXAPARIN 100MG/1ML SYRINGE (J1650 PER 10MG) SC SCH ×2 (05:39→17:42)
[2021-08-16 06:00] VITALS: BP 147/76
[2021-08-16 06:23] LABS: HEMATOCRIT 37.5 % (42.0-52.0); HEMOGLOBIN 12.4 g/dl (13.5-17.5); MEAN CORPUSCULAR HEMOGLOBIN 30.8 pg (27.0-33.0); MEAN CORPUSCULAR HGB CONC 33.1 g/dl (32.0-36.5); MEAN CORPUSCULAR VOLUME 93.1 fl (80.0-96.0); PLATELET COUNT, AUTOMATED 147 10^3/uL (150-450); RED BLOOD COUNT 4.03 10^6/uL (4.30-6.10); WHITE BLOOD COUNT 5.6 10^3/uL (4.0-10.0)
[2021-08-16 06:51] LABS: BLOOD UREA NITROGEN 10 MG/DL (7-18); CALCIUM LEVEL 9.2 MG/DL (8.8-10.2); CARBON DIOXIDE LEVEL 28 MEQ/L (21-32); CHLORIDE LEVEL 113 MEQ/L (98-107); CREATININE FOR GFR 0.97 MG/DL (0.70-1.30); GLOMERULAR FILTRATION RATE > 60.0 (>49); GLUCOSE, FASTING 85 MG/DL (70-100); POTASSIUM SERUM 3.8 MEQ/L (3.5-5.1); SODIUM LEVEL 146 MEQ/L (136-145)
[2021-08-16 06:56] LABS: INR 1.02; PROTHROMBIN TIME 13.8 SECONDS (12.7-14.5)
[2021-08-16] MEDS: MULTIVITAMINS/MINERALS THERAP 1 TAB PO SCH (10:11)
[2021-08-16] MEDS: PROPRANOLOL 20 MG TAB PO SCH ×2 (10:12→21:00)
[2021-08-16] MEDS: oxyCODONE 5MG TAB PO PRN ×3 (10:13→21:44)
[2021-08-16 14:00] VITALS: BP 112/61
[2021-08-16] MEDS: traMADol 50 MG TAB PO PRN (17:40)
[2021-08-16] MEDS: QUEtiapine FUMARATE 50MG TAB PO SCH (21:33)
[2021-08-16] MEDS: MIRTAZAPINE 15 MG TAB PO SCH (21:33)
[2021-08-16] MEDS: ACETAMINOPHEN 325 MG TAB PO PRN (21:45)
[2021-08-16] MEDS: DOCUSATE SODIUM 100MG CAPSULE PO PRN (21:57)
[2021-08-16 22:00] VITALS: BP 109/56
[2021-08-17] MEDS: SINEMET 25-100 MG TAB PO SCH ×4 (03:29→21:14)
[2021-08-17] MEDS: PIPERACILLIN/TAZOBACTAM SOD 3.375 GM in D5W MINI-BAG PLUS 50 ML IV SCH ×4 (03:29→21:17)
[2021-08-17] MEDS: oxyCODONE 5MG TAB PO PRN ×3 (04:01→21:15)
[2021-08-17] MEDS: ENOXAPARIN 100MG/1ML SYRINGE (J1650 PER 10MG) SC SCH (05:26)
[2021-08-17 05:37] VITALS: BP 127/66
[2021-08-17 06:34] LABS: HEMATOCRIT 35.7 % (42.0-52.0); HEMOGLOBIN 11.9 g/dl (13.5-17.5); MEAN CORPUSCULAR HEMOGLOBIN 30.8 pg (27.0-33.0); MEAN CORPUSCULAR HGB CONC 33.3 g/dl (32.0-36.5); MEAN CORPUSCULAR VOLUME 92.5 fl (80.0-96.0); PLATELET COUNT, AUTOMATED 142 10^3/uL (150-450); RED BLOOD COUNT 3.86 10^6/uL (4.30-6.10); WHITE BLOOD COUNT 4.8 10^3/uL (4.0-10.0)
[2021-08-17 06:47] LABS: INR 1.05; PROTHROMBIN TIME 14.1 SECONDS (12.7-14.5)
[2021-08-17 07:02] LABS: BLOOD UREA NITROGEN 14 MG/DL (7-18); CALCIUM LEVEL 8.3 MG/DL (8.8-10.2); CARBON DIOXIDE LEVEL 28 MEQ/L (21-32); CHLORIDE LEVEL 111 MEQ/L (98-107); CREATININE FOR GFR 0.95 MG/DL (0.70-1.30); GLOMERULAR FILTRATION RATE > 60.0 (>49); GLUCOSE, FASTING 93 MG/DL (70-100); POTASSIUM SERUM 3.8 MEQ/L (3.5-5.1); SODIUM LEVEL 142 MEQ/L (136-145)
[2021-08-17] MEDS: ACETAMINOPHEN 325 MG TAB PO PRN (10:25)
[2021-08-17] MEDS: DOCUSATE SODIUM 100MG CAPSULE PO PRN (10:26)
[2021-08-17] MEDS: MULTIVITAMINS/MINERALS THERAP 1 TAB PO SCH (10:26)
[2021-08-17] MEDS: PROPRANOLOL 20 MG TAB PO SCH ×2 (10:31→21:00)
[2021-08-17 14:00] VITALS: BP 128/68
[2021-08-17] MEDS: QUEtiapine FUMARATE 50MG TAB PO SCH (21:14)
[2021-08-17] MEDS: MIRTAZAPINE 15 MG TAB PO SCH (21:14)
[2021-08-17 22:00] VITALS: BP 152/73
[2021-08-18] VITALS (7 sets, daily range): BP systolic 131–158; BP diastolic 66–78
[2021-08-18] MEDS: PIPERACILLIN/TAZOBACTAM SOD 3.375 GM in D5W MINI-BAG PLUS 50 ML IV SCH ×4 (02:17→21:58)
[2021-08-18] MEDS: SINEMET 25-100 MG TAB PO SCH ×4 (03:27→22:00)
[2021-08-18] MEDS: oxyCODONE 5MG TAB PO PRN ×5 (05:44→21:59)
[2021-08-18 06:39] LABS: HEMATOCRIT 37.5 % (42.0-52.0); HEMOGLOBIN 12.4 g/dl (13.5-17.5); MEAN CORPUSCULAR HEMOGLOBIN 30.5 pg (27.0-33.0); MEAN CORPUSCULAR HGB CONC 33.1 g/dl (32.0-36.5); MEAN CORPUSCULAR VOLUME 92.1 fl (80.0-96.0); PLATELET COUNT, AUTOMATED 163 10^3/uL (150-450); RED BLOOD COUNT 4.07 10^6/uL (4.30-6.10); WHITE BLOOD COUNT 4.6 10^3/uL (4.0-10.0)
[2021-08-18 06:51] LABS: INR 0.91; PROTHROMBIN TIME 12.7 SECONDS (12.7-14.5)
[2021-08-18 07:03] LABS: BLOOD UREA NITROGEN 11 MG/DL (7-18); CALCIUM LEVEL 9.2 MG/DL (8.8-10.2); CARBON DIOXIDE LEVEL 30 MEQ/L (21-32); CHLORIDE LEVEL 113 MEQ/L (98-107); CREATININE FOR GFR 0.97 MG/DL (0.70-1.30); GLOMERULAR FILTRATION RATE > 60.0 (>49); GLUCOSE, FASTING 93 MG/DL (70-100); POTASSIUM SERUM 3.9 MEQ/L (3.5-5.1); SODIUM LEVEL 145 MEQ/L (136-145)
[2021-08-18] MEDS: PROPRANOLOL 20 MG TAB PO SCH ×2 (09:00→21:00)
[2021-08-18] MEDS: MULTIVITAMINS/MINERALS THERAP 1 TAB PO SCH (09:00)
[2021-08-18] MEDS ORDERED: MIDAZOLAM INJ 2MG/2ML VIAL (J2250 PER 1MG) As Ordered ONE (11:54)
[2021-08-18] MEDS ORDERED: propofoL 200 MG/20 ML VIAL As Ordered ONE (11:54)
[2021-08-18] MEDS ORDERED: fentaNYL 100 MCG/2 ML INJECTION As Ordered ONE ×2 (11:54→15:58)
[2021-08-18] MEDS ORDERED: ONDANSETRON 4MG/2ML VIAL As Ordered ONE (11:54)
[2021-08-18] MEDS ORDERED: LIDOCAINE 2% 100MG/5ML SDV (FOR ANES.) As Ordered ONE (11:54)
[2021-08-18] MEDS ORDERED: fentaNYL 100 MCG/2 ML INJECTION IV PRN (14:20)
[2021-08-18] MEDS ORDERED: ONDANSETRON 4MG/2ML VIAL IV PRN ×2 (14:20→16:05)
[2021-08-18] MEDS ORDERED: oxyCODONE 5MG TAB PO PRN ×2 (14:20→16:05)
[2021-08-18] MEDS ORDERED: LR 1,000 ML IV SCH ×3 (14:20→16:05)
[2021-08-18] MEDS ORDERED: GENTAMICIN SULF 80MG/2ML VIAL As Ordered ONE (14:24)
[2021-08-18] MEDS ORDERED: EPINEPHrine INJ 1 MG/ML 1ML AMP As Ordered ONE (14:24)
[2021-08-18] MEDS ORDERED: ZOSYN 3.375GM VIAL As Ordered ONE (15:13)
[2021-08-18] MEDS ORDERED: ePHEDrine SULFATE 25 MG/5 ML(5MG/ML) SYRINGE As Ordered ONE (15:20)
[2021-08-18] MEDS ORDERED: GLYCOPYRROLATE INJ 0.2 MG/ML 2 ML VIAL As Ordered ONE (15:29)
[2021-08-18] MEDS ORDERED: ACETAMINOPHEN 1000MG 100ML IV BTL (OFIRMEV) (J0131 PER 10MG) As Ordered ONE (15:42)
[2021-08-18] MEDS ORDERED: LACRILUBE (AKWA TEARS) OPHTH OINT 3.5 GM As Ordered ONE (16:12)
[2021-08-18] MEDS: fentaNYL 100 MCG/2 ML INJECTION IV PRN ×4 (17:27→17:42)
[2021-08-18] MEDS: QUEtiapine FUMARATE 50MG TAB PO SCH (21:59)
[2021-08-18] MEDS: MIRTAZAPINE 15 MG TAB PO SCH (22:07)
[2021-08-19 02:00] VITALS: BP 141/69
[2021-08-19] MEDS: oxyCODONE 5MG TAB PO PRN ×3 (02:45→17:20)
[2021-08-19] MEDS: PIPERACILLIN/TAZOBACTAM SOD 3.375 GM in D5W MINI-BAG PLUS 50 ML IV SCH ×4 (02:45→20:47)
[2021-08-19] MEDS: SINEMET 25-100 MG TAB PO SCH ×4 (03:55→20:46)
[2021-08-19 06:00] VITALS: BP 128/51
[2021-08-19 06:26] LABS: HEMATOCRIT 37.3 % (42.0-52.0); HEMOGLOBIN 12.3 g/dl (13.5-17.5); MEAN CORPUSCULAR HEMOGLOBIN 30.4 pg (27.0-33.0); MEAN CORPUSCULAR VOLUME 92.3 fl (80.0-96.0); PLATELET COUNT, AUTOMATED 151 10^3/uL (150-450); RED BLOOD COUNT 4.04 10^6/uL (4.30-6.10); WHITE BLOOD COUNT 4.8 10^3/uL (4.0-10.0)
[2021-08-19 06:42] LABS: BLOOD UREA NITROGEN 11 MG/DL (7-18); CALCIUM LEVEL 8.8 MG/DL (8.8-10.2); CARBON DIOXIDE LEVEL 27 MEQ/L (21-32); CHLORIDE LEVEL 113 MEQ/L (98-107); CREATININE FOR GFR 0.91 MG/DL (0.70-1.30); GLOMERULAR FILTRATION RATE > 60.0 (>49); GLUCOSE, FASTING 89 MG/DL (70-100); POTASSIUM SERUM 3.7 MEQ/L (3.5-5.1); SODIUM LEVEL 145 MEQ/L (136-145)
[2021-08-19] MEDS ORDERED: oxyCODONE 5MG TAB PO ONE (07:45)
[2021-08-19] MEDS ORDERED: **hydrALAZINE HCL** 25 MG TAB PO PRN (07:45)
[2021-08-19] MEDS: MULTIVITAMINS/MINERALS THERAP 1 TAB PO SCH (08:36)
[2021-08-19] MEDS: PROPRANOLOL 20 MG TAB PO SCH (09:00)
[2021-08-19] MEDS: ENOXAPARIN 100MG/1ML SYRINGE (J1650 PER 10MG) SC SCH ×2 (09:53→20:55)
[2021-08-19 10:00] VITALS: BP 140/80
[2021-08-19] MEDS: traMADol 50 MG TAB PO PRN ×2 (10:00→20:47)
[2021-08-19 14:00] VITALS: BP 140/70
[2021-08-19 18:00] VITALS: BP 138/62
[2021-08-19 20:00] VITALS: BP 146/76
[2021-08-19] MEDS: QUEtiapine FUMARATE 50MG TAB PO SCH (20:46)
[2021-08-19] MEDS: ACETAMINOPHEN 325 MG TAB PO PRN (20:47)
[2021-08-19] MEDS: MIRTAZAPINE 15 MG TAB PO SCH (20:47)
[2021-08-20] MEDS: SINEMET 25-100 MG TAB PO SCH ×4 (03:38→22:03)
[2021-08-20] MEDS: PIPERACILLIN/TAZOBACTAM SOD 3.375 GM in D5W MINI-BAG PLUS 50 ML IV SCH ×4 (03:38→22:02)
[2021-08-20] MEDS: oxyCODONE 5MG TAB PO PRN ×4 (04:05→22:13)
[2021-08-20] MEDS: ACETAMINOPHEN 325 MG TAB PO PRN (04:06)
[2021-08-20 06:00] VITALS: BP 128/64
[2021-08-20 06:22] LABS: HEMATOCRIT 37.4 % (42.0-52.0); HEMOGLOBIN 12.4 g/dl (13.5-17.5); MEAN CORPUSCULAR HEMOGLOBIN 30.3 pg (27.0-33.0); MEAN CORPUSCULAR HGB CONC 33.2 g/dl (32.0-36.5); MEAN CORPUSCULAR VOLUME 91.4 fl (80.0-96.0); PLATELET COUNT, AUTOMATED 172 10^3/uL (150-450); RED BLOOD COUNT 4.09 10^6/uL (4.30-6.10); WHITE BLOOD COUNT 5.9 10^3/uL (4.0-10.0)
[2021-08-20 06:41] LABS: BLOOD UREA NITROGEN 12 MG/DL (7-18); CALCIUM LEVEL 8.6 MG/DL (8.8-10.2); CARBON DIOXIDE LEVEL 26 MEQ/L (21-32); CHLORIDE LEVEL 110 MEQ/L (98-107); CREATININE FOR GFR 1.04 MG/DL (0.70-1.30); GLOMERULAR FILTRATION RATE > 60.0 (>49); GLUCOSE, FASTING 96 MG/DL (70-100); POTASSIUM SERUM 3.6 MEQ/L (3.5-5.1); SODIUM LEVEL 142 MEQ/L (136-145)
[2021-08-20 08:20] VITALS: BP 139/66
[2021-08-20] MEDS: MULTIVITAMINS/MINERALS THERAP 1 TAB PO SCH (09:00)
[2021-08-20] MEDS: ENOXAPARIN 100MG/1ML SYRINGE (J1650 PER 10MG) SC SCH ×2 (10:21→22:02)
[2021-08-20] MEDS: traMADol 50 MG TAB PO PRN (12:36)
[2021-08-20 14:00] VITALS: BP 135/66
[2021-08-20 22:00] VITALS: BP 131/66
[2021-08-20] MEDS: QUEtiapine FUMARATE 50MG TAB PO SCH (22:03)
[2021-08-20] MEDS: MIRTAZAPINE 15 MG TAB PO SCH (22:03)
[2021-08-21] MEDS: SINEMET 25-100 MG TAB PO SCH ×4 (03:44→21:10)
[2021-08-21] MEDS: oxyCODONE 5MG TAB PO PRN ×4 (03:45→21:10)
[2021-08-21] MEDS: PIPERACILLIN/TAZOBACTAM SOD 3.375 GM in D5W MINI-BAG PLUS 50 ML IV SCH ×4 (03:46→21:08)
[2021-08-21 06:00] VITALS: BP 110/59
[2021-08-21 06:16] LABS: HEMATOCRIT 39.6 % (42.0-52.0); HEMOGLOBIN 12.8 g/dl (13.5-17.5); MEAN CORPUSCULAR HEMOGLOBIN 29.7 pg (27.0-33.0); MEAN CORPUSCULAR HGB CONC 32.3 g/dl (32.0-36.5); MEAN CORPUSCULAR VOLUME 91.9 fl (80.0-96.0); PLATELET COUNT, AUTOMATED 195 10^3/uL (150-450); RED BLOOD COUNT 4.31 10^6/uL (4.30-6.10)
[2021-08-21 06:37] LABS: BLOOD UREA NITROGEN 14 MG/DL (7-18); CARBON DIOXIDE LEVEL 28 MEQ/L (21-32); CHLORIDE LEVEL 112 MEQ/L (98-107); CREATININE FOR GFR 1.05 MG/DL (0.70-1.30); GLOMERULAR FILTRATION RATE > 60.0 (>49); GLUCOSE, FASTING 106 MG/DL (70-100); POTASSIUM SERUM 4.1 MEQ/L (3.5-5.1); SODIUM LEVEL 144 MEQ/L (136-145)
[2021-08-21] MEDS: DOCUSATE SODIUM 100MG CAPSULE PO PRN (08:45)
[2021-08-21] MEDS: MULTIVITAMINS/MINERALS THERAP 1 TAB PO SCH (08:47)
[2021-08-21] MEDS: ENOXAPARIN 100MG/1ML SYRINGE (J1650 PER 10MG) SC SCH ×2 (08:47→21:07)
[2021-08-21 14:00] VITALS: BP 138/62
[2021-08-21] MEDS: MIRTAZAPINE 15 MG TAB PO SCH (21:10)
[2021-08-21] MEDS: QUEtiapine FUMARATE 50MG TAB PO SCH (21:10)
[2021-08-21 22:00] VITALS: BP 124/77
[2021-08-21] MEDS: ACETAMINOPHEN 325 MG TAB PO PRN (22:05)
[2021-08-22] MEDS: PIPERACILLIN/TAZOBACTAM SOD 3.375 GM in D5W MINI-BAG PLUS 50 ML IV SCH ×4 (02:58→20:36)
[2021-08-22] MEDS: SINEMET 25-100 MG TAB PO SCH ×4 (03:01→20:42)
[2021-08-22 06:00] VITALS: BP 106/55
[2021-08-22 06:04] LABS: HEMATOCRIT 38.1 % (42.0-52.0); HEMOGLOBIN 12.6 g/dl (13.5-17.5); MEAN CORPUSCULAR HEMOGLOBIN 30.3 pg (27.0-33.0); MEAN CORPUSCULAR HGB CONC 33.1 g/dl (32.0-36.5); MEAN CORPUSCULAR VOLUME 91.6 fl (80.0-96.0); PLATELET COUNT, AUTOMATED 199 10^3/uL (150-450); RED BLOOD COUNT 4.16 10^6/uL (4.30-6.10); WHITE BLOOD COUNT 5.4 10^3/uL (4.0-10.0)
[2021-08-22 06:28] LABS: BLOOD UREA NITROGEN 16 MG/DL (7-18); CALCIUM LEVEL 8.9 MG/DL (8.8-10.2); CARBON DIOXIDE LEVEL 27 MEQ/L (21-32); CHLORIDE LEVEL 112 MEQ/L (98-107); CREATININE FOR GFR 0.92 MG/DL (0.70-1.30); GLOMERULAR FILTRATION RATE > 60.0 (>49); GLUCOSE, FASTING 106 MG/DL (70-100); SODIUM LEVEL 145 MEQ/L (136-145)
[2021-08-22] MEDS: oxyCODONE 5MG TAB PO PRN ×4 (06:57→20:38)
[2021-08-22] MEDS: ACETAMINOPHEN 325 MG TAB PO PRN ×2 (06:59→20:37)
[2021-08-22] MEDS: MULTIVITAMINS/MINERALS THERAP 1 TAB PO SCH (10:00)
[2021-08-22] MEDS: ENOXAPARIN 100MG/1ML SYRINGE (J1650 PER 10MG) SC SCH ×2 (10:01→20:36)
[2021-08-22] MEDS: DOCUSATE SODIUM 100MG CAPSULE PO PRN (10:11)
[2021-08-22] MEDS: traMADol 50 MG TAB PO PRN (10:12)
[2021-08-22] MEDS ORDERED: MIRALAX *UNIT DOSE* 17GM PACKET PO PRN (12:10)
[2021-08-22] MEDS: SENNA 8.6 MG TAB (SENOKOT) PO SCH ×2 (13:40→20:37)
[2021-08-22 14:00] VITALS: BP 128/74
[2021-08-22] MEDS: MIRTAZAPINE 15 MG TAB PO SCH (20:37)
[2021-08-22] MEDS: QUEtiapine FUMARATE 50MG TAB PO SCH (20:38)
[2021-08-22 22:00] VITALS: BP 134/62
[2021-08-23] MEDS: SINEMET 25-100 MG TAB PO SCH ×4 (03:44→20:47)
[2021-08-23] MEDS: PIPERACILLIN/TAZOBACTAM SOD 3.375 GM in D5W MINI-BAG PLUS 50 ML IV SCH ×4 (03:44→20:46)
[2021-08-23] MEDS: ACETAMINOPHEN 325 MG TAB PO PRN (05:16)
[2021-08-23] MEDS: oxyCODONE 5MG TAB PO PRN ×4 (05:18→21:51)
[2021-08-23 06:00] VITALS: BP 121/76
[2021-08-23 06:47] LABS: HEMATOCRIT 37.3 % (42.0-52.0); HEMOGLOBIN 12.1 g/dl (13.5-17.5); MEAN CORPUSCULAR HGB CONC 32.4 g/dl (32.0-36.5); MEAN CORPUSCULAR VOLUME 92.3 fl (80.0-96.0); PLATELET COUNT, AUTOMATED 198 10^3/uL (150-450); RED BLOOD COUNT 4.04 10^6/uL (4.30-6.10); WHITE BLOOD COUNT 5.2 10^3/uL (4.0-10.0)
[2021-08-23 07:11] LABS: BLOOD UREA NITROGEN 15 MG/DL (7-18); CALCIUM LEVEL 9.1 MG/DL (8.8-10.2); CARBON DIOXIDE LEVEL 28 MEQ/L (21-32); CHLORIDE LEVEL 111 MEQ/L (98-107); CREATININE FOR GFR 0.91 MG/DL (0.70-1.30); GLOMERULAR FILTRATION RATE > 60.0 (>49); GLUCOSE, FASTING 95 MG/DL (70-100); POTASSIUM SERUM 4.2 MEQ/L (3.5-5.1); SODIUM LEVEL 143 MEQ/L (136-145)
[2021-08-23] MEDS: SENNA 8.6 MG TAB (SENOKOT) PO SCH ×2 (09:33→20:46)
[2021-08-23] MEDS: MULTIVITAMINS/MINERALS THERAP 1 TAB PO SCH (09:34)
[2021-08-23] MEDS: ENOXAPARIN 100MG/1ML SYRINGE (J1650 PER 10MG) SC SCH ×2 (09:35→20:52)
[2021-08-23 14:00] VITALS: BP 132/74
[2021-08-23] MEDS: QUEtiapine FUMARATE 50MG TAB PO SCH (20:46)
[2021-08-23] MEDS: MIRTAZAPINE 15 MG TAB PO SCH (20:47)
[2021-08-23 22:00] VITALS: BP 154/69
[2021-08-24] MEDS: PIPERACILLIN/TAZOBACTAM SOD 3.375 GM in D5W MINI-BAG PLUS 50 ML IV SCH ×2 (03:54→09:14)
[2021-08-24] MEDS: SINEMET 25-100 MG TAB PO SCH ×2 (04:32→09:15)
[2021-08-24] MEDS: oxyCODONE 5MG TAB PO PRN ×2 (05:00→09:15)
[2021-08-24 05:51] LABS: HEMATOCRIT 38.9 % (42.0-52.0); HEMOGLOBIN 12.7 g/dl (13.5-17.5); MEAN CORPUSCULAR HGB CONC 32.6 g/dl (32.0-36.5); PLATELET COUNT, AUTOMATED 201 10^3/uL (150-450); RED BLOOD COUNT 4.23 10^6/uL (4.30-6.10)
[2021-08-24 06:00] VITALS: BP 122/55
[2021-08-24 06:20] LABS: BLOOD UREA NITROGEN 13 MG/DL (7-18); CALCIUM LEVEL 8.7 MG/DL (8.8-10.2); CARBON DIOXIDE LEVEL 29 MEQ/L (21-32); CHLORIDE LEVEL 112 MEQ/L (98-107); CREATININE FOR GFR 1.06 MG/DL (0.70-1.30); GLOMERULAR FILTRATION RATE > 60.0 (>49); GLUCOSE, FASTING 93 MG/DL (70-100); POTASSIUM SERUM 3.7 MEQ/L (3.5-5.1); SODIUM LEVEL 142 MEQ/L (136-145)
[2021-08-24] MEDS: MULTIVITAMINS/MINERALS THERAP 1 TAB PO SCH (09:00)
[2021-08-24] MEDS: ENOXAPARIN 100MG/1ML SYRINGE (J1650 PER 10MG) SC SCH (09:15)
[2021-08-24] MEDS: SENNA 8.6 MG TAB (SENOKOT) PO SCH (09:16)
[2021-08-24] MEDS ORDERED: LOVE0.8I SC (09:36)
[2021-08-24 11:04] LABS: INR 1.01; PROTHROMBIN TIME 13.7 SECONDS (12.7-14.5)
== END 2021-08-24 13:15 | disposition home health service (06) | DRG 577 ==
LOC: M SDC 07:31 → M MS5PR 11:51 → EEVIPCON 11:51 → M MS5PR 12:10 → M PCU 08-13 15:22 → M MSPAV 08-15 18:25
PROVIDERS: ADMIT Internal Medicine; ATTEND Internal Medicine
PROC: 0KBT0ZZ Excision of Left Lower Leg Muscle, Open Approach (ICD-10-PCS; 2021-08-11)
PROC: 0HRLX74 Replacement of Left Lower Leg Skin with Autologous Tissue Substitute, Partial Thickness, External Approach (ICD-10-PCS; principal; 2021-08-18 13:30)
DX: S81.802A Unspecified open wound, left lower leg, initial encounter (principal); D68.2 Hereditary deficiency of other clotting factors; D68.51 Activated protein C resistance; R65.10 Systemic inflammatory response syndrome (SIRS) of non-infectious origin without acute organ dysfunction; G93.40 Encephalopathy, unspecified; Z86.711 Personal history of pulmonary embolism; Z86.718 Personal history of other venous thrombosis and embolism; Z79.01 Long term (current) use of anticoagulants; I10 Essential (primary) hypertension; G31.83 Neurocognitive disorder with Lewy bodies; F02.80 Dementia in other diseases classified elsewhere, unspecified severity, without behavioral disturbance, psychotic disturbance, mood disturbance, and anxiety; W11.XXXA Fall on and from ladder, initial encounter; Y92.009 Unspecified place in unspecified non-institutional (private) residence as the place of occurrence of the external cause; Z79.899 Other long term (current) drug therapy; Z88.1 Allergy status to other antibiotic agents; Z88.5 Allergy status to narcotic agent; Z88.8 Allergy status to other drugs, medicaments and biological substances

== ENCOUNTER → 2021-08-31 | Outpatient (REF) | payer MEDICARE, MEDICAID ==
[~2021-08-31] MED LIST changes: +CARB25TA9 PO; +COLA100C5 PO; +LOVE0.8I SC; +MIRT-10 PO; +PROP20TA72 PO; +QUET50TA4 PO; -ceFAZolin SOD 2 GM in IV 1 EA IV ONE
[2021-08-31 16:34] LABS: INR 1.33; PROTHROMBIN TIME 16.9 SECONDS (12.7-14.5)
== END ==
LOC: M SHH 15:07
PROVIDERS: ATTEND Physician Assistant Medical
DX: Z51.81 Encounter for therapeutic drug level monitoring (principal)

== ENCOUNTER → 2021-11-18 | Outpatient (CLI) | payer MEDICARE, MEDICAID ==
[2021-11-18 15:53] LABS: INR 1.63; PROTHROMBIN TIME 19.8 SECONDS (12.7-14.5)
== END ==
LOC: M PLALAB 13:44
PROVIDERS: ATTEND Physician Assistant Medical
DX: Z51.81 Encounter for therapeutic drug level monitoring (principal); Z79.01 Long term (current) use of anticoagulants

== ENCOUNTER → 2022-10-16 | Outpatient (CLI) | payer MEDICARE, MEDICAID ==
[2022-10-16 13:41] LABS: INR 2.31; PROTHROMBIN TIME 25.8 SECONDS (12.5-14.5)
== END ==
LOC: M PLALAB 11:17
PROVIDERS: ATTEND Physician Assistant Medical
DX: D68.51 Activated protein C resistance (principal)

== ENCOUNTER → 2023-03-14 | Outpatient (CLI) | payer MEDICARE, MEDICAID | LOC: M RAD 10:30 | PROVIDERS: ATTEND Physician Assistant Medical | DX: K76.89 Other specified diseases of liver (principal); K43.9 Ventral hernia without obstruction or gangrene; H53.8 Other visual disturbances; R42 Dizziness and giddiness; W19.XXXS Unspecified fall, sequela; Z79.01 Long term (current) use of anticoagulants ==

== ENCOUNTER → 2023-06-04 | Outpatient (CLI) | payer MEDICARE, MEDICAID ==
[2023-06-04 13:24] LABS: BASO % 0.6 % (0.0-1.0); EOS # 0.2 10^3/uL (0.0-0.5); EOS % 2.2 % (0.0-3.0); HEMATOCRIT 43.4 % (42.0-52.0); HEMOGLOBIN 14.6 g/dl (13.5-17.5); LYMPH # 2.5 10^3/uL (1.5-5.0); LYMPH % 36.3 % (24.0-44.0); MEAN CORPUSCULAR HEMOGLOBIN 32.2 pg (27.0-33.0); MEAN CORPUSCULAR HGB CONC 33.6 g/dl (32.0-36.5); MEAN CORPUSCULAR VOLUME 95.6 fl (80.0-96.0); MONO # 0.5 10^3/uL (0.0-0.8); MONO % 7.5 % (2.0-8.0); NEUTROPHILS # 3.7 10^3/uL (1.5-8.5); NEUTROPHILS % 53.3 % (36.0-66.0); PLATELET COUNT, AUTOMATED 217 10^3/uL (150-450); RED BLOOD COUNT 4.54 10^6/uL (4.30-6.10); WHITE BLOOD COUNT 6.9 10^3/uL (4.0-10.0)
[2023-06-04 13:56] LABS: ALBUMIN 4.1 G/DL (3.2-5.2); ALKALINE PHOSPHATASE 66 U/L (46-116); ALT/SGPT 44 U/L (7.0-40); AST/SGOT 27 U/L (<34); BILIRUBIN,TOTAL 0.8 MG/DL (0.3-1.2); BLOOD UREA NITROGEN 22 MG/DL (9-23); CALCIUM LEVEL 9.3 MG/DL (8.3-10.6); CARBON DIOXIDE LEVEL 30 MMOL/L (20-31); CHLORIDE LEVEL 105 MMOL/L (98-107); CHOLESTEROL LEVEL 173 MG/DL (<200); CREATININE FOR GFR 0.85 MG/DL (0.70-1.30); GLOMERULAR FILTRATION RATE > 60.0 (>42); GLUCOSE, FASTING 99 MG/DL (74-106); HDL CHOLESTEROL 53.9 MG/DL (>40); LDL CHOLESTEROL 96.5 MG/DL (<100); NON-HDL-C 119.1 MG/DL; POTASSIUM SERUM 4.4 MMOL/L (3.5-5.1); PSA SCREENING 1.81 NG/ML (< 4.00); SODIUM LEVEL 139 MMOL/L (136-145); TOTAL PROTEIN 6.5 G/DL (5.7-8.2); TRIGLYCERIDES LEVEL 113 MG/DL (<150)
[2023-06-04 14:00] LABS: FREE T4 1.13 NG/DL (0.89-1.76); THYROID STIMULATING HORMONE 2.369 uIU/ML (0.55-4.78)
== END ==
LOC: M PLALAB 10:04
PROVIDERS: ATTEND Physician Assistant Medical
DX: Z12.5 Encounter for screening for malignant neoplasm of prostate (principal); Z13.220 Encounter for screening for lipoid disorders; I95.1 Orthostatic hypotension; I10 Essential (primary) hypertension; G25.0 Essential tremor
CPT/HCPCS: 36415; 80053; 80061; 84439; 84443; 85025; G0103

== ENCOUNTER 2023-06-19 11:09 | Outpatient (CLI) | payer MEDICARE, MEDICAID ==
[~2023-06-19] VITALS: Ht 175.3 cm; Wt 91.0 kg
[2023-06-19 12:30] VITALS: BP 146/76; O2SAT 97
[2023-06-19] MEDS: NS 1,000 ML IV ONE (12:41)
[2023-06-19 14:58] VITALS: BP 146/70; O2SAT 99
[2023-06-20] MEDS ORDERED: THERTAB52 PO (17:06)
[2023-06-20] MEDS ORDERED: WARF-23 PO (17:06)
[2023-06-20] MEDS ORDERED: DONE5TAB82 PO (17:07)
[2023-06-20] MEDS ORDERED: SELF1KIT MC (17:27)
[2023-06-20] MEDS ORDERED: NORV5TAB PO (17:27)
== END 2023-06-19 15:00 | disposition home or self-care (01) ==
LOC: M INFU 11:09
PROVIDERS: ATTEND Physician Assistant Medical
DX: I95.1 Orthostatic hypotension (principal); Z88.5 Allergy status to narcotic agent; Z88.8 Allergy status to other drugs, medicaments and biological substances

== ENCOUNTER 2023-06-20 12:45 | Emergency (ER) | payer MEDICARE, MEDICAID ==
[~2023-06-20] VITALS: Ht 175.3 cm; Wt 95.5 kg
[2023-06-20 13:24] LABS: BASO % 0.5 % (0.0-1.0); EOS # 0.1 10^3/uL (0.0-0.5); EOS % 1.6 % (0.0-3.0); HEMATOCRIT 41.5 % (42.0-52.0); HEMOGLOBIN 14.3 g/dl (13.5-17.5); LYMPH # 1.7 10^3/uL (1.5-5.0); LYMPH % 29.1 % (24.0-44.0); MEAN CORPUSCULAR HEMOGLOBIN 32.4 pg (27.0-33.0); MEAN CORPUSCULAR HGB CONC 34.5 g/dl (32.0-36.5); MEAN CORPUSCULAR VOLUME 93.9 fl (80.0-96.0); MONO # 0.4 10^3/uL (0.0-0.8); MONO % 6.5 % (2.0-8.0); NEUTROPHILS # 3.5 10^3/uL (1.5-8.5); NEUTROPHILS % 62.1 % (36.0-66.0); PLATELET COUNT, AUTOMATED 163 10^3/uL (150-450); RED BLOOD COUNT 4.42 10^6/uL (4.30-6.10); WHITE BLOOD COUNT 5.7 10^3/uL (4.0-10.0)
[2023-06-20 13:38] LABS: INR 2.27; PROTHROMBIN TIME 24.2 SECONDS (12.5-14.5)
[2023-06-20 14:01] LABS: ALBUMIN 3.8 G/DL (3.2-5.2); BILIRUBIN,DIRECT 0.2 MG/DL (<0.4); BILIRUBIN,TOTAL 0.6 MG/DL (0.3-1.2); CK-MB VALUE MASS 4.2 NG/ML (<3.6); MAGNESIUM LEVEL 1.9 MG/DL (1.8-2.4); MB/CK RELATIVE INDEX 1.73 (< OR =4); TOTAL PROTEIN 6.3 G/DL (5.7-8.2)
[2023-06-20] MEDS: NS 1,000 ML IV SCH (14:25)
[2023-06-20] MEDS: NS 500 ML IV ONE (14:25)
[2023-06-20] MEDS ORDERED: THERTAB52 PO (17:06)
[2023-06-20] MEDS ORDERED: WARF-23 PO (17:06)
[2023-06-20] MEDS ORDERED: DONE5TAB82 PO (17:07)
[2023-06-20] MEDS ORDERED: HOME MED LIST COMPLETE! XX SCH (17:10)
[2023-06-20] MEDS ORDERED: SELF1KIT MC (17:27)
[2023-06-20] MEDS ORDERED: NORV5TAB PO (17:27)
[2023-06-20 18:11] VITALS: BP 171/76
[2023-06-20] MEDS: amLODIPine 5 MG TAB PO ONE (18:11)
[2023-06-20 18:30] VITALS: BP 161/74; TEMP 99.3; O2SAT 97
== END 2023-06-20 18:40 | disposition home or self-care (01) ==
LOC: EDBD 12:45 → M ED 12:45 → CANBEDREQ 18:15 → M ED 18:40
DX: I10 Essential (primary) hypertension (principal); H81.4 Vertigo of central origin; I44.7 Left bundle-branch block, unspecified; Z88.8 Allergy status to other drugs, medicaments and biological substances; Z79.1 Long term (current) use of non-steroidal anti-inflammatories (NSAID); Z79.810 Long term (current) use of selective estrogen receptor modulators (SERMs); Z79.899 Other long term (current) drug therapy

== ENCOUNTER → 2023-07-13 | Outpatient (CLI) | payer MEDICARE, MEDICAID ==
[~2023-07-13] MED LIST changes: +DONE5TAB82 PO; +NORV5TAB PO; +SELF1KIT MC; +THERTAB52 PO
== END ==
LOC: M PLARAD 07:54
PROVIDERS: ATTEND Physician Assistant Medical
DX: R42 Dizziness and giddiness (principal); I95.1 Orthostatic hypotension; I16.0 Hypertensive urgency; R29.898 Other symptoms and signs involving the musculoskeletal system; M21.372 Foot drop, left foot

== ENCOUNTER → 2023-08-10 | Outpatient (CLI) | payer MEDICARE, MEDICAID ==
[~2023-08-10] MED LIST changes: +ISOVUE-370 76% 100ML VIAL As Ordered ONE
[2023-08-10 11:58] LABS: BASO % 0.5 % (0.0-1.0); EOS % 0.6 % (0.0-3.0); HEMOGLOBIN 14.9 g/dl (13.5-17.5); LYMPH # 1.5 10^3/uL (1.5-5.0); LYMPH % 23.1 % (24.0-44.0); MEAN CORPUSCULAR HEMOGLOBIN 32.5 pg (27.0-33.0); MEAN CORPUSCULAR HGB CONC 34.7 g/dl (32.0-36.5); MEAN CORPUSCULAR VOLUME 93.7 fl (80.0-96.0); MONO # 0.4 10^3/uL (0.0-0.8); MONO % 5.8 % (2.0-8.0); NEUTROPHILS # 4.5 10^3/uL (1.5-8.5); NEUTROPHILS % 69.8 % (36.0-66.0); PLATELET COUNT, AUTOMATED 173 10^3/uL (150-450); RED BLOOD COUNT 4.59 10^6/uL (4.30-6.10); WHITE BLOOD COUNT 6.4 10^3/uL (4.0-10.0)
[2023-08-10 12:13] LABS: D-DIMER QUANT < 0.27 ug/mL (<0.5); ERYTHROCYTE SEDIMENTATION RATE 6 mm/hr (0-20)
[2023-08-10 12:23] LABS: C REACTIVE PROTEIN QUANTITATIV < 0.40 MG/DL (<1.0)
[2023-08-10 12:24] LABS: ALKALINE PHOSPHATASE 75 U/L (46-116); ALT/SGPT 83 U/L (7.0-40); AST/SGOT 27 U/L (<34); BILIRUBIN,TOTAL 0.7 MG/DL (0.3-1.2); BLOOD UREA NITROGEN 22 MG/DL (9-23); CALCIUM LEVEL 9.2 MG/DL (8.3-10.6); CARBON DIOXIDE LEVEL 27 MMOL/L (20-31); CHLORIDE LEVEL 109 MMOL/L (98-107); CREATININE FOR GFR 0.93 MG/DL (0.70-1.30); GLOMERULAR FILTRATION RATE > 60.0 (>42); GLUCOSE, FASTING 104 MG/DL (74-106); POTASSIUM SERUM 4.4 MMOL/L (3.5-5.1); SODIUM LEVEL 141 MMOL/L (136-145); TOTAL PROTEIN 6.5 G/DL (5.7-8.2)
[2023-08-10 13:14] LABS: PROTHROMBIN TIME 26.1 SECONDS (12.5-14.5)
== END ==
LOC: M LAB 10:40
PROVIDERS: ATTEND Physician Assistant Medical
DX: M79.89 Other specified soft tissue disorders (principal); K76.89 Other specified diseases of liver; R06.02 Shortness of breath; R71.0 Precipitous drop in hematocrit; D68.51 Activated protein C resistance; I10 Essential (primary) hypertension; Z79.01 Long term (current) use of anticoagulants; Z95.828 Presence of other vascular implants and grafts

== ENCOUNTER → 2023-08-27 | Outpatient (CLI) | payer MEDICARE, MEDICAID ==
[~2023-08-27] MED LIST changes: -ISOVUE-370 76% 100ML VIAL As Ordered ONE
[2023-08-27 15:44] LABS: INR 2.78; PROTHROMBIN TIME 28.3 SECONDS (12.5-14.5)
== END ==
LOC: M PLALAB 13:21
PROVIDERS: ATTEND Physician Assistant Medical
DX: Z79.01 Long term (current) use of anticoagulants (principal)

== ENCOUNTER → 2023-09-05 | Outpatient (CLI) | payer MEDICARE, MEDICAID ==
[2023-09-05 15:09] LABS: BASO % 0.4 % (0.0-1.0); EOS # 0.1 10^3/uL (0.0-0.5); EOS % 0.7 % (0.0-3.0); HEMOGLOBIN 13.9 g/dl (13.5-17.5); LYMPH # 1.8 10^3/uL (1.5-5.0); LYMPH % 27.1 % (24.0-44.0); MEAN CORPUSCULAR HEMOGLOBIN 31.7 pg (27.0-33.0); MEAN CORPUSCULAR HGB CONC 33.9 g/dl (32.0-36.5); MEAN CORPUSCULAR VOLUME 93.6 fl (80.0-96.0); MONO # 0.4 10^3/uL (0.0-0.8); MONO % 6.1 % (2.0-8.0); NEUTROPHILS # 4.4 10^3/uL (1.5-8.5); NEUTROPHILS % 65.6 % (36.0-66.0); PLATELET COUNT, AUTOMATED 174 10^3/uL (150-450); RED BLOOD COUNT 4.38 10^6/uL (4.30-6.10); WHITE BLOOD COUNT 6.7 10^3/uL (4.0-10.0)
[2023-09-05 15:26] LABS: INR 2.77; PROTHROMBIN TIME 28.2 SECONDS (12.5-14.5)
== END ==
LOC: M PLALAB 13:23
PROVIDERS: ATTEND Physician Assistant Medical
DX: R71.0 Precipitous drop in hematocrit (principal); Z79.01 Long term (current) use of anticoagulants

== ENCOUNTER → 2023-10-04 | Outpatient (CLI) | payer MEDICARE, MEDICAID ==
[2023-10-04 12:46] LABS: BASO % 0.3 % (0.0-1.0); EOS # 0.1 10^3/uL (0.0-0.5); EOS % 0.7 % (0.0-3.0); HEMATOCRIT 45.2 % (42.0-52.0); HEMOGLOBIN 14.9 g/dl (13.5-17.5); LYMPH # 1.7 10^3/uL (1.5-5.0); LYMPH % 24.2 % (24.0-44.0); MEAN CORPUSCULAR HEMOGLOBIN 30.8 pg (27.0-33.0); MEAN CORPUSCULAR VOLUME 93.6 fl (80.0-96.0); MONO # 0.4 10^3/uL (0.0-0.8); MONO % 6.1 % (2.0-8.0); NEUTROPHILS # 4.7 10^3/uL (1.5-8.5); NEUTROPHILS % 68.6 % (36.0-66.0); PLATELET COUNT, AUTOMATED 189 10^3/uL (150-450); RED BLOOD COUNT 4.83 10^6/uL (4.30-6.10); WHITE BLOOD COUNT 6.9 10^3/uL (4.0-10.0)
[2023-10-04 13:15] LABS: INR 3.95; PROTHROMBIN TIME 37.1 SECONDS (12.5-14.5)
[2023-10-04 13:20] LABS: ALBUMIN 4.3 G/DL (3.2-5.2); ALKALINE PHOSPHATASE 78 U/L (46-116); ALT/SGPT 45 U/L (7.0-40); AST/SGOT 24 U/L (<34); BILIRUBIN,TOTAL 0.9 MG/DL (0.3-1.2); BLOOD UREA NITROGEN 20 MG/DL (9-23); CALCIUM LEVEL 9.7 MG/DL (8.3-10.6); CARBON DIOXIDE LEVEL 27 MMOL/L (20-31); CHLORIDE LEVEL 108 MMOL/L (98-107); CREATININE FOR GFR 0.93 MG/DL (0.70-1.30); GLOMERULAR FILTRATION RATE > 60.0 (>42); GLUCOSE, FASTING 93 MG/DL (74-106); SODIUM LEVEL 142 MMOL/L (136-145); TOTAL PROTEIN 6.6 G/DL (5.7-8.2)
== END ==
LOC: M PLALAB 09:24
PROVIDERS: ATTEND Physician Assistant Medical
DX: I82.432 Acute embolism and thrombosis of left popliteal vein (principal); I10 Essential (primary) hypertension; R53.1 Weakness; Z79.01 Long term (current) use of anticoagulants

== ENCOUNTER → 2023-10-29 | Outpatient (CLI) | payer MEDICARE, MEDICAID ==
[2023-10-29 15:02] LABS: INR 3.38; PROTHROMBIN TIME 32.9 SECONDS (12.5-14.5)
== END ==
LOC: M PLALAB 12:57
PROVIDERS: ATTEND Physician Assistant Medical
DX: I82.432 Acute embolism and thrombosis of left popliteal vein (principal)

== ENCOUNTER → 2023-11-30 | Outpatient (CLI) | payer MEDICARE, MEDICAID | LOC: M RAD 15:03 | PROVIDERS: ATTEND Physician Assistant Medical | DX: I82.432 Acute embolism and thrombosis of left popliteal vein (principal); R60.0 Localized edema ==

== ENCOUNTER → 2023-12-18 | Outpatient (CLI) | payer MEDICARE ==
[2023-12-18 15:06] LABS: INR 3.11; PROTHROMBIN TIME 30.9 SECONDS (12.5-14.5)
== END ==
LOC: M PLALAB 14:16
PROVIDERS: ATTEND Physician Assistant Medical
DX: Z51.81 Encounter for therapeutic drug level monitoring (principal)

== ENCOUNTER → 2024-01-18 | Outpatient (CLI) | payer MEDICARE, MEDICAID ==
[2024-01-18 14:45] LABS: BASO # 0.1 10^3/uL (0.0-0.2); BASO % 0.7 % (0.0-1.0); EOS # 0.1 10^3/uL (0.0-0.5); EOS % 0.8 % (0.0-3.0); HEMATOCRIT 43.7 % (42.0-52.0); HEMOGLOBIN 14.7 g/dl (13.5-17.5); LYMPH # 1.9 10^3/uL (1.5-5.0); LYMPH % 22.1 % (24.0-44.0); MEAN CORPUSCULAR HEMOGLOBIN 31.5 pg (27.0-33.0); MEAN CORPUSCULAR HGB CONC 33.6 g/dl (32.0-36.5); MEAN CORPUSCULAR VOLUME 93.8 fl (80.0-96.0); MONO # 0.4 10^3/uL (0.0-0.8); MONO % 5.1 % (2.0-8.0); NEUTROPHILS # 6.2 10^3/uL (1.5-8.5); NEUTROPHILS % 71.1 % (36.0-66.0); PLATELET COUNT, AUTOMATED 208 10^3/uL (150-450); RED BLOOD COUNT 4.66 10^6/uL (4.30-6.10); WHITE BLOOD COUNT 8.7 10^3/uL (4.0-10.0)
[2024-01-18 15:40] LABS: INR 2.78; PROTHROMBIN TIME 29.3 SECONDS (12.5-14.5)
== END ==
LOC: M PLALAB 13:57
PROVIDERS: ATTEND Physician Assistant Medical
DX: D68.51 Activated protein C resistance (principal); I10 Essential (primary) hypertension

== ENCOUNTER → 2024-02-25 | Outpatient (CLI) | payer MEDICARE, MEDICAID ==
[2024-02-25 15:18] LABS: INR 1.92; PROTHROMBIN TIME 22.2 SECONDS (12.5-14.5)
== END ==
LOC: M PLALAB 13:23
PROVIDERS: ATTEND Physician Assistant Medical
DX: D68.51 Activated protein C resistance (principal)

== ENCOUNTER → 2024-05-15 | Outpatient (CLI) | payer MEDICARE, MEDICAID ==
[2024-05-15 14:23] LABS: INR 2.03; PROTHROMBIN TIME 23.1 SECONDS (12.5-14.5)
[2024-05-15 17:29] LABS: BASO % 0.6 % (0.0-1.0); EOS # 0.1 10^3/uL (0.0-0.5); EOS % 1.4 % (0.0-3.0); HEMOGLOBIN 15.2 g/dl (13.5-17.5); LYMPH # 1.5 10^3/uL (1.5-5.0); LYMPH % 22.8 % (24.0-44.0); MEAN CORPUSCULAR HEMOGLOBIN 31.1 pg (27.0-33.0); MEAN CORPUSCULAR HGB CONC 33.8 g/dl (32.0-36.5); MEAN CORPUSCULAR VOLUME 92.2 fl (80.0-96.0); MONO # 0.4 10^3/uL (0.0-0.8); MONO % 5.8 % (2.0-8.0); NEUTROPHILS # 4.5 10^3/uL (1.5-8.5); NEUTROPHILS % 69.2 % (36.0-66.0); PLATELET COUNT, AUTOMATED 194 10^3/uL (150-450); RED BLOOD COUNT 4.88 10^6/uL (4.30-6.10); WHITE BLOOD COUNT 6.5 10^3/uL (4.0-10.0)
[2024-05-15 17:48] LABS: HEMOGLOBIN A1c 5.4 % (4.0-6.0)
[2024-05-15 17:54] LABS: ALBUMIN 4.4 G/DL (3.2-5.2); ALKALINE PHOSPHATASE 76 U/L (40-129); ALT/SGPT 19 U/L (7.0-40); AST/SGOT 25 U/L (<34); BLOOD UREA NITROGEN 15 MG/DL (9-23); CALCIUM LEVEL 9.4 MG/DL (8.3-10.6); CARBON DIOXIDE LEVEL 25 MMOL/L (20-31); CHLORIDE LEVEL 108 MMOL/L (98-107); GLOMERULAR FILTRATION RATE > 60.0 (>42); GLUCOSE, FASTING 96 MG/DL (74-106); POTASSIUM SERUM 4.1 MMOL/L (3.5-5.1); SODIUM LEVEL 143 MMOL/L (136-145); TOTAL PROTEIN 6.9 G/DL (5.7-8.2)
[2024-05-15 18:01] LABS: HEPATITIS B SURFACE ANTIBODY NEGATIVE (POSITIVE)
[2024-05-15 18:14] LABS: HEPATITIS B SURFACE ANTIGEN NEGATIVE (NEGATIVE)
[2024-05-15 18:34] LABS: HEPATITIS C VIRUS ABY INDEX 0.09 INDEX (<0.8)
[2024-05-19 01:02] LABS: HEPATITIS A IgG TOTAL REACTIVE (NON-REACTIVE)
== END ==
LOC: M PLALAB 12:53
PROVIDERS: ATTEND Physician Assistant Medical
DX: D68.51 Activated protein C resistance (principal); I82.432 Acute embolism and thrombosis of left popliteal vein; R71.0 Precipitous drop in hematocrit; Z86.711 Personal history of pulmonary embolism; R79.89 Other specified abnormal findings of blood chemistry; W19.XXXA Unspecified fall, initial encounter; Z68.32 Body mass index [BMI] 32.0-32.9, adult; Z11.59 Encounter for screening for other viral diseases

== ENCOUNTER → 2024-05-19 | Outpatient (CLI) | payer MEDICARE, MEDICAID | LOC: M RAD 16:30 | PROVIDERS: ATTEND Physician Assistant Medical | DX: S80.01XA Contusion of right knee, initial encounter (principal); M25.761 Osteophyte, right knee; Z86.711 Personal history of pulmonary embolism ==

== ENCOUNTER → 2024-07-10 | Outpatient (REF) | payer MEDICARE, MEDICAID | LOC: M SFHCPLAZ 11:50 | PROVIDERS: ATTEND Physician Assistant Medical | DX: R71.0 Precipitous drop in hematocrit (principal); R79.89 Other specified abnormal findings of blood chemistry; D68.51 Activated protein C resistance; I82.432 Acute embolism and thrombosis of left popliteal vein; Z53.9 Procedure and treatment not carried out, unspecified reason ==

== ENCOUNTER → 2024-07-10 | Outpatient (CLI) | payer MEDICARE, MEDICAID ==
[2024-07-10 14:58] LABS: BASO % 0.4 % (0.0-1.0); EOS % 0.4 % (0.0-3.0); HEMATOCRIT 45.4 % (42.0-52.0); LYMPH # 1.7 10^3/uL (1.5-5.0); LYMPH % 23.6 % (24.0-44.0); MEAN CORPUSCULAR HEMOGLOBIN 31.1 pg (27.0-33.0); MONO # 0.4 10^3/uL (0.0-0.8); MONO % 5.1 % (2.0-8.0); NEUTROPHILS # 5.1 10^3/uL (1.5-8.5); NEUTROPHILS % 70.4 % (36.0-66.0); PLATELET COUNT, AUTOMATED 188 10^3/uL (150-450); RED BLOOD COUNT 4.83 10^6/uL (4.30-6.10); WHITE BLOOD COUNT 7.2 10^3/uL (4.0-10.0)
[2024-07-10 15:08] LABS: INR 2.45; PROTHROMBIN TIME 26.6 SECONDS (12.5-14.5)
== END ==
LOC: M PLALAB 12:24
PROVIDERS: ATTEND Physician Assistant Medical
DX: Z79.01 Long term (current) use of anticoagulants (principal)

== ENCOUNTER → 2024-08-06 | Outpatient (CLI) | payer MEDICARE, MEDICAID ==
[2024-08-06 12:48] LABS: BASO % 0.5 % (0.0-1.0); EOS % 0.7 % (0.0-3.0); HEMATOCRIT 45.8 % (42.0-52.0); HEMOGLOBIN 15.2 g/dl (13.5-17.5); LYMPH # 1.7 10^3/uL (1.5-5.0); LYMPH % 27.7 % (24.0-44.0); MEAN CORPUSCULAR HEMOGLOBIN 31.2 pg (27.0-33.0); MEAN CORPUSCULAR HGB CONC 33.2 g/dl (32.0-36.5); MONO # 0.4 10^3/uL (0.0-0.8); MONO % 6.4 % (2.0-8.0); NEUTROPHILS # 3.9 10^3/uL (1.5-8.5); NEUTROPHILS % 64.4 % (36.0-66.0); PLATELET COUNT, AUTOMATED 201 10^3/uL (150-450); RED BLOOD COUNT 4.87 10^6/uL (4.30-6.10); WHITE BLOOD COUNT 6.1 10^3/uL (4.0-10.0)
[2024-08-06 12:58] LABS: INR 1.73; PROTHROMBIN TIME 20.5 SECONDS (12.5-14.5)
[2024-08-06 14:13] LABS: PSA SCREENING 2.21 NG/ML (< 4.00)
[2024-08-06 14:16] LABS: FERRITIN 46.6 NG/ML (10.5-307.3)
[2024-08-06 14:18] LABS: ALBUMIN 4.2 G/DL (3.2-5.2); BILIRUBIN,TOTAL 0.6 MG/DL (0.3-1.2); CALCIUM LEVEL 9.7 MG/DL (8.3-10.6); CHOLESTEROL RISK RATIO 3.49 (<5); CREATININE FOR GFR 0.95 MG/DL (0.70-1.30); HDL CHOLESTEROL 49.2 MG/DL (>40); LDL CHOLESTEROL 99.6 MG/DL (<100); NON-HDL-C 122.8 MG/DL; POTASSIUM SERUM 4.5 MMOL/L (3.5-5.1); TOTAL PROTEIN 6.7 G/DL (5.7-8.2)
== END ==
LOC: M PLALAB 11:53
PROVIDERS: ATTEND Physician Assistant Medical
DX: I10 Essential (primary) hypertension (principal); Z12.5 Encounter for screening for malignant neoplasm of prostate; Z79.01 Long term (current) use of anticoagulants; D50.9 Iron deficiency anemia, unspecified
CPT/HCPCS: 36415; 80053; 80061; 82728; 83540; 85025; 85610; G0103

== ENCOUNTER → 2024-10-23 | Outpatient (CLI) | payer MEDICARE, MEDICAID ==
[2024-10-23 10:16] LABS: INR 3.26
== END ==
LOC: M PLALAB 08:54
PROVIDERS: ATTEND Physician Assistant Medical
DX: Z51.81 Encounter for therapeutic drug level monitoring (principal); Z79.01 Long term (current) use of anticoagulants

== ENCOUNTER → 2024-11-05 | Outpatient (CLI) | payer MEDICARE, MEDICAID ==
[2024-11-05 15:17] LABS: INR 2.37
== END ==
LOC: M PLALAB 10:35
PROVIDERS: ATTEND Physician Assistant Medical
DX: D68.51 Activated protein C resistance (principal)

== ENCOUNTER → 2024-12-02 | Outpatient (CLI) | payer MEDICARE, MEDICAID ==
[2024-12-02 13:18] LABS: BASO # 0.1 10^3/uL (0.0-0.2); BASO % 0.7 % (0.0-1.0); EOS # 0.1 10^3/uL (0.0-0.5); EOS % 0.8 % (0.0-3.0); LYMPH # 1.5 10^3/uL (1.5-5.0); LYMPH % 21.3 % (24.0-44.0); MONO # 0.5 10^3/uL (0.0-0.8); MONO % 6.3 % (2.0-8.0); NEUTROPHILS # 5.0 10^3/uL (1.5-8.5); NEUTROPHILS % 70.6 % (36.0-66.0); PLATELET COUNT, AUTOMATED 199 10^3/uL (150-450)
[2024-12-02 13:24] LABS: INR 2.55
[2024-12-02 13:25] LABS: ERYTHROCYTE SEDIMENTATION RATE 6 mm/hr (0-20)
== END ==
LOC: M PLALAB 10:35
PROVIDERS: ATTEND Physician Assistant Medical
DX: L03.116 Cellulitis of left lower limb (principal); D68.51 Activated protein C resistance; Z79.01 Long term (current) use of anticoagulants

== ENCOUNTER → 2024-12-09 | Outpatient (CLI) | payer MEDICARE, MEDICAID ==
[2024-12-09 12:38] LABS: BASO # 0.0 10^3/uL (0.0-0.2); BASO % 0.4 % (0.0-1.0); EOS # 0.1 10^3/uL (0.0-0.5); EOS % 0.9 % (0.0-3.0); LYMPH # 1.7 10^3/uL (1.5-5.0); LYMPH % 24.8 % (24.0-44.0); MONO # 0.4 10^3/uL (0.0-0.8); MONO % 5.5 % (2.0-8.0); NEUTROPHILS # 4.6 10^3/uL (1.5-8.5); NEUTROPHILS % 68.3 % (36.0-66.0); PLATELET COUNT, AUTOMATED 213 10^3/uL (150-450)
[2024-12-09 12:45] LABS: ERYTHROCYTE SEDIMENTATION RATE 8 mm/hr (0-20)
[2024-12-09 12:48] LABS: C REACTIVE PROTEIN QUANTITATIV < 0.50 MG/DL (<1.0); CALCIUM LEVEL 9.2 MG/DL (8.3-10.6); CARBON DIOXIDE LEVEL 29 MMOL/L (20-31); CHLORIDE LEVEL 106 MMOL/L (98-107); CREATININE FOR GFR 1.03 MG/DL (0.70-1.30); GLOMERULAR FILTRATION RATE 76.7 (>42); POTASSIUM SERUM 4.3 MMOL/L (3.5-5.1); SODIUM LEVEL 143 MMOL/L (136-145)
== END ==
LOC: M RAD 10:39
PROVIDERS: ATTEND Nurse Practitioner Family
DX: M79.89 Other specified soft tissue disorders (principal)

== ENCOUNTER → 2025-01-05 | Outpatient (CLI) | payer MEDICARE, MEDICAID ==
[2025-01-05 13:05] LABS: INR 3.18
== END ==
LOC: M PLALAB 10:50
PROVIDERS: ATTEND Physician Assistant Medical
DX: D68.51 Activated protein C resistance (principal)

== ENCOUNTER → 2025-02-18 | Outpatient (CLI) | payer MEDICARE, MEDICAID | LOC: M RAD 12:14 | PROVIDERS: ATTEND Physician Assistant Medical | DX: I95.1 Orthostatic hypotension (principal); I82.432 Acute embolism and thrombosis of left popliteal vein ==

== ENCOUNTER 2025-03-08 20:52 | Emergency (ER) | payer MEDICARE, MEDICAID ==
[~2025-03-08] VITALS: Ht 175.3 cm; Wt 90.9 kg
[2025-03-08 21:21] LABS: BASO # 0.0 10^3/uL (0.0-0.2); BASO % 0.3 % (0.0-1.0); EOS # 0.0 10^3/uL (0.0-0.5); EOS % 0.3 % (0.0-3.0); LYMPH # 1.3 10^3/uL (1.5-5.0); LYMPH % 13.5 % (24.0-44.0); MONO # 0.5 10^3/uL (0.0-0.8); MONO % 5.0 % (2.0-8.0); NEUTROPHILS # 7.5 10^3/uL (1.5-8.5); NEUTROPHILS % 80.7 % (36.0-66.0); PLATELET COUNT, AUTOMATED 188 10^3/uL (150-450)
[2025-03-08 21:46] LABS: INR 2.53
[2025-03-08 21:52] LABS: CALCIUM LEVEL 9.5 MG/DL (8.3-10.6); CARBON DIOXIDE LEVEL 25.0 MMOL/L (20-31); CHLORIDE LEVEL 108.0 MMOL/L (98-107); CREATININE FOR GFR 1.14 MG/DL (0.70-1.30); GLOMERULAR FILTRATION RATE 67.9 (>42); POTASSIUM SERUM 3.9 MMOL/L (3.5-5.1); SODIUM LEVEL 142.0 MMOL/L (136-145)
[2025-03-08 21:55] VITALS: TEMP 97.6
[2025-03-08] MEDS: ACETAMINOPHEN *IV* 1,000 MG in IV 1 EA IV ONE (23:07)
[2025-03-08] MEDS: NS (Normal Saline) 0.9% 1,000 ML IV ONE (23:07)
[2025-03-08 23:30] LABS: KETONE, URINE AUTO RFX TRACE mg/dL (NEGATIVE); LEUKOCYTE ESTERASE UR AUTO RFX NEGATIVE (NEGATIVE); MUCUS, URINE RFX SMALL (NEGATIVE); NITRITE, URINE AUTO RFX NEGATIVE (NEGATIVE); RBC, URINE AUTO RFX 0 /HPF (0-3); SQUAM EPITHELIAL CELL UR AURFX 0 /HPF (0-6); WBC, URINE AUTO RFX 0 /HPF (0-3)
[2025-03-09 00:30] VITALS: BP 151/77; O2SAT 96
[2025-03-20] MEDS ORDERED: MEMA10TA PO (15:22)
[2025-03-20] MEDS ORDERED: TIZA1TAB12 PO (15:22)
[2025-03-20] MEDS ORDERED: NORT10CA2 PO (15:22)
[2025-03-20] MEDS ORDERED: TRAZ-186 PO (15:22)
[2025-03-20] MEDS ORDERED: AMLO1TAB24 PO (15:22)
[2025-03-20] MEDS ORDERED: GABA-1171 PO (15:22)
[2025-03-20] MEDS ORDERED: MECL-86 PO (15:22)
[2025-03-20] MEDS ORDERED: MECL-136 PO (15:22)
== END 2025-03-09 00:48 | disposition home or self-care (01) ==
LOC: M ED 20:52 → EDBD 20:52 → M ED 03-09 00:48
DX: R55 Syncope and collapse (principal); S70.02XA Contusion of left hip, initial encounter; Y92.019 Unspecified place in single-family (private) house as the place of occurrence of the external cause; Y93.9 Activity, unspecified; Y99.9 Unspecified external cause status; M50.30 Other cervical disc degeneration, unspecified cervical region; G20.A1 Parkinson's disease without dyskinesia, without mention of fluctuations; Z88.5 Allergy status to narcotic agent; Z88.8 Allergy status to other drugs, medicaments and biological substances; Z79.1 Long term (current) use of non-steroidal anti-inflammatories (NSAID); Z79.01 Long term (current) use of anticoagulants; Z79.899 Other long term (current) drug therapy; Z79.810 Long term (current) use of selective estrogen receptor modulators (SERMs)
CPT/HCPCS: 70450; 72125; 73502; 80048; 81001; 85025; 85610; 85730; 93005; 96374; 99284; J0134